=== PATIENT | female | born 1980 | race Caucasian/White ===

== ENCOUNTER → 2017-08-21 10:27 | Outpatient (CLI) | payer MEDICAID, SELFPAY ==
[2017-08-21 10:46] LABS: Basophils % 0.5 % (0.1-2.0); Eosinophils # 0.1 K/mm3 (0.0-0.4); Eosinophils % 2.5 % (0.1-12.0); Hemoglobin 13.8 g/dL (12.2-16.2); Lymphocytes # 2.4 K/mm3 (0.7-4.5); Mean Corpuscular HGB Conc 33.6 g/dL (31.8-35.4); Mean Corpuscular Hemoglobin 32.2 pg (27.0-31.2); Mean Platelet Volume 8.6 fl (7.4-10.4); Monocytes # 0.3 K/mm3 (0.1-1.0); Monocytes % 5.7 % (1.7-9.3); Neutrophils # 2.6 K/mm3 (1.8-7.8); Neutrophils % 48.3 % (37.0-80.0); Platelet Count 176 K/mm3 (142-424); Red Blood Count 4.28 M/mm3 (4.20-5.40); Red Cell Distribution Width 12.7 % (11.5-17.5); White Blood Count 5.5 K/mm3 (4.8-10.8)
[2017-08-21 13:09] LABS: Alanine Aminotransferase 212 U/L (12-78); Albumin Level 3.6 gm/dL (3.4-5.0); Alkaline Phosphatase 70 U/L (46-116); Anion Gap 12.6 mEq/L (5-15); Aspartate Amino Transferase 98 U/L (15-37); Bilirubin,Direct 0.2 mg/dL (0.0-0.2); Bilirubin,Total 0.8 mg/dL (0.2-1.0); Blood Urea Nitrogen 8 mg/dL (7-18); Carbon Dioxide 27 mmol/L (21.0-32.0); Chloride 105 mmol/L (98-107); Creatinine,Serum 0.55 mg/dL (0.55-1.02); Estimated Glomerular Filt Rate 124 ml/min (>60); GFR (African American) 150 ML/MIN (>60); Glucose 79 mg/dL (74-106); Potassium 3.6 mmoL/L (3.5-5.1); Sodium 141 mmol/L (136-145); Total Protein,Serum 8.5 gm/dL (6.4-8.2)
[2017-08-22 08:24] LABS: Hep A Ab, IgM Negative (Negative); Hepatitis B Core Antibody IgM Negative (Negative); Hepatitis B Surface Antigen Negative (Negative)
[2017-08-23 06:28] LABS: HIV Screen 4th Generation wRfx Non Reactive (Non Reactive); Hepatitis C Antibody >11.0 s/co ratio (0.0-0.9)
== END ==
PROVIDERS: PCP Nurse Practitioner Family; Visit Provider Anesthesiology
DX: F11.20 Opioid dependence, uncomplicated (principal)
CPT/HCPCS: 36415; 80048; 80074; 80076; 85025; 86703; G0432

== ENCOUNTER → 2022-10-24 10:11 | Outpatient (CLI) | payer MEDICAID, SELFPAY ==
--- NOTE | 2022-10-24 10:16 | MM_ITS ---
PROCEDURE INFORMATION: Exam: Bilateral Screening 3D Mammography Exam date and time: 10/24/2022 10:24 AM Age: 42 years old Clinical indication: Screening mammogram TECHNIQUE: Imaging protocol: Bilateral Screening tomosynthesis and 2D mammography including computer-aided detection (CAD) when performed. COMPARISON: No relevant prior studies available. FINDINGS: MAMMOGRAPHY: Breast composition: The breast is heterogeneously dense, which may obscure small masses. The breast is heterogeneously dense, which may obscure small masses. Mass: 0.4 cm mass within the inner periareolar right breast, not well-delineated on MLO, should be further assessed with spot views in CC/MLO projection. Ultrasound should also be performed. Architectural distortion: No new or suspicious architectural distortion. Calcifications: No new or suspicious calcifications are present Asymmetric density: No new or suspicious asymmetric density is present Skin thickening: None. Axillary adenopathy: None. IMPRESSION: 0.4 cm mass within the inner periareolar right breast, not well-delineated on MLO, should be further assessed with spot views in CC/MLO projection. Ultrasound should also be performed. ASSESSMENT: BI-RADS category 0: Incomplete-need additional imaging evaluation
--- NOTE | 2022-10-24 10:16 | US_ITS ---
FINAL REPORT CLINICAL HISTORY: ELEVATED LIVER ENZYMES COMPARISON: None FINDINGS: Sonographic images of the right upper quadrant were obtained. The pancreas is partially obscured. There is increased hepatic echogenicity consistent with fatty infiltration. The gallbladder appears normal without evidence of gallstones.There is no evidence of biliary ductal dilatation.The common duct measures 5 mm. Limited images of the right kidney are unremarkable. IMPRESSION: Fatty liver. Reviewed, Interpreted and Dictated by Trey Hill III, MD Transcribed by Fidelina Diaz Authenticated and [facility]
== END ==
PROVIDERS: PCP Nurse Practitioner Family; Referring Provider Nurse Practitioner Obstetrics & Gynecology; Visit Provider Nurse Practitioner Family
DX: Z12.31 Encounter for screening mammogram for malignant neoplasm of breast (principal); R74.01 Elevation of levels of liver transaminase levels
CPT/HCPCS: 76705; 77063; 77067

== ENCOUNTER → 2022-10-25 10:33 | Outpatient (CLI) | payer MEDICAID, SELFPAY | PROVIDERS: Visit Provider Nurse Practitioner Obstetrics & Gynecology | DX: N76.0 Acute vaginitis (principal); B95.7 Other staphylococcus as the cause of diseases classified elsewhere | CPT/HCPCS: 87070; 87077; 87186; 87205 ==

== ENCOUNTER → 2022-11-06 13:52 | Outpatient (CLI) | payer MEDICAID, SELFPAY ==
--- NOTE | 2022-11-06 13:57 | MM_ITS ---
PROCEDURE INFORMATION: Exam: US Right Breast, Complete MG Right Diagnostic Breast Tomosynthesis Exam date and time: 11/06/2022 2:25 PM Age: 42 years old Clinical indication: Patient recalled on the basis of a screening mammogram for further evaluation; Right breast; mass TECHNIQUE: Imaging protocol: Complete ultrasound of all four quadrants of the right breast and the retroareolar regions, including ultrasound of the axilla when performed. Right Diagnostic tomosynthesis and 2D mammography including computer-aided detection (CAD) when performed. Unilateral or bilateral exam. COMPARISON: MG MM DIG MAMM DX UNILAT RT CAD 11/06/2022 1:52 PM FINDINGS: MAMMOGRAPHY: Digital diagnostic spot compression views of the right breast and 90 degree lateral view of the right breast demonstrate normal overlapping fibroglandular structures without persistent mass or asymmetry identified. ULTRASOUND: Sonographic images of the right breast including the retroareolar region, all 4 quadrants and the axilla were obtained. 0.3 cm right 7 o'clock axis cyst 1 cm from the nipple. Questionable hypoechoic solid mass versus prominent fat lobule in the right 11 o'clock axis 2 cm from the nipple measuring 0.6 x 0.5 x 0.3 cm. No architectural distortion or acoustical shadowing. No skin thickening or axillary adenopathy. IMPRESSION: Questionable solid mass versus fat lobule in the right 11 o'clock axis. A six-month follow-up targeted right breast ultrasound is recommended to ensure stability over time. ASSESSMENT: BI-RADS Category 3: Probably benign
== END ==
PROVIDERS: PCP Nurse Practitioner Family; Visit Provider Nurse Practitioner Family
DX: R92.2 Inconclusive mammogram (principal)
CPT/HCPCS: 76641; 77061; 77065; G0279

== ENCOUNTER 2023-01-10 10:49 | Emergency (ER) | payer MEDICAID, SELFPAY ==
[2023-01-10 10:49] VITALS: BP 149/83; PULSE 96; RESP 17; TEMP 37; O2SAT 98; BMI 26.6
--- NOTE | 2023-01-10 11:10 | PC.NURSE ---
Triage completed. Patient stable, NAD, VSS. Updated on wait time and placed back out in lobby
--- NOTE | 2023-01-10 12:54 | CT_ITS ---
FINAL REPORT TECHNIQUE: Postcontrast axial images through the abdomen and pelvis were performed. This study was performed with techniques to keep radiation doses as low as reasonably achievable, (ALARA). Individualized dose reduction techniques using automated exposure control or adjustment of mA and/or kV according to the patient's size were employed. CLINICAL HISTORY: ABD PAIN FINDINGS: Abdomen: The lung bases are clear. The liver is normal in size and attenuation. The gallbladder is moderately distended. The spleen is unremarkable. The adrenals are normal. The pancreas is unremarkable. The kidneys enhance appropriately. The aorta is normal in caliber. No free fluid or adenopathy is identified. No findings for mechanical bowel obstruction are identified. Pelvis: The appendix is enlarged measuring 8 mm in diameter but no adjacent inflammation is identified. There is no convincing evidence of appendicitis. IUD seen in the uterus. There is wall thickening of the ascending and descending colon consistent with diverticulosis. The urinary bladder is unremarkable. There is a small amount of free fluid, may be physiologic or reactive. Note is made of bilateral L5 pars defects. IMPRESSION: The appendix is enlarged without convincing evidence of appendicitis. Diverticulosis without evidence of diverticulitis. Reviewed, Interpreted and Dictated by Trey Hill III, MD Transcribed by Yamel Hatch Authenticated and [facility]
[2023-01-10 13:03] LABS: Microscopic, Urine URINE MICROSCOPIC (MICROSCOPIC)
[2023-01-10 13:07] LABS: Basophils % 0.5 % (0.1-2.0); Eosinophils # 0.1 K/mm3 (0.0-0.4); Eosinophils % 1.7 % (0.1-12.0); Hematocrit 39.7 % (37.0-47.0); Hemoglobin 12.8 g/dL (12.2-16.2); Lymphocytes # 1.5 K/mm3 (0.7-4.5); Lymphocytes % 36.4 % (10-50); Mean Corpuscular HGB Conc 32.3 g/dL (31.8-35.4); Mean Corpuscular Hemoglobin 30.8 pg (27.0-31.2); Mean Corpuscular Volume 95.3 fl (81-99); Mean Platelet Volume 8.2 fl (7.4-10.4); Monocytes # 0.2 K/mm3 (0.1-1.0); Monocytes % 5.9 % (1.7-9.3); Neutrophils # 2.3 K/mm3 (1.8-7.8); Neutrophils % 55.5 % (37.0-80.0); Platelet Count 148 K/mm3 (142-424); Red Blood Count 4.16 M/mm3 (4.20-5.40); Red Cell Distribution Width 12.9 % (11.5-17.5); White Blood Count 4.1 K/mm3 (4.8-10.8)
[2023-01-10 13:08] LABS: Appearance,Urine SL CLOUDY (Clear); Bilirubin,Urine Negative (Negative); Blood, Urine Negative (Negative); Color,Urine DK YELLOW (Yellow); Glucose,Urine (UA) Negative (Negative); Ketones,Urine TRACE (Negative); Leukocyte Esterase,Urine Negative (Negative); Nitrate,Urine Negative (Negative); Protein,Urine Negative (Negative); Specific Gravity, Urine 1.025 (1.005-1.030)
[2023-01-10 13:14] LABS: Urine Pregnancy, HCG Qual. Negative (Negative)
[2023-01-10 13:29] LABS: WBC,Urine Occasional #/hpf (0-3)
[2023-01-10 13:30] VITALS: BP 125/75; PULSE 83; O2SAT 98
[2023-01-10 13:30] LABS: Bacteria,Urine Trace /lpf; Squamous Epithelial Cell,Urine Occasional #/hpf (0-5)
[2023-01-10 13:45] LABS: Alanine Aminotransferase 28 U/L (12-78); Albumin Level 4.2 g/dl (3.5-5.0); Alkaline Phosphatase 60 U/L (38-126); Aspartate Amino Transferase 37 U/L (14-36); Bilirubin,Total 0.7 mg/dl (0.2-1.3); Blood Urea Nitrogen 5 mg/dl (7-17); Calcium 8.9 mg/dl (8.4-10.2); Carbon Dioxide 29 mmol/L (22.0-30.0); Chloride 105 mmol/L (98-107); Creatinine Clearance Estimated 166 mL/min (50-200); Estimated Glomerular Filt Rate 135 ml/min (>60); GFR (African American) 163 ML/MIN (>60); Globulin 4.2 g/dL (1.3-3.2); Glucose 98 mg/dl (74-100); Lipase 28 U/L (23-300); Sodium 140 mmol/L (136-145); Total Protein,Serum 8.4 g/dl (6.3-8.2)
[2023-01-10 14:30] VITALS: BP 122/73; PULSE 80; O2SAT 99
--- NOTE | 2023-01-10 14:51 | HMH.EDGENADL ---
Discharge Plan Disposition Patient Disposition: Home, Self-Care Condition: Good Chief Complaint: Abdominal Pain Prescriptions Prescriptions: No Action Mirena 21 mcg/24 hours (8 yrs) 52 mg intrauterine device 1 device intrauterine ONCE spironolactone 25 mg tablet 25 mg PO DAILY Referrals Follow up/Referrals: Sheila Ashraf [Primary Care Provider] - See instructions Activity Restrictions/Add. Instructions Additional Instructions/Restrictions: Home medication as directed. Stay well-hydrated. Maintain appoint with gastroenterology. Follow-up PCP. Return to ER for fever Clinical Impressions Clinical Impression: Diverticulosis Abdominal pain Qualifiers: Abdominal location: generalized Qualified Code(s): R10.84 - Generalized abdominal pain Instructions Patient Instructions: DI for Acute Abdominal Pain Discharge ED Provider: Chase Trinh General Adult HPI General Chief complaint: Abdominal Pain Stated complaint: Abd pain, Rt back pain Time Seen by Provider: 01/10/23 14:21 Mode of Arrival: Ambulatory Source of Information: Patient Limitations: No Limitations Description of Symptoms (Recalled from ER Triage Doc. by RN): 42 F presents with chronic GI issues. She reports being scheduled for an EGD on Saturday with Dr. Brandon Salgado for evaluation. She was seen with her PCP yesterday who gave her Phenergan PO and Bentyl PO for nausea/pain. Patient has no acute symptoms this visit. History of Present Illness HPI narrative: 42yo F presents to the ER secondary to chronic GI issues. Scheduled for EGD on Saturday. Reports symptoms have not gotten any better so she came to the ER. No fever. Complains of abdominal cramps. Initially had normal bowel movements but now has diarrhea. but no other abdominal surgery. Related Data Home Medications Medication Instructions Recorded Confirmed spironolactone 25 mg tablet 25 mg PO DAILY 10/24/22 12/11/22 levonorgestrel 21 mcg/24 hours (8 1 device intrauterine ONCE 11/13/22 12/11/22 yrs) 52 mg intrauterine device (Mirena) Allergies Allergy/AdvReac Type Severity Reaction Status Date / Time From Penicillin V Potassium Allergy Unknown Uncoded 12/11/22 14:32 SULFA (SULFONAMIDE) Allergy Unknown I-HIVES Uncoded 12/11/22 14:32 [facility] Disclaimer: The information contained in this section may have been updated after the patient was seen, as this information can be updated by other users. Medical History delivery delivered Surgical History [place] teeth removed Family History Other Alcoholism Asthma Cancer Coronary artery disease Diabetes Heart attack Hyperlipidemia Hypertension Kidney disease Substance abuse Thyroid disorder Social History Smoking Status: Current every day smoker tobacco type: cigarettes alcohol intake: never substance use type: former substance user current occupational status: employed Travel in the last 8 weeks: None ROS Obtained: Yes Systems reviewed as appropriate & no additional complaints except as documented Physical Exam General General appearance: alert and in no apparent distress Head Head exam: normocephalic Eye Eye exam: Present PERRL Neck Neck exam: Present trachea midline Chest Chest inspection: Present symmetric chest wall rise Respiratory Respiratory exam: Present normal lung sounds bilaterally; Absent respiratory distress Cardiovascular Cardiovascular exam: Present regular rate, normal rhythm and normal heart sounds Abdominal Exam Abdominal exam: Present soft and normal bowel sounds; Absent distention, tenderness or guarding Extremities Exam Extremities exam: Present normal inspection and full ROM Neurological Exam Neurological exam: Present aler
[2023-01-10 15:00] VITALS: BP 117/70; PULSE 84; O2SAT 100
[2023-01-10 15:30] VITALS: BP 124/74; PULSE 82; O2SAT 99
[2023-01-10 15:55] VITALS: BP 124/74; PULSE 82; RESP 19; TEMP 37; O2SAT 99
== END 2023-01-10 15:57 | disposition home or self-care (01) ==
PROVIDERS: Emergency Provider Family Medicine; PCP Nurse Practitioner Family
DX: K57.30 Diverticulosis of large intestine without perforation or abscess without bleeding (principal); R10.84 Generalized abdominal pain; F17.210 Nicotine dependence, cigarettes, uncomplicated
CPT/HCPCS: 74177; 80053; 81001; 81025; 83690; 85025; 96361; 96374; 96375; 99284; 99285; J2405; Q9967

== ENCOUNTER 2023-12-04 08:19 | Outpatient (CLI) | payer BC, SELFPAY ==
--- NOTE | 2023-12-04 08:25 | MM_ITS ---
PROCEDURE INFORMATION: Exam: MG Bilateral Screening 3D Mammography Exam date and time: 12/04/2023 8:20 AM Age: 43 years old Clinical indication: Screening examination TECHNIQUE: Imaging protocol: Bilateral Screening tomosynthesis and 2D mammography including computer-aided detection (CAD) when performed. COMPARISON: 1. MG MM DIG MAMM DX UNILAT RT CAD 11/06/2022 1:52 PM 2. MG MM DIG SCREENING MAMM BI W/CAD 10/24/2022 10:24 AM FINDINGS: MAMMOGRAPHY: Breast composition: The breasts are heterogeneously dense, which may obscure small masses. Mass: None. Architectural distortion: None. Calcifications: No suspicious calcifications. Asymmetric density: None. Skin thickening: None. Axillary adenopathy: None. IMPRESSION: No mammographic evidence of malignancy. Annual screening is recommended unless otherwise clinically indicated. ASSESSMENT: BI-RADS Category 1: Negative
[2023-12-04 11:32] LABS: Basophils % 0.9 % (0.1-2.0); Hematocrit 39.6 % (37.0-47.0); Hemoglobin 13.4 g/dL (12.2-16.2); Lymphocytes # 1.6 K/mm3 (0.7-4.5); Lymphocytes % 36.1 % (10-50); Mean Corpuscular HGB Conc 33.8 g/dL (31.8-35.4); Mean Corpuscular Hemoglobin 32.3 pg (27.0-31.2); Mean Corpuscular Volume 95.6 fl (81-99); Monocytes # 0.3 K/mm3 (0.1-1.0); Monocytes % 5.6 % (1.7-9.3); Neutrophils # 2.5 K/mm3 (1.8-7.8); Neutrophils % 56.4 % (37.0-80.0); Platelet Count 144 K/mm3 (142-424); Red Blood Count 4.14 M/mm3 (4.20-5.40); Red Cell Distribution Width 13.1 % (11.5-17.5); White Blood Count 4.4 K/mm3 (4.8-10.8)
[2023-12-04 12:16] LABS: Chloride 103 mmol/L (98-107); Sodium 139 mmol/L (136-145)
[2023-12-04 12:17] LABS: Potassium 3.8 mmoL/L (3.5-5.1)
[2023-12-04 12:19] LABS: Alanine Aminotransferase 32 U/L (12-78); Albumin Level 4.4 g/dl (3.5-5.0); Albumin/Globulin Ratio 1.3 (1.1-1.8); Alkaline Phosphatase 73 U/L (38-126); Anion Gap 12.8 mEq/L (5-15); Aspartate Amino Transferase 31 U/L (14-36); Bilirubin,Total 0.6 mg/dl (0.2-1.3); Blood Urea Nitrogen 12 mg/dl (7-17); Carbon Dioxide 27 mmol/L (22.0-30.0); Cholesterol 148 mg/dl (140-200); Estimated Glomerular Filt Rate 109 ml/min (>60); GFR (African American) 131 ML/MIN (>60); Globulin 3.4 g/dL (1.3-3.2); Total Protein,Serum 7.8 g/dl (6.3-8.2); Triglycerides 57 mg/dl (30-150); VLDL Cholesterol 11 mg/dL (0-40)
[2023-12-04 12:20] LABS: Calcium 9.8 mg/dl (8.4-10.2); Chol/HDL Ratio 1.9 (1-3.5); Glucose 96 mg/dl (74-100); HDL Cholesterol 79 mg/dl (40-60)
[2023-12-04 12:32] LABS: Direct LDL Cholesterol 71.14 mg/dL (100-129)
[2023-12-04 12:36] LABS: Triiodothryronine (T3) Uptake 29 % (23.5-40.5)
[2023-12-04 12:38] LABS: Free Thyroxine Index 3.3 ug/dL (5.93-13.13); T4 (Thyroxine) 11.5 ug/dl (5.53-11.0)
[2023-12-04 12:51] LABS: Thyroid Stimulating Hormone 1.24 uIU/mL (0.465-4.68)
[2023-12-05 13:47] LABS: Estradiol 76.9 pg/mL (.); FSH 20.9 mIU/mL (.); LH 10.9 mIU/mL (.)
[2023-12-10 18:58] LABS: Testosterone,Free 1.7 pg/mL (0.0-4.2)
== END 2023-12-04 23:59 | disposition home or self-care (01) ==
LOC: RAD 08:20
PROVIDERS: Nurse Practitioner Obstetrics & Gynecology; PCP Nurse Practitioner Family; Visit Provider Nurse Practitioner Family
DX: Z01.419 Encounter for gynecological examination (general) (routine) without abnormal findings (principal); L65.9 Nonscarring hair loss, unspecified; Z12.31 Encounter for screening mammogram for malignant neoplasm of breast
CPT/HCPCS: 36415; 77063; 77067; 80053; 80061; 82626; 82670; 83001; 83002; 84402; 84436; 84443; 84479; 85025

== ENCOUNTER 2024-12-17 16:00 | Outpatient (RCR) | payer BC, SELFPAY | END 2024-12-17 23:59 | disposition home or self-care (01) | LOC: PT.CARL 16:00 | PROVIDERS: PCP Nurse Practitioner Family; Visit Provider Nurse Practitioner Family | DX: M54.12 Radiculopathy, cervical region (principal) | CPT/HCPCS: 97110; 97140; 97161 ==

== ENCOUNTER 2024-12-28 09:26 | Emergency (ER) | payer BC, SELFPAY ==
--- OUTSIDE RECORDS SUMMARY | 2024-12-21 10:00 | XMS_ITS | Encounter Summary ---
Author Organization [facility] [place] [address] Care Team Providers Care Cilnical Scientist Name Role Phone Unavailable Primary Care Provider Unavailabl e Reason for Referral * Mammography (Routine) - Pending Review Specialty Diagnoses / Procedures Referred By Cachorro machado Referred To Contact Radiology Diagnoses Encounter for screening mammogram for malignant neoplasm of breast Procedures MM MAMMO DIGITAL JULIUS SCREEN Sheila Joe, X[facility] [place] [address] Phone: tel: fax: Referral ID Status Reason Start Date Expiration Date V isits Requested Visits Authorized [id number] Pending Review 11/12/2024 11/12/2026 1 1 Reason for Visit * Mammography (Routine) - Pending Review Specialty Diagnoses / Procedures Referred By Cachorro machado Referred To Contact Radiology Diagnoses Encounter for screening mammogram for malignant neoplasm of breast Procedures MM MAMMO DIGITAL JULIUS SCREEN Sheila Joe, [facility] [place] [address] Phone: tel: fax: Referral ID Status Reason Start Date Expiration Date V isits Requested Visits Authorized [id number] Pending Review 11/12/2024 11/12/2026 1 1 Encounter Details Date Type Department Care Team (Latest Contact Info) Description 12/21/2024 10:00 AM EDT - 12/21/2024 11:59 PM EDT Hospital Encounter Mobile Mammography Other Location View online schedule for mobile van location [phone] Sheila Ashraf APRN [address] [place] [address] Encounter for screening mammogram for malignant neoplasm of breast Discharge Disposition: Home or Self Care Social History Tobacco Use Types Packs/Day Years Used Date Smoking Tobacco: Never Assessed Comments No Sex and Gender Information Value Date Recorded Sex Assigned at Not on file Legal Sex Female 12:07 PM EDT Gender Identity Not on file Sexual Orientation Not on file documented as of this encounter Last Filed Vital Signs Vital Sign Reading Time Taken Comments Blood Pressure - - Pulse - - Temperature - - Respiratory Rate - - Oxygen Saturation - - Inhaled Oxygen Concentration - - Weight 69.4 kg (153 lb) 12/21/2024 10:09 AM EDT Height 167.6 cm (5' 6 ) 12/21/2024 10:09 AM EDT Body Mass Index 24.69 12/21/2024 10:09 AM EDT documented in this encounter Discharge Disposition Disposition Code Departure Means Destination Home or Self Care documented in this encounter Plan of Treatment Not on file documented as of this encounter Procedures Procedure Name Priority Date/Time Associated Diagnosis Comments MM MAMMO DIGITAL JULIUS SCREEN BILAT Routine 12/21/2024 10:09 AM EDT Encounter for screening mammogram for malignant neoplasm of breast documented in this encounter Results * MM MAMMO DIGITAL JULIUS SCREEN BILAT (12/21/2024 10:09 AM EDT) Anatomical Region Laterality Modality Breast Bilateral Mammography 12/21/2024 10:0 9 AM EDT Impressions 12/22/2024 12:24 PM EDT Negative ([id number]) RECOMMENDATION: Routine Screening Mammogram in 1 Year Bilateral . . COMMENTS: DISCLAIMER *The patient was notified by MyChart or mail of the results for this examination. *The patient's information was entered into a reminder system with a target due date for the next breast imaging, in accordance with the [employer] and the Society of Breast Imaging recommendations. *Breast Imaging has a false negative rate of 15%. *Any patient with a palpable abnormality, unexplained by breast imaging, should be managed on a clinical basis by the attending physician. Narrative 12/22/2024 12:24 PM EDT EXAM: MM MAMMO DIGITAL JULIUS SCREEN BILAT EXAM DATE: 12/21/2024 10:09 AM INDICATION: Z12.31-Encounter for screening mammogram for malignant neoplasm of [id number] COMPARISON STUDIES: Compared with prior studies the most recent being 12/04/2023 from [place], [place] TISSUE DENSITY: The breasts are heterogeneously dense, which may obscure small masses. FINDINGS: No mammographic evidence of malignancy. Procedure Note Flavio Figueroa MD - 12/22/2024 EXAM: MM MAMMO DIGITAL JULIUS SCREEN BILAT EXAM DATE: 12/21/2024 10:09 AM INDICATION: Z12.31-Encounter for screening mammogram for malignantneoplasm of [id number]-CM COMPARISON STUDIES: Compared with prior studies the most recent being 12/04/2023 from [place], [place] TISSUE DENSITY: The breasts are heterogeneously dense, which may obscuresmall masses. FINDINGS: No mammographic evidence of malignancy. IMPRESSION: Negative ([id number]-2) RECOMMENDATION: Routine Screening Mammogram in 1 Year Bilateral . . COMMENTS: DISCLAIMER *The patient was notified by MyChart or mail of the results for this examination. *The patient's information was entered into a reminder system with atarget due date for the next breast imaging, in accordance with the [employer] and the Society of Breast Imaging recommendations. *Breast Imaging has a false negative rate of 15%. *Any patient with a palpable abnormality, unexplained by breast imaging,should be managed on a clinical basis by the attending physician. Sheila Ashraf APRN IMG MAMMOGRAPHY ORDERABLES Fin al Result documented in this encounter Visit Diagnoses Diagnosis Encounter for screening mammogram for malignant neoplasm of breast Other screening mammogram documented in this encounter
[2024-12-28 09:38] VITALS: BP 141/87; PULSE 96; RESP 16; TEMP 37.5; O2SAT 100; BMI 25.4
--- OUTSIDE RECORDS SUMMARY | 2024-12-28 09:41 | XMS_ITS | Clinical Summary ---
Author Organization [facility] Address [address] [place] [address] Phone Care Team Providers Care Tile Sprayer Name Role Phone Unavailable Primary Care Provider Unavailabl e Encounters Date Type Department Care Team Description 12/21/2024 10:00 AM EDT - 12/21/2024 11:59 PM EDT Hospital Encounter Mobile Mammography Other Location View online schedule for mobile van location [phone] Sheila Ashraf APRN Encounter for screening mammogram for malignant neoplasm of breast Discharge Disposition: Home or Self Care from Last 3 Months Social History Tobacco Use Types Packs/Day Years Used Date Smoking Tobacco: Never Assessed Comments No Sex and Gender Information Value Date Recorded Sex Assigned at Not on file Legal Sex Female 12:07 PM EDT Gender Identity Not on file Sexual Orientation Not on file Obstetrics History Para Term AB IAB SAB Ectopic Multiple Livin g Live Births 1 Last Filed Vital Signs Vital Sign Reading Time Taken Comments Blood Pressure - - Pulse - - Temperature - - Respiratory Rate - - Oxygen Saturation - - Inhaled Oxygen Concentration - - Weight 69.4 kg (153 lb) 12/21/2024 10:09 AM EDT Height 167.6 cm (5' 6 ) 12/21/2024 10:09 AM EDT Body Mass Index 24.69 12/21/2024 10:09 AM EDT Plan of Treatment Health Maintenance Due Date Last Done Comments Annual Wellness Exam 1982 DTaP/TDaP/Td (1 - Tdap) 1998 Hepatitis B Vaccine (1 of 3 - 19+ 3-dose series) 1998 Cervical Cancer Screening 01/22/2000 Pap Smear 01/22/2000 HPV/Pap Cotest 2009 Cologuard 01/22/2024 Colon Cancer Screening 01/22/2024 Colonoscopy 01/22/2024 FIT 01/22/2024 Sigmoidoscopy 01/22/2024 Virtual Colonography 01/22/2024 COVID-19 Vaccine (2023-2 5 season) 2024 Influenza Vaccine (Season Ended) 2025 Breast Cancer Screening 12/21/2026 12/21/2024 Meningococcal B Vaccine Aged Out No l onger eligible based on patient's age to complete this topic Pneumococcal Vaccine 0-49 Aged Out No longer eligible based on patient's age to complete this topic Procedures Procedure Name Priority Date/Time Associated Diagnosis Comments MM OUTSIDE FILMS FOR COMPARISON Routine 12/22/2024 11:47 AM EDT MM OUTSIDE FILMS FOR COMPARISON Routine 12/22/2024 11:46 AM EDT MM OUTSIDE FILMS FOR COMPARISON Routine 12/22/2024 11:46 AM EDT MM OUTSIDE FILMS FOR COMPARISON Routine 12/22/2024 11:45 AM EDT MM MAMMO DIGITAL JULIUS SCREEN BILAT Routine 12/21/2024 10:09 AM EDT Encounter for screening mammogram for malignant neoplasm of breast from Last 3 Months Results * MM OUTSIDE FILMS FOR COMPARISON (12/22/2024 11:47 AM EDT) Only the most recent of4 resultswithin the time period is included. us Unknown Provider IMG MAMMOGRAPHY ORDERABLES Ashley l Result PACS * MM MAMMO DIGITAL JULIUS SCREEN BILAT (12/21/2024 10:09 AM EDT) Anatomical Region Laterality Modality Breast Bilateral Mammography 12/21/2024 10:0 9 AM EDT Impressions 12/22/2024 12:24 PM EDT Negative ([id number]) RECOMMENDATION: Routine Screening Mammogram in 1 Year Bilateral . . COMMENTS: DISCLAIMER *The patient was notified by MyChart or mail of the results for this examination. *The patient's information was entered into a reminder system with a target due date for the next breast imaging, in accordance with the [employer] and the Society of [...] for screening mammogram for malignant neoplasm of [id number] COMPARISON STUDIES: Compared with prior studies the most recent being 12/04/2023 from [place], [place] TISSUE DENSITY: The breasts are heterogeneously dense, which may obscure small masses. FINDINGS: No mammographic evidence of malignancy. Procedure Note Flavio Figueroa MD - 12/22/2024 EXAM: MM MAMMO DIGITAL JULIUS SCREEN BILAT EXAM DATE: 12/21/2024 10:09 AM INDICATION: Z12.31-Encounter for screening mammogram for malignantneoplasm of [id number] COMPARISON STUDIES: Compared with prior studies the most recent being 12/04/2023 from [place], [place] TISSUE DENSITY: The breasts are heterogeneously dense, which may obscuresmall masses. FINDINGS: No mammographic evidence of malignancy. IMPRESSION: Negative ([id number]) RECOMMENDATION: Routine Screening Mammogram in 1 Year Bilateral . . COMMENTS: DISCLAIMER *The patient was notified by MyChart or mail of the results for this examination. *The patient's information was entered into a reminder system with atarget due date for the next breast imaging, in accordance with the [employer] and the Society of Breast Imaging recommendations. *Breast Imaging has a false negative rate of 15%. *Any patient with a palpable abnormality, unexplained by breast imaging,should be managed on a clinical basis by the attending physician. Sheila Ashraf APRN IMG MAMMOGRAPHY ORDERABLES Fin al Result from Last [address] [place], [place] [id number] PPO
[2024-12-28 10:00] VITALS: BP 147/102; PULSE 101; RESP 16; O2SAT 98
[2024-12-28 10:05] VITALS: BP 131/77; PULSE 100; RESP 15; O2SAT 99
--- NOTE | 2024-12-28 10:05 | CT_ITS ---
FINAL REPORT TECHNIQUE: After the administration of intravenous contrast, axial images were obtained through the abdomen and pelvis by computed tomography. This study was performed with technique to keep radiation doses as low as reasonably achievable, (ALARA). Individualized dose reduction techniques using automated exposure control or adjustment of the MA and/or KV according to the patient's size were employed. CLINICAL HISTORY: no BM 5 days still passing flatus FINDINGS: Abdomen: The lung bases are clear. The liver is mildly fatty infiltrated. Gallbladder is partially contracted. Gallbladder wall is mildly prominent. The spleen is enlarged at 14.6 cm in craniocaudad dimension. The adrenals are normal. The pancreas is unremarkable. There is a patchy area of abnormal diminished enhancement in the right kidney concerning for multifocal pyelonephritis. The aorta is normal in caliber. There is no free fluid or adenopathy. Pelvis: The appendix is mildly enlarged at the tip measuring 7 mm without surrounding inflammatory change. Uterus is anteverted. An IUD is present. The urinary bladder is unremarkable. There is no free fluid or adenopathy. There is grade 1 spondylolisthesis of L5 on S1. There are bilateral L5 pars defects with high-grade bilateral neuroforaminal narrowing. IMPRESSION: Prominence of the tip of the appendix which may be constitutional. If there is symptoms for acute appendicitis, consider follow-up exam in 12-24 hours. Areas of diminished enhancement in the right renal cortex concerning for acute pyelonephritis. Reviewed, Interpreted and Dictated by Moshe Stubbs MD Transcribed by Staci Reed Authenticated and [facility]
--- NOTE | 2024-12-28 10:05 | CT_ITS ---
FINAL REPORT TECHNIQUE: Axial images were obtained from skull base to the thoracic inlet by computed tomography. Coronal and sagittal reconstruction process performed. This study was performed with techniques to keep radiation doses as low as reasonably achievable (ALARA). Individualized dose reduction techniques using automated exposure control or adjustment of mA and/or kV according to the patient''s size were employed. CLINICAL HISTORY: pain winging down BUE FINDINGS: There is no acute fracture or subluxation. The disc spaces are preserved. The facets are normally aligned. The soft tissues are unremarkable. Limited images of the lung apices are unremarkable. Prominent midline and right paracentral osteophytes are seen at C5-6 with moderate right canal stenosis. IMPRESSION: Moderate right canal stenosis at C5-6. Otherwise, unremarkable exam. Reviewed, Interpreted and Dictated by Moshe Stubbs MD Transcribed by Staci Reed Authenticated and [facility]
--- NOTE | 2024-12-28 10:05 | PC.NURSE ---
I gave the pts MRI disc to radiology to upload into her chart.
--- NOTE | 2024-12-28 10:07 | PC.NURSE ---
gave pt ice chips
--- NOTE | 2024-12-28 10:08 | ED_ITS ---
Discharge Plan Disposition Patient Disposition: Xfer Short-Term Hosp Prescriptions Prescriptions: No Action Mirena 21 mcg/24 hours (8 yrs) 52 mg intrauterine device 1 device intrauterine ONCE spironolactone 50 mg tablet 50 mg PO DAILY Patient Comments: TAKE ONE TABLET BY MOUTH DAILY metronidazole 500 mg tablet 500 mg PO BID 7 Days Qty: 14 0RF Referrals Follow up/Referrals: Sheila Ashraf [Primary Care Provider, Medical] - See instructions Clinical Impressions Clinical Impression: Cervical spinal cord compression Print Language Print Language: Croatian Discharge ED Provider: Gus Munoz General Adult HPI General Chief complaint: PAIN Stated complaint: back pain Time Seen by Provider: 12/28/24 09:51 Mode of Arrival: EMS Source of Information: Patient and EMS Description of Symptoms (Recalled from ER Triage Doc. by RN): pt presents to ED with c/o numbness and tingiling in bilateral hands and feet. pt has a known cervical c5-c6 disc herniation confirmed with MRI. [facility] was supposed to call pt today to schedule surgery for pt. symptoms began approx 2 months ago and have been increasing. fever of unknown origin began saturday. History of Present Illness HPI narrative: Patient is a 44-year-old female with past medical history of chronic back pain and worsening symptomatology suspected be related to that over the last few months who presents emergency department for evaluation of back pain and bodyaches. History is obtained by patient at bedside. She has been sleeping at 45 degrees for over a year due to back pain which happens at multiple levels. She has never seen a spinal surgeon for this. MRI was conducted last Saturday where she reportedly has a disc protrusion at C5-C6. She has had some paresthesias over her fingertips that are gotten progressively ascending over the last few months particularly over the last week has spread up her distal forearm. No bowel or bladder incontinence although she has not had a bowel movement in 4 days which is concerning to her because she normally has a bowel movement every day. She has had low-grade fevers at home. Her back pain was significantly worse after laying down for the MRI last week. She has limited ability to turn her head in either direction and is hunched over in bed. No other acute complaints at this time. Please note that above description of symptoms, in this electronic medical record under categorization of recalled from ER triage doctor by RN are reflective of an initial nursing assessment, however, is not reflective of my full history and physical exam that was personally taken and clarified. Consequentially, this preceding description of symptoms, which may include the patient's categorized chief complaint in the EMR, do not reflect my personal clinical impression, and the ultimate description of history of present illness and patient stated complaints should be deferred to this section of the note. Unless stated otherwise or congruent with this section of the note, additional signs, symptoms, or incongruence should be interpreted as inaccurate with my clinical impression. Related Data Home Medications ?Medication ?Instructions ?Recorded ?Confirmed levonorgestrel (Mirena) 1 device intrauterine ONCE 0 11/13/22 03/23/24 spironolactone 50 mg tablet 50 mg PO DAILY 12/04/23 Previous Rx's ?Medication ?Instructions ?Recorded metronidazole 500 mg tablet 500 mg PO BID 7 days #14 t abs 03/27/24 Allergies Allergy/AdvReac Type Severity Reaction Status Date / Time From Penicillin V Potassium Allergy Unknown Uncoded 03/23/24 13:28 SULFA (SULFONAMIDE) Allergy Unknown I-HIVES Uncoded 03/23/24 13:28 [facility] Disclaimer: The information contained in this section may have been updated after the patient was seen, as this information can be updated by other users. Medical History delivery delivered Surgical History Magn[place] teeth removed Family History Other Alcoholism Asthma Cancer Coronary artery disease Diabetes Heart attack Hyperlipidemia Hypertension Kidney disease Substance abuse Thyroid disorder Social History Smoking Status: Current every day smoker tobacco type: cigarettes alcohol intake: never substance use type: former substance user current occupational status: employed Travel in the last 8 weeks?: None Have you lived/traveled outside [place] in past 30 days?: No Contact w/someone who lives/traveled outside US past 30 days?: No Exposure to someone with infectious disease in past 14 days?: No Do you have a fever (greater than 100.4 F or 38 C)?: No Have you tested positive for COVID-19?: No Exposed to someone with COVID-19 in past 14 days?: No Do you have a sore throat?: No Do you have a cough?: No Do you have any weakness?: No Do you have any diarrhea?: No Are you experiencing any unusual bleeding?: No Do you have any muscle aches/pain?: No Do you have any abdominal pain?: No Are you experiencing loss of taste or smell?: No Other Medical History Have you received the Pneumonia Vaccine: No ROS Obtained: Yes Systems reviewed as appropriate & no additional complaints except as documented Physical Exam General General appearance: alert Comment: Appearing uncomfortable in bed Head Head exam: atraumatic and normocephalic Eye Eye exam: Present PERRL and EOMI ENT ENT exam: Present mucous membranes moist Neck Neck exam: Present normal inspection Chest Chest inspection: Present normal inspection and symmetric chest wall rise Respiratory Respiratory exam: Present normal lung sounds bilaterally; Absent respiratory distress Cardiovascular Cardiovascular exam: Present regular rate and normal rhythm Abdominal Exam Abdominal exam: Present soft; Absent tenderness Extremities Exam Extremities exam: Present normal inspection Back Exam Back exam: Present normal inspection and other (Tenderness over the midline cervical spine) Neurological Exam Neurological exam: Present alert, CN II-XII intact and motor sensory deficit (Decreased sensation over the distal forearm down through the hands bilaterally, the back of the calf down into the global foot bilaterally. Palpable symmetric pulses bilaterally) Psychiatric Psychiatric exam: Present normal affect Skin Skin exam: Present warm and dry Medical Decision Making Medical Records Screening: Per USPSTF and CDC recommendations, given the prevalence of disease in our region, it is our hospital?s policy to screen for HIV and viral Hepatitis for all patients aged 18 and over and those with ongoing risk factors. Stefan Inquiry Pt receiving controlled substance: No Vital Signs: 12/28/24 09:38 12/28/24 10:00 12/28/24 10:05 Temperature 99.5 F Temperature Source Oral Pulse Rate 101 H 100 H Pulse Rate [Left Radial] 96 H Respiratory Rate 16 16 15 Blood Pressure 147/102 H 131/77 Blood Pressure [Right Arm] 141/87 H Blood Pressure Mean [Right Arm] 105 02 Sat by Pulse Oximetry 100 98 99 Lab Data Lab Results 12/28/24 09:32: WBC 7.5, RBC 4.11 L, Hgb 12.8, Hct 36.9 L, MCV 89.8, MCH 31.1, MCHC 34.7, RDW 12.0, Plt Count 132 L, MPV 10.6 H, Neut % (Auto) 76.4, Lymph % (Auto) 10.1, [place] % (Auto) 12.6 H, Eos % (Auto) 0.1, Baso % (Auto) 0.3, Neut # (Auto) 5.7, Lymph # (Auto) 0.8, [place] # (Auto) 1.0, Eos # (Auto) 0.0, Baso # (Auto) 0.0, Sodium 136, Potassium 3.4 L, Chloride 97 L, Carbon Dioxide 28, Anion Gap 14.4, BUN 8, Creatinine 0.60, Estimated Creat Clear 130, Estimated GFR 108, Est GFR ( Amer) 131, Glucose 121 H, Calcium 11.0 H, Total Bilirubin 1.3, AST 37 H, ALT 42, Alkaline Phosphatase 70, Total Creatine Kinase 44, Total Protein 8.0, Albumin 4.2, Globulin 3.8 H, Albumin/Globulin Ratio 1.1, Serum HCG, Qual Negative 12/28/24 09:32 12/28/24 09:32 Orders (Tests/Meds): ED MEDICATIONS Discontinued Medications Generic Name Dose Route Start Last Admin Trade Name Freq PRN Reason Stop Dose Admin Acetaminophen 1,000 mg 12/28/24 10:05 12/28/24 10:27 Acetaminophen 1,000mg/100ml Vial IV 12/28/24 10:06 1,000 mg ONCE ONE Administration Lidocaine 1 each 12/28/24 10:05 12/28/24 10:30 Lidocaine 5% Transdermal Patch TD 12/28/24 10:06 1 each ONCE ONE Administration Methocarbamol 1,000 mg 12/28/24 10:07 12/28/24 10:27 Methocarbamol 500mg Tablet PO 12/28/24 10:08 1,000 mg ONCE ONE Administration Methylprednisolone Sodium Succinate 125 mg 12/28/24 10:05 12/28/24 10:30 Methylprednisolone Sod Succ 125mg Vial IV 12/28/24 10:06 125 mg ONCE ONE Administration ORDERS Category Date Time Status CT abdomen pelvis w con Stat Cat Scan 12/28/24 10:[address] cervical spine wo con Stat Cat Scan 12/28/24 10:05 Ordered CBC w/Auto Diff [Complete Blood Count Auto Diff] Stat Lab 06/30/25 09:32 Completed CK [Creatine Kinase] Stat Lab 12/28/24 09:32 Completed CMP [Comprehensive Metabolic Panel] Stat Lab 12/28/24 09:32 Completed HCG Qualitative, Serum Stat Lab 12/28/24 09:32 Completed HIV Combo Stat Lab 12/28/24 09:32 Received Hepatitis C Ab Qual. W/ RFX Stat Lab 12/28/24 09:32 Received Rapid PCR Covid and Flu A/B Stat Lab 12/28/24 10:16 Received UA [Urinalysis and Microscopic] Stat Lab 12/28/24 10:10 Ordered Medical Decision Narrative: In summary patient is a 44-year-old female past medical history described above presents emergency department for acute on chronic back pain. Patient is hemodynamically stable nontoxic-appearing upon arrival, afebrile. Patient appears to be in significant pain and has disc retrusion per MRI report. With respect her back pain CT cervical spine will be obtained. Postvoid residual will be obtained. Initial inventions include multimodal nonnarcotic pain control at patient's request. In terms of her body aches and low-grade fever I suspect she has a nonspecific viral syndrome. Given her chronicity of back pain and acutely worse and positional after her MRI no concern for meningitis at this time. She has not had a bowel movement in 4 days but does not have incontinence and no bladder incontinence and is still able to ambulate and has a nontender abdomen CT of the abdomen pelvis was considered but will be deferred. MRI report will be uploaded and imaging will be uploaded from [facility] to make a more informed decision. MRI was obtained from outside facility she has significant disc bulge C5-C6 with severe spinal canal stenosis with cord flattening and compression suggestive of subtle intrinsic cord signal alteration could be cord edema or myelomalacia. The case was discussed with [facility] neurosurgery spine on-call graciously accepted patient for transfer for continued evaluation at this time from ER to ER. Critical Care Critical Care Time Critical Care Time: Yes Attestation: On 12/28/24, the high probability of a clinically significant, sudden or life threatening deterioration of the following system(s) required my full and direct attention, intervention and personal management. The time I documented below is in addition to time spent performing reported procedures but includes the following listed in this critical care notation. Total Time Total Critical Care Time: 45
--- NOTE | 2024-12-28 10:08 | PC.NURSE ---
I rounded on the pt. She states she is unable to provide a urine sample. no new complaints at this time. no needs voiced. call barr in reach.
[2024-12-28 10:14] LABS: Albumin Level 4.2 g/dl (3.5-5.0); Basophils % 0.3 % (0.1-2.0); Chloride 97 mmol/L (98-107); Eosinophils % 0.1 % (0.1-12.0); Hematocrit 36.9 % (37.0-47.0); Hemoglobin 12.8 g/dL (12.2-16.2); Immature Granulocytes # 0.04 10^3uL; Immature Granulocytes % 0.5 %; Lymphocytes # 0.8 K/mm3 (0.7-4.5); Lymphocytes % 10.1 % (10-50); Mean Corpuscular HGB Conc 34.7 g/dL (31.8-35.4); Mean Corpuscular Hemoglobin 31.1 pg (27.0-31.2); Mean Corpuscular Volume 89.8 fl (81-99); Mean Platelet Volume 10.6 fl (7.4-10.4); Monocytes % 12.6 % (1.7-9.3); Neutrophils # 5.7 K/mm3 (1.8-7.8); Neutrophils % 76.4 % (37.0-80.0); Nucleated Red Blood Cells # 0 10^3/uL; Nucleated Red Blood Cells % 0 %; Platelet Count 132 K/mm3 (142-424); Potassium 3.4 mmoL/L (3.5-5.1); Red Blood Count 4.11 M/mm3 (4.20-5.40); Red Cell Distribution Width-SD 39.6 fL; Sodium 136 mmol/L (136-145); White Blood Count 7.5 K/mm3 (4.8-10.8)
--- NOTE | 2024-12-28 10:14 | PC.NURSE ---
Called [facility] to have the fax over the MRI report on this pt. per Dr Munoz
[2024-12-28 10:16] LABS: Alanine Aminotransferase 42 U/L (12-78); Alkaline Phosphatase 70 U/L (38-126); Anion Gap 14.4 mEq/L (5-15); Aspartate Amino Transferase 37 U/L (14-36); Bilirubin,Total 1.3 mg/dl (0.2-1.3); Blood Urea Nitrogen 8 mg/dl (7-17); Carbon Dioxide 28 mmol/L (22.0-30.0); Creatinine Clearance Estimated 130 mL/min (50-200); Estimated Glomerular Filt Rate 108 ml/min (>60); GFR (African American) 131 ML/MIN (>60); Globulin 3.8 g/dL (1.3-3.2)
[2024-12-28 10:17] LABS: Albumin/Globulin Ratio 1.1 (1.1-1.8); Creatine Kinase 44 U/L (30-135); Glucose 121 mg/dl (74-100)
[2024-12-28 10:21] LABS: Coronavirus 19, PCR Not Detected (NotDetected); Influenza A, PCR Not Detected (NotDetected); Influenza B, PCR Not Detected (NotDetected)
[2024-12-28 10:23] LABS: HCG Qualitative, Serum Negative (Negative)
--- NOTE | 2024-12-28 10:23 | PC.NURSE ---
Called [facility] for possible transfer, will call Dr. Munoz back
--- NOTE | 2024-12-28 10:25 | PC.NURSE ---
Images were power shared to [facility]
[2024-12-28] MEDS: METHOCARBAMOL 500MG TABLET 1000 MG PO (10:27)
[2024-12-28] MEDS: ACETAMINOPHEN 1,000MG/100ML VIAL 1000 MG IV (10:27)
[2024-12-28 10:30] VITALS: BP 143/88; PULSE 94; RESP 20; O2SAT 99
[2024-12-28] MEDS: LIDOCAINE 5% TRANSDERMAL PATCH 1 EACH TD (10:30)
[2024-12-28] MEDS: METHYLPREDNISOLONE SOD SUCC 125MG VIAL 125 MG IV (10:30)
--- NOTE | 2024-12-28 10:40 | PC.NURSE ---
Debra EMT is speaking with [employer] inquiring about transporting the pt to [facility]
[2024-12-28] MEDS: SODIUM CHLORIDE 0.9% 10ML SYR (RAD ONLY) 10 ML IV (10:43)
[2024-12-28] MEDS: 0.9 % SODIUM CHLORIDE 50 ML VIAL IV (10:43)
--- NOTE | 2024-12-28 10:43 | PC.NURSE ---
[place] [facility] accepted flight to for pt, will arrive in about 20 minutes.
[2024-12-28] MEDS: IOPAMIDOL-370 (76%);100ML BOTTLE 75 ML IV (10:44)
[2024-12-28 10:48] LABS: HIV Combo NEGATIVE (Negative)
[2024-12-28 10:55] LABS: Hepatitis C Ab Qual. W/ RFX REACTIVE (Negative)
[2024-12-28 11:01] VITALS: BP 160/95; PULSE 93; RESP 18; O2SAT 99
[2024-12-28 11:12] VITALS: BP 160/95; PULSE 89; RESP 16; TEMP 37.5; O2SAT 99
== END 2024-12-28 11:17 | disposition short-term general hospital (02) ==
PROVIDERS: Emergency Provider Emergency Medicine; PCP Nurse Practitioner Family
DX: M50.222 Other cervical disc displacement at C5-C6 level (principal); M48.02 Spinal stenosis, cervical region; R20.2 Paresthesia of skin; F17.210 Nicotine dependence, cigarettes, uncomplicated
CPT/HCPCS: 72125; 74177; 80053; 82550; 84703; 85025; 86803; 87389; 87522; 87636; 96374; 96375; 99285; J0131; J2919; Q9967

== ENCOUNTER 2025-03-20 21:38 | Emergency (ER) | payer BC, SELFPAY ==
--- OUTSIDE RECORDS SUMMARY | 2025-01-28 14:00 | XMS_ITS | Encounter Summary ---
Author Organization Healthcare Address [address] [place] [address] Care Team Providers Care Development Director Name Role Phone Pascale Sheila Bill CONSTRUCTION SITE MANAGER Primary Care Provider + [phone] Jeremy Ramirez MD Unavailable [phone] Marisol Allen CONSTRUCTION SITE MANAGER Unavailable [phone] Reason for Visit * Reason Comments Pre-op Exam Encounter Details Date Type Department Care Team (Late st Contact Info) Description 01/28/2025 2:00 PM EDT Consult [facility] [address] [place] [address] Marisol Allen, CONSTRUCTION SITE MANAGER [address] [place] [address] Myelopathy (CMS/HCC) (Primary Dx); Pre-op evaluation; Cervical stenosis of spine; Lakhani sign present; Paresthesia of upper extremity Social History Tobacco Use Types Packs/Day Years Used Date Smoking Tobacco: Some Days Cigarettes 0.3 30.7 Started: 07/1994 Smokeless Tobacco: Never Alcohol Use Standard Drinks/Week Comments Not Currently 0 (1 standard drink = 0.6 oz pur e alcohol) rare Comments No Sex and Gender Information Value Date Recorded Sex Assigned at Female 02/17/2025 6:46 AM EDT Legal Sex Female 6:48 PM EDT Gender Identity Female 02/17/2025 6:46 AM EDT Sexual Orientation Straight 02/17/2025 6: 46 AM EDT documented as of this encounter Last Filed Vital Signs Vital Sign Reading Time Taken Comments Blood Pressure 132/82 01/28/2025 2:22 PM EDT Pulse - - Temperature - - Respiratory Rate - - Oxygen Saturation - - Inhaled Oxygen Concentration - - Weight 70.8 kg (156 lb 1.4 oz) 01/28/2025 2:22 P M EDT Height 165.1 cm (5' 5 ) 01/28/2025 2:22 PM EDT Body Mass Index 25.97 01/28/2025 2:22 PM EDT documented in this encounter Miscellaneous Notes * Progress Notes - Marisol Allen, CONSTRUCTION SITE MANAGER - 01/28/2025 2:00 PM EDT We had the pleasure of evaluating your patient today for preoperative neurosurgical evaluation. My full exam follows. Chief Complaint: Preop History of Present Illness: Hyacinth Marin is a pleasant 45 y.o. female who presents to the neurosurgical clinic for preoperative planning and assessment. She is scheduled to undergo a C3-C7 posterior cervical fusion on 02/16/[address] Ramirez. She was last evaluated in the clinic on 01/08/2025. She presented with numbness and progressive weakness of the bilateral upper extremities with balance/gait instability. She was found to have severe stenosis in the cervical spine concerning for cervical myelopathy progression. MJ OA 14/18 at last visit. She had attempted physical therapy and medications without long-lasting benefit in her symptoms. Given the severe and progressive unremitting nature of her symptoms, she was deemed an appropriate candidate for surgical intervention. She was scheduled for a C3-C7 posterior cervical fusion on 02/16/2025. She is here today for preop education and planning. Past Medical History[1] Surgical History[2] Family History[3] Social History[4] Current Scheduled Medications[5] Current Continuous Medications[6] Current PRN Medications[7] 14 point review of systems completed and negative except as indicated in HPI Visit Vitals OB Status Unknown Smoking Status Some Days Admission on 12/28/2024, Discharged on 12/29/2024 Component Date Value Ref Range Status Glucose, Plasma 12/28/2024 115 (H) 74 - 99 mg/dL Final BUN, Plasma 12/28/2024 9 7 - 21 mg/dL Final Creatinine, Plasma 12/28/2024 0.59 (L) 0.60 - 1.10 mg/dL Final BUN/Creatinine Ratio 12/28/2024 15 Final Sodium, Plasma 12/28/2024 135 (L) 136 - 145 mmol/L Final Potassium, Plasma 12/28/2024 3.9 3.6 - 4.9 mmol/L Final Chloride, Plasma 12/28/2024 99 97 - 107 mmol/L Final CO2, Plasma 12/28/2024 25 22 - 29 mmol/L Final Anion Gap 12/28/2024 11 6 - 16 mmol/L Final Total Calcium, Plasma 12/28/2024 11.3 (H) 8.9 - 10.2 mg/dL Final Total Protein 12/28/2024 7.5 6.3 - 7.9 g/dL Final Albumin, Plasma 12/28/2024 3.9 3.5 - 5.2 g/dL Final AST, Plasma 12/28/2024 24 10 - 35 U/L Final ALT, Plasma 12/28/2024 36 (H) 10 - 35 U/L Final Alkaline Phosphatase, Plasma 12/28/2024 69 35 - 104 U/L Final Total Bilirubin, Plasma 12/28/2024 1.2 (H) 0.2 - 1.1 mg/dL Final eGFRcr 12/28/2024 113.4 mL/min/1.73m*2 Final Reported eGFRcr in mL/min/1.73m2 is based the CKD-EPI 2020 equation that does not use a race coefficient. WBC Count 12/28/2024 6.78 3.70 - 10.30 10*3/uL Final RBC Count 12/28/2024 4.29 3.90 - 5.20 10*6/uL Final HGB 12/28/2024 13.5 11.2 - 15.7 g/dL Final HCT 12/28/2024 38.3 34.0 - 45.0 % Final Platelet Count 12/28/2024 128 (L) 155 - 369 10*3/uL Final MCV 12/28/2024 89 79 - 98 fL Final MCH 12/28/2024 31.5 26.0 - 32.0 pg Final MCHC 12/28/2024 35.2 30.7 - 35.5 g/dL Final RDW 12/28/2024 12.0 11.5 - 14.5 % Final MPV 12/28/2024 10.3 8.8 - 12.5 fL Final nRBC 12/28/2024 0.0 <=0.0 per 100 WBCs Final Differential Type 12/28/2024 Automated Final Neutrophils % 12/28/2024 88 % Final Lymphocytes % 12/28/2024 7 % Final Monocytes % 12/28/2024 5 % Final Eosinophils % 12/28/2024 0 % Final Basophils % 12/28/2024 0 % Final Immature Granulocytes % 12/28/2024 0 % Final Neutrophils Absolute 12/28/2024 5.92 1.60 - 6.10 10*3/uL Final Lymphocytes Absolute 12/28/2024 0.50 (L) 1.20 - 3.90 10*3/uL Final Monocytes Absolute 12/28/2024 0.31 0.30 - 0.90 10*3/uL Final Eosinophils Absolute 12/28/2024 0.00 0.00 - 0.50 10*3/uL Final Basophils Absolute 12/28/2024 0.02 0.00 - 0.10 10*3/uL Final Immature Granulocytes Absolute 12/28/2024 0.03 0.00 - 0.06 10*3/uL Final Prothrombin Time 12/28/2024 14.8 (H) 12.0 - 14.3 sec Final INR 12/28/2024 1.1 0.9 - 1.1 Final ABO/Rh 12/28/2024 O Positive Final Antibody Screen 12/28/2024 Negative Final Specimen Expiration 12/28/2024 12/31/2024 23:59 Final Extra 12/28/2024 Hold for add-ons Final Auto resulted. Physical Exam: General: No acute distress. Patient is appropriate historian and cooperative throughout exam. Well nourished, well groomed. Psych: Normal affect Head: Unremarkable Chest: No wheezing, coughing. No increased effort noted. Skin: Intact. Vasc: Warm extremities Musc: Normal gait, no weakness or spasticity. Good spinal alignment without focal tenderness to palpation. Symmetrical extremity tone and bulk, no atrophy noted. mJOA: . NDI: 25/50, 50%. [id number]: na/50. NRS-Neck: na/10. NRS-Arm: na/10. Neurologic exam: GCS (EMV): 465 PERRL, EOMI Strength: Delt Bi Tri Lead Network Architect Intrinsics RUE: 5/5 5/5 5/5 4+/5 4+/5 LUE: 11/02 5/5 5/5 5/5 5/5 HF KE KF DF EHL PF RLE: 11/02 5/5 5/5 5/5 5/5 5/5 LLE: 11/02 5/5 5/5 5/5 5/5 5/5 Sensation was intact to light touch throughout Reflexes: Bi (C5) Br (C6) Tri (C7) Patellar (L4) Achilles (S1) Right: 2+ 2+ 2+ 2+ 2+ Left: 2+ 2+ 2+ 2+ 2+ Positive Lakhani's bilaterally No clonus Imaging Studies: I personally reviewed MRI of cervical spine dated. Severe central canal stenosis with cord compression at C5-6 secondary to disc protrusion as well as ligamentum flavum hypertrophy with canal width of approximately 5-5.5 mm. Cervical spine x-ray January 08, 2025. Grade 1 retrolisthesis C4 on C5 and C5 on C6. Multilevel degenerative changes. Assessment/Plan: Hyacinth Marin is a 45 year old female who returns to the neurosurgical clinic today for preop evaluation and planning. She was last evaluated on 01/08/2025 for concerns of worsening progressive cervical myelopathy. She had several month history of worsening bilateral upper extremity paresthesias as well as weakness. She was also experiencing gait instability. Imaging was reviewed and noted as above and found to have severe canal stenosis with spinal cord compression at C5-C6 concerning for symptomatic cervical stenosis causing cervical myelopathy. Given the severe and progressive nature of her symptoms as well as multiple failed conservative management attempts, she was deemed an appropriate candidate for surgical intervention. She has been scheduled for a C3-C7 posterior cervical fusion on 02/16/[address] Ramirez. After explaining the possible risks and benefits of the proposed procedure, informed consent was obtained, documented, and scanned into the patient's chart. Risks to surgery include but not limited to bleeding, infection, reaction to anesthesia, need for repeat surgery, failure to relieve pain, damage to nerves causing pain and/or paralysis, leakage of spinal fluid, DE, CVA, DVT, and PE or other unforseen complication. Preoperative laboratory studies were obtained prior to departure from clinic, and the patient was given instructions for the day of surgery. The patient will also be screened with preoperative anesthesia following this appointment. The patient was given the opportunity to ask questions all of which were answered to their satisfaction and is agreeable to the plan of care. The patient was instructed to contact us with any issues or concerns. 40 minutes was spent reviewing previous documentation and imaging, completion of today's documentation, [id number] visit, care coordination and planning Marisol Allen APRN [facility] Department of Neurosurgery This note was dictated with voice to text software and may contain minor errors [1] No past medical history on file. [2] No past surgical history on file. [3] No family history on file. [4] Social History Tobacco Use Smoking status: Some Days Current packs/day: 0.25 Average packs/day: 0.3 packs/day for 30.6 years (7.6 ttl pk-yrs) Types: Cigarettes Start date: 07/1994 Smokeless tobacco: Never [5] [6] [7] documented in this encounter Plan of Treatment Upcoming Encounters Date Type Department Care Team (Late st Contact Info) Description 04/02/2025 1:20 PM EDT [facility] Visit [facility] [address], [address] [place] [address] Jeremy Ramirez MD [address] [place] [id number] Scheduled Orders Name Type Priority Associated Diagnoses Orde r Schedule Urinalysis with reflex microscopic Lab Routine Pre-op evaluation Expected: 01/28/2025 (Approximate), Expires: 07/31/2026 documented as of this encounter Results * Protime-INR (01/28/2025 4:02 PM EDT) Prothrombin Time 13.9 12.0 - 14.3 sec LAB COAGULATION METHOD 01/28/2025 5:07 PM EDT [facility] INR 1.1 0.9 - 1.1 LAB COAGULATION METHOD 01/28/2025 5:07 PM EDT [facility] Blood Venous blood specimen / Unknown Venipuncture / Unknown 01/28/2025 4:02 PM EDT 01/28/2025 4:03 PM EDT Narrative [facility] - 01/28/2025 5:07 PM EDT OPTIMAL INR RANGES FOR PATIENT ON ORAL ANTICOAGULANT THERAPY Prevention of venous thromboembolism INR 2.0 to 3.0 In patients with heart disease: Atrial fibrillation INR 2.0 to 3.0 Valvular heart disease INR 2.0 to 3.0 Tissue heart valves INR 2.0 to 3.0 Mechanical prosthetic valves INR 2.5 to 3.5 Prevention of recurrent DE INR 2.5 to 3.5 Marisol Allen CONSTRUCTION SITE MANAGER LAB BLOOD ORDERABLES Final Result Performing Organization Address City/[facility]/ZIP Co de Phone Number [facility] [address] [place] [address] * APTT (01/28/2025 4:02 PM EDT) aPTT 29 25 - 35 sec LAB COAGULATION METHOD 01/28/2025 5:07 PM EDT [facility] Blood Venous blood specimen / Unknown Venipuncture / Unknown 01/28/2025 4:02 PM EDT 01/28/2025 4:03 PM EDT Marisol Allen APRN LAB BLOOD ORDERABLES Final Result Performing Organization Address City/[facility]/ZIP Co de Phone Number [facility] [address] [place] [address] * (ABNORMAL) CBC and differential (01/28/2025 4:02 PM EDT) WBC Count 11.35(H) 3.70 - 10.30 10*3/uL LAB HEMATOLOGY METHOD 01/28/2025 4:56 PM EDT [facility] RBC Count 3.66(L) 3.90 - 5.20 10*6/uL LAB HEMATOLOGY METHOD 01/28/2025 4:56 PM EDT [facility] HGB 10.9(L) 11.2 - 15.7 g/dL LAB HEMATOLOGY METHOD 01/28/2025 4:56 PM EDT [facility] HCT 33.7(L) 34.0 - 45.0 % LAB HEMATOLOGY METHOD 01/28/2025 4:56 PM EDT [facility] Platelet Count 195 155 - 369 10*3/uL LAB HEMATOLOGY METHOD 01/28/2025 4:56 PM EDT [facility] MCV 92 79 - 98 fL LAB HEMATOLOGY METHOD 01/28/2025 4:56 PM EDT [facility] MCH 29.8 26.0 - 32.0 pg LAB HEMATOLOGY METHOD 01/28/2025 4:56 PM EDT [facility] MCHC 32.3 30.7 - 35.5 g/dL LAB HEMATOLOGY METHOD 01/28/2025 4:56 PM EDT [facility] RDW 12.7 11.5 - 14.5 % LAB HEMATOLOGY METHOD 01/28/2025 4:56 PM EDT [facility] MPV 9.2 8.8 - 12.5 fL LAB HEMATOLOGY METHOD 01/28/2025 4:56 PM EDT [facility] nRBC 0.0 <=0.0 per 100 WBCs LAB HEMATOLOGY METHOD 01/28/2025 4:56 PM EDT [facility] Differential Type Automated LAB HEMATOLOGY METHOD 01/28/2025 4:56 PM EDT [facility] Neutrophils % 83 % LAB HEMATOLOGY METHOD 01/28/2025 4:56 PM EDT [facility] Lymphocytes % 10 % LAB HEMATOLOGY METHOD 01/28/2025 4:56 PM EDT [facility] Monocytes % 7 % LAB HEMATOLOGY METHOD 01/28/2025 4:56 PM EDT [facility] Eosinophils % 0 % LAB HEMATOLOGY METHOD 01/28/2025 4:56 PM EDT [facility] Basophils % 0 % LAB HEMATOLOGY METHOD 01/28/2025 4:56 PM EDT [facility] Immature Granulocytes % 0 % LAB HEMATOLOGY METHOD 01/28/2025 4:56 PM EDT [facility] Neutrophils Absolute 9.30(H) 1.60 - 6.10 10*3/uL LAB HEMATOLOGY METHOD 01/28/2025 4:56 PM EDT [facility] Lymphocytes Absolute 1.11(L) 1.20 - 3.90 10*3/uL LAB HEMATOLOGY METHOD 01/28/2025 4:56 PM EDT [facility] Monocytes Absolute 0.84 0.30 - 0.90 10*3/uL LAB HEMATOLOGY METHOD 01/28/2025 4:56 PM EDT [facility] Eosinophils Absolute 0.02 0.00 - 0.50 10*3/uL LAB HEMATOLOGY METHOD 01/28/2025 4:56 PM EDT [facility] Basophils Absolute 0.03 0.00 - 0.10 10*3/uL LAB HEMATOLOGY METHOD 01/28/2025 4:56 PM EDT [facility] Immature Granulocytes Absolute 0.05 0.00 - 0.06 10*3/uL LAB HEMATOLOGY METHOD 01/28/2025 4:56 PM EDT [facility] Blood Venous blood specimen / Unknown Venipuncture / Unknown 01/28/2025 4:02 PM EDT 01/28/2025 4:03 PM EDT Narrative [facility] - 01/28/2025 4:56 PM EDT Therapeutic decision making should be based on absolute values, rather than percentages. us Marisol Allen CONSTRUCTION SITE MANAGER LAB BLOOD ORDERABLES Final Result [facility] [address] [place] [address] * (ABNORMAL) Basic metabolic panel (01/28/2025 4:02 PM EDT) Glucose, Plasma 91 74 - 99 mg/dL 01/28/2025 5:09 PM EDT [facility] BUN, Plasma 8 7 - 21 mg/dL 01/28/2025 5:09 PM EDT [facility] Creatinine, Plasma 0.53(L) 0.60 - 1.10 mg/dL 01/28/2025 5:09 PM EDT [facility] BUN/Creatinine Ratio 15 01/28/2025 5:09 PM EDT [facility] Sodium, Plasma 140 136 - 145 mmol/L 01/28/2025 5:09 PM EDT [facility] Potassium, Plasma 3.6 3.6 - 4.9 mmol/L 01/28/2025 5:09 PM EDT [facility] Chloride, Plasma 100 97 - 107 mmol/L 01/28/2025 5:09 PM EDT [facility] CO2, Plasma 28 22 - 29 mmol/L 01/28/2025 5:09 PM EDT [facility] Anion Gap 12 6 - 16 mmol/L 01/28/2025 5:09 PM EDT [facility] Total Calcium, Plasma 9.1 8.9 - 10.2 mg/dL 01/28/2025 5:09 PM EDT [facility] eGFRcr 115.7 mL/min/1.7 3m*2 01/28/2025 5:09 PM EDT [facility] Comment:Reported eGFRcr in m L/min/1.73m2 is based the CKD-EPI 2020 equation that does not use a race coefficient. Blood Venous blood specimen / Unknown Venipuncture / Unknown 01/28/2025 4:02 PM EDT 01/28/2025 4:03 PM EDT Marisol Allen APRN LAB BLOOD ORDERABLES Final Result [facility] [address] [place] [address] documented in this encounter Visit Diagnoses Diagnosis Myelopathy (CMS/HCC)- Primary Unspecified disease of spinal cord Pre-op evaluation Cervical stenosis of spine Spinal stenosis in cervical region Lakhani sign present Paresthesia of upper extremity documented in this encounter Additional Health Concerns Assessment Noted Time A fall risk assessment has been complete d for the patient 01/28/2025 2:22 PM EDT A Body Mass Index follow-up plan has been documented for the patient 01/28/2025 4:12 PM EDT documented as of this encounter Care Teams Development Director Relationship Specialty Start Date End Date Sheila Ashraf APRN [address] [place] [address] PCP - General 12/28/24 Jeremy Ramirez MD [address] [place] [address] Surgeon Neurosurgery 01/08/25 Marisol Allen, XAVIER [address] [phone] Nurse Practitioner 01/28/25 documented as of this encounter
--- OUTSIDE RECORDS SUMMARY | 2025-01-28 14:45 | XMS_ITS | Encounter Summary ---
Author Organization Healthcare Address [address] [place] [address] Care Team Providers Care Car Sales Representative Name Role Phone Pascale Sheila Khan FORMULATOR Primary Care Provider [phone] Jeremy Ramirez MD Unavailable [phone] Marisol Allen FORMULATOR Unavailable [phone] Encounter Details Date Type Department Care Team (Latest Contact Info) Description 01/28/2025 2:45 PM EDT Pre-Admission Testing [facility] [address], [address] [place] [address] Cervical stenosis of spine [M48.02] (Primary Dx); Preop testing Anesthesia Record Procedure Summary Procedure Name Responsible Anesthesiologist Anesthesia Start Time Anesthesia Stop Time C3-7 PCF, w IONM (Spine Cervical) Franck Omer MD 02/16/25 0727 02/16/25 1216 Events Date Time Event Comment 02/16/2025 0727 An Start The patient was reevaluated immediately before sedation and remains eligible for anesthesia plan. 0730 In Room 0730 An Start Data 0737 An Induction The patient was reevaluated immediately before moderate or deep sedation use and before anesthesia induction. 0739 An Intubation 0751 Anesthesia Ready 0900 Proc Start 1152 Proc Fin 1206 An Extubation 1209 an stop data 1211 Out of Room 1215 Handoff to Receiving I compl eted my handoff to the receiving clinician during which we: 1. Identified the patient 2. Identified the responsible provider 3. Reviewed the pertinent medical history 4. Discussed the surgical course 5. Reviewed intra-op anesthesia management and issues during anesthesia 6. Set expectations for post-procedure period 7. Allowed opportunity for questions and acknowledgement of understanding. 1216 An Stop Meds * Agents No agents on file. * Blood No blood administrations on file. Lines, Drains, and Airways Type Details Placement Removal Wound 02/16/25; 1059; Yes; Surgical; Closed Surgi; Neck; Posterior 02/16/25 1059 by Bertram Carpenter RN Peripheral IV Placement Date: 02/16/25; Catheter Size: 18 G; Orientation: Posterior, Right; Location: Forearm; Removal Date: 02/23/25; Removal Time: 1210 02/16/25 0000 by Krzysztof Velazquez RN 02/23/25 1210 by Marie Chavez RN Peripheral IV Placement Date: 02/16/25; Placement Time: 0630; Catheter Size: 22 G; Orientation: Left, Posterior; Location: Hand; Site Prep: Chlorhexidine ; Local Anesth: None; Technique: Anatomical landmarks; Inserted by: Vicky MARTINEZ RN; Insertion Attempts: 1; Patient Tolerance: Tolerated well; Removal Date: 02/22/25; Removal Time: 0852 02/16/25 0630 by Migdalia Martinez RN 02/22/25 0852 by Tran Packer RN ETT Placement Date: 02/16/25; Placement Time: 0739 (created via procedure documentation); Mask Ventilation: 1; Technique: Video laryngoscopy; Type: ETT - single; Single Lumen Tube Size: 7 mm; Cuffed: Yes; Laryngoscope: Rajesh; Blade Size: 3; Location: Oral; Grade View: Grade I; Insertion Attempts: 1; Placement Verification: Auscultation, Capnometry; Placed by: GLENIS; Removal Date: 02/16/25; Removal Time: 1206 02/16/25 0739 by Chester Nazario CRNA 02/16/25 1206 by Chester Nazario CRNA Arterial Line Placement Date: 02/16/25; Placement Time: 0750 (created via procedure documentation); Size: 20 G; Orientation: Left; Location: Radial; Inserted by: GLENIS; Securement: Taped; Removal Date: 02/16/25; Removal Time: 1345 02/16/25 0750 by Chester Nazario CRNA 02/16/25 1345 by Shea Patricio RN Urethral Catheter Placement Date: 02/16/25; Placement Time: 0800; Inserted by: Pati Carpenter RN; Type: Double-lumen, Non-latex, Temperature probe; Size: 16 Fr.; Balloon Size: 10 mL; Urine Returned: Yes; Removal Date: 02/17/25; Removal Time: 1833; Removal Reason: Per order 02/16/25 0800 by Bertram Carpenter RN 02/17/25 1834 by Carolee Olson RN Closed/Suction Drain 02/16/25; 1059; posterior cervical; 1; Posterior; Neck; Accordion; 15 Fr. 02/16/25 1059 by Bertram Carpenter RN 02/19/25 1800 by Morelia Dukes RN documented in this encounter Social History Tobacco Use Types Packs/Day Years [...] Taken Comments Blood Pressure - - Pulse 114 01/28/2025 3:24 PM EDT Temperature 38.3 C (101 F) 01/28/2025 3:24 PM EDT Respiratory Rate - - Oxygen Saturation 98% 01/28/2025 3:24 PM EDT Inhaled Oxygen Concentration - - Weight - - Height - - Body Mass Index - - documented in this encounter Miscellaneous Notes * PAT Evaluation Note - Mariama Montemayor PA - 01/28/2025 2:45 PM EDT Images from the original note were not included. RADHIKA Marin is a 45 y.o. female who presents with Pre-op Diagnosis * Cervical myelopathy (CMS/HCC) [G95.9] now scheduled for C3-7 PCF, w IONM (N/A). Date scheduled is02/16/2025. Past Medical History[1] Family History[2] Social History[3] SURGICAL HISTORY: Surgical History[4] Allergies[5] MEDICATIONS: Current Medications[6] ROS Anesthesia: Date of last anesthetic: OSH EGD -~ 1 year ago. No GA issues. history of previous anesthesia. Does not have a history of anesthetic complications, obstructive sleep apnea and PONV. Cardiovascular: Does not have angina, CAD, CHF, dyspnea, dysrhythmias, peripheral edema, hyperlipidemia, murmur, orthopnea, peripheral edema, past HI, PVD, syncope or valvular heart disease. no hypertension: Exercise tolerance is 2 flights of stairs. Cardio additional comments: Was walking 20,000 steps a day prior to cervical issues.. Respiratory: Negative respiratory ROS. Patient has no dyspnea.Has not had an upper respiratory infection in last30 days. HEENT: Does not have chipped teeth or loose teeth.Does not have temporomandibular joint syndrome. HEENT additional comments: + dysphagia - esophageal dilation ~ 1 year ago, feels like it's starting to restrict again, not tolerating dry foods without liquids. + missing some molars. Neurological: Does not have headaches. no seizures: Did not have a cerebrovascular accident.Does not have TIA. Musculoskeletal: Musc/Skel/Integ additional comments: + cervical myelopathy - per pt states causes some inflammation, increased temp when very active, etc. States has happened 4-5 times and has discussed with neurosurgeon. Temp today was 101.0, retook oral and 99.9 + cervical spine limited mobility Integumentary: Negative skin ROS. Gastrointestinal: Does not have GI malignancy, hernia, pancreatitis or PUD. Does not have cirrhosis or hepatitis. Does not have weight loss. GI/ additional comments: + GERD - OTC famotidine PRN Genitourinary: Negative ROS. Hematological/Lymphatic: negative hematology/oncology ROS. no history of chemotherapy no history of radiation Does not have MRSA or tuberculosis. Endocrine/Metabolic: Negative endocrine ROS. Lab Results Component Value Date WBC 11.35 (H) 01/28/2025 HGB 10.9 (L) 01/28/2025 HCT 33.7 (L) 01/28/2025 MCV 92 01/28/2025 PLT 195 01/28/2025 Lab Results Component Value Date GLUCOSE 91 01/28/2025 BUN 8 01/28/2025 CREATININE 0.53 (L) 01/28/2025 BCR 15 01/28/2025 NA 140 01/28/2025 K 3.6 01/28/2025 CL 100 01/28/2025 CO2 28 01/28/2025 ALBUMIN 3.9 12/28/2024 ALKPHOS 69 12/28/2024 BILITOT 1.2 (H) 12/28/2024 No results found for: HGBA1C Lab Results Component Value Date INR 1.1 01/28/2025 INR 1.1 12/28/2024 BP #2 was 141/89, HR-107 (in pain 12/08), Temp recheck 99.9 Visit Vitals Pulse (!) 114 Temp (!) 38.3 ??C (101 ??F) (Tympanic) SpO2 98% OB Status IUD Smoking Status Some Days [facility] X-ray C-spine 01/08/25 FINDINGS: Grade 1 retrolisthesis C4 on C5 and C5-C6. Mild disc space narrowing at C4-C5 C5-C6. Moderate multilevel degenerative changes, better seen on recent MRI No dynamic instability. IMPRESSION: No acute osseous findings. Multilevel degenerative changes, better seen on recent MRI. CXR 12/28/24 IMPRESSION: No acute finding CT C-spine 12/28/24 Physical Exam Airway Mallampati: I Mouth opening: normal TM distance: >3 FB Neck ROM: limited Cardiovascular Rhythm: regular Rate: tachycardia (-) peripheral edema Dental Comments: Missing some molars. Pulmonary Breath sounds clear to auscultation Neurological Skin Musculoskeletal Extremities Anesthesia Plan ASA 2 Anesthesia technique(s) discussed with the patient/family: RED Gillespie [1] History reviewed. No pertinent past medical history. [2] Family History Problem Relation Name Age of Onset Anesthesia problems Neg Hx Malig Hyperthermia Neg Hx [3] Social History Tobacco Use Smoking status: Some Days Current packs/day: 0.25 Average packs/day: 0.3 packs/day for 30.6 years (7.6 ttl pk-yrs) Types: Cigarettes Start date: 07/1994 Smokeless tobacco: Never Vaping Use Vaping status: Every Day Substances: Nicotine Devices: Disposable Substance Use Topics Alcohol use: Not Currently Comment: rare Drug use: Not Currently [4] Past Surgical History: Procedure Laterality Date SECTION, CLASSIC ESOPHAGOSCOPY / EGD with dilation WISDOM TOOTH EXTRACTION [5] Allergies Allergen Reactions Penicillins Rash Sulfa Drugs Rash [6] Current Outpatient Medications: BIOTIN PO, Take by mouth daily. celecoxib, Take by mouth daily. Cholecalciferol (VITAMIN D-3 PO), Take by mouth daily. lidocaine, Apply 1 patch topically daily over 12 hours. Remove & discard patch within 12 hours or as directed by MD. loratadine, Take 1 tablet by mouth daily as needed for allergies. methocarbamol, Take 1 tablet by mouth 4 times a day as needed for muscle spasms for up to 10 days. SPIRONOLACTONE PO, Take by mouth daily. albuterol, inhale two puffs by mouth every 4 hours as needed (Patient not taking: Reported on 01/28/2025) citalopram, TAKE ONE TABLET BY MOUTH EVERY MORNING FOR ANXIETY (Patient not taking: Reported on 01/28/2025) * Preprocedure Instructions - Mariama Montemayor PA - 01/28/2025 2:45 PM EDT Home Medication Instructions Current Medications Medication Instructions BIOTIN PO Hold 3-5 days before surgery celecoxib (CeleBREX) 200 MG capsule Hold 7 days before surgery Cholecalciferol (VITAMIN D-3 PO) Take night before surgery lidocaine (Lidoderm) 5 % patch Hold day of surgery loratadine (Claritin) 10 MG tablet Take as needed methocarbamol (Robaxin) 500 MG tablet Take as needed SPIRONOLACTONE PO Take night before surgery General Preoperative Instructions You will be called the business day before surgery with your arrival time No food, no thick or dark liquids after midnight the night before the surgery. Please drink clear liquids meaning; water, Gatorade/pedialyte or apple juice until 2 hours prior toarrival time surgery day. No alcohol or smoking prior to surgery Arrive on time to avoid delays Parking/Registration procedure explained You MUST have a responsible adult available for transport to and from hospital Visitation policy for the day of surgery reviewed Bring insurance card, photo ID, along with power of consumer attorney, guardianship or advanced directives if applicable Do not bring money, jewelry or other valuables Hibiclens bathing instructions reviewed if applicable Notify surgeon of fever, illness, any changes or if you decide not to have surgery documented in this encounter Plan of Treatment Upcoming Encounters Date Type Department Care Team (Late st Contact Info) Description 04/02/2025 1:20 PM EDT Office Visit [facility] [address], [address] [place] [address] Jeremy Ramirez MD [address] [facility] [address] [place] [address] documented as of this encounter Procedures Procedure Name Priority Date/Time Associated Diagnosis Comments ECG ADULT Routine 01/28/2025 3:52 PM EDT Preop testing documented in this encounter Results * ECG Adult (Now - Performed in your clinic) (01/28/2025 3:52 PM EDT) EKG DIAGNOSIS CLASS Borderline Normal MUSE ECG Ventricular Rate 108 BPM MUSE ECG Atrial Rate 108 BPM MUSE ECG VT Interval 116 ms MUSE ECG QRSD Interval 86 ms MUSE ECG QT Interval 320 ms MUSE ECG QTC Interval 428 ms MUSE ECG P [place] 4 degrees MUSE ECG R [place] 23 degrees MUSE ECG T Wave [place] 19 degrees MUSE ECG Diagnosis Sinus tachycardia MUSE ECG Diagnosis Otherwise normal ECG MUSE ECG Diagnosis MUSE ECG Diagnosis Confirmed by Tanner Butler ([id number]) on 01/28/2025 7:36:54 PM MUSE ECG 01/28/2025 3:52 PM EDT 01/28/2025 7:36 PM EDT us Mariama MOON ECG ORDERABLES Final Resu lt MUSE ECG documented in this encounter Visit Diagnoses Diagnosis Cervical stenosis of spine [M48.02]- Primary Spinal stenosis in cervical region Preop testing Unspecified pre-operative examination documented in this encounter Additional Health Concerns Assessment Noted Time A fall risk assessment has been complete d for the patient 01/28/2025 2:22 PM EDT A Body Mass Index follow-up plan has been documented for the patient 01/28/2025 4:12 PM EDT documented as of this encounter Care Teams Car Sales Representative Relationship Specialty Start Date End Date Sheila Ashraf, FORMULATOR [address] [place], [place] [id number] PCP - General 12/28/24 Jeremy Ramirez MD [address] [place] [address] Surgeon Neurosurgery 01/08/25 Marisol Allen APRN [address] [place] [address] Nurse Practitioner 01/28/25 documented as of this encounter
--- OUTSIDE RECORDS SUMMARY | 2025-02-16 05:50 | XMS_ITS | Encounter Summary ---
Author Organization [facility] Address [address] 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 Role Phone Sheila Ashraf AIR HOSE COUPLER Primary Care Provider [phone] Jeremy Ramirez MD Unavailable [phone] Marisol Allen AIR HOSE COUPLER Unavailable [phone] Reason for Visit * Auth/Cert (Routine) Specialty Diagnoses / Procedures Referred By Cachorro machado Referred To Contact Diagnoses Cervical myelopathy (CMS/HCC) Cervical myelopathy ([facility]) [G95.9] Procedures WI ARTHRODESIS POSTERIOR/POSTERIORLATERAL CERVICAL BELOW C2 WI ARTHRODESIS ANT INTERBODY INC DISCECTOMY, CERVICAL BELOW C2 WI ARTHRODESIS ANT INTERBODY INC DISCECTOMY, CERVICAL BELOW C2 EACH ADDL WI ARTHRODESIS ANT INTERBODY INC DISCECTOMY, CERVICAL BELOW C2 EACH ADDL WI ANTERIOR INSTRUMENTATION 4-7 VERTEBRAL SEGMENTS WI INSJ BIOMCHN DEV INTERVERTEBRAL DSC SPC W/ARTHRD WI INSJ BIOMCHN DEV INTERVERTEBRAL DSC SPC W/ARTHRD WI INSJ BIOMCHN DEV INTERVERTEBRAL DSC SPC W/ARTHRD WI INSJ BIOMCHN DEV INTERVERTEBRAL DSC SPC W/ARTHRD WI ARTHRODESIS POSTERIOR/POSTERIORLATERAL CERVICAL BELOW C2 WI ARTHRODESIS POSTERIOR/POSTEROLATERAL EA ADDL WI ARTHRODESIS POSTERIOR/POSTEROLATERAL EA ADDL WI ARTHRODESIS POSTERIOR/POSTEROLATERAL EA ADDL WI LAMINECTOMY,>2 SGMT,CERVICAL WI POSTERIOR SEGMENTAL INSTRUMENTATION 3-6 VRT SEG WI AUTOGRAFT SPINE SURGERY LOCAL FROM SAME INCISION WI ALLOGRAFT FOR SPINE SURGERY ONLY MORSELIZED C3-7 PCF, w IONM Jeremy Ramirez MD [address] [facility] [address] [place] [address] Phone: tel: fax: [facility] [address] [place] [address] Phone: tel: Referral ID Status Reason Start Date Expiration Date Visits Re quested Visits Authorized [id number] 1 9 Encounter Details Date Type Department Care Team (Latest Contact Info) Description 02/16/2025 5:50 AM EDT - 02/23/2025 2:19 PM EDT Hospital Encounter [facility] [address] [place] [address] Jeremy Ramirez MD [address] [place] [address] Cervical stenosis of spine (Primary Dx) Discharge Disposition: Rehab Facility Social History Tobacco Use Types Packs/Day Years Used Date Smoking Tobacco: Some Days Cigarettes 0.3 30.7 Started: 07/1994 Smokeless Tobacco: Never Alcohol Use Standard Drinks/Week Comments Not Currently 0 (1 standard drink = 0.6 oz pur e alcohol) rare Humiliation, Afraid, Rape, and Kick questionnair e Answer Date Recorded Within the last year, have y ou been afraid of your partner or ex-partner? No 02/17/2025 Within the last year, have y ou been humiliated or emotionally abused in other ways by your partner or ex-partner? No Within the last year, have y ou been kicked, hit, slapped, or otherwise physically hurt by your partner or ex-partner? No 02/17/2025 Within the last year, have y ou been raped or forced to have any kind of sexual activity by your partner or ex-partner? No 02/17/2025 Hunger Vital Sign Answer Date Recorded Within the past 12 months, y ou worried that your food would run out before you got the money to buy more. Never true 02/18/20 25 Within the past 12 months, t he food you bought just didn't last and you didn't have money to get more. Never true 02/17/2025 PRAPARE - Transportation Answer Date Re corded In the past 12 months, has l ack of transportation kept you from medical appointments or from getting medications? No 01/30 In the past 12 months, has l ack of transportation kept you from meetings, work, or from getting things needed for daily living? No 02/17/2025 Housing Stability Vital Sign Answer Sameer e Recorded In the last 12 months, was t here a time when you were not able to pay the mortgage or rent on time? No 02/17/2025 Number of Times Moved in the Last Year Not on fi le 02/17/2025 At any time in the [facility], were you homeless or living in a fdc (including now)? No 02/17/2025 CAGE ASSESSMENT Answer Date Recorded Cage unable to access Not on file 02/17/2025 Cage max number of drinks Not on file 2024 Cage Beverages a week Not on file 02/17/2025 Have you ever felt you should CUT down on your d rinking? 0 02/17/2025 Have you been ANNOYED by people criticizing your drinking? 0 02/17/2025 Have you felt GUILTY about your drinking? 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 0 02/17/2025 CAGE Questionnaire Score 0 025 Utilities Answer Date Recorded In the past 12 months has th e electric, gas, oil, or water company threatened to shut off services in your home? No 02/17/2025 Comments No Sex and Gender Information Value Date Recorded Sex Assigned at Female 02/17/2025 6:46 AM EDT Legal Sex Female 6:48 PM EDT Gender Identity Female 02/17/2025 6:46 AM EDT Sexual Orientation Straight 02/17/2025 6: 46 AM EDT documented as of this encounter Last Filed Vital Signs Vital Sign Reading Time Taken Comments Blood Pressure 126/79 02/23/2025 11:10 AM EDT Pulse 95 02/23/2025 11:10 AM EDT Temperature 36.8 C (98.3 F) 02/23/2025 11:10 AM EDT Respiratory Rate 16 02/23/2025 11:10 AM EDT Oxygen Saturation 97% 02/23/2025 11:10 AM EDT Inhaled Oxygen Concentration - - Weight 69.4 kg (153 lb) 02/23/2025 11:50 AM EDT Height 165.1 cm (5' 5 ) 02/22/2025 10:48 AM EDT Body Mass Index 25.46 02/22/2025 10:48 AM EDT documented in this encounter Functional Status * Calculated C-SSRS Risk Score (Lifetime/Recent) Answer Date of Assessment Author No Risk Indicated 02/23/2025 8:13 AM EDT Tran Packer RN * Question Answer Date of Assessment Author 1. Wish to be (Past 1 Month) No 025 8:13 AM EDT Tran Packer RN 2. Non-Specific Active Suici julio Thoughts (Past 1 Month) No 02/23/2025 8:13 AM EDT Rosa Packer RN 6. Suicidal Behavior (Lifetime) No 8:13 AM EDT Tran Packer RN documented as of this encounter Medications at Time of Discharge acetaminophen (Tylenol) 500 MG tablet Take 1 tablet by mouth 3 times a day. acetaminophen (Tylenol) 500 MG tablet Take 2 tablets by mouth every 6 hours as needed for pain, headaches or fever. 5 baclofen (Lioresal) 10 MG tablet Take 1 tablet by mouth 3 times a day. 5 BIOTIN PO Take 1 tablet by mouth daily. bisacodyl (Dulcolax) 10 MG suppository Insert 1 suppository into the rectum daily. 5 celecoxib (CeleBREX) 200 MG capsule Take 1 capsule by mouth daily. 5 Cholecalciferol (VITAMIN D-3 PO) Take 2 tablets by mouth daily. cyclobenzaprine (Flexeril) 5 MG tablet Take 1 tablet by mouth 3 times a day. 5 dexamethasone (Decadron) 2 MG tablet Take 1 tablet by mouth daily for 1 dose. 5 gabapentin (Neurontin) 300 MG capsule Take 1 capsule by mouth 3 times a day. 5 ibuprofen 200 MG tablet Take 4 tablets by mouth 3 times a day. levonorgestrel (Mirena) 20 MCG/DAY IUD 1 each by Intrauterine route 1 time. lidocaine (Lidoderm) 5 % patch Apply 1 patch topically daily over 12 hours. Remove & discard patch within 12 hours or as directed by MD. 14 patch 5 loratadine (Claritin) 10 MG tablet Take 1 tablet by mouth daily as needed for allergies. 5 methocarbamol (Robaxin) 500 MG tablet Take 1 tablet by mouth 4 times a day as needed for muscle spasms for up to 10 days. 40 tablet 5 ondansetron ODT (Zofran-ODT) 4 MG disintegrating tablet Dissolve 1 tablet on the tongue every 6 hours as needed for nausea or vomiting. 5 polyethylene glycol (Miralax) 17 g packet Take 17 g by mouth 2 times a day. 5 senna-docusate (Jeimy-Colace) 8.6-50 MG tablet Take 2 tablets by mouth 2 times a day. 5 spironolactone (Aldactone) 50 MG tablet Take 1 tablet by mouth daily. oxyCODONE (Roxicodone) 10 MG immediate release tablet Take 0.5-1 tablets by mouth every 6 hours as needed for severe pain. 5 03/18/20 25 documented as of this encounter Miscellaneous Notes * Query Clarification Note - Jeremy Ramirez MD - 02/23/2025 2:19 PM EDT Physician Clarification Documentation includes the diagnosis of Incomplete tetraplegia by PM&R but not in subsequent documentation. Please review and clarify the status of the above condition: [] Incomplete tetraplegia remains a known condition for this patient and is further supported by: [] After study, Incomplete tetraplegia has been ruled out [x] Other (please specify): Post-operative sensorimotor dysfunction This documentation will become part of the patient's medical record. * Addendum Note - Theresa Marquez - 02/23/2025 2:19 PM EDTEncounter addended by: Theresa Marquez on: 03/19/2025 3:05 PM Actions taken: Charge Capture section accepted * Marie Fields RN - 02/23/2025 12:14 PM EDT Images from the original note were not included. [id number] Cervical Spinal Stenosis: Care Instructions Overview Spinal stenosis is a narrowing of the canal that surrounds the spinal cord and nerve roots. Sometimes bone and other tissue grow into this canal and press on the nerves that branch out from the spinal cord. This can happen as a part of aging. When the narrowing happens in your neck, it's called cervical spinal stenosis. It often causes stiffness, pain, numbness, and weakness in the neck, shoulders, arms, hands, or legs. It can even cause problems with your balance, coordination, and bowel or bladder control. But some people have no symptoms. You may be able to get relief from the symptoms of spinal stenosis by taking medicine. Your doctor may suggest physical therapy and exercises to keep your spine strong and flexible. Some people try steroid shots to reduce swelling. If pain and numbness in your neck, arms, or legs are still so bad that you cannot do your normal activities, you may need surgery. Follow-up care is a holloway part of your treatment and safety. Be sure to make and go to all appointments, and call your doctor if you are having problems. It's also a good idea to know your test resultsand keep a list of the medicines you take. How can you care for yourself at home? ? Ask your doctor if you can take an [id number] pain medicine, such as acetaminophen (Tylenol), ibuprofen (Advil, Motrin), or naproxen (Aleve). Be safe with medicines. Read and follow all instructions on the label. ? Do not take two or more pain medicines at the same time unless the doctor told you to. Many pain medicines have acetaminophen, which is Tylenol. Too much acetaminophen (Tylenol) can be harmful. ? Change positions often when you are standing or sitting. This may reduce pressure on the spinal cord and its nerves. ? When you rest, use pillows or towel rolls to support your neck and head in a comfortable position. ? Follow your doctor's instructions about activity. The doctor may tell you not to do sports or activities that could injure your neck. ? Stretch your neck and shoulders as your doctor or physical therapist recommends. If your doctor says it is okay to do them, these exercises may help: o Neck stretches to the side. Keep your shoulders relaxed and slowly tilt your head straight over toward one shoulder. Hold for 15 seconds. Let the weight of your head stretch your muscles. Then do the same toward the other shoulder. o Neck rotations. Keep your chin level and slowly turn your head to one side. Hold for 15 seconds. Then do the same to the other side. o Shoulder rolls. Roll your shoulders up, then back, and then down in a smooth, circular motion. Repeat several times. When should you call for help? Call 911 anytime you think you may need emergency care. For example, call if: ? You are unable to move an arm or a leg at all. Call your doctor now or seek immediate medical care if: ? You have new or worse symptoms in your arms, legs, belly, or buttocks. Symptoms may include: o Numbness or tingling. o Weakness. o Pain. ? You lose bladder or bowel control. Watch closely for changes in your health, and be sure to contact your doctor if: ? You do not get better as expected. Current as of: January 14, 2023 Content Version: 14.0 Care instructions adapted under license by your healthcare professional. If you have questions about a medical condition or this instruction, always ask your healthcare professional. [employer] disclaims any warranty or liability for your use of this information. ?? [id number] [employer]. * Progress Notes - Enzo Rome RN - 02/23/2025 12:13 PM EDT Case Management Discharge Note Hyacinth Marin 45 y.o. female CSN: [id number] Admission: 02/16/2025 5:50 AM Primary Problem: Cervical myelopathy (CMS/HCC) Primary Lead Coater: Primary Caregiver: Self Assistance Available at Discharge: Availability of Care Givers (#Hours): No assistance needed Housing Circumstances-Z Codes: Housing Circumstances (select all that apply): None Applicable Patient Referred to Financial or Community Resources: none Discharge Facility/Level of Care Needs: Discharge Facility/Level of Care Needs: rehabilitation facility Patient's Choice of Community Agency(s): Patient/Family Anticipated Services at Transition: Patient/Family Anticipated Services at Transition: rehabilitation services DME/Equipment Needed after Discharge: Equipment Currently Used at Home: none Equipment Needed After Discharge: none Readmission Within the Last 30 Days: Readmission Within the Last 30 Days: no previous admission in last 30 days Follow-up: Primary care provider (PCP) Sheila Ashraf, AIR HOSE COUPLER [address] [address] Department: You will need to follow up with Marisol Allen APRN on 03/03/2025 at 12 pm in the [facility]. Discharge Transportation: Transportation Anticipated: medical transport Transportation Home at Discharge: Medical Transport Has discharge transport been arranged?: Yes What day is the transport expected?: 02/23/25 What time is the transport expected?: 1445 Follow Up Transport: Transportation Needed to Follow up Appoinments: Family/Friend will Provide Additional Comments: POC reviewed with team and pt is medically ready to discharge. Pt has been accepted at [facility] and will transport there via [facility] at 1445. Bedside nurse and pt notified. Report can be called to [phone]. CM will fax dc summary to [phone]. No other CM needs identified. Enzo Rome RN * Discharge Summary - Brad Deshpande APRN - 02/23/2025 10:48 AM EDT Images from the original note were not included. Hospitalization Admit Date/Time: 02/16/2025 5:50 AM Admitting Attending: Jeremy Ramirez Discharge Date: 02/23/2025 Discharge Attending Physician: Jeremy Ramirez MD PCP name and Address: Sheila Ashraf, AIR HOSE COUPLER [address] [facility] [place] [address] Referring provider name and address: No referring provider defined for this encounter. Chief Concern, Brief History of Present Illness, and Hospital Course Hyacinth Marin is a 45 y.o. female who [facility] the [facility] to undergo a scheduled C3-C7 posterior cervical fusion with Dr. Ramirez. Patient has been seen in the neurosurgery clinic for numbness and progressive weakness of the bilateral upper extremities with balance/gait instability. She was found to have severe stenosis in the cervical spine concerning for cervical myelopathy progression. MJ OA 14/ at last visit. She had attempted physical therapy and medications without long-lasting benefit in her symptoms. Given the severe and progressive unremitting nature of her symptoms, she was deemed an appropriate candidate for surgical intervention. Accordingly, the patient was deemed an appropriate candidate for surgical intervention. The risks, benefits, and alternatives were explained and the patient elected to proceed with surgery. Patient proceeded to the operating room on 02/16/2025 and underwent a C3-C7 PCF. The procedure was tolerated well without any intraoperative or postoperative complications. The patient was subsequently transferred to a neurosurgical floor unit for monitoring and continuation of care. The posterior SIMONA drain was removed on 02/19/2025 without complication. PT/OT evaluated patient and recommended acute rehab. However, patient's insurance offered P2P with the intent to deny for acute rehab. MD expressed concerns that patient would not fully participate with rehab. In review of records, it was determined that patient may not have been participating initi ally with PT/OT due to lethargy from pain medications. ENSEMBLE MEMBER discussed that patient's pain seems to bebetter controlled and that she has been participating with the therapist in the hospital. ENSEMBLE MEMBER also explained that patient would benefit from MD overturned the decision. The patient was seen by the neurosurgery team and it was felt the patient had reached maximal benefit from hospitalization and deemed the patient ready for discharge. On the day of discharge, the patient's pain was well controlled with PO pain medicine. She required assistance for transfers to the chair. She was voiding, having bowel movements, and tolerating oral intake. The patient was discharged in stable condition and will follow up with Marisol Allen APRN on 03/03/2025. Past Medical History[1] Surgical History[2] Surgeries and Procedures Procedures performed in this encounter Procedures Critical Care C3-7 PCF, w IONM (N/A) 02/16/2025 OPERATIVE PROCEDURES: Posterior segmental spinal instrumentation, C3, C4, C5, C6, and C7; [employer] Symphony system. Laminectomy for decompression of spinal cord, C3, C4, C5, C6, and C7. Laminotomy for decompression of nerve roots, C3-4, C4-5, C5-6, and C6-7. Posterolateral arthrodesis C3-4, C4-5, C5-6, and C6-7. Use of fluoroscope. Use of autograft. Use of allograft; [employer] Fibergraft Aeridyan and Decorticated bone chips. Use of intra-operative neuromonitoring (MEP, SSEP, EMG). XR Cervical Spine: Monitoring wires overlie the chest limiting evaluation. Imaged chest is otherwise unremarkable. Postoperative changes from interval posterior fusion from C3 through C7. Straightening of cervical lordosis. There is mild C5-6 and C6-7 retrolisthesis. Skin reina are seen posteriorly. Drain is in place posteriorly. Medication List PAUSE taking these medications celecoxib 200 MG capsule Wait to take this until your doctor or other care provider tells you to start again. Commonly known as: CeleBREX Take 1 capsule by mouth daily. ibuprofen 200 MG tablet Wait to take this until your doctor or other care provider tells you to start again. Take 4 tablets by mouth 3 times a day. methocarbamol 500 MG tablet Wait to take this until your doctor or other care provider tells you to start again. Commonly known as: Robaxin Take 1 tablet by mouth 4 times a day as needed for muscle spasms for up to 10 days. .. * acetaminophen 500 MG tablet Commonly known as: Tylenol Take 1 tablet by mouth 3 times a day. * acetaminophen 500 MG tablet Commonly known as: Tylenol Take 2 tablets by mouth every 6 hours as needed for pain, headaches or fever. baclofen 10 MG tablet Commonly known as: Lioresal Take 1 tablet by mouth 3 times a day. BIOTIN PO Take 1 tablet by mouth daily. bisacodyl 10 MG suppository Commonly known as: Dulcolax Insert 1 suppository into the rectum daily. Start taking on: February 24, 2025 cyclobenzaprine 5 MG tablet Commonly known as: Flexeril Take 1 tablet by mouth 3 times a day. dexamethasone 2 MG tablet Commonly known as: Decadron Take 1 tablet by mouth daily for 1 dose. Start taking on: February 24, 2025 gabapentin 300 MG capsule Commonly known as: Neurontin Take 1 capsule by mouth 3 times a day. levonorgestrel 20 MCG/DAY IUD Commonly known as: Mirena 1 each by Intrauterine route 1 time. lidocaine 5 % patch Commonly known as: Lidoderm Apply 1 patch topically daily over 12 hours. Remove & discard patch within 12 hours or as directed by MD. loratadine 10 MG tablet Commonly known as: Claritin Take 1 tablet by mouth daily as needed for allergies. ondansetron ODT 4 MG disintegrating tablet Commonly known as: Zofran-ODT Dissolve 1 tablet on the tongue every 6 hours as needed for nausea or vomiting. oxyCODONE 10 MG immediate release tablet Commonly known as: Roxicodone Take 0.5-1 tablets by mouth every 6 hours as needed for severe pain. polyethylene glycol 17 g packet Commonly known as: Miralax Take 17 g by mouth 2 times a day. senna-docusate 8.6-50 MG tablet Commonly known as: Jeimy-Colace Take 2 tablets by mouth 2 times a day. spironolactone 50 MG tablet Commonly known as: Aldactone Take 1 tablet by mouth daily. VITAMIN D-3 PO Take 2 tablets by mouth daily. * This list has 2 medication(s) that are the same as other medications prescribed for you. Read thedirections carefully, and ask your doctor or other care provider to review them with you. Where to Get Your Medications Information about where to get these medications is not yet available Ask your nurse or doctor about these medications acetaminophen 500 MG tablet baclofen 10 MG tablet bisacodyl 10 MG suppository cyclobenzaprine 5 MG tablet dexamethasone 2 MG tablet gabapentin 300 MG capsule ondansetron ODT 4 MG disintegrating tablet oxyCODONE 10 MG immediate release tablet polyethylene glycol 17 g packet senna-docusate 8.6-50 MG tablet Discharge Diagnosis Medical Problems Active and Resolved Hospital Problems Hospital Cervical stenosis of spine * (Principal) Cervical myelopathy (CMS/HCC) Electrolyte abnormality RESOLVED: Anxiety Muscle spasm of back BMI 25.0-25.9,adult Tobacco use Acute post-operative pain Hypophosphatemia S/P cervical spinal fusion Post Discharge Instructions Diet: Continue on the same type of diet and foods as you were eating before your admission. Drink plenty of water. Lifting: No lifting more than 5 lbs until cleared by neurosurgery Activity: Move around as you are able. No bending or twisting. Walking and climbing stairs is ok and encouraged. You should refrain from any strenuous activity/exercise until your follow up appointment. Do not drive while taking narcotic pain medications and until cleared by neurosurgery. Wound or Incision Care: You should continue to avoid smoking cigarettes and other nicotine-containing products to allow foroptimal healing of your incision/wound. Your dressing will need to be changed every 2 days. The next change is due tomorrow (02/24/25). The incision is to be covered at all times with dressing until Saturday (02/26/25). You may then remove thedressing and keep dressing off on Saturday (02/27/25). Do not take out reina. They will be taken out during your clinic visit. Please do not remove the steri strips. They will fall off on their own. Please do not apply any creams, lotions, gels, ointments or salves on your incision. Reason to call: feels warm or hot to the touch, is red or dark pink, is tight or swollen and looks shiny, becomes more tender or sore to the touch, wound smells bad and wound is draining pus, bleeding or coming open. Bathing: You may shower. The incision can get wet. Do not take a tub bath. Do not soak wound. Do not scrub wound. Allow water to wash over wound. Wash your wound with mild soap and water once a day; pat dry; do not rub. Do not let the shower jet hit the incision directly. Please do not use a hot tub or swimming pool until cleared by neurosurgery. Instructed patient to call if: Temperature is above 101.5. Pain is not relieved by medications. You are throwing up or have diarrhea for more than 24 hours. Medication Instructions: Take Medication exactly as instructed. Do not take any medications that have not been ordered for you. This means do not take other people's medication, illegal drugs or substances, or even more medication than has been ordered. Continue Dex taper; to be completed tomorrow (02/24). Please do not take any NSAIDs for 12 weeks following your surgery or until you have been cleared byneurosurgery. This includes diclofenac, celebrex, meloxicam, ibuprofen, and naproxen. You may take Tylenol (acetaminophen) as needed, but you should not exceed more than 4 gm (or 4,000 mg) a day. Please do not take aspirin for 2 weeks following your surgery or until you have been cleared by neurosurgery. Please do not take any home pain medications while taking the pain medications prescribed to you following your surgery. Please do not take any home muscle relaxers while taking the muscle relaxers prescribed to you following your surgery. You should consider taking some additional bowel regimen (Senokot, Miralax, or Docusate), while taking pain medication, to prevent constipation. Outpatient Follow-Up Future Appointments Date Time Provider Department Center 03/03/2025 12:00 PM Marisol Allen APRN [facility] 04/02/2025 1:20 PM Jeremy Ramirez MD [facility] Test Results Pending At Discharge None Pertinent Physical Exam At Time of Discharge Physical Exam Vitals reviewed. Constitutional: Appearance: Normal appearance. Cardiovascular: Rate and Rhythm: Normal rate and regular rhythm. Pulses: Normal pulses. Heart sounds: Normal heart sounds. Pulmonary: Effort: Pulmonary effort is normal. Breath sounds: Normal breath sounds. Abdominal: General: There is no distension. Skin: General: Skin is warm and dry. Comments: Covaderm dressing c/d/I. Neurological: General: No focal deficit present. Mental Status: She is alert and oriented to person, place, and time. Psychiatric: Mood and Affect: Mood normal. Behavior: Behavior normal. Uploaded on 02/22/2025 during dressing change NEURO: GCS (EMV): 465 Awake, alert, oriented Follows commands appropriately Speech clear, intact Pupils reactive bilaterally, EOMI Sensation intact throughout Strength: Delt Bi Tri Laminating Machine Feeder RUE: 5/5 5/5 4/5 4/5 LUE: 5/5 5/5 5/5 5/5 HF KE DF PF RLE: 5/5 5/5 1/5 2/5 LLE: 5/5 5/5 5/5 5/5 Barely wiggles few toes on the right foot Discharge Disposition/Condition Disposition: [facility] Condition: Stable (s/sx potential problems absent or manageable) I spent >30 minutes of patient care and instruction time in preparation for this discharge. [1] Past Medical History: Diagnosis Date Anxiety Neuromuscular disorder (CMS/HCC) [2] Past Surgical History: Procedure Laterality Date SECTION, CLASSIC ESOPHAGOSCOPY / EGD with dilation WISDOM TOOTH EXTRACTION Cosigned by Jeremy Ramirez MD at 02/28/2025 1:52 PM EDT Associated attestation - Jeremy Ramirez MD - 02/28/2025 1:52 PM EDT I discussed the case with the resident/JENNIE and agree with the findings and plan as documented. * Care Plan - Tran Packer RN - 02/23/2025 9:09 AM EDT Problem: Adult Inpatient Plan of Care Goal: Plan of Care Review Outcome: Ongoing, Progressing Flowsheets (Taken 02/23/2025906) Progress: no change Plan of Care Reviewed With: patient Goal: Patient-Specific Goal (Individualized) Outcome: Ongoing, Progressing Flowsheets (Taken 02/23/2025812 by Marie Chavez, RN) Patient/Family-Specific Goals (Include Timeframe): patients pain will be controlled during shift Individualized Care Needs: pain control Anxieties, Fears or Concerns: pain Goal: Absence of Hospital-Acquired Illness or Injury Outcome: Ongoing, Progressing Intervention: Identify and Manage Fall Risk Flowsheets (Taken 02/23/2025906) Safety Promotion/Fall Prevention: activity supervised assistive device/personal items within reach clutter-free environment maintained fall prevention program maintained lighting adjusted nonskid shoes/slippers when out of bed room organization consistent safety round/check completed Goal: Optimal Comfort and Wellbeing Outcome: Ongoing, Progressing Problem: Surgery Nonspecified Goal: Absence of Bleeding Outcome: Ongoing, Progressing Intervention: Monitor and Manage Bleeding Flowsheets (Taken 02/23/2025906) Bleeding Management: dressing monitored Goal: Fluid and Electrolyte Balance Outcome: Ongoing, Progressing Goal: Blood Glucose Level Within Target Range Outcome: Ongoing, Progressing Goal: Absence of Infection Signs and Symptoms Outcome: Ongoing, Progressing Goal: Optimal Pain Control and Function Outcome: Ongoing, Progressing Goal: Nausea and Vomiting Relief Outcome: Ongoing, Progressing Goal: Effective Urinary Elimination Outcome: Ongoing, Progressing Goal: Effective Oxygenation and Ventilation Outcome: Ongoing, Progressing Problem: Infection Goal: Absence of Infection Signs and Symptoms Outcome: Ongoing, Progressing Intervention: Prevent or Manage Infection Flowsheets (Taken 02/23/2025906) Infection Management: aseptic technique maintained Fever Reduction/Comfort Measures: lightweight bedding lightweight clothing Problem: Fall Injury Risk Goal: Absence of Fall and Fall-Related Injury Outcome: Ongoing, Progressing Intervention: Identify and Manage Contributors Flowsheets (Taken 02/23/2025 09) Medication Review/Management: medications reviewed high-risk medications identified Self-Care Promotion: independence encouraged BADL personal objects within reach BADL personal routines maintained Problem: Skin Injury Risk Increased Goal: Skin Health and Integrity Outcome: Ongoing, Progressing Intervention: Optimize Skin Protection Flowsheets (Taken 02/23/2025906) Activity Management: activity adjusted per tolerance activity encouraged Pressure Reduction Techniques: sit time limited to 2 hours frequent weight shift encouraged Pressure Reduction Devices: positioning supports utilized Head of Bed (HOB) Positioning: HOB at 30-45 degrees * Care Plan - Marie Chavez RN - 02/23/2025 8:18 AM EDT Problem: Adult Inpatient Plan of Care Goal: Plan of Care Review Outcome: Ongoing, Progressing Flowsheets Taken 02/23/2025 08 by Marie Chavez RN Progress: no change Taken 02/22/20252208 by Don Patricio RN Outcome Evaluation: pain Plan of Care Reviewed With: patient Goal: Patient-Specific Goal (Individualized) Outcome: Ongoing, Progressing Flowsheets (Taken 02/23/2025 0813) Patient/Family-Specific Goals (Include Timeframe): patients pain will be controlled during shift Individualized Care Needs: pain control Anxieties, Fears or Concerns: pain Goal: Absence of Hospital-Acquired Illness or Injury Outcome: Ongoing, Progressing Goal: Optimal Comfort and Wellbeing Outcome: Ongoing, Progressing Problem: Surgery Nonspecified Goal: Absence of Bleeding Outcome: Ongoing, Progressing Goal: Fluid and Electrolyte Balance Outcome: Ongoing, Progressing Intervention: Monitor and Manage Fluid and Electrolyte Balance Flowsheets (Taken 02/22/20252208 by Don Patricio RN) Fluid/Electrolyte Management: intravenous fluids adjusted Goal: Blood Glucose Level Within Target Range Outcome: Ongoing, Progressing Goal: Absence of Infection Signs and Symptoms Outcome: Ongoing, Progressing Goal: Optimal Pain Control and Function Outcome: Ongoing, Progressing Intervention: Prevent or Manage Pain Flowsheets Taken 02/23/2025 0458 by Don Patricio intramural director Interventions: emotional support Taken 02/22/20252208 by Don Patricio RN Diversional Activities: television Goal: Nausea and Vomiting Relief Outcome: Ongoing, Progressing Goal: Effective Urinary Elimination Outcome: Ongoing, Progressing Goal: Effective Oxygenation and Ventilation Outcome: Ongoing, Progressing Problem: Infection Goal: Absence of Infection Signs and Symptoms Outcome: Ongoing, Progressing Intervention: Prevent or Manage Infection Flowsheets Taken 02/23/2025 0813 by Marie Chavez RN Isolation Precautions: precautions maintained Taken 02/22/20252208 by Don Patricio RN Infection Management: aseptic technique maintained Fever Reduction/Comfort Measures: lightweight bedding Problem: Fall Injury Risk Goal: Absence of Fall and Fall-Related Injury Outcome: Ongoing, Progressing Intervention: Promote Injury-Free Environment Flowsheets (Taken 02/22/20252208 by Don Patricio, RN) Safety Promotion/Fall Prevention: activity supervised Problem: Skin Injury Risk Increased Goal: Skin Health and Integrity Outcome: Ongoing, Progressing Intervention: Promote and Optimize Oral Intake Flowsheets (Taken 02/22/20252208 by Don Patricio, RN) Oral Nutrition Promotion: adaptive equipment use encouraged * Care Plan - Don Patricio RN - 02/22/2025 10:14 PM EDT Problem: Adult Inpatient Plan of Care Goal: Plan of Care Review Outcome: Ongoing, Progressing Flowsheets (Taken 02/22/20252208) Progress: no change Outcome Evaluation: pain Plan of Care Reviewed With: patient Goal: Patient-Specific Goal (Individualized) Outcome: Ongoing, Progressing Flowsheets (Taken 02/22/20252208) Patient/Family-Specific Goals (Include Timeframe): Patient will be free from falls during shift Individualized Care Needs: safety Anxieties, Fears or Concerns: safety Goal: Absence of Hospital-Acquired Illness or Injury Outcome: Ongoing, Progressing Intervention: Identify and Manage Fall Risk Flowsheets (Taken 02/22/20252208) Safety Promotion/Fall Prevention: activity supervised Intervention: Prevent Skin Injury Flowsheets (Taken 02/22/20252208) Body Position: weight shifting Skin Protection: incontinence pads utilized Intervention: Prevent and Manage VTE (Venous Thromboembolism) Risk Flowsheets (Taken 02/22/20252208) VTE Prevention/Management: SCDs (sequential compression devices) on Intervention: Prevent Infection Flowsheets (Taken 02/22/20252208) Infection Prevention: rest/sleep promoted Goal: Optimal Comfort and Wellbeing Outcome: Ongoing, Progressing Intervention: Monitor Pain and Promote Comfort Flowsheets (Taken 02/22/20252208) Pain Management Interventions: medication (see MAR) Intervention: Provide Person-Centered Care Flowsheets (Taken 02/22/20252208) Trust Relationship/Rapport: care explained Problem: Surgery Nonspecified Goal: Absence of Bleeding Outcome: Ongoing, Progressing Intervention: Monitor and Manage Bleeding Flowsheets (Taken 02/22/20252208) Bleeding Management: dressing monitored Goal: Fluid and Electrolyte Balance Outcome: Ongoing, Progressing Intervention: Monitor and Manage Fluid and Electrolyte Balance Flowsheets (Taken 02/22/20252208) Fluid/Electrolyte Management: intravenous fluids adjusted Goal: Blood Glucose Level Within Target Range Outcome: Ongoing, Progressing Intervention: Optimize Glycemic Control Flowsheets Taken 02/22/20252208 Hyperglycemia Management: blood glucose monitored Taken 02/22/2025200 Hypoglycemia Management: blood glucose monitored Goal: Absence of Infection Signs and Symptoms Outcome: Ongoing, Progressing Intervention: Prevent or Manage Infection Flowsheets (Taken 02/22/20252208) Infection Management: aseptic technique maintained Fever Reduction/Comfort Measures: lightweight bedding Isolation Precautions: protective Goal: Optimal Pain Control and Function Outcome: Ongoing, Progressing Intervention: Prevent or Manage Pain Flowsheets (Taken 02/22/20252208) Pain Management Interventions: medication (see MAR) Diversional Activities: television Goal: Nausea and Vomiting Relief Outcome: Ongoing, Progressing Intervention: Prevent or Manage Nausea and Vomiting Flowsheets (Taken 02/22/20252208) Nausea/Vomiting Interventions: cool cloth applied Goal: Effective Urinary Elimination Outcome: Ongoing, Progressing Intervention: Monitor and Manage Urinary Retention Flowsheets (Taken 02/22/20252208) Urinary Elimination Promotion: toileting offered Goal: Effective Oxygenation and Ventilation Outcome: Ongoing, Progressing Intervention: Optimize Oxygenation and Ventilation Flowsheets (Taken 02/22/20252208) Activity Management: activity adjusted per tolerance Airway/Ventilation Management: calming measures promoted Head of Bed (HOB) Positioning: HOB at 30-45 degrees Cough And Deep Breathing: previous patient education reinforced Problem: Infection Goal: Absence of Infection Signs and Symptoms Outcome: Ongoing, Progressing Intervention: Prevent or Manage Infection Flowsheets (Taken 02/22/20252208) Infection Management: aseptic technique maintained Fever Reduction/Comfort Measures: lightweight bedding Isolation Precautions: protective Problem: Fall Injury Risk Goal: Absence of Fall and Fall-Related Injury Outcome: Ongoing, Progressing Intervention: Identify and Manage Contributors Flowsheets (Taken 02/22/20252208) Medication Review/Management: medications reviewed Self-Care Promotion: independence encouraged Intervention: Promote Injury-Free Environment Flowsheets (Taken 02/22/20252208) Safety Promotion/Fall Prevention: activity supervised Problem: Skin Injury Risk Increased Goal: Skin Health and Integrity Outcome: Ongoing, Progressing Intervention: Optimize Skin Protection Flowsheets (Taken 02/22/20252208) Activity Management: activity adjusted per tolerance Skin Protection: incontinence pads utilized Head of Bed (HOB) Positioning: HOB at 30-45 degrees Intervention: Promote and Optimize Oral Intake Flowsheets (Taken 02/22/20252208) Oral Nutrition Promotion: adaptive equipment use encouraged * Assessment & Plan Note - Brad Deshpande APRN - 02/22/2025 3:28 PM EDT Associated Problem(s): Cervical myelopathy (CMS/[facility]) - 02/16 s/p C3-7 PCF (*lost motors) - 02/18 XR Cervical Spine: See findings above - 02/19 SIMONA removed - Continue IV Dex taper until 02/24. - Continue multimodal PO pain control with scheduled baclofen, flexeril, gabapentin, and PRN tylenol, oxycodone. - Ice as needed. - Dressing will need to be changed every 2 days. The incision is to be covered at all times with dressing until POD #10. - When showering, remove the dressing; incision can get wet. - Last BM 02/21. Continue daily bowel regimen. - Resume home meds as able. - Nursing to assist patient up to the chair at each meal time/evening and with ambulation in room/figueroa. - PT/OT following. Recommend acute rehab. Has been referred to [facility]. * Assessment & Plan Note - Brad Deshpande APRN - 02/22/2025 3:28 PM EDT Associated Problem(s): Cervical stenosis of spine - 02/16 s/p C3-7 PCF (*lost motors) - 02/18 XR Cervical Spine: See findings above - 02/19 SIMONA removed - Continue IV Dex taper until 02/24. - Continue multimodal PO pain control with scheduled baclofen, flexeril, gabapentin, and PRN tylenol, oxycodone. - Ice as needed. - Dressing will need to be changed every 2 days. The incision is to be covered at all times with dressing until POD #10. - When showering, remove the dressing; incision can get wet. - Last BM 02/21. Continue daily bowel regimen. - Resume home meds as able. - Nursing to assist patient up to the chair at each meal time/evening and with ambulation in room/figueroa. - PT/OT following. Recommend acute rehab. Has been referred to [facility]. * Assessment & Plan Note - Brad Deshpande APRN - 02/22/2025 3:28 PM EDT Associated Problem(s): Muscle spasm of back - 02/16 s/p C3-7 PCF (*lost motors) - 02/18 XR Cervical Spine: See findings above - 02/19 SIMONA removed - Continue IV Dex taper until 02/24. - Continue multimodal PO pain control with scheduled baclofen, flexeril, gabapentin, and PRN tylenol, oxycodone. - Ice as needed. - Dressing will need to be changed every 2 days. The incision is to be covered at all times with dressing until POD #10. - When showering, remove the dressing; incision can get wet. - Last BM 02/21. Continue daily bowel regimen. - Resume home meds as able. - Nursing to assist patient up to the chair at each meal time/evening and with ambulation in room/figueroa. - PT/OT following. Recommend acute rehab. Has been referred to [facility]. * Assessment & Plan Note - Brad Deshpande APRN - 02/22/2025 3:28 PM EDT Associated Problem(s): Acute post-operative pain - 02/16 s/p C3-7 PCF (*lost motors) - 02/18 XR Cervical Spine: See findings above - 02/19 SIMONA removed - Continue IV Dex taper until 02/24. - Continue multimodal PO pain control with scheduled baclofen, flexeril, gabapentin, and PRN tylenol, oxycodone. - Ice as needed. - Dressing will need to be changed every 2 days. The incision is to be covered at all times with dressing until POD #10. - When showering, remove the dressing; incision can get wet. - Last BM 02/21. Continue daily bowel regimen. - Resume home meds as able. - Nursing to assist patient up to the chair at each meal time/evening and with ambulation in room/figueroa. - PT/OT following. Recommend acute rehab. Has been referred to [facility]. * Assessment & Plan Note - Brad Deshpande APRN - 02/22/2025 3:28 PM EDT Associated Problem(s): S/P cervical spinal fusion - 02/16 s/p C3-7 PCF (*lost motors) - 02/18 XR Cervical Spine: See findings above - 02/19 SIMONA removed - Continue IV Dex taper until 02/24. - Continue multimodal PO pain control with scheduled baclofen, flexeril, gabapentin, and PRN tylenol, oxycodone. - Ice as needed. - Dressing will need to be changed every 2 days. The incision is to be covered at all times with dressing until POD #10. - When showering, remove the dressing; incision can get wet. - Last BM 02/21. Continue daily bowel regimen. - Resume home meds as able. - Nursing to assist patient up to the chair at each meal time/evening and with ambulation in room/figueroa. - PT/OT following. Recommend acute rehab. Has been referred to [facility]. * Assessment & Plan Note - Brad Deshpande APRN - 02/22/2025 3:28 PM EDT Associated Problem(s): Electrolyte abnormality (Resolved 02/23/2025) - hypophosphatemia, hypokalemia - 02/22 K 3.4. Replacement ordered. Will reassess response in the morning. - Has scheduled Phos tabs ordered. - Will repeat Phos in the morning. * Progress Notes - Fidelina Bowden - 02/22/2025 3:28 PM EDT Occupational Therapy Treatment Patient Name: Hyacinth Marin Today's Date: 02/22/2025 OT Discharge Recommendations: Acute rehab Equipment Recommended: Defer to facility Subjective Pt agreeable to OT session. Participants in Care Family/Caregiver Present: No Assessment Technician: Not Applicable Presentation Oxygen Therapy: None (Room air) Lines and Tubes: Intravenous access, Telemetry (telemetry dscontinued by RN and not re-applied at end of session) Pre-Session: Supine, Head of bed elevated, Lines intact Pre-Session Comments: RN agreeable to therapy session. Post-Session: Supine, Head of bed elevated, RN notified, Call light in reach, Bed alarm (zone 1, 2,3) Post-Session Comments: Positioned for comfort. Needs met. Precautions Medical Precautions: Fall precautions, Post-Surgical precautions Post-Surgical Precautions: cervical spine Medical Precautions: MAP > 85 Objective Pain Pt endorsed cervical/back pain but did not provide numerical rating. Pain increased with movement, specifically sitting unsupported. Pt was purposefully positioned with pillow supports and ice packs at end of session. Pt resting comfortably at time of OT departure and RN aware of session details. Delirium Screening RASS: Alert and calm Confusion Assessment Method-ICU (CAM-ICU/PCAM-ICU) Feature 3: Altered Level of Consciousness: Negative Cognition Cognition Overall Cognitive Status: Within Functional Limits Arousal/Alertness: Appropriate responses to stimuli Mood/Behavior: Alert Orientation Level: Oriented X4 Single Step Commands: Consistently Multi-Step Commands: Consistently Method of Communication: Verbal Safety Judgment: Good awareness of safety precautions Awareness of Errors: Assistance required to identify errors made Deficit Awareness: Fully aware of deficits Attention Span: Appears intact Self-Care Interventions Self Care/Home Management (ADLs) Time Entry: 22 ADL retraining completed through bed mobility, functional transfers and task specific ADLs. OT usedrehabilitative and occupational adaptation FOR to guide intervention strategies based on pt performance. Grooming Grooming Interventions: Pt endorsed she planned to complete grooming tasks with when he arrived later today. OT placed built up handle on toothbrush to support neuro re-education for RUE function. Pt was able to maintain analytics specialist. OT provided proximal support for the [id number] and ptable to bring toothbrush to mouth to simulate oral care. OT anticipates that coordination will still be limited therefore, pt encouraged to use built up handled intermittently for self-feeding and grooming tasks (with assistance). Pt recepive to education provided. Toileting Toileting Level of Assistance: Moderate assistance Where Assessed: Other (Comment) Toileting Interventions: Sit>stand x2 + short distance mobility (8ft) as preparatory for commodetransfer. OT provided PROCESS ARTIST on L side; PT positioned on R. Cues to aid with sequencing and transfer safety (i.e. reaching back for supported surface prior to stand>sit). Pt completed movement transition with MOD A 1+1. Tolerance impacted by cervical pain. Bed Mobility Bed Mobility Interventions: Pt was provided cues for sequencing logroll technique to aid with pain management. Pt followed cues provided. Pt with improved activation of RLE toward EOB although some offloading/tactile cues still required. MOD tactile cue to L shoulder for sup>sit transition. Bed Mobility Exam: Rolling/Turning Level of [place]: Minimum assist (75% patient effort) (rolling right) Physical/Nonphysical Assist: Verbal Cues, Additional assist utilized for safety Assistive Device: Bed rails Bed Mobility Exam: Scooting/Bridging Level of [place]: Minimum assist (75% patient's effort) Physical/Nonphysical Assist: Verbal Cues, Additional assist utilized for safety Assistive Device: Bed rails Bed Mobility Exam: Supine to Sit Level of [place]: Moderate assist (50% patient's effort) Physical/Nonphysical Assist: Verbal Cues, Additional assist utilized for safety Assistive Device: Bed rails Bed Mobility Exam: Sit to Supine Level of [place]: Maximum assist (25% patient's effort) Physical/Nonphysical Assist: Verbal Cues, Additional assist utilized for safety Assistive Device: Bed rails Transfers See Self-Care section for details on OT transfer interventions. Transfer Interventions: Transfer to chair deferred since pt had recently returned to bed. RN endorsed that pt sat up in chair for most of the morning Transfer Exam: Sit to stand Level of [place]: Minimum assist (75% patient's effort) Physical/Nonphysical Assist: Verbal Cues, Nonverbal cues (demo/gestures), Additional assist utilized for safety Assistive Device: Hand held assist Transfer Exam: Stand to Sit Level of [place]: Minimum assist (75% patient's effort) Physical/Nonphysical Assist: Verbal Cues, Nonverbal cues (demo/gestures), Additional assist utilized for safety Assistive Device: Hand held assist Balance Postural Appearance Posture: Stooped posture, Forward head, Rounded shoulders Static Sitting Balance Static Sitting-Balance Support: Right upper extremity support, Left upper extremity support Static Sitting-Level of Assistance: Contact guard Dynamic Sitting Balance Dynamic Sitting-Balance Support: Feet supported, Left upper extremity support Dynamic Sitting-Balance: Lateral weight shifts, Anterior/Posterior weight shifts, Reaching for objects Level of Assistance: (CGA-MIN.A) Static Standing Balance Static Standing-Balance Support: Right upper extremity support, Left upper extremity support (PROCESS ARTIST) Static Standing-Level of Assistance: Minimum assistance Dynamic Standing Balance Dynamic Standing-Balance Support: Right upper extremity support, Left upper extremity support (PROCESS ARTIST) Dynamic Standing-Balance: Lateral weight shifts, Anterior/Posterior weight shifts Dynamic Standing Level of Assistance: Moderate assistance Participation in Functional Tasks: Maximum assistance (pericare) Therapeutic Exercise (10 minutes) Pt was engaged in RUE therapeutic exercise to support sensory and neuromuscular re-education for engagement in ADL tasks. Pt able to complete acitve movement of shoulder, elbow and wrist today. She completed lateral arm raise to 90 degrees x4 (unable to progress with more repetitions due to pain). She completed forearm pronation/supination x10, wrist extension holds x10 and elbow flex/ext x10. Con trol for elbow extension remains ~fair. Pt with active movement in digits however, requires AAROM to achieve full flexion. Splinting Location: Right UE Type: Pre-Fabricated Splinting Education: Fitting, [place], [place], Wear schedule, Precautions Skin Check: Skin intact without erythema Splinting Comments: Resting hand splint provided for RUE nighttime wear. Pt's digits rest in a clawposition therefore, splint to be used to prevent stiffness and capsular changes. OT modeled donning/doffing technique to pt and collaborated with RN about wear schedule. No pain reported from pt. Wear Schedule: Nighttime Splinting Precautions: Pt/RN educated on splint precautions and instructed to remove splint and contact OT if pt experience numbness, stiffness, swelling, or any skin issues. Assessment Pt progressing with current plan of care. Ongoing improvement in RUE/RLE motor movement and coordination. Pt was able to use built up hand to simulate oral hygiene today and OT observed improvement with shoulder, elbow and wrist strength. Digits and analytics specialist strength still fairly limited. Pt was able to progress with short distance mobility in preparation for commode transfer (8ft) with MOD A 1+1. Despite mild improvement, pt's ADL independence and functional mobility continue to be significantly impacted by pain, RUE/RLE weakness/sensation impairments, impaired balance and activity tolerance. She is independent with ADLs and IADLs at baseline. 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 OT recommends acute rehab when pt is medically ready for discharge. Acute rehabilitation will provide pt with the appropriate amount of rehab intensity to maximize her safety and independence. Pt presents that she will tolerate 3- hours of therapy per day as pain improves. Pt would benefit from further OT services while in hospital setting to aid with aforementioned areas of need and discharge transition. OT Recommendations Discharge Destination: Acute rehab Discharge Equipment: Defer to facility Goals OT GOAL DETAILS Goal Established Date Time Frame Goal Status OT Goal 1: Pt will complete LB dressing with setup assist 02/17/25 2 weeks OT Goal 2: Pt will complete toilet transfer using LRAD and SBA 02/17/25 2 weeks OT Goal 3: Pt will complete grooming task(s) while standing sink level with SBA 02/17/25 2 weeks Written by Fidelina Bowden on 02/22/25 at 3:52 PM. * Progress Notes - Enzo Rod S - 02/22/2025 3:27 PM EDT PHYSICAL THERAPY TREATMENT PATIENT DATA Patient Name Hyacinth Marin Session Date 02/22/2025 Total Treatment Time 31 min PT Discharge Recommendations Acute rehab PT Equipment Recommendations Defer to facility PRECAUTIONS Weight Bearing Precautions (if applicable) ROM Restrictions (if applicable) Medical Precautions Yes Medical Precautions: Fall precautions, Post-Surgical precautions Post-Surgical Precautions: cervical spine Medical Precautions: MAP > 85 HOME LIVING/SET-UP Lives With Spouse, Son (17 y/o) Home Type House Home Equipment None Home Layout One level, Stairs to enter with rails 3 Bathroom Layout Tub/Shower combo Standard Additional Comments 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 She admitted having some brain fog and had difficulty answering some of the home setup questions. 17-year old son is home schooled and able to provide assistance at home. Pt also reports spouse works but is going to be available to provide 24-hour assistance when she initially returns home. PRIOR LEVEL OF FUNCTION Receives help from No assist required prior to admission Level of Mobility Ambulatory- community Mobility [place] Independent gait without device History of Falls No ADL Performance ADL Performance: Independent PRESENTATION Oxygen Oxygen Therapy: None (Room air) Lines and Tubes Peripheral IV 02/16/25 Posterior;Right Forearm (Active) Pre-Session Supine, Head of bed elevated, Lines intact RN report pt appropriate for session. Post-Session Supine, Head of bed elevated, Lines intact, RN notified, Call light in reach All needsmet. Bracing (if applicable) SUBJECTIVE PARTICIPANTS IN CARE Visitors Present No, Subjective Report Pt has NOT been: * Ambulating hallway distances * Ambulating in-room distances since last PT treatment. Pt HAS been: * Transferring Bed <> Chair with staff x2 via stand pivot since last PT treatment. Pt remains unaware when pt may be discharged from [facility]. Assessment Technician (if applicable) OBJECTIVE & INTERVENTIONS PAIN Pain Intensity / Location Pre-Mobility: Pt reports neck and back pain prior to initiation of session. Pain Intensity / Location Post-Mobility: Pt with increased neck and back pain during session but does not provide a pain rating. Prior to PT's departure: * rest was provided * pt was positioned for comfort * pillow support was provided DELIRIUM SCREENING RASS: Alert and calm Feature 3: Altered Level of Consciousness: Negative THERAPEUTIC ACTIVITY Treatment Minutes 21 BED MOBILITY Level of [place] Physical/Non- physical Assist Adaptive Equipment Utilized Rolling/ Turning Minimum assist (75% patient effort) Verbal Cues, Additional assist utilized for safety - Cues for sequencing of log rolling Bed rails Scooting/ Bridging Minimum assist (75% patient's effort) Verbal Cues, Additional assist utilized for safety - Cues for lateral trunk positioning to offload right hip and scoot to EOB Bed rails Supine to Sit Moderate assist (50% patient's effort) Verbal Cues, Additional assist utilized for safety - Cues for sequencing: log rolling left, dropping BLE off the side of the bed, and pushing through LUE to sit up Bed rails Sit to Supine Maximum assist (25% patient's effort) Verbal Cues, Nonverbal cues (demo/gestures), Additional assist utilized for safety - Cues for sequencing of transfer back into bed to maintain spinal precautions Bed rails TRANSFERS Level of [place] Physical/Non- physical Assist Adaptive Equipment Utilized Sit to Stand Minimum assist (75% patient's effort) (x2 reps) Verbal Cues, Additional assist utilized for safety, Minimal cues - Verbal and tactile cues at posterior pelvis to facilitate forward weight shift to initiate transfer - Tactile cues at posterolateral pelvis to facilitate hip extension once clear of bed - Cues for hand placement during transitional movements Hand held assist Stand to sit Minimum assist (75% patient's effort) Verbal Cues, Additional assist utilized for safety - Cues for optimal body positioning prior to initiation of transfer - Cues for hand placement during transitional movements Hand held assist Bed to Chair (Deferred as patient just returned from chair to bed) BALANCE Postural Appearance Posture: Forward head, Stooped posture Level of [place] Balance Support Interventions Static Sit Contact guard Left upper extremity support, Feet supported Sitting EOB. Pt denies dizziness following transition from supine to sit. Dynamic Sit Contact guard (Periods of [place]) Feet supported, Left upper extremity support Dynamic Sitting-Balance: Lateral weight shifts, Anterior/Posterior weight shifts Dynamic Sitting - Interventions: Sitting EOB for LUE & LLE movements. Demonstrates periods of posterior lean requiring [place] to maintain upright. With quick movements pt with increased pain requiring steadying assist throughout. Static Stand Minimum assistance Right upper extremity support, Left upper extremity support x2 stands. Pt with narrow AROLDO and forward trunk flexion in standing but is able to correct following verbalcues to stand up tall. Pt with decreased weight bearing through RLE. Dynamic Stand Minimum assistance Right upper extremity support, Left upper extremity support Standing ~ 1 minute for pre-gait activities: lateral weight shifts and heel lifts. Pt requires verbal and tactile cues at lateral pelvis to faciliate movement. AMBULATION Level of [place] Distance Adaptive Equipment Utilized Ambulation Moderate assistance, Maximum tactile cues, Moderate verbal cues, Additional assist utilized for safety 8' Hand held assist Comments Demonstrates narrow AROLDO, right toe drag 2/2 increased tone in gastrocnemius, decreased step length bilaterally with left shorter than right 2/2 decreased time in RLE stance. Provided verbal and tactile cues throughout at posterolateral pelvis to facilaite weight shifting for limb advancement and verbal cues provided to increase RLE knee/hip flexion for toe clearance. PT presence was necessary for: * progressing patient ambulation distances * monitoring patient vital sign stability * decreasing patient's risk of falling while progressing pt's distances THERAPEUTIC EXERCISE Treatment Minutes 10 In Sitting - Unsupported position, pt performed x10 reps of the following exercises on RLE: * Marching * Long Arc Quads With pt supine with HOB elevated PT performed x10 reps PROM into neutral dorsiflexion on RLE to maintain joint integrity and decrease risk of contracture formation. Verbal cuing and assistance was required for proper technique and for maximizing muscle contractibility and strength. Standardized Assessments [facility] 6-Clicks Mobility Assessment Difficulty patient has turning over in bed (including adjusting bedclothes, sheets, and blankets)?:A little Difficulty patient has sitting down on and standing up from a chair with arms (wheelchair, bedside commode, etc.)?: A little Difficulty patient has moving from lying on back to sitting on the side of the bed?: A lot How much help does the patient need moving to and from a bed to a chair (including a wheelchair)?: A lot How much help does the patient need to walk in hospital room?: A lot How much help does the patient need climbing 3-5 steps with a railing?: A lot [facility] 6-Clicks Mobility Assessment Total : 14 ASSESSMENT Pt is improving, as noted by: less assistance was required for pt to complete sit to stand transfers, pt demonstrated improved standing balance, and pt ambulated increased walking distances and with less assistance during this PT treatment compared to last PT treatment. Pt has the following impairments: impaired activity tolerance, gross functional weakness, impaired posture, impaired balance, and pain, which is limiting the pt from performing independent functional mobility. Patient may benefit from Acute Rehab for the following reasons: Pt remains as a high fall risk and is unsafe for discharge to home Pt ambulates at a slow pace and cannot perform ADL and iADLs functionally without prolonged rests Pt has stairs that pt cannot negotiate safely Pt would benefit from further instruction improving functional transfers and ambulation Pt would likely benefit from a short Acute Rehab stay where patient could become more independent performing transfers and ambulating Pt would likely progress independence of functional mobility towards PLOF with 3 hours of therapy daily, which is unable to be provided in the subacute rehab or acute care hospital settings. PT RECOMMENDATIONS Discharge Destination Acute rehab Discharge Equipment Defer to facility PLAN Pt may continue to benefit from skilled PT for addressing patient's impairments and reducing patient's participation restrictions and activity limitations. PT GOALS PT GOAL DETAILS DATE ASSESSED STATUS PROGRESS PT Goal 1: Pt will demonstrate bed mobility with standby assist. PT Goal 1 Established Date: 02/17/25 PT Goal 1 Time Frame: 2 weeks PT Goal 2: Pt will demonstrate [id number] transfers with standby assist PT Goal 2 Established Date: 02/17/25 PT Goal 2 Time Frame: 2 weeks PT Goal 3: Pt will perform [id number] transfers with contact guard assist. PT Goal 3 Established Date: 02/17/25 PT Goal 3 Time Frame: 2 weeks PT Goal 4: Pt will safely ambulate 100 ft or more using rolling walker or least restrictive assistive device with contact guard assist. PT Goal 4 Established Date: 02/17/25 PT Goal 4 Time Frame: 2 weeks PT Goal 5: Pt will ambulate up/down 3 stairs without loss of balance using least restrictive safe assistive device with contact guard assist. PT Goal 5 Established Date: 02/17/25 PT Goal 5 Time Frame: 2 weeks PT Goal 6: Pt/caregiver will verbalize and demonstrate understanding of post-op precautions and a basic HEP. PT Goal 6 Established Date: 02/17/25 PT Goal 6 Time Frame: 2 weeks Written by Enzo Rod on 02/22/25 at 3:51 PM. * Care Plan - Tran Packer RN - 02/22/2025 11:07 AM EDT Problem: Adult Inpatient Plan of Care Goal: Plan of Care Review Outcome: Ongoing, Progressing Flowsheets (Taken 02/22/2025 1103) Progress: no change Plan of Care Reviewed With: patient Goal: Patient-Specific Goal (Individualized) Outcome: Ongoing, Progressing Flowsheets (Taken 02/22/2025 0800) Patient/Family-Specific Goals (Include Timeframe): PT will be free from falls and injuries during 7a to 7p shift Individualized Care Needs: safety Anxieties, Fears or Concerns: safety Goal: Absence of Hospital-Acquired Illness or Injury Outcome: Ongoing, Progressing Intervention: Identify and Manage Fall Risk Flowsheets (Taken 02/22/2025 1103) Safety Promotion/Fall Prevention: activity supervised clutter-free environment maintained assistive device/personal items within reach fall prevention program maintained lighting adjusted mobility aid in reach nonskid shoes/slippers when out of bed room organization consistent Goal: Optimal Comfort and Wellbeing Outcome: Ongoing, Progressing Problem: Surgery Nonspecified Goal: Absence of Bleeding Outcome: Ongoing, Progressing Goal: Fluid and Electrolyte Balance Outcome: Ongoing, Progressing Goal: Blood Glucose Level Within Target Range Outcome: Ongoing, Progressing Goal: Absence of Infection Signs and Symptoms Outcome: Ongoing, Progressing Goal: Optimal Pain Control and Function Outcome: Ongoing, Progressing Intervention: Prevent or Manage Pain Flowsheets (Taken 02/22/2025 1103) Pain Management Interventions: ambulation/increased activity care clustered diversional activity provided heat applied pillow support provided position adjusted quiet environment facilitated relaxation techniques promoted cold applied Diversional Activities: movies Goal: Nausea and Vomiting Relief Outcome: Ongoing, Progressing Goal: Effective Urinary Elimination Outcome: Ongoing, Progressing Goal: Effective Oxygenation and Ventilation Outcome: Ongoing, Progressing Problem: Infection Goal: Absence of Infection Signs and Symptoms Outcome: Ongoing, Progressing Intervention: Prevent or Manage Infection Flowsheets (Taken 02/22/2025 1103) Infection Management: aseptic technique maintained Fever Reduction/Comfort Measures: lightweight bedding lightweight clothing Isolation Precautions: protective Problem: Fall Injury Risk Goal: Absence of Fall and Fall-Related Injury Outcome: Ongoing, Progressing Intervention: Identify and Manage Contributors Flowsheets (Taken 02/22/2025 1103) Medication Review/Management: medications reviewed high-risk medications identified Self-Care Promotion: independence encouraged BADL personal objects within reach BADL personal routines maintained Problem: Skin Injury Risk Increased Goal: Skin Health and Integrity Outcome: Ongoing, Progressing Intervention: Optimize Skin Protection Flowsheets Taken 02/22/2025 1103 by Tran Packer RN Pressure Reduction Techniques: frequent weight shift encouraged heels elevated off bed Pressure Reduction Devices: chair cushion utilized Head of Bed (HOB) Positioning: HOB at 30-45 degrees Taken 02/22/2025 0800 by Tran Packer RN Activity Management: activity adjusted per tolerance Taken 02/22/2025 0201 by Don Patricio RN Skin Protection: incontinence pads utilized * Progress Notes - Enma Pitt - 02/22/2025 10:58 AM EDT Speech Language Pathology TREATMENT NOTE Patient Name: Hyacinth Marin Age: 45 y.o. Today's Date: 02/22/2025 Recommendations: Regular (IDDSI Level 7) diet w/ thin liquids (Level 0). Meds as able. 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 Will sign off at this time. Please re- consult as needed. MANUFACTURING TEAM MEMBER Treatment Area(s): Swallow Treatment Time: 08 minutes Subjective RN ok'd tx. Pt alert and cooperative throughout session. RN and pt report pt w/ no overt s/sx aspiration or difficulty consuming PO. Objective Current diet: Adult diet Diet texture: Regular; Carbohydrate restriction: Consistent Carb 2 (80 gm max/meal) Respiratory status: RA WBC: WNL WBC Count Date Value Ref Range Status 02/22/2025 9.50 3.70 - 10.30 10*3/uL Final Pt seen for dysphagia tx to assess diet tolerance. Assessment Pt presents w/ a seemingly functional oropharyngeal swallow. Oral phase c/b adequate labial seal and oral containment. Pharyngeal phase without any overt s/sx aspiration appreciated across multiple trials of thin liquid via cup/straw, puree, and regular solid at bedside. Pt passed 3 oz water test. Pt reports that swallowing is at baseline and that she has had no difficulty consuming PO. Given bedside presentation, WBC/O2/Temp WNL, GCS 15, pt on RA, and pt tolerating regular diet, recommend regular (IDDSI Level 7) diet w/ thin liquids (Level 0). Meds as able. No further MANUFACTURING TEAM MEMBER services indicated at this time. Will sign off. Please re-consult if needed. Patient Education was provided via verbal instruction to patient re: d/c. Plan / Recommendations Regular (IDDSI Level 7) diet w/ thin liquids (Level 0). Meds as able. 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 Will sign off at this time. Please re-consult if needed. * Progress Notes - Iveth Castellanos MD - 02/22/2025 10:25 AM EDT Physical Medicine & Rehabilitation Inpatient Consult Followup cc: Cervical myelopathy (CMS/HCC) Subjective: Patient seen and examined. Sitting in chair at bedside. States she is doing well. Drainhas been removed. Having regular BM and voiding spontaneously. R hand remains numb but feels like strength is improving. Current Medications: Continuous: Current Continuous Medications[1] Scheduled: Current Scheduled Medications[2] PRN: Current PRN Medications[3] Review of Information: Labs: Lab Results Component Value Date WBC 9.50 02/22/2025 WBC 8.01 02/21/2025 WBC 8.34 02/20/2025 HGB 10.9 (L) 02/22/2025 HGB 11.3 02/21/2025 HGB 11.3 02/20/2025 HCT 33.1 (L) 02/22/2025 MCV 94 02/22/2025 PLT 157 02/22/2025 PLT 174 02/21/2025 PLT 171 02/20/2025 Lab Results Component Value Date NA 139 02/22/2025 NA 141 02/21/2025 NA 139 02/20/2025 K 3.4 (L) 02/22/2025 K 4.1 02/21/2025 K 4.0 02/20/2025 CL 104 02/22/2025 CL 105 02/21/2025 CL 105 02/20/2025 BUN 16 02/22/2025 BUN 14 02/21/2025 BUN 19 02/20/2025 CREATININE 0.46 (L) 02/22/2025 CREATININE 0.45 (L) 02/21/2025 CREATININE 0.49 (L) 02/20/2025 CALCIUM 8.2 (L) 02/22/2025 CALCIUM 8.7 (L) 02/21/2025 CALCIUM 8.7 (L) 02/20/2025 GLUCOSE 101 (H) 02/22/2025 GLUCOSE 134 (H) 02/21/2025 GLUCOSE 100 (H) 02/20/2025 GLUCOSE 129 (H) 02/20/2025 GLUCOSE 131 (H) 02/19/2025 Lab Results Component Value Date ALT 41 (H) 02/20/2025 ALT 32 02/19/2025 ALT 22 02/18/2025 AST 36 (H) 02/20/2025 AST 38 (H) 02/19/2025 AST 37 (H) 02/18/2025 ALKPHOS 80 02/20/2025 ALKPHOS 65 02/19/2025 ALKPHOS 67 02/18/2025 BILITOT 0.3 02/20/2025 BILITOT 0.3 02/19/2025 BILITOT 0.3 02/18/2025 No results found for: HGBA1C Physical Examination: Visit Vitals BP (!) 149/88 Pulse 87 Temp 36.7 ??C (98.1 ??F) Wt 69.4 kg (153 lb) SpO2 96% BMI 25.46 kg/m?? Gen: NAD, reclining in bedside chair Eyes: no scleral icterus, pupils round and symmetric Neck: supple, no tracheostomy ENT: nares patent, mucous membranes moist, posterior neck drain CV: regular rate, no BLE edema Resp: nonlabored breathing, no wheezing GI: abd soft, NTTP : no quick Skin: warm, dry Heme/lymph/immune: no bruising, no lymphadenopathy Psychiatric: good judgement, good insight MSK: - RUE 1/5 finger abd, 2/5 FF, otherwise 5/5 throughout - RLE 2/5 HF/KE/KF, 0/5 ADF, 2/5 APF - LUE/LLE 5/5 throughout Neurological: awake and alert, participating in conversation CN II-XII intact Sensation decreased circumferentially in R hand; otherwise, sensation intact to light touch Follow up appointments: Future Appointments Date Time Provider Department Center 03/03/2025 12:00 PM Marisol Allen APRN [facility] 04/02/2025 1:20 PM Jeremy Ramirez MD [facility] Mobility Orders Mobility Protocol: General - Mobility Guidelines Extremity Precautions: No Extremity Precautions Other mobility precautions: No other precautions required ASSESSMENT/PLAN: Hyacinth Marin is a 45 y.o. female w/PMH of nicotine dependence & cervical myelopathy who presented to on 02/16/2025 (LOS: 6d) for a planned C3-[address] Ramirez. 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 Per Neurosurgery, IV dex can be transitioned to PO taper and will be outlined in DC summary Anticipated final disposition: home with family Social support: son, Anticipated date of medical readiness: 48-72 hrs Rehab ELOS: 2-3 weeks Functional goals at discharge: to work on ADLs, mobility, and cognition Medical prognosis: good Medical need: ntSCI with cervical myelopathy s/p C3-7 PCF, post-operative pain, hypocalcemia, hyperglycemia, mild transminitis, electrolyte abnormalities Rehab prognosis: good Thank you for allowing us to participate in the care of your patient. We will continue to follow. Please page [phone] with any questions, or resident on-call if after hours or on weekends. Iveth Castellanos MD Physical Medicine & Rehabilitation [1] [2] baclofen, 10 mg, Oral, TID bisacodyl, 10 mg, Rectal, Daily cyclobenzaprine, 5 mg, Oral, TID dexamethasone, 2 mg, Intravenous, Daily enoxaparin, 40 mg, Subcutaneous, Daily gabapentin, 300 mg, Oral, TID insulin lispro, 0-5 Units, Subcutaneous, TID with meals insulin lispro, 0-3 Units, Subcutaneous, Twice at night phosphorus, 250 mg, Oral, TID polyethylene glycol, 17 g, Oral, BID senna-docusate, 2 tablet, Oral, BID sodium chloride, 10 mL, Intravenous, q12h [3] acetaminophen, 1,000 mg, Oral, q6h PRN OR acetaminophen, 1,000 mg, Oral, q6h PRN OR acetaminophen, 650 mg, Rectal, q6h PRN ondansetron ODT, 4 mg, Oral, q6h PRN OR ondansetron, 4 mg, Intravenous, q6h PRN oxyCODONE, 5 mg, Oral, q6h PRN OR oxyCODONE, 10 mg, Oral, q6h PRN Insert peripheral IV, , , Once AND Saline lock IV, , , Once AND sodium chloride, 10 mL, Intravenous, q12h AND sodium chloride, 10 mL, Intravenous, PRN Cosigned by Wero Mckeon DO at 02/22/2025 2:41 PM EDT Associated attestation - Wero Mckeon DO - 02/22/2025 2:41 PM EDT I saw and evaluated the patient with the resident/fellow. I discussed the case with the resident/fellow and agree with the findings and plan as documented. * Progress Notes - Nancy Mora, RN - 02/22/2025 10:15 AM EDT POC reviewed with multidisciplinary team, per MD, pt is medically ready to discharge to [facility]. CM asked for updated PT/OT notes and updated [facility]. CM will continue to follow and assist with discharge planning needs. * Progress Notes - Allie Akers RN - 02/22/2025 8:51 AM EDT Spine Nurse Navigator Note Saw patient at bedside, patient is resting in bed. At this time patient does not want to get up to the chair would like to later this am. Patient is aware of getting out of bed three times a day willaid in post op recovery. No questions or concerns. Allie Akers ferryboat helper Nurse Navigator * Assessment & Plan Note - Brad Deshpande APRN - 02/22/2025 6:23 AM EDT Associated Problem(s): Tobacco use - Recommend tobacco cessation prior to discharge. * Progress Notes - Brad Deshpande APRN - 02/22/2025 5:52 AM EDT Images from the original note were not included. Neurosurgery Progress Note Subjective Hyacinth Marin is a 45 y.o. female patient with severe cervical stenosis and myelopathy progression (MJ OA ). Now s/p C3-C7 PCF on 02/16/2025. No acute events overnight. Patient seated in bed. She reports that she is having some back pain. States she had just received pain medication. She reports n/t to right hand and right foot. She says that she has not been able to move her hand and foot much. Patient unable to flex or extend her foot for ENSEMBLE MEMBER and looked as though she had foot drop. However, RN reported that patient was able to wiggle her toes this morning. She has not been up to the chair today. ENSEMBLE MEMBER discussed the importance of getting out of bed multiple times during the day. Current Medications[1] Specimen Collected: 02/22/25 00:58 CBC WBC 9.50 Hgb 10.9 (L) Plt 157 Hct 33.1 (L) BMP Na 139 Cl 104 BUN 16 Glu 101 (H) K 3.4 (L) Co2 25 Cr 0.46 (L) Ca 8.2 (L) Mg 2.0, Phos 3.2 Vitals Temp: [36.7 ??C (98 ??F)-37 ??C (98.6 ??F)] 36.8 ??C (98.3 ??F) Heart Rate: [72-114] 87 Resp: [9-25] 13 BP: (117-176)/(77-106) 134/81 Review of Systems Musculoskeletal: Positive for back pain. Neurological: Positive for numbness. All other systems reviewed and are negative. Objective Physical Exam Vitals reviewed. Constitutional: Appearance: Normal appearance. Cardiovascular: Rate and Rhythm: Normal rate and regular rhythm. Pulses: Normal pulses. Heart sounds: Normal heart sounds. Pulmonary: Effort: Pulmonary effort is normal. Breath sounds: Normal breath sounds. Abdominal: General: There is no distension. Palpations: Abdomen is soft. Tenderness: There is no abdominal tenderness. Skin: General: Skin is warm and dry. Comments: Dressing removed. Incision well approximated with reina and without drainage or redness. Steri strips in place to old drain site. New Covaderm applied over the incision. Neurological: General: No focal deficit present. Mental Status: She is alert and oriented to person, place, and time. Psychiatric: Mood and Affect: Mood normal. Behavior: Behavior normal. NEURO: GCS (EMV): 465 Awake, alert, oriented Follows commands appropriately Speech clear, intact Pupils reactive bilaterally, EOMI Sensation intact throughout Strength: Delt Bi Tri Laminating Machine Feeder RUE: 5/5 4/5 4/5 3/5 LUE: 5/5 5/5 5/5 5/5 HF KE DF PF RLE: 5/5 5/5 1/5 1/5 LLE: 5/5 5/5 5/5 5/5 Imaging XR Cervical Spine: Monitoring wires overlie the chest limiting evaluation. Imaged chest is otherwise unremarkable. Postoperative changes from interval posterior fusion from C3 through C7. Straightening of cervical lordosis. There is mild C5-6 and C6-7 retrolisthesis. Skin reina are seen posteriorly. Drain is in place posteriorly. Hyacinth Marin is a 45 y.o. female patient with severe cervical stenosis and myelopathy progression (MJ OA ). Now s/p C3-C7 PCF on 02/16/2025. Assessment & Plan Cervical myelopathy (CMS/HCC) Cervical stenosis of spine Muscle spasm of back Acute post-operative pain S/P cervical spinal fusion - 02/16 s/p C3-7 PCF (*lost motors) - 02/18 XR Cervical Spine: See findings above - 02/19 ISMONA removed - Continue IV Dex taper until 02/24. - Continue multimodal PO pain control with scheduled baclofen, flexeril, gabapentin, and PRN tylenol, oxycodone. - Ice as needed. - Dressing will need to be changed every 2 days. The incision is to be covered at all times with dressing until POD #10. - When showering, remove the dressing; incision can get wet. - Last BM 02/21. Continue daily bowel regimen. - Resume home meds as able. - Nursing to assist patient up to the chair at each meal time/evening and with ambulation in room/figueroa. - PT/OT following. Recommend acute rehab. Has been referred to [facility]. Electrolyte abnormality - hypophosphatemia, hypokalemia - 02/22 K 3.4. Replacement ordered. Will reassess response in the morning. - Has scheduled Phos tabs ordered. - Will repeat Phos in the morning. Tobacco use - Recommend tobacco cessation prior to discharge. F: HLIV, PO intake E: Monitor and replace prn N: Regular, CHO 2 diet PPX: SCDs, pLOV Code: FULL Thank you for allowing us to participate in the care of this patient. Please call with any questions or concerns. Brad Deshpande, DNP, AIR [employer]PLER Advanced Practice Provider Department of Neurosurgery [facility] Medically Ready for Discharge:Ready Now [1] Current Facility-Administered Medications Medication Dose Route Frequency Provider Last Rate Last Admin acetaminophen (Tylenol) tablet 1,000 mg 1,000 mg Oral q6h PRN Ashvin Magana MD 1,000 mg at 02/21/25 08 Or acetaminophen (Tylenol) 160 MG/5ML solution 1,000 mg 1,000 mg Oral q6h PRN Ashvin Magana MD Or acetaminophen (Tylenol) suppository 650 mg 650 mg Rectal q6h PRN Ashvin Magana MD baclofen (Lioresal) tablet 10 mg 10 mg Oral TID Ashvin Magana MD 10 mg at 02/21/252003 bisacodyl (Dulcolax) suppository 10 mg 10 mg Rectal Daily Theresa Nelson, XAVIER cyclobenzaprine (Flexeril) tablet 5 mg 5 mg Oral TID Chace Jin MD 5 mg at 02/21/252003 dexamethasone (Decadron) injection 2 mg 2 mg Intravenous Daily Jeremy Ramirez MD 2 mg at enoxaparin (Lovenox) syringe 40 mg 40 mg Subcutaneous Daily Stevan Mccarthy 40 mg at 02/21/25825 gabapentin (Neurontin) capsule 300 mg 300 mg Oral TID Ashvin Magana MD 300 mg at 02/21/252003 insulin lispro (Admelog) 100 units/mL injection - Correction - Standard Dose 0-5 Units SubcutaneousTID with meals Julio Beasley III, MD 2 Units at 02/21/25 165 insulin lispro (Admelog) injection - Correction - Nighttime Dose 0-3 Units Subcutaneous Twice at night Julio Beasley III, MD ondansetron ODT (Zofran-ODT) disintegrating tablet 4 mg 4 mg Oral q6h PRN Ashvin Magana MD Or ondansetron (Zofran) injection 4 mg 4 mg Intravenous q6h PRN Ashvin Magana MD oxyCODONE (Roxicodone) immediate release tablet 5 mg 5 mg Oral q6h PRN Aubrey Mccarthyus A Or oxyCODONE (Roxicodone) immediate release tablet 10 mg 10 mg Oral q6h PRN Aubrey Mccarthyus A 10 mg at 02/22/25 0118 phosphorus (K Phos Neutral) tablet 1 tablet 250 mg Oral TID Leida Marcano APRN, DORA 1 tablet at 02/21/252003 polyethylene glycol (Miralax) packet 17 g 17 g Oral BID Julio Beasley III, MD 17 g at 02/20/25 0833 senna-docusate (Jeimy-Colace) 8.6-50 MG per tablet 2 tablet 2 tablet Oral BID Theresa Nelson APRN 2 tablet at 02/21/252003 sodium chloride 0.9 % flush 10 mL 10 mL Intravenous q12h Ashvin Magana MD 10 mL at And sodium chloride 0.9 % flush 10 mL 10 mL Intravenous PRN Ashvin Magana MD * Care Plan - Don Patricio RN - 02/22/2025 2:05 AM EDT Problem: Adult Inpatient Plan of Care Goal: Plan of Care Review Outcome: Ongoing, Progressing Flowsheets (Taken 02/22/2025200) Progress: improving Outcome Evaluation: pain Plan of Care Reviewed With: patient Goal: Patient-Specific Goal (Individualized) Outcome: Ongoing, Progressing Flowsheets (Taken 02/22/2025200) Patient/Family-Specific Goals (Include Timeframe): Patinet will have Bowel movement during shift Individualized Care Needs: safety Anxieties, Fears or Concerns: pain Goal: Absence of Hospital-Acquired Illness or Injury Outcome: Ongoing, Progressing Intervention: Identify and Manage Fall Risk Flowsheets (Taken 02/22/2025200) Safety Promotion/Fall Prevention: activity supervised Intervention: Prevent Skin Injury Flowsheets (Taken 02/22/2025200) Body Position: weight shifting Skin Protection: incontinence pads utilized Intervention: Prevent and Manage VTE (Venous Thromboembolism) Risk Flowsheets (Taken 02/22/2025200) VTE Prevention/Management: bilateral SCDs (sequential compression devices) on Intervention: Prevent Infection Flowsheets (Taken 02/22/2025200) Infection Prevention: rest/sleep promoted Goal: Optimal Comfort and Wellbeing Outcome: Ongoing, Progressing Intervention: Monitor Pain and Promote Comfort Flowsheets (Taken 02/22/2025200) Pain Management Interventions: medication (see MAR) Intervention: Provide Person-Centered Care Flowsheets (Taken 02/22/2025200) Trust Relationship/Rapport: care explained Problem: Surgery Nonspecified Goal: Absence of Bleeding Outcome: Ongoing, Progressing Intervention: Monitor and Manage Bleeding Flowsheets (Taken 02/22/2025200) Bleeding Management: dressing monitored Goal: Fluid and Electrolyte Balance Outcome: Ongoing, Progressing Intervention: Monitor and Manage Fluid and Electrolyte Balance Flowsheets (Taken 02/22/2025200) Fluid/Electrolyte Management: intravenous fluids adjusted Goal: Blood Glucose Level Within Target Range Outcome: Ongoing, Progressing Intervention: Optimize Glycemic Control Flowsheets (Taken 02/22/2025200) Hyperglycemia Management: blood glucose monitored Hypoglycemia Management: blood glucose monitored Goal: Absence of Infection Signs and Symptoms Outcome: Ongoing, Progressing Intervention: Prevent or Manage Infection Flowsheets (Taken 02/22/2025200) Infection Management: aseptic technique maintained Fever Reduction/Comfort Measures: lightweight clothing Isolation Precautions: protective Goal: Optimal Pain Control and Function Outcome: Ongoing, Progressing Intervention: Prevent or Manage Pain Flowsheets (Taken 02/22/2025200) Pain Management Interventions: medication (see MAR) Diversional Activities: music smartphone television Goal: Nausea and Vomiting Relief Outcome: Ongoing, Progressing Intervention: Prevent or Manage Nausea and Vomiting Flowsheets (Taken 02/22/2025200) Nausea/Vomiting Interventions: cool cloth applied Goal: Effective Urinary Elimination Outcome: Ongoing, Progressing Intervention: Monitor and Manage Urinary Retention Flowsheets (Taken 02/22/2025200) Urinary Elimination Promotion: toileting scheduled Goal: Effective Oxygenation and Ventilation Outcome: Ongoing, Progressing Intervention: Optimize Oxygenation and Ventilation Flowsheets (Taken 02/22/2025200) Activity Management: activity adjusted per tolerance Airway/Ventilation Management: calming measures promoted Head of Bed (HOB) Positioning: HOB at 30-45 degrees Cough And Deep Breathing: done independently per patient Problem: Infection Goal: Absence of Infection Signs and Symptoms Outcome: Ongoing, Progressing Intervention: Prevent or Manage Infection Flowsheets (Taken 02/22/2025200) Infection Management: aseptic technique maintained Fever Reduction/Comfort Measures: lightweight clothing Isolation Precautions: protective Problem: Fall Injury Risk Goal: Absence of Fall and Fall-Related Injury Outcome: Ongoing, Progressing Intervention: Identify and Manage Contributors Flowsheets (Taken 02/22/2025200) Medication Review/Management: medications reviewed Self-Care Promotion: independence encouraged Intervention: Promote Injury-Free Environment Flowsheets (Taken 02/22/2025200) Safety Promotion/Fall Prevention: activity supervised Problem: Skin Injury Risk Increased Goal: Skin Health and Integrity Outcome: Ongoing, Progressing Intervention: Optimize Skin Protection Flowsheets (Taken 02/22/2025200) Activity Management: activity adjusted per tolerance Skin Protection: incontinence pads utilized Head of Bed (HOB) Positioning: HOB at 30-45 degrees Intervention: Promote and Optimize Oral Intake Flowsheets (Taken 02/22/2025200) Oral Nutrition Promotion: adaptive equipment use encouraged * Progress Notes - Chace Jin MD - 02/21/2025 1:53 PM EDT Neurosurgery ICU Progress Note Subjective Hyacinth Marin is a 45 y.o. female patient with severe cervical stenosis and myelopathy progression (MJ OA ). Now s/p C3-C7 PCF on 02/16/25 Interval: NAEON. Off MAPs since yesterday, strength stable. Medications Current Medications[1] Last Recorded Vitals Visit Vitals BP 127/82 Pulse 88 Temp 36.9 ??C (98.4 ??F) (Oral) Resp 15 Wt 70.8 kg (156 lb 1.4 oz) SpO2 96% BMI 25.97 kg/m?? OB Status IUD Smoking Status Some Days BSA 1.8 m?? Labs Labs in last 18 hours CBC WBC 8.01 Hb 11.3 Plt 174 Hct 33.9 (L) INR ??, PTT ??, Anti-Xa ?? BMP Na 141 Cl 105 BUN 14 Glu 134 (H) K 4.1 Co2 25 Cr 0.45 (L) Ca 8.7 (L) iCa ?? Mg 2.0, Phos 3.2 Lactate ?? LFT AST ?? AlkPhos ?? T Prot ?? ALK ?? Bili ?? Alb ?? Outputs Intake/Output Summary (Last 24 hours) at 02/21/2025 1353 Last data filed at 02/21/2025 0800 Gross per 24 hour Intake 1680 ml Output 400 ml Net 1280 ml Output by Drain (mL) 02/19/25 0700 - 02/19/25 1859 02/19/25 1900 - 02/20/25 0659 02/20/25 0700 - 02/20/25 1859 02/20/25 1900 - 02/21/25 0659 02/21/25 0700 - 02/21/25 1353 Patient has no LDAs of requested type attached. Physical Exam GCS (EMV): 465 Awake, alert, oriented x3 Follows commands appropriately Speech clear Strength RUE 5554 LUE 5555 RLE 2524 LLE 5555 Assessment and Plan Hyacinth Marin is a 45 y.o. female patient with severe cervical stenosis and myelopathy progression ( OA ). Now s/p C3-C7 PCF on 02/16/25 ICU Length of Stay: 4d 17h Assessment/Plan Principal Problem: Cervical myelopathy (CMS/HCC) Active Problems: Cervical stenosis of spine Electrolyte abnormality Muscle spasm of back BMI 25.0-25.9,adult Tobacco use Acute post-operative pain Hypophosphatemia - Advance activities as tolerated - Advance diet as tolerated - DVT prophylaxis since POD 1 - PO pain medication - PM&R: (02/18) Recommend MANUFACTURING TE[employer] MEMBER evaluation and treatment for impaired cognition, word processing, and swallowing Dispo: Acute - MANUFACTURING TEAM MEMBER (02/19): OK to continue Regular (IDDSI Level 7) diet w/ thin liquids (Level 0). Meds as able. MANUFACTURING TEAM MEMBER to f/u for diet tolerance x1. No acute speech/language/cognitive services indicated. - Baclofen 10mg TID - Discontinue Quick catheter - Pain management - PT/OT - IV Dex 4 q8 48 hours total (ordered) - MAPs completed Chace Crain MD Resident Physician, PGY-2 Department of [facility] [1] Current Facility-Administered Medications Medication Dose Route Frequency Provider Last Rate Last Admin acetaminophen (Tylenol) tablet 1,000 mg 1,000 mg Oral q6h PRN Ashvin Magana MD 1,000 mg at 02/21/25 0826 Or acetaminophen (Tylenol) 160 MG/5ML solution 1,000 mg 1,000 mg Oral q6h PRN Ashvin Magana MD Or acetaminophen (Tylenol) suppository 650 mg 650 mg Rectal q6h PRN Ashvin Magana MD baclofen (Lioresal) tablet 10 mg 10 mg Oral TID Ashvin Magana MD 10 mg at 02/21/25825 bisacodyl (Dulcolax) suppository 10 mg 10 mg Rectal Daily Theresa Nelson APRN cyclobenzaprine (Flexeril) tablet 5 mg 5 mg Oral TID Chace Jin MD 5 mg at 02/21/25826 dexamethasone (Decadron) injection 2 mg 2 mg Intravenous Daily Jeremy Ramirez MD 2 mg at enoxaparin (Lovenox) syringe 40 mg 40 mg Subcutaneous Daily JaymelStevan saini A 40 mg at 02/21/25 08 gabapentin (Neurontin) capsule 300 mg 300 mg Oral TID Ashvin Magana MD 300 mg at 02/21/25826 insulin lispro (Admelog) 100 units/mL injection - Correction - Standard Dose 0-5 Units SubcutaneousTID with meals Julio Beasley III, MD 1 Units at 02/21/25 0832 insulin lispro (Admelog) injection - Correction - Nighttime Dose 0-3 Units Subcutaneous Twice at night Julio Beasley III, MD ondansetron ODT (Zofran-ODT) disintegrating tablet 4 mg 4 mg Oral q6h PRN Ashvin Magana MD Or ondansetron (Zofran) injection 4 mg 4 mg Intravenous q6h PRN Ashvin Magana MD oxyCODONE (Roxicodone) immediate release tablet 5 mg 5 mg Oral q6h PRN Rommelparveen, Stevan A Or oxyCODONE (Roxicodone) immediate release tablet 10 mg 10 mg Oral q6h PRN Shari Stevan A 10 mg at 02/21/25 0826 phosphorus (K Phos Neutral) tablet 1 tablet 250 mg Oral TID Leida Marcano APRN, DNP 1 tablet at 02/21/25 0827 polyethylene glycol (Miralax) packet 17 g 17 g Oral BID Julio Beasley III, MD 17 g at 02/20/25 0833 senna-docusate (Jeimy-Colace) 8.6-50 MG per tablet 2 tablet 2 tablet Oral BID Theresa Nelson [employer]SE [employer]PLER 2 tablet at 02/21/25 0826 sodium chloride 0.9 % flush 10 mL 10 mL Intravenous q12h Ashvin Magana MD 10 mL at And sodium chloride 0.9 % flush 10 mL 10 mL Intravenous PRN Ashvin Magana MD Cosigned by Denny Lovell MD at 02/21/2025 11:43 PM EDT * Care Plan - Morelia Dukes RN - 02/21/2025 9:28 AM EDT Problem: Adult Inpatient Plan of Care Goal: Plan of Care Review Outcome: Ongoing, Progressing Flowsheets Taken 02/21/2025 0925 by Morelia Dukes RN Progress: improving Taken 02/20/20252013 by Carie Miles Plan of Care Reviewed With: patient Goal: Patient-Specific Goal (Individualized) Outcome: Ongoing, Progressing Flowsheets (Taken 02/21/2025 0800) Patient/Family-Specific Goals (Include Timeframe): During shift patient will remain free from fallsand injury. Individualized Care Needs: encourage activity and bowel movement Anxieties, Fears or Concerns: pain control Goal: Optimal Comfort and Wellbeing Outcome: Ongoing, Progressing Intervention: Monitor Pain and Promote Comfort Flowsheets (Taken 02/21/2025 0826) Pain Management Interventions: medication (see MAR) Intervention: Provide Person-Centered Care Flowsheets (Taken 02/20/20252013 by Carie Miles) Trust Relationship/Rapport: care explained choices provided emotional support provided empathic listening provided questions answered questions encouraged reassurance provided thoughts/feelings acknowledged Problem: Surgery Nonspecified Goal: Absence of Bleeding Outcome: Ongoing, Progressing Intervention: Monitor and Manage Bleeding Flowsheets (Taken 02/17/2025 0810 by Carolee Olson RN) Bleeding Management: dressing monitored Goal: Fluid and Electrolyte Balance Outcome: Ongoing, Progressing Intervention: Monitor and Manage Fluid and Electrolyte Balance Flowsheets (Taken 02/17/2025 0810 by Carolee Olson RN) Fluid/Electrolyte Management: intravenous fluids adjusted Goal: Absence of Infection Signs and Symptoms Outcome: Ongoing, Progressing Intervention: Prevent or Manage Infection Flowsheets Taken 02/21/2025 0800 by Morelia Dukes RN Isolation Precautions: precautions maintained Taken 02/17/2025 0810 by Carolee Olson RN Infection Management: aseptic technique maintained Taken 02/17/2025 0146 by Micha Abreu RN Fever Reduction/Comfort Measures: lightweight clothing Problem: Infection Goal: Absence of Infection Signs and Symptoms Outcome: Ongoing, Progressing Intervention: Prevent or Manage Infection Flowsheets Taken 02/21/2025 0800 by Morelia Dukes RN Isolation Precautions: precautions maintained Taken 02/17/2025 0810 by Carolee Olson RN Infection Management: aseptic technique maintained Taken 02/17/2025 0146 by Micha Abreu RN Fever Reduction/Comfort Measures: lightweight clothing * Care Plan - Carie Miles - 02/20/2025 8:00 PM EDT Problem: Adult Inpatient Plan of Care Goal: Plan of Care Review Flowsheets Taken 02/20/20252013 by Carie Miles Outcome Evaluation: pain Plan of Care Reviewed With: patient Taken 02/20/2025 1834 by Morelia Dukes RN Progress: improving Goal: Patient-Specific Goal (Individualized) Flowsheets (Taken 02/20/20252013) Patient/Family-Specific Goals (Include Timeframe): during this shift pt will remain free from fallsand injury Individualized Care Needs: MAP >85 Anxieties, Fears or Concerns: pain control Goal: Optimal Comfort and Wellbeing Intervention: Provide Person-Centered Care Flowsheets (Taken 02/20/20252013) Trust Relationship/Rapport: care explained choices provided emotional support provided empathic listening provided questions answered questions encouraged reassurance provided thoughts/feelings acknowledged Problem: Surgery Nonspecified Goal: Optimal Pain Control and Function Intervention: Prevent or Manage Pain Flowsheets (Taken 02/20/20251999) Pain Management Interventions: position adjusted relaxation techniques promoted rest quiet environment facilitated diversional activity provided emotional support Diversional Activities: music movies television smartphone * Care Plan - Morelia Dukes RN - 02/20/2025 6:35 PM EDT Problem: Adult Inpatient Plan of Care Goal: Plan of Care Review Outcome: Ongoing, Progressing Flowsheets Taken 02/20/2025 1834 by Morelia Dukes RN Progress: improving Taken 02/19/20258 by Carie Miles Plan of Care Reviewed With: patient Goal: Patient-Specific Goal (Individualized) Outcome: Ongoing, Progressing Flowsheets (Taken 02/20/2025 0800) Patient/Family-Specific Goals (Include Timeframe): During shift patient will remain free from fallsand injury. Individualized Care Needs: encourage activity and needs bowel movement Anxieties, Fears or Concerns: pain control Goal: Absence of Hospital-Acquired Illness or Injury Outcome: Ongoing, Progressing Intervention: Identify and Manage Fall Risk Flowsheets (Taken 02/20/2025 0800) Safety Promotion/Fall Prevention: activity supervised Intervention: Prevent Skin Injury Flowsheets (Taken 02/20/2025 1800) Body Position: weight shifting Intervention: Prevent and Manage VTE (Venous Thromboembolism) Risk Flowsheets (Taken 02/20/2025 1600) VTE Prevention/Management: bilateral SCDs (sequential compression devices) on Intervention: Prevent Infection Flowsheets (Taken 02/17/2025 0146 by Micha Abreu RN) Infection Prevention: environmental surveillance performed hand hygiene promoted rest/sleep promoted personal protective equipment utilized Problem: Surgery Nonspecified Goal: Absence of Bleeding Outcome: Ongoing, Progressing Intervention: Monitor and Manage Bleeding Flowsheets (Taken 02/17/2025 0810 by Carolee Olson RN) Bleeding Management: dressing monitored Goal: Fluid and Electrolyte Balance Outcome: Ongoing, Progressing Intervention: Monitor and Manage Fluid and Electrolyte Balance Flowsheets (Taken 02/17/2025 0810 by Carolee Olson RN) Fluid/Electrolyte Management: intravenous fluids adjusted Goal: Blood Glucose Level Within Target Range Outcome: Ongoing, Progressing Goal: Absence of Infection Signs and Symptoms Outcome: Ongoing, Progressing Intervention: Prevent or Manage Infection Flowsheets Taken 02/20/2025 0800 by Morelia Dukes RN Isolation Precautions: precautions maintained Taken 02/17/2025 0810 by Carolee Olson RN Infection Management: aseptic technique maintained Taken 02/17/2025 0146 by Micha Abreu RN Fever Reduction/Comfort Measures: lightweight clothing Problem: Infection Goal: Absence of Infection Signs and Symptoms Outcome: Ongoing, Progressing Intervention: Prevent or Manage Infection Flowsheets Taken 02/20/2025 0800 by Morelia Dukes RN Isolation Precautions: precautions maintained Taken 02/17/2025 0810 by Carolee Olson RN Infection Management: aseptic technique maintained Taken 02/17/2025 0146 by Micha Abreu RN Fever Reduction/Comfort Measures: lightweight clothing * Progress Notes - Chace Jin MD - 02/20/2025 7:24 AM EDT Neurosurgery ICU Progress Note Subjective Hyacinth Marin is a 45 y.o. female patient with severe cervical stenosis and myelopathy progression (MJ OA ). Now s/p C3-C7 PCF on 02/16/25 Interval: NAEON. Last day of MAPs today. Plan for PCU Medications Current Medications[1] Last Recorded Vitals Visit Vitals BP (!) 143/84 Pulse 75 Temp 36.4 ??C (97.5 ??F) (Axillary) Resp 14 Wt 70.8 kg (156 lb 1.4 oz) SpO2 94% BMI 25.97 kg/m?? OB Status IUD Smoking Status Some Days BSA 1.8 m?? Labs Labs in last 18 hours CBC WBC 8.34 Hb 11.3 Plt 171 Hct 34.7 INR 1.0, PTT ??, Anti-Xa ?? BMP Na 140 Cl 107 BUN 17 Glu 129 (H) K 4.0 Co2 25 Cr 0.46 (L) Ca 9.0 iCa 4.6 Mg 1.9, Phos 3.4 Lactate ?? LFT AST 36 (H) AlkPhos 80 T Prot 7.1 ALK 41 (H) Bili 0.3 Alb ?? Outputs Intake/Output Summary (Last 24 hours) at 02/20/2025 07 Last data filed at 02/19/2025 1600 Gross per 24 hour Intake 1440 ml Output 40 ml Net 1400 ml Output by Drain (mL) 02/18/25 0700 - 02/18/25 1859 02/18/25 1900 - 02/19/25 0659 02/19/25 0700 - 02/19/25 1859 02/19/25 1900 - 02/20/25 0659 02/20/25 0700 - 02/20/25 0724 Patient has no LDAs of requested type attached. Physical Exam GCS (EMV): 465 Awake, alert, oriented x3 Follows commands appropriately Speech clear Strength RUE 5552 LUE 5555 RLE 2524 LLE 5555 Assessment and Plan Hyacinth Marin is a 45 y.o. female patient with severe cervical stenosis and myelopathy progression (MJ OA ). Now s/p C3-C7 PCF on 02/16/25 ICU Length of Stay: 3d 11h Assessment/Plan Principal Problem: Cervical myelopathy (CMS/HCC) Active Problems: Cervical stenosis of spine Electrolyte abnormality Muscle spasm of back BMI 25.0-25.9,adult Tobacco use Acute post-operative pain Hypophosphatemia - Advance activities as tolerated - Advance diet as tolerated - DVT prophylaxis since POD 1 - PO pain medication - PM&R: (02/18) Recommend MANUFACTURING TEAM MEMBER evaluation and treatment for impaired cognition, word processing, and swallowing Dispo: Acute - MANUFACTURING TEAM MEMBER (02/19): OK to continue Regular (IDDSI Level 7) diet w/ thin liquids (Level 0). Meds as able. MANUFACTURING TEAM MEMBER to f/u for diet tolerance x1. No acute speech/language/cognitive services indicated. - Baclofen 10mg TID - Discontinue Quick catheter - Pain management - PT/OT - IV Dex 4 q8 48 hours total (ordered) - MAPs completed Chace Crain MD Resident Physician, PGY-2 Department of [facility] [1] Current Facility-Administered Medications Medication Dose Route Frequency Provider Last Rate Last Admin acetaminophen (Tylenol) tablet 1,000 mg 1,000 mg Oral q6h PRN Ashvin Magana MD 1,000 mg at 02/18/25 0940 Or acetaminophen (Tylenol) 160 MG/5ML solution 1,000 mg 1,000 mg Oral q6h PRN Ashvin Magana MD Or acetaminophen (Tylenol) suppository 650 mg 650 mg Rectal q6h PRN Ashvin Magana MD baclofen (Lioresal) tablet 10 mg 10 mg Oral TID Ashvin Magana MD 10 mg at 02/19/252047 bisacodyl (Dulcolax) suppository 10 mg 10 mg Rectal Daily Theresa Nelson APRN cyclobenzaprine (Flexeril) tablet 5 mg 5 mg Oral TID Ashvin Magana MD 5 mg at 02/19/252047 dexamethasone (Decadron) injection 2 mg 2 mg Intravenous BID Jeremy Ramirez MD 2 mg at 02/19/252046 Followed by [START ON 02/21/2025] dexamethasone (Decadron) injection 2 mg 2 mg Intravenous Daily Jeremy Ramirez MD enoxaparin (Lovenox) syringe 40 mg 40 mg Subcutaneous Daily RommelStevan saini A 40 mg at 02/19/25824 gabapentin (Neurontin) capsule 300 mg 300 mg Oral TID Ashvin Magana MD 300 mg at 02/19/252047 insulin lispro (Admelog) 100 units/mL injection - Correction - Standard Dose 0-5 Units SubcutaneousTID with meals Julio Beasley III, MD 1 Units at 02/19/251828 insulin lispro (Admelog) injection - Correction - Nighttime Dose 0-3 Units Subcutaneous Twice at night Julio Beasley III, MD magnesium hydroxide (Milk of Magnesia) 400 MG/5ML suspension 30 mL 30 mL Oral Once Theresa Nelson APRN ondansetron ODT (Zofran-ODT) disintegrating tablet 4 mg 4 mg Oral q6h PRN Ashvin Magana MD Or ondansetron (Zofran) injection 4 mg 4 mg Intravenous q6h PRN Ashvin Magana MD oxyCODONE (Roxicodone) immediate release tablet 5 mg 5 mg Oral q6h PRN Stevan Mccarthy A Or oxyCODONE (Roxicodone) immediate release tablet 10 mg 10 mg Oral q6h PRN Stevan Mccarthy A 10 mg at 02/20/25 0309 phosphorus (K Phos Neutral) tablet 1 tablet 250 mg Oral TID Leida Marcano APRN, DNP 1 tablet at 02/19/252047 polyethylene glycol (Miralax) packet 17 g 17 g Oral BID Julio Beasley III, MD 17 g at 02/19/25 0825 senna-docusate (Jeimy-Colace) 8.6-50 MG per tablet 2 tablet 2 tablet Oral BID Theresa Nelson APRN sodium chloride 0.9 % flush 10 mL 10 mL Intravenous q12h Ashvin Magana MD 10 mL at 02/20/250008 And sodium chloride 0.9 % flush 10 mL 10 mL Intravenous PRN Ashvin Magana MD Cosigned by Denny Lovell MD at 02/21/2025 11:43 PM EDT * Significant Event - Theresa Nelson APRN - 02/20/2025 7:24 AM EDT Pt had no acute events overnight, receiving PCU orders. No further ICU needs at this time, CCM willsign off. Thank you for allowing us to participate in the care of this patient. Please feel free toconsult us for any further needs. Theresa Nelson APRN [phone] * Care Plan - Carie Miles - 02/19/2025 11:29 PM EDT Problem: Adult Inpatient Plan of Care Goal: Plan of Care Review Flowsheets (Taken 02/19/20252327) Progress: improving Outcome Evaluation: pain Plan of Care Reviewed With: patient Goal: Patient-Specific Goal (Individualized) Flowsheets (Taken 02/19/20252327) Patient/Family-Specific Goals (Include Timeframe): during shift pt will remain free from falls and injury Individualized Care Needs: MAP >85 Anxieties, Fears or Concerns: pain control Goal: Optimal Comfort and Wellbeing Intervention: Provide Person-Centered Care Flowsheets (Taken 02/19/20252327) Trust Relationship/Rapport: care explained choices provided emotional support provided empathic listening provided questions answered thoughts/feelings acknowledged reassurance provided questions encouraged Problem: Surgery Nonspecified Goal: Optimal Pain Control and Function Intervention: Prevent or Manage Pain Flowsheets (Taken 02/19/2025 2300) Diversional Activities: movies music television smartphone reading puzzles * Care Plan - Morelia Dukes RN - 02/19/2025 12:12 PM EDT Problem: Adult Inpatient Plan of Care Goal: Plan of Care Review Outcome: Ongoing, Progressing Flowsheets Taken 02/18/2025 1016 by Morelia Dukes RN Progress: improving Taken 02/17/2025 0146 by Micha Abreu RN Plan of Care Reviewed With: patient Goal: Patient-Specific Goal (Individualized) Outcome: Ongoing, Progressing Flowsheets (Taken 02/19/2025 0800) Patient/Family-Specific Goals (Include Timeframe): During shift patient will remain free from fallsand injury. Individualized Care Needs: MAP >85 Anxieties, Fears or Concerns: pain control Goal: Optimal Comfort and Wellbeing Outcome: Ongoing, Progressing Intervention: Monitor Pain and Promote Comfort Flowsheets (Taken 02/19/2025 1200) Pain Management Interventions: position adjusted Intervention: Provide Person-Centered Care Flowsheets (Taken 02/17/2025 0146 by Micha Abreu RN) Trust Relationship/Rapport: care explained choices provided emotional support provided empathic listening provided questions encouraged reassurance provided thoughts/feelings acknowledged Problem: Surgery Nonspecified Goal: Absence of Bleeding Outcome: Ongoing, Progressing Intervention: Monitor and Manage Bleeding Flowsheets (Taken 02/17/2025 0810 by Carolee Olson RN) Bleeding Management: dressing monitored Goal: Fluid and Electrolyte Balance Outcome: Ongoing, Progressing Intervention: Monitor and Manage Fluid and Electrolyte Balance Flowsheets (Taken 02/17/2025 0810 by Carolee Olson RN) Fluid/Electrolyte Management: intravenous fluids adjusted Goal: Blood Glucose Level Within Target Range Outcome: Ongoing, Progressing Goal: Absence of Infection Signs and Symptoms Intervention: Prevent or Manage Infection Flowsheets Taken 02/19/2025 0400 by Rob San Isolation Precautions: precautions maintained protective Taken 02/17/2025 0810 by Carolee Olson RN Infection Management: aseptic technique maintained Taken 02/17/2025 0146 by Micha Abreu RN Fever Reduction/Comfort Measures: lightweight clothing * Progress Notes - Blayne De La Torre MD - 02/19/2025 12:08 PM EDT Neurosurgery ICU Progress Note Subjective Hyacinth Marin is a 45 y.o. female patient with severe cervical stenosis and myelopathy progression (MJ OA ). Now s/p C3-C7 PCF on 02/16/25 Interval: NAEON. Will continue to push MAPs today for day # 3/3 Medications Current Medications[1] Last Recorded Vitals Visit Vitals BP (!) 158/99 Pulse 72 Temp 37.1 ??C (98.8 ??F) (Oral) Resp 13 Wt 70.8 kg (156 lb 1.4 oz) SpO2 95% BMI 25.97 kg/m?? OB Status IUD Smoking Status Some Days BSA 1.8 m?? Labs Labs in last 18 hours CBC WBC 7.38 Hb 10.8 (L) Plt 171 Hct 33.7 (L) INR 1.0, PTT ??, Anti-Xa ?? BMP Na 140 Cl 107 BUN 8 Glu 131 (H) K 4.2 Co2 24 Cr 0.38 (L) Ca 8.8 (L) iCa 4.6 Mg 2.2, Phos 2.7 Lactate ?? LFT AST 38 (H) AlkPhos 65 T Prot 7.1 ALK 32 Bili 0.3 Alb ?? Outputs Intake/Output Summary (Last 24 hours) at 02/19/2025 1208 Last data filed at 02/19/2025 0800 Gross per 24 hour Intake 960 ml Output 100 ml Net 860 ml Output by Drain (mL) 02/17/25 0700 - 02/17/25 1859 02/17/25 1900 - 02/18/25 0659 02/18/25 0700 - 02/18/25 1859 02/18/25 1900 - 02/19/25 0659 02/19/25 0700 - 02/19/25 1208 Closed/Suction Drain 1 Posterior Neck Accordion 15 Fr. 60 70 120 30 Physical Exam GCS (EMV): 465 Awake, alert, oriented x3 Follows commands appropriately Speech clear Strength RUE 5552 LUE 5555 RLE 2514 LLE 5522 Assessment and Plan Hyacinth Marin is a 45 y.o. female patient with severe cervical stenosis and myelopathy progression (MJ OA ). Now s/p C3-C7 PCF on 02/16/25 ICU Length of Stay: 2d 16h Assessment/Plan Principal Problem: Cervical myelopathy (CMS/HCC) Active Problems: Cervical stenosis of spine Electrolyte abnormality Muscle spasm of back BMI 25.0-25.9,adult Tobacco use Acute post-operative pain Hypophosphatemia - Advance activities as tolerated - Advance diet as tolerated - DVT prophylaxis since POD 1 - SIMONA to be removed today - PO pain medication - PM&R: (02/18) Recommend MANUFACTURING TEAM MEMBER evaluation and treatment for impaired cognition, word processing, and swallowing Dispo: Acute - MANUFACTURING TEAM MEMBER (02/19): OK to continue Regular (IDDSI Level 7) diet w/ thin liquids (Level 0). Meds as able. MANUFACTURING TEAM MEMBER to f/u for diet tolerance x1. No acute speech/language/cognitive services indicated. - Baclofen 10mg TID - Discontinue Quick catheter - Pain management - PT/OT - MAPs > 85 (#3/3) - IV Dex 4 q8 48 hours total (ordered) Blayne De La Torre MD Resident Physician PGY-1 Department of [facility] [1] Current Facility-Administered Medications Medication Dose Route Frequency Provider Last Rate Last Admin acetaminophen (Tylenol) tablet 1,000 mg 1,000 mg Oral q6h PRN Ashvin Magana MD 1,000 mg at 02/18/25 0940 Or acetaminophen (Tylenol) 160 MG/5ML solution 1,000 mg 1,000 mg Oral q6h PRN Ashvin Magana MD Or acetaminophen (Tylenol) suppository 650 mg 650 mg Rectal q6h PRN Ashvin Magana MD baclofen (Lioresal) tablet 10 mg 10 mg Oral TID Ashvin Magana MD 10 mg at 02/19/25 0825 cyclobenzaprine (Flexeril) tablet 5 mg 5 mg Oral TID Ashvin Magana MD 5 mg at 02/19/25 0825 dexamethasone (Decadron) injection 2 mg 2 mg Intravenous BID Jeremy Ramirez MD Followed by [START ON 02/21/2025] dexamethasone (Decadron) injection 2 mg 2 mg Intravenous Daily Jeremy Ramirez MD enoxaparin (Lovenox) syringe 40 mg 40 mg Subcutaneous Daily Rommelparveen Stevan A 40 mg at 02/19/25 0825 gabapentin (Neurontin) capsule 300 mg 300 mg Oral TID Ashvin Magana MD 300 mg at 02/19/25 0825 insulin lispro (Admelog) 100 units/mL injection - Correction - Standard Dose 0-5 Units SubcutaneousTID with meals Julio Beasley III, MD 1 Units at 02/18/25 1754 insulin lispro (Admelog) injection - Correction - Nighttime Dose 0-3 Units Subcutaneous Twice at night Julio Beasley III, MD ondansetron ODT (Zofran-ODT) disintegrating tablet 4 mg 4 mg Oral q6h PRN Ashvin Magana MD Or ondansetron (Zofran) injection 4 mg 4 mg Intravenous q6h PRN Ashvin Magana MD oxyCODONE (Roxicodone) immediate release tablet 5 mg 5 mg Oral q6h PRN Aubrey Mccarthyus A Or oxyCODONE (Roxicodone) immediate release tablet 10 mg 10 mg Oral q6h PRN Stevan Mccarthy A 10 mg at 02/19/25 0825 phosphorus (K Phos Neutral) tablet 1 tablet 250 mg Oral TID Leiad Marcano, AIR HOSE COUPLER, DNP 1 tablet at 02/19/25 0902 polyethylene glycol (Miralax) packet 17 g 17 g Oral BID Julio Beasley III, MD 17 g at 02/19/25 0825 senna-docusate (Jeimy-Colace) 8.6-50 MG per tablet 1 tablet 1 tablet Oral BID Ashvin Magana MD 1 tablet at 02/19/25 0825 sodium chloride 0.9 % flush 10 mL 10 mL Intravenous q12h Ashvin Magana MD 10 mL at And sodium chloride 0.9 % flush 10 mL 10 mL Intravenous PRN Ashvin Magana MD Cosigned by Denny Lovell MD at 02/21/2025 11:42 PM EDT * Progress Notes - Amy Luong - 02/19/2025 12:03 PM EDT PHYSICAL THERAPY TREATMENT PATIENT DATA Patient Name Hyacinth Marin Session Date 02/19/2025 Total Treatment Time 43 min PT Discharge Recommendations Acute rehab PT Equipment Recommendations Defer to facility PRECAUTIONS Medical Precautions Yes Medical Precautions: Fall precautions, Post-Surgical precautions Post-Surgical Precautions: cervical spine Medical Precautions: MAP > 85 HOME LIVING/SET-UP Lives With Spouse, Son (17 y/o) Home Type House Home Equipment None Home Layout One level, Stairs to enter with rails 3 Bathroom Layout Tub/Shower combo Standard Additional Comments 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 She admitted having some brain fog and had difficulty answering some of the home setup questions. 17-year old son is home schooled and able to provide assistance at home. Pt also reports spouse works but is going to be available to provide 24-hour assistance when she initially returns home. PRIOR LEVEL OF FUNCTION Receives help from No assist required prior to admission Level of Mobility Ambulatory- community Mobility [place] Independent gait without device History of Falls No ADL Performance ADL Performance: Independent PRESENTATION Oxygen Oxygen Therapy: None (Room air) Lines and Tubes telemetry Closed/Suction Drain 1 Posterior Neck Accordion 15 Fr. (Active) Peripheral IV 02/16/25 Left;Posterior Hand (Active) Peripheral IV 02/16/25 Posterior;Right Forearm (Active) Pre-Session Supine, Head of bed elevated, Lines intact RN agreeable to therapy session timing. Post-Session Sitting in chair, Chair alarm, Lines intact, RN notified (pt able to void on BSC but urine is cloudy and has an odor), Call light in reach Needs met. SUBJECTIVE PARTICIPANTS IN CARE Visitors Present No, Subjective Report Pt has NOT been: * Ambulating in-room distances since being admitted to the hospital. Pt HAS been: * Transferring Bed <> Chair since being admitted to the hospital. Pt remains unaware when pt may be discharged from [facility]. Assessment Technician (if applicable) Not Applicable OBJECTIVE & INTERVENTIONS PAIN Pain Intensity / Location Pre-Mobility: 3/10 neck/shoulder pain Pain Intensity / Location Post-Mobility: 4/10 neck/shoulder pain Prior to PT's departure: * rest was provided * pt was positioned for comfort * pillow support was provided * RN was informed of pt's pain DELIRIUM SCREENING RASS: Alert and calm Feature 3: Altered Level of Consciousness: Negative THERAPEUTIC ACTIVITY Treatment Minutes 28 PT assisted and instructed pt in functional mobility activities to improve their ability to move around safely and reduce the effects of post illness/surgery related sedentary status. Pt participatedin bed mobility, supine-sit and uje-rswsx-gno transfers. They were able to progress to standing pivot transfers twice toward R side. PT provided education to patient regarding frequent movement of R arm using L arm to assist. Verbal and tactile cues given to pt by PT for: postural alignment, weightshifting, improved biomechanics, safety, movement sequence, hand/foot placement, assistive device management, and appropriate activity pacing. BED MOBILITY Level of [place] Physical/Non- physical Assist Adaptive Equipment Utilized Rolling/ Turning Minimum assist (75% patient effort) (rolling right) Verbal Cues, Additional assist utilizedfor safety Bed rail Scooting/ Bridging Moderate assist (50% patient's effort) Verbal Cues, Additional assist utilized for safety Draw sheet Supine to Sit Moderate assist (50% patient's effort) Verbal Cues, Additional assist utilized for safety Bed rail TRANSFERS Level of [place] Physical/Non- physical Assist Adaptive Equipment Utilized Sit to Stand Moderate assist (50% patient's effort) Verbal Cues, Additional assist utilized for safety Hand held assist Stand to sit Moderate assist (50% patient's effort) Verbal Cues, Additional assist utilized for safety Hand held assist Bed to Chair Moderate assist (50% patient's effort) Stand-pivot Verbal Cues, Additional assist utilized for safety Hand held assist BALANCE Postural Appearance Posture: Forward head, Stooped posture Level of [place] Balance Support Activities Static Sit Contact guard Left upper extremity support, Feet supported Dynamic Sit Contact guard Feet supported, Left upper extremity support Dynamic Sitting-Balance: Lateral weight shifts, Anterior/Posterior weight shifts Static Stand Minimum assistance Right upper extremity support, Left upper extremity support Dynamic Stand Moderate assistance Right upper extremity support, Left upper extremity support Dynamic Sitting-Balance: Lateral weight shifts, Anterior/Posterior weight shifts NEUROMUSCULAR RE-EDUCATION Treatment Minutes 15 Interventions PT assisted and facilitated pt in motor control of R LE. Manual dorsiflexion to neutral achieved with max overpressure. Gastroc remains hypertonic and pt has no volitional great toe extension or dorsiflexion in R LE. Manually assisted knee flexion stretch, hip IR and flexion stretch x5 reps each. Standardized Assessments [facility] 6-Clicks Mobility Assessment Difficulty patient has turning over in bed (including adjusting bedclothes, sheets, and blankets)?:A little Difficulty patient has sitting down on and standing up from a chair with arms (wheelchair, bedside commode, etc.)?: A little Difficulty patient has moving from lying on back to sitting on the side of the bed?: A lot How much help does the patient need moving to and from a bed to a chair (including a wheelchair)?: A lot How much help does the patient need to walk in hospital room?: A lot How much help does the patient need climbing 3-5 steps with a railing?: Unable [facility] 6-Clicks Mobility Assessment Total : 13 ASSESSMENT Ms. Hyacinth Marin is recovering from severe Cervical Stenosis with Myelopathy S/P C3-C7 PosteriorCervical Fusion (02/16/25) and associated debility. She was able to mobilize with PT assistance on POD #3 and demonstrated focused effort during therapy session today. Her pain is under much better control. Right arm weakness and Right leg hypertonicity (gastroc>quad) are limiting factors. Pt was able to demonstrate partial ROM for R wrist ext and R SLR. She is not able to ambulate functionally or independently. Pt is improving, as noted by: less assistance was required for pt to complete some or all transfers and pt demonstrated improved sitting and/or standing balance during this PT treatment compared to last PT treatment. Pt has the following impairments: impaired activity tolerance, gross functional weakness, impaired posture, impaired balance, pain, and poor transfer sequencing, which is limiting the pt from performing independent functional mobility. Pt's current level of function is lower than the reported prior level of function and for this reason further PT treatment is indicated. Inpatient PT will continue to follow. Patient will benefit from Acute Rehab for the following reasons: Pt remains as a high fall risk and is unsafe for discharge to home Pt remains unable to ambulate. Pt is currently not able to exit home safely and timely in the event of an emergency evacuation. Pt would benefit from further instruction improving functional transfers and ambulation Pt would benefit from a short Acute Rehab stay where patient could become more independent performing transfers and ambulating Pt would benefit more from Acute Rehab than other rehab services due to pt's medical acuity, level of immobility, and need for improved safety prior to returning home. Pt requires multiple therapy disciplines including PT/OT and frequent adjustments in medications and treatment from MD/RN disciplines which cannot be easily accessed at a lower level of care. Pt would likely tolerate 3 hours of therapy daily, which is unable to be provided in the subacute rehab or acute care hospital settings PT RECOMMENDATIONS Discharge Destination Acute rehab Discharge Equipment Defer to facility PLAN PT to continue skilled therapy interventions to facilitate pt in reaching their functional goals. . PT GOALS PT GOAL DETAILS DATE ASSESSED STATUS PROGRESS PT Goal 1: Pt will demonstrate bed mobility with standby assist. PT Goal 1 Established Date: 02/17/25 PT Goal 1 Time Frame: 2 weeks PT Goal 2: Pt will demonstrate [id number]-[id number] transfers with standby assist PT Goal 2 Established Date: 02/17/25 PT Goal 2 Time Frame: 2 weeks PT Goal 3: Pt will perform mmz-mcysd-[id number] transfers with contact guard assist. PT Goal 3 Established Date: 02/17/25 PT Goal 3 Time Frame: 2 weeks PT Goal 4: Pt will safely ambulate 100 ft or more using rolling walker or least restrictive assistive device with contact guard assist. PT Goal 4 Established Date: 02/17/25 PT Goal 4 Time Frame: 2 weeks PT Goal 5: Pt will ambulate up/down 3 stairs without loss of balance using least restrictive safe assistive device with contact guard assist. PT Goal 5 Established Date: 02/17/25 PT Goal 5 Time Frame: 2 weeks PT Goal 6: Pt/caregiver will verbalize and demonstrate understanding of post-op precautions and a basic HEP. PT Goal 6 Established Date: 02/17/25 PT Goal 6 Time Frame: 2 weeks Written by Amy Luong on 02/19/25 at 4:17 PM. * Progress Notes - Fidelina Bowden - 02/19/2025 12:02 PM EDT Occupational Therapy Treatment Patient Name: Hyacinth Marin Today's Date: 02/19/2025 OT Discharge Recommendations: Acute rehab Equipment Recommended: Defer to facility Subjective I'm ready to get better Participants in Care Family/Caregiver Present: No Assessment Technician: Not Applicable Presentation Oxygen Therapy: None (Room air) Lines and Tubes: Intravenous access, Telemetry, Surgical drains Pre-Session: Supine, Head of bed elevated, Lines intact Pre-Session Comments: RN agreeable to therapy session. Post-Session: Sitting in chair, Chair alarm, Lines intact, RN notified, Call light in reach Post-Session Comments: Needs met. Precautions Medical Precautions: Fall precautions, Post-Surgical precautions Post-Surgical Precautions: cervical spine Medical Precautions: MAP > 85 Objective Pain Pt endorsed cervical pain, rated 3/10. RN made aware. She was purposefully positioned with pillow supports and resting comfortably at time of OT departure. Delirium Screening RASS: Alert and calm Confusion Assessment Method-ICU (CAM-ICU/PCAM-ICU) Feature 3: Altered Level of Consciousness: Negative Cognition Cognition Cognitive Skill Development Intervention: Pt still mildly drowsy but able to alert with minimal cues. She attributes drowsiness to medication. My body just isn't used to it . Overall Cognitive Status: Within Functional Limits Arousal/Alertness: Appropriate responses to stimuli Mood/Behavior: Alert Orientation Level: Oriented X4 Single Step Commands: Consistently Multi-Step Commands: Consistently, With increased time (2/2 pain) Method of Communication: Verbal Safety Judgment: Good awareness of safety precautions Awareness of Errors: Assistance required to identify errors made Deficit Awareness: Fully aware of deficits Attention Span: Attends with cues to redirect Self-Care Interventions Self Care/Home Management (ADLs) Time Entry: 30 ADL retraining completed through bed mobility, functional transfers and task specific ADLs. OT usedrehabilitative and occupational adaptation FOR to guide intervention strategies based on pt performance. OT provided environmental structure, tactile and verbal cues to optimize pt performance. Feeding Feeding Level of Assistance: Minimum assistance Feeding Where Assessed: Chair Level Feeding Interventions: Pt requested assistance opening bag of tamela's. OT educated pt on neuromuscular feedback specifically visual attention on affected limb and attempting active movement. Pt receptive to education provided and was able to notably activate arm/hand for trying to use bilateral hands for opening package. OT provided gentle tcyp-yxbc-pcad assist to support analytics specialist and pull. Once opened, pt able to self-feed using non-dominate LUE. WIth ongoing improvement, pt will be appropriate for use of built up hands on R. Grooming Grooming Level of Assistance: Setup, Minimum assistance Grooming Where Assessed: Chair level Grooming Interventions: To brush hair and wash face. Pt completed face washing with setup assist (LUE). She initiated using RUE for brushing hair and OT provided gentle tactile cues with myvv-ufcw-hayu assist to support AAROM. Pt fatigued and endorsed shoulder pain after several minutes and left arm was used for full task completion. Lower Extremity Dressing Sock Level of Assistance: Dependent LE Dressing Interventions: Ot graded task and cued pt to complete leg lift for sock placement. Activation noted in RLE today. AAROM for full follow through. Toileting Toileting Level of Assistance: Moderate assistance Where Assessed: Bedside commode Toileting Interventions: OT provided tactile cue on left side and verbal cues to optimize transfer safety. PT positioned on R side. Pt completed sit>stand with side steps, MOD A 1+1. Standing tolerance/balance was the focus of intervention during jeimy-hygiene for safety, MAX A for task completion. Bed Mobility Bed Mobility Interventions: Pt was provided cues for sequencing logroll technique. OT also providedcues for pacing/coordinated breathing to optimize pain management. Pt followed cues provided. Pt able to activate RLE toward EOB, although intermittent offloading for full transiton. MOD tactile cue to R shoulder for sup>sit transition. Bed Mobility Exam: Rolling/Turning Level of [place]: Minimum assist (75% patient effort) (rolling right) Physical/Nonphysical Assist: Verbal Cues, Additional assist utilized for safety Assistive Device: Bed rails Bed Mobility Exam: Scooting/Bridging Level of [place]: Moderate assist (50% patient's effort) Physical/Nonphysical Assist: Verbal Cues, Additional assist utilized for safety Assistive Device: Other (drawsheet) Bed Mobility Exam: Supine to Sit Level of [place]: Moderate assist (50% patient's effort) Physical/Nonphysical Assist: Verbal Cues, Additional assist utilized for safety Assistive Device: Bed rails Transfers See Self-Care section for details on OT transfer interventions. Transfer Exam: Sit to stand Level of [place]: Moderate assist (50% patient's effort) Physical/Nonphysical Assist: Verbal Cues, Additional assist utilized for safety Assistive Device: Hand held assist Transfer Exam: Stand to Sit Level of [place]: Moderate assist (50% patient's effort) Physical/Nonphysical Assist: Verbal Cues, Additional assist utilized for safety Assistive Device: Hand held assist Transfer Exam: Bed to Chair/Chair to Bed Level of [place]: Moderate assist (50% patient's effort) Physical/Nonphysical Assist: Verbal Cues, Additional assist utilized for safety Type of Transfer: Stand-pivot Assistive Device: Hand held assist Balance Postural Appearance Posture: Forward head, Stooped posture Static Sitting Balance Static Sitting-Balance Support: Left upper extremity support, Feet supported Static Sitting-Level of Assistance: Contact guard Dynamic Sitting Balance Dynamic Sitting-Balance Support: Feet supported, Left upper extremity support Dynamic Sitting-Balance: Lateral weight shifts, Anterior/Posterior weight shifts Level of Assistance: Contact guard Static Standing Balance Static Standing-Balance Support: Right upper extremity support, Left upper extremity support Static Standing-Level of Assistance: Minimum assistance Dynamic Standing Balance Dynamic Standing-Balance Support: Right upper extremity support, Left upper extremity support Dynamic Standing-Balance: Lateral weight shifts Dynamic Standing Level of Assistance: Moderate assistance Participation in Functional Tasks: Maximum assistance (pericare) Therapeutic Exercise (13 minutes) Pt was engaged in RUE therapeutic exercise to support sensory and neuromuscular re-education for engagement in ADL tasks. OT assisted pt with completing finger flexion/extension x5, wrist flexion/extension x5 and elbow flexion/extension x5. Pt able to activate all muscles however, AAROM for full digit extension/flexion. OT modeled self-assisted AROM and pt was able to teachback appropriately. All exercises added to pt HEP. Assessment Pt progressing with current plan of care. Mild improvement in RUE/RLE active motor movement, improving pt's ability to engage in self-feeding and grooming tasks. She completed transfer to bedside commode with MOD A 1+1. Despite mild improvement, pt's ADL independence and functional mobility continue to be significantly impacted by pain, RUE/RLE weakness/sensation impairments, impaired balance andactivity tolerance. She is independent with ADLs and IADLs at baseline. 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 OT recommends acute rehab when pt is medically ready for discharge. Acute rehabilitation will provide pt with the appropriate amount of rehab intensity to maximize her safety and independence. Pt presents that she will tolerate 3-hours of therapy per day as pain improves. Pt would benefit from further OT services while in hospital setting to aid with aforementioned areas of need and discharge transition. OT Recommendations Discharge Destination: Acute rehab Discharge Equipment: Defer to facility Goals OT GOAL DETAILS Goal Established Date Time Frame Goal Status OT Goal 1: Pt will complete LB dressing with setup assist 02/17/25 2 weeks OT Goal 2: Pt will complete toilet transfer using LRAD and SBA 02/17/25 2 weeks OT Goal 3: Pt will complete grooming task(s) while standing sink level with SBA 02/17/25 2 weeks Written by Fidelina Bowden on 02/19/25 at 2:48 PM. * Assessment & Plan Note - Julio Beasley III, MD - 02/19/2025 10:17 AM EDT Associated Problem(s): Hypophosphatemia (Resolved 02/23/2025) -Monitor per protocol -Shanice repletion * Assessment & Plan Note - Julio Beasley III, MD - 02/19/2025 10:17 AM EDT Associated Problem(s): Electrolyte abnormality (Resolved 02/23/2025) Replace per ICU sliding scale protocol. * Assessment & Plan Note - Julio Beasley III, MD - 02/19/2025 10:17 AM EDT Associated Problem(s): Cervical stenosis of spine C3-C7 posterior cervical fusion Admitted to PCU post-op but then upgraded to ICU for MAP goals and post-op weakness MAP >85 No arterial line, on no vasopressor support * Assessment & Plan Note - Julio Beasley III, MD - 02/19/2025 10:17 AM EDT Associated Problem(s): Muscle spasm of back Resume home medications as appropriate * Assessment & Plan Note - Julio Beasley III, MD - 02/19/2025 10:17 AM EDT Associated Problem(s): BMI 25.0-25.9,adult Complicates all aspects of care. * Assessment & Plan Note - Julio Beasley III, MD - 02/19/2025 10:17 AM EDT Associated Problem(s): Tobacco use Smoking cessation as appropriate Complicates all aspects of care * Assessment & Plan Note - Julio Beasley III, MD - 02/19/2025 10:17 AM EDT Associated Problem(s): Acute post-operative pain -Off IVPCA, acute pain signed off -[facility] * Assessment & Plan Note - Julio Beasley III, MD - 02/19/2025 10:17 AM EDT Associated Problem(s): Cervical myelopathy (CMS/HCC) See cervical stenosis of spine * Progress Notes - Julio Beasley III, MD - 02/19/2025 10:16 AM EDT Procedures 02/19/25 Hyacinth Marin is a 45 y.o. female who presents with Cervical myelopathy (CMS/HCC). If applicable, patient is s/p Procedure(s) and Anesthesia Type: * C3-7 PCF, w IONM - General. Patient is 3 Days Post-Op with Neurosurgery. Past 24 hours: PM: NAEON AM: GCS 15 has RLE/RUE weakness. Continue MAP goal >85. On no hemodynamic drips. Added milk of mag + biscodyl. MANUFACTURING TEAM MEMBER consulted per PM&R recs. Edited by: Julio Beasley III, MD at 02/19/2025 1016 Lines/Drains/Tubes: Patient Lines/Drains/Airways Status Active Active LDAs Name Placement date Placement time Site Days Peripheral IV 02/16/25 Left;Posterior Hand 02/16/25 0630 Hand 3 Peripheral IV 02/16/25 Posterior;Right Forearm 02/16/25 -- Forearm 3 Closed/Suction Drain 1 Posterior Neck Accordion 15 Fr. 02/16/25 1059 Neck 2 GCS: Jennifer Coma Scale Score: 15 Review of Systems All other systems reviewed and are negative. 14 point ROS reviewed and otherwise negative or unobtainable except as noted above or in HPI. Vital signs: Vitals: 02/19/25 0900 BP: (!) 175/100 Pulse: 67 Resp: 13 Temp: SpO2: 97% Intake/Output Summary (Last 24 hours) at 02/19/2025 1016 Last data filed at 02/19/2025 0600 Gross per 24 hour Intake 720 ml Output 150 ml Net 570 ml Physical Exam: Sedation was held for the purposes of examination. Physical Exam Constitutional: General: She is not in acute distress. Appearance: Normal appearance. HENT: Head: Normocephalic and atraumatic. Mouth/Throat: Mouth: Mucous membranes are moist. Eyes: General: No scleral icterus. Conjunctiva/sclera: Conjunctivae normal. Cardiovascular: Rate and Rhythm: Normal rate and regular rhythm. Heart sounds: Normal heart sounds. No murmur heard. Pulmonary: Effort: Pulmonary effort is normal. No respiratory distress. Breath sounds: Normal breath sounds. No wheezing. Abdominal: General: Abdomen is flat. Bowel sounds are normal. Palpations: Abdomen is soft. Tenderness: There is no abdominal tenderness. Musculoskeletal: Right lower leg: No edema. Left lower leg: No edema. Neurological: Mental Status: She is alert and oriented to person, place, and time. Comments: RLE/RUE weakness Results Review I have reviewed the latest lab and imaging results. Assessment and Plan: This patient is critically ill. Assessment & Plan Cervical myelopathy (CMS/HCC) Present on Admission: Unknown See cervical stenosis of spine Cervical stenosis of spine Present on Admission: Yes C3-C7 posterior cervical fusion Admitted to PCU post-op but then upgraded to ICU for MAP goals and post-op weakness MAP >85 No arterial line, on no vasopressor support Electrolyte abnormality Present on Admission: Yes Replace per ICU sliding scale protocol. Muscle spasm of back Present on Admission: Yes Resume home medications as appropriate BMI 25.0-25.9,adult Present on Admission: Not Applicable Complicates all aspects of care. Tobacco use Present on Admission: Yes Smoking cessation as appropriate Complicates all aspects of care Acute post-operative pain Present on Admission: Unknown -Off IVPCA, acute pain signed off -[facility] Hypophosphatemia Present on Admission: Yes -Monitor per protocol -Shanice repletion Julio Beasley III, MD Cosigned by Brian Aguiar MD at 02/21/2025 4:10 PM EDT Associated attestation - Brian Aguiar MD - 02/21/2025 4:10 PM EDT I saw and evaluated the patient with the resident/fellow. I discussed the case with the resident/fellow and agree with the findings and plan as documented. * Progress Notes - Enma Pitt - 02/19/2025 8:19 AM EDT Speech Language Pathology Clinical Swallow Initial Evaluation Speech/Language/Cognition Initial Evaluation or Discharge Evaluation Patient Name: Hyacinth Marin Age: 45 y.o. Today's Date: 02/19/2025 Recommendations: OK to continue Regular (IDDSI Level 7) diet w/ thin liquids (Level 0). Meds as able. MANUFACTURING TEAM MEMBER to f/u for diet tolerance x1. No acute speech/language/cognitive services indicated. History/Background Information Hyacinth Marin is a 45 y.o. female patient with severe cervical stenosis and myelopathy progression (MJ OA ). Now s/p C3-C7 PCF on 02/16/25. Problem List[1] Past Medical History[2] Surgical History[3] Subjective Hyacinth Marin was alert and cooperative. Identified by name and . RN provided verbal consent for evaluation. Objective DYSPHAGIA Current diet: Adult diet Diet texture: Regular; Carbohydrate restriction: Consistent Carb 2 (80 gm max/meal) Respiratory Status: room air WBC: 7.38, WNL Relevant Imaging: XR Cervical Spine 02/18 IMPRESSION: Expected recent post surgical changes from posterior fusion from C3 through C7. Mild C5-6 and C6-7 retrolisthesis. Scales GCS: 15 Direction Following: Follows multi-step and complex directions and Independently Oral Mechanism Report: Dentition: intact, some missing Oral hygiene: WFL Focused Cranial Nerve Exam: Trigeminal Nerve (V): facial sensation intact, mandible strength/ROM intact, and hyolaryngeal elevation seemingly intact Facial Nerve (VII): WFL Vagus Nerve (X): intact palate elevation and volitional cough intact Spinal Accessory (XI): Not assessed Hypoglossal Nerve (XII): WFL Function Exam: Secretion Management: adequate Vocal Quality: adequate Cough: - Volitional adequate - Reflexive unable to elicit Oral Feeding Trials: Positionin-90 degrees Feeding assistance: independent, self-fed Consistencies Administered: thin liquid via cup, thin liquid via straw, puree via teaspoon, mechanical soft consistency, and dry solid consistency Risk Factors: C3-C7 PCF [place] Swallow Protocol (Luisito and Monserrat, 2014) - 3 Oz water challenge: pass SPEECH/LANGUAGE/COGNITION Informal assessment revealed the following: Receptive Language Not Impaired Impaired Not Assessed Comments Functional Object Use [x] [] [] Simple yes/no [x] [] [] Complex yes/no [x] [] [] Object Identification [x] [] [] 1-2 Step Command Following [x] [] [] Complex Command Following [x] [] [] Understands Simple Conversation [x] [] [] Understands Complex Conversation [x] [] [] Expressive Language Not Impaired Impaired Not Assessed Comments Nonverbal (gesture / facial expression) [x] [] [] Automatic speech [x] [] [] Repetition [x] [] [] Open ended phrases [x] [] [] Responsive naming [x] [] [] Confrontation naming [x] [] [] Sentence formulation [x] [] [] Conversational speech [x] [] [] . Reading/Writing Not Impaired Impaired Not Assessed Comments Reading: [] numbers/letters [] word [] sentences [] paragraphs [] [] [x] Pt reports no concerns or changes in reading/writing. Writing: [] number/letters [] word [] sentences [] paragraphs [] [] [x] Pt reports no concerns or changes in reading/writing. Motor Speech Not impaired Impaired Not Assessed Comments Articulation [x] [] [] Phonation [x] [] [] Respiration [x] [] [] Resonance [x] [] [] Prosody [x] [] [] Intelligibility in Conversation [x] [] [] 100% Cognition Not Impaired Impaired Not Assessed Comments Orientation Person [x] [] [] Place [x] [] [] Time [x] [] [] Situation [x] [] [] [x] [] [] Attention Sustained [x] [] [] Divided [] [] [x] Alternating [] [] [x] Selective [x] [] [] Executive [] [] [x] Memory Immediate [x] [] [] Short term [x] [] [] group home [x] [] [] Problem Solving Simple [x] [] [] Multifactorial [x] [] [] Temporal [x] [] [] Self-corrected x1 w/o cues Thought Organization Divergent [x] [] [] Convergent [x] [] [] Sequencing [x] [] [] Reasoning [x] [] [] Analogies [x] [] [] Absurdities [] [] [x] Math [] [] [x] Assessment of Food Picture Menu: Pt does not need food picture menu at this time. Comments: WFL Assessment Dysphagia Pt presents w/ a seemingly functional oropharyngeal swallow. Oral phase c/b adequate labial seal and oral containment. Pharyngeal phase without any overt s/sx aspiration appreciated w/ trials at bedside. Pt passed 3 oz water test. Pt reports that swallowing is at baseline and that she has had no difficulty, discomfort, or overt signs of aspiration w/ PO intake. Given bedside presentation, WBC/O2/Temp WNL, GCS 15, pt on RA, and pt tolerating regular diet, ok to continue regular (IDDSI Level 7) diet w/ thin liquids (Level 0). Meds as able. MANUFACTURING TEAM MEMBER to f/u for diet tolerance x1 given increased risk of dysphagia 2/2 recent PCF. Speech/Language/Cognition Pt presents w/ functional speech, language, and cognitive skills at this time. Pt reports that her skills are currently at baseline; therefore, no acute No acute speech/language/cognitive services indicated at this time. Prognosis: Good for improved function with skilled speech pathology services focusing on stated goals. Patient Education was provided via verbal instruction to patient regarding risk factors for dysphagia, clinical indicators of dysphagia following evaluation, and plan of care. Will continue to provide education in subsequent sessions as warranted. Results and recommendations of this evaluation were communicated to: RN/Team Plan OK to continue Regular (IDDSI Level 7) diet w/ thin liquids (Level 0). Meds as able. MANUFACTURING TEAM MEMBER to f/u fordiet tolerance x1. No acute speech/language/cognitive services indicated. Goals Dysphagia: Pt will tolerate recommended diet w/o overt s/sx aspiration or aspiration- related pulmonary complications. [1] Patient Active Problem List Diagnosis ??? Cervical stenosis of spine ??? Cervical myelopathy (CMS/HCC) ??? Electrolyte abnormality ??? Muscle spasm of back ??? BMI 25.0-25.9,adult ??? Tobacco use ??? Acute post-operative pain [2] Past Medical History: Diagnosis Date ??? Anxiety ??? Neuromuscular disorder (CMS/HCC) [3] Past Surgical History: Procedure Laterality Date ??? SECTION, CLASSIC ??? ESOPHAGOSCOPY / EGD with dilation ??? WISDOM TOOTH EXTRACTION * Care Plan - Rob San - 02/18/2025 7:54 PM EDT Problem: Adult Inpatient Plan of Care Goal: Plan of Care Review Outcome: Ongoing, Progressing Goal: Patient-Specific Goal (Individualized) Outcome: Ongoing, Progressing Goal: Absence of Hospital-Acquired Illness or Injury Outcome: Ongoing, Progressing Intervention: Identify and Manage Fall Risk Flowsheets (Taken 02/18/2025 1016 by Morelia Dukes, FLORENCIA) Safety Promotion/Fall Prevention: activity supervised Intervention: Prevent Skin Injury Flowsheets Taken 02/18/2025 1800 by Morelia Dukes, RN Body Position: weight shifting Taken 02/17/2025 0146 by Micha Abreu RN Skin Protection: hydrocolloids used incontinence pads utilized drying agents applied Intervention: Prevent and Manage VTE (Venous Thromboembolism) Risk Flowsheets (Taken 02/18/2025 1600 by Morelia Dukes RN) VTE Prevention/Management: bilateral SCDs (sequential compression devices) on Intervention: Prevent Infection Flowsheets (Taken 02/17/2025 0146 by Micha Abreu RN) Infection Prevention: environmental surveillance performed hand hygiene promoted rest/sleep promoted personal protective equipment utilized Goal: Optimal Comfort and Wellbeing Outcome: Ongoing, Progressing Problem: Infection Goal: Absence of Infection Signs and Symptoms Outcome: Ongoing, Progressing Intervention: Prevent or Manage Infection Flowsheets Taken 02/18/2025 1016 by Morelia Dukes RN Isolation Precautions: precautions maintained contact Taken 02/17/2025 0810 by Carolee Olson RN Infection Management: aseptic technique maintained Taken 02/17/2025 0146 by Micha Abreu RN Fever Reduction/Comfort Measures: lightweight clothing Problem: Fall Injury Risk Goal: Absence of Fall and Fall-Related Injury Outcome: Ongoing, Progressing Intervention: Identify and Manage Contributors Flowsheets (Taken 02/17/2025 0810 by Carolee Olson RN) Medication Review/Management: medications reviewed Self-Care Promotion: independence encouraged meal set-up provided Intervention: Promote Injury-Free Environment Flowsheets (Taken 02/18/2025 1016 by Morelia Dukes RN) Safety Promotion/Fall Prevention: activity supervised * Progress Notes - Allie Akers RN - 02/18/2025 5:22 PM EDT Saw patient at bedside, resting in bed. Discussed with patient the importance of getting out of thebed to the chair, several times a day to assist with pain control, and postop recovery. Patient is aware of restrictions (no bending, lifting, twisting). Patient is utilizing heat and ice packs. No questions or concerns at this time. Allie Akers RN Spine Nurse Navigator * Progress Notes - Nancy Mora RN - 02/18/2025 12:55 PM EDT POC reviewed with multidisciplinary team, per MD, pt is not medically ready to discharge d/t pt is POD #2 C3-7 PCF. CM spoke to pt at bedside about IRF. CM sent referral to [facility] per pts request. CM will continue to follow and assist with discharge planning needs. * Progress Notes - Arvind Oliva - 02/18/2025 12:05 PM EDT OCCUPATIONAL THERAPY TREATMENT PATIENT DATA Patient Name Hyacinth Marin Session Date 02/18/2025 OT Discharge Recommendations Acute rehab Equipment Recommendations Defer to facility MOBILITY GUIDELINES Mobility Protocol: General - Mobility Guidelines Extremity Precautions: No Extremity Precautions Other mobility precautions: No other precautions required PRECAUTIONS Medical Precautions Medical Precautions: Fall precautions, Post-Surgical precautions Post-Surgical Precautions: cervical spine Medical Precautions: MAP > 85 PRESENTATION Oxygen None (Room air) Telemetry Yes Lines and Tubes Closed/Suction Drain 1 Posterior Neck Accordion 15 Fr. (Active) Peripheral IV 02/16/25 Left;Posterior Hand (Active) Peripheral IV 02/16/25 Posterior;Right Forearm (Active) Pre-Session Supine, Head of bed elevated, Lines intact, Bed alarm RN approving of therapy visit timing Post-Session Sitting in chair, Chair alarm, Lines intact, RN notified, Call light in reach All needs met Patient positioned for comfort and pressure relief. SUBJECTIVE PARTICIPANTS IN CARE Patient/Caregiver Comments 'My neck is killing me' 'Will I ever get the use of my hand back?' Visitors Present No OBJECTIVE PAIN Pain Score (0-10): 7 Location: neck/incision Intervention: ambulation/increased activity, position adjusted, pillow support provided, diversional activity provided, and heat applied Response: comfortable at end of session and RN aware DELIRIUM SCREENING RASS: Alert and calm Confusion Assessment Method-ICU (CAM-ICU/PCAM-ICU) Feature 3: Altered Level of Consciousness: Negative COGNITION SCREENING Orientation Oriented X4 OT INTERVENTIONS SELF-CARE Treatment Minutes (if applicable) 29 Level of [place] Adaptive Equipment Utilized Interventions Feeding Setup Chair Level Set-up required, Verbal Cues, Additional assist utilized for safety OT providing assistance for container management/work station set up secondary to Pt pain and persistent nonfunctional R hand Lower Body Dressing Sock Level of Assistance: Dependent OT educating/grading activity to raise HOB and provide demonstration for Pt to assume figure four positioning at bed level to thread BLE tread sock, Pt able to assume position for LLE however continues to present with debilitating function in R hand impacting carry through, OT providing assistance,Pt unable to assume positioning for RLE due to decreased strength/coordination/muscle activation for task Toileting Minimum assistance Bedside commode Pt demonstrating improved function to transfer with bilateral hand held assist toward L to BSC with OT providing verbal cues for safety, Pt completing hygiene in dynamic stand with increased mod-maxA for balance due to decreased RUE/RLE function, decreased safety awaress, increased pain with task Toilet Transfer Minimum assist (75% patient's effort) (toward L) Sidesteps, To bedside commode Handheld assist Health Management Pt attempting to ambulate to bathroom with maxA to facilitate weight shift for advancing RLE, ultimately unable to complete requiring use of BSC BED MOBILITY Level of [place] Physical/Non- physical Assist Scooting/ Bridging Minimum assist (75% patient's effort) Verbal Cues, Nonverbal cues (demo/gestures), Additional assist utilized for safety, Set-up required Supine to Sit Moderate assist (50% patient's effort) Verbal Cues, Nonverbal cues (demo/gestures), Additional assist utilized for safety TRANSFERS Level of [place] Physical/Non- physical Assist Adaptive Equipment Utilized Sit to Stand Minimum assist (75% patient's effort) Set-up required, Verbal Cues, Additional assist utilized for safety Hand held assist Stand to sit Moderate assist (50% patient's effort) Set-up required, Verbal Cues, Additional assistutilized for safety Hand held assist Toilet Transfer Minimum assist (75% patient's effort) (toward L) Sidesteps, To bedside commode Set-up required, Verbal Cues, Additional assist utilized for safety Hand held assist BALANCE Postural Appearance Posture: Forward head, Increased thoracic kyphosis, Rounded shoulders Level of [place] Balance Support Interventions Static Sit Contact guard Right upper extremity support, Left upper extremity support, Feet supported Dynamic Sit Contact guard Right upper extremity support, Left upper extremity support, Feet supported Dynamic Sitting-Balance: Lateral weight shifts, Anterior/Posterior weight shifts, Reaching for objects Static Stand Moderate assistance Right upper extremity support, Left upper extremity support Dynamic Stand Maximum assistance Right upper extremity support, Left upper extremity support Lateral weight shifts, Anterior/Posterior weight shifts, Reaching for objects ASSESSMENT Overall, Pt demonstrates moderate occupational/functional improvement this session with fair activity tolerance, reporting and/or demonstrating increased pain throughout intervention. Pt requires increased verbal cues, tactile cues, time, and physical assistance to complete simple self care tasks, functional transfers, and ADLs. Pt would benefit from skilled OT intervention to address progress towards improved activity tolerance and safety for increased safety and independence across occupational performance. Pt would be appropriate for dc to acute inpatient rehab. OT RECOMMENDATIONS Discharge Destination Acute rehab Discharge Equipment Defer to facility PLAN Please see current POC goals outlined below. OT GOALS OT GOAL DETAILS Goal Established Date Time Frame Goal Status OT Goal 1: Pt will complete LB dressing with setup assist 02/17/25 2 weeks OT Goal 2: Pt will complete toilet transfer using LRAD and SBA 02/17/25 2 weeks OT Goal 3: Pt will complete grooming task(s) while standing sink level with SBA 02/17/25 2 weeks Written by Arvind Oliva on 02/18/25 at 1:58 PM. * Progress Notes - Amy Luong - 02/18/2025 12:04 PM EDT PHYSICAL THERAPY TREATMENT PATIENT DATA Patient Name Hyacinth Marin Session Date 02/18/2025 Total Treatment Time 29 min PT Discharge Recommendations Acute rehab PT Equipment Recommendations Defer to facility PRECAUTIONS Medical Precautions Yes Medical Precautions: Fall precautions, Post-Surgical precautions Post-Surgical Precautions: cervical spine Medical Precautions: MAP > 85 HOME LIVING/SET-UP Lives With Spouse, Son (17 y/o) Home Type House Home Equipment None Home Layout One level, Stairs to enter with rails 3 Bathroom Layout Tub/Shower combo Standard PRIOR LEVEL OF FUNCTION Receives help from No assist required prior to admission Level of Mobility Ambulatory- community Mobility [place] Independent gait without device History of Falls No ADL Performance ADL Performance: Independent PRESENTATION Oxygen Oxygen Therapy: None (Room air) Lines and Tubes telemetry Closed/Suction Drain 1 Posterior Neck Accordion 15 Fr. (Active) Peripheral IV 02/16/25 Left;Posterior Hand (Active) Peripheral IV 02/16/25 Posterior;Right Forearm (Active) Pre-Session Supine, Head of bed elevated, Lines intact, Bed alarm RN approving of therapy visit timing Post-Session Sitting in chair, Chair alarm, Lines intact, RN notified, Call light in reach Pt's needs met SUBJECTIVE PARTICIPANTS IN CARE Visitors Present No, Subjective Report Why aren't my right arm and leg working Pt has NOT been: * Ambulating in-room distances * Transferring Bed <> Chair since being admitted to the hospital. Pt remains unaware when pt may be discharged from [facility]. Assessment Technician (if applicable) Not Applicable OBJECTIVE & INTERVENTIONS PAIN Pain Intensity / Location Pre-Mobility: 02/07 Neck pain Pain Intensity / Location Post-Mobility: 02/07 neck pain Prior to PT's departure: * rest was provided * pt was positioned for comfort * pillow support was provided * RN was informed of pt's pain DELIRIUM SCREENING RASS: Alert and calm Feature 3: Altered Level of Consciousness: Negative THERAPEUTIC ACTIVITY Treatment Minutes 15 PT assisted and instructed pt in functional mobility activities to improve their ability to move around safely and reduce the effects of post illness/surgery related sedentary status. Pt participatedin bed mobility, supine-sit, ane-[id number]-pxj, bed to BSC and BSC to recliner chair transfers. They were able to progress to remaining sitting in chair with multiple pillow support. PT provided education to patient regarding transfer techniques. Verbal and tactile cues given to pt by PT for: postural alignment, weight shifting, improved biomechanics, safety, movement sequence, hand/foot placement, assistive device management, and appropriate activity pacing. BED MOBILITY Level of [place] Physical/Non- physical Assist Adaptive Equipment Utilized Scooting/ Bridging Minimum assist (75% patient's effort) Verbal Cues, Nonverbal cues (demo/gestures), Additional assist utilized for safety, Set-up required Bed rails, draw sheet Supine to Sit Moderate assist (50% patient's effort) Verbal Cues, Nonverbal cues (demo/gestures), Additional assist utilized for safety Bed rails TRANSFERS Level of [place] Physical/Non- physical Assist Adaptive Equipment Utilized Sit to Stand Minimum assist (75% patient's effort) Set-up required, Verbal Cues, Additional assist utilized for safety Hand held assist Stand to sit Moderate assist (50% patient's effort) Set-up required, Verbal Cues, Additional assistutilized for safety Hand held assist Toilet Transfer Sidesteps, To bedside commode Hand held assist of 2 BALANCE Postural Appearance Posture: Forward head, Increased thoracic kyphosis, Rounded shoulders Level of [place] Balance Support Activities Static Sit Contact guard Right upper extremity support, Left upper extremity support, Feet supported Dynamic Sit Contact guard Right upper extremity support, Left upper extremity support, Feet supported Dynamic Sitting-Balance: Lateral weight shifts, Anterior/Posterior weight shifts, Reaching for objects Static Stand Moderate assistance Right upper extremity support, Left upper extremity support Dynamic Stand Maximum assistance Right upper extremity support, Left upper extremity support Dynamic Sitting-Balance: Lateral weight shifts, Anterior/Posterior weight shifts, Reaching for object AMBULATION Level of [place] Distance Adaptive Equipment Utilized Ambulation Maximum assistance, Maximum tactile cues, Additional assist utilized for safety 2 feet Rolling walker, Hand held assist Comments Very limited distance secondary to: pt unable to maintain analytics specialist on R side of walker, unableto advance R leg due to hypertonic gastroc and quad muscle contractions. 1st call provider notifiedof these problems via [employer] chat NEUROMUSCULAR RE-EDUCATION Treatment Minutes 14 Interventions PT facilitated pt in R UE positioning and weight bearing with support during transfers and walking attempts. PT facilitating pt in advancing her R leg during ambulation attempts. Pt is grossly unsteady and unable to progress ambulation distance after 2 intervals. Standardized Assessments [facility] 6-Clicks Mobility Assessment Difficulty patient has turning over in bed (including adjusting bedclothes, sheets, and blankets)?:A little Difficulty patient has sitting down on and standing up from a chair with arms (wheelchair, bedside commode, etc.)?: A little Difficulty patient has moving from lying on back to sitting on the side of the bed?: A lot How much help does the patient need moving to and from a bed to a chair (including a wheelchair)?: A lot How much help does the patient need to walk in hospital room?: A lot How much help does the patient need climbing 3-5 steps with a railing?: Unable [facility] 6-Clicks Mobility Assessment Total : 13 ASSESSMENT Ms. Hyacinth Marin is recovering from severe Cervical Stenosis with Myelopathy S/P C3-C7 PosteriorCervical Fusion (02/16/25) and associated debility. She was able to mobilize with PT assistance on POD #2, but was limited by pain Right arm weakness and Right leg hypertonicity. However, she is not able to ambulate functionally or independently. Pt is improving, as noted by: less assistance was required for pt to complete some or all transfers and pt demonstrated improved sitting and/or standingbalance during this PT treatment compared to last PT treatment. Pt has the following impairments: impaired activity tolerance, gross functional weakness, impaired posture, impaired balance, pain, andpoor transfer sequencing, which is limiting the pt from performing independent functional mobility. Pt's current level of function is lower than the reported prior level of function and for this reason further PT treatment is indicated. Inpatient PT will continue to follow. Patient will benefit from Acute Rehab for the following reasons: Pt remains as a high fall risk and is unsafe for discharge to home Pt remains unable to ambulate. Pt is currently not able to exit home safely and timely in the event of an emergency evacuation. Pt would benefit from further instruction improving functional transfers and ambulation Pt would benefit from a short Acute Rehab stay where patient could become more independent performing transfers and ambulating Pt would benefit more from Acute Rehab than other rehab services due to pt's medical acuity, level of immobility, and need for improved safety prior to returning home. Pt requires multiple therapy disciplines including PT/OT and frequent adjustments in medications and treatment from MD/RN disciplines which cannot be easily accessed at a lower level of care. Pt would likely tolerate 3 hours of therapy daily, which is unable to be provided in the subacute rehab or acute care hospital settings. PT RECOMMENDATIONS Discharge Destination Acute rehab Discharge Equipment Defer to facility PLAN PT to continue skilled therapy interventions to facilitate pt in reaching their functional goals. PT GOALS PT GOAL DETAILS DATE ASSESSED STATUS PROGRESS PT Goal 1: Pt will demonstrate bed mobility with standby assist. PT Goal 1 Established Date: 02/17/25 PT Goal 1 Time Frame: 2 weeks PT Goal 2: Pt will demonstrate muowbu-skd-rjzgax transfers with standby assist PT Goal 2 Established Date: 02/17/25 PT Goal 2 Time Frame: 2 weeks PT Goal 3: Pt will perform oue-ldqav-pfj transfers with contact guard assist. PT Goal 3 Established Date: 02/17/25 PT Goal 3 Time Frame: 2 weeks PT Goal 4: Pt will safely ambulate 100 ft or more using rolling walker or least restrictive assistive device with contact guard assist. PT Goal 4 Established Date: 02/17/25 PT Goal 4 Time Frame: 2 weeks PT Goal 5: Pt will ambulate up/down 3 stairs without loss of balance using least restrictive safe assistive device with contact guard assist. PT Goal 5 Established Date: 02/17/25 PT Goal 5 Time Frame: 2 weeks PT Goal 6: Pt/caregiver will verbalize and demonstrate understanding of post-op precautions and a basic HEP. PT Goal 6 Established Date: 02/17/25 PT Goal 6 Time Frame: 2 weeks Written by Amy Luong on 02/18/25 at 3:48 PM. * Consults - Wero Mckeon DO - 02/18/2025 10:27 AM EDTAssociated Order(s): IP CONSULT TO PHYSICAL MEDICINE REHAB PHYSICAL MEDICINE & REHABILITATION INPATIENT CONSULT NOTE Patient: Hyacinth Marin : 1980 PCP: Sheila Ashraf APRN at [address] [place] [address] / [place] [id number] Payor: ISAK / Plan: ISAK KUMAR/[place]/F[place] BCBS / Product Type: *No Product type* / Date of Service: 02/18/25 cc: Cervical myelopathy ([facility]) Reason for Consultation: functional evaluation History of Present Illness: Hyacinth Marin is a 45 y.o. female w/PMH of nicotine dependence, hidradenitis, and cervical myelopathy who presented to on 02/16/2025 (LOS: 2d) for a planned C3-[address] Ramirez. Post-operatively, patient had new onset weakness and was upgraded to ICU for A-line placement and MAP goals. Patient initially had IV CATHETERIZATION LABORATORY TECHNICIAN, which has been discontinued. Upon evaluation, patient states she is doing okay. States she is nervous because she can't feel herright arm and that her RUE/RLE are weak. Does feel as though she is thinking more clearly now that she is further away from her operation date. Having regular BM and voiding spontaneously. PMH: Past Medical History[1] Hidradenitis, nicotine dependence, muscle spasms PSH: Surgical History[2] Allergies: Allergies[3] Home Medications: Current Outpatient Medications Medication Instructions acetaminophen (TYLENOL) 500 mg, 3 times daily BIOTIN PO 1 tablet, Daily celecoxib (CeleBREX) 200 MG capsule Take 1 capsule by mouth daily. Cholecalciferol (VITAMIN D-3 PO) 2 tablets, Daily ibuprofen 800 mg, 3 times daily levonorgestrel (Mirena) 20 MCG/DAY IUD 1 each, Once lidocaine (Lidoderm) 5 % patch 1 patch, Apply externally, Daily, Remove & discard patch within 12 hours or as directed by . loratadine (CLARITIN) 10 mg, Daily PRN methocarbamol (ROBAXIN) 500 mg, Oral, 4 times daily PRN spironolactone (ALDACTONE) 50 mg, Daily Active Medications: Continuous: Current Continuous Medications[4]Scheduled: Current Scheduled Medications[5]PRN: Current PRN Medications[6] Family history: reviewed and noncontributory to presenting illness Family History[7] Social history: Marital Status: yes Children: 1 son, 17 yrs old Previous Residence: lives with and son in [place], [place] in a 1 story house with 3 steps to enter with railing Anticipated Residence: return home Support: son, Tobacco: vapes Alcohol: twice per year Drugs: denies Travel: denies international travel in the last 6 months Occupational History: currently working for [employer] (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, 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, 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 Consults: PM&R Precautions: fall Procedures: C3-7 PCF ([facility]ley [facility]) 02/16 OBJECTIVE: Labs: Lab Results Component Value Date WBC 8.68 02/18/2025 WBC 8.56 02/17/2025 WBC 11.35 (H) 01/28/2025 HGB 10.3 (L) 02/18/2025 HGB 11.3 02/17/2025 HGB 10.9 (L) 01/28/2025 HCT 32.1 (L) 02/18/2025 MCV 96 02/18/2025 PLT 202 02/18/2025 PLT 235 02/17/2025 PLT 195 01/28/2025 Lab Results Component Value Date NA 140 02/18/2025 NA 139 02/17/2025 NA 140 01/28/2025 K 4.1 02/18/2025 K 4.2 02/17/2025 K 3.6 01/28/2025 CL 106 02/18/2025 CL 109 (H) 02/17/2025 CL 100 01/28/2025 BUN 10 02/18/2025 BUN 10 02/17/2025 BUN 8 01/28/2025 CREATININE 0.54 (L) 02/18/2025 CREATININE 0.52 (L) 02/17/2025 CREATININE 0.53 (L) 01/28/2025 CALCIUM 8.4 (L) 02/18/2025 CALCIUM 8.5 (L) 02/17/2025 CALCIUM 9.1 01/28/2025 GLUCOSE 206 (H) 02/18/2025 GLUCOSE 117 (H) 02/17/2025 GLUCOSE 91 01/28/2025 GLUCOSE 115 (H) 12/28/2024 Lab Results Component Value Date ALT 22 02/18/2025 ALT 19 02/17/2025 ALT 36 (H) 12/28/2024 AST 37 (H) 02/18/2025 AST 37 (H) 02/17/2025 AST 24 12/28/2024 ALKPHOS 67 02/18/2025 ALKPHOS 47 02/17/2025 ALKPHOS 69 12/28/2024 BILITOT 0.3 02/18/2025 BILITOT 0.5 02/17/2025 BILITOT 1.2 (H) 12/28/2024 No results found for: HGBA1C Cultures: Results Procedure Component Value Units Date/Time Multi Drug Resistance Test [[id number]] Collected: 02/17/25 0325 Order Status: Completed Specimen: Swab from Nares and Jeimy Rectal Updated: 02/18/25 0606 Culture No growth at day 1 Narrative: This test was developed and its performance characteristics determined by the [facility]. Although the media is FDA-approved, it is not FDA-approved for all specimen types submitted. The FDA has determined that such clearance or approval is not necessary. This test is used for surveillance purposes. It should not be regarded as investigational or for research. The [facility] is certified under the ClinicalLaboratory Improvement Amendments of 1988 (CLIA-88) as qualified to perform high complexity clinical laboratory testing. Buddy auris Surveillance by PCR [[id number]] (Normal) Collected: 02/17/25 0325 Order Status: Completed Specimen: Swab from Axilla and Groin Updated: 02/17/25 0933 Buddy auris PCR Result Not Detected Narrative: This PCR assay was developed and its performance characteristics determined by [facility] as appropriate for clinical purposes. This assay has not been cleared or approved bythe FDA, but is performed in a CLIA regulated laboratory that is qualified to perform high-complexity testing. Imaging reports reviewed: No MRI head results found for the past [address] head results found for the past 14 days Encounter Date: 01/28/25 ECG Adult (Now - Performed in your clinic) Result Value EKG DIAGNOSIS CLASS Borderline Normal Ventricular Rate 108 Atrial Rate 108 WI Interval 116 QRSD Interval 86 QT Interval 320 QTC Interval 428 P [place] 4 R [place] 23 T Wave [place] 19 Diagnosis Sinus tachycardia Diagnosis Otherwise normal ECG Diagnosis Diagnosis Confirmed by Tanner Butler ([id number]) on 01/28/2025 7:36:54 PM *Note: Due to a large number of results and/or encounters for the requested time period, some results have not been displayed. A complete set of results can be found in Results Review. Current diet (full): Dietary Orders (From admission, onward) Start Ordered 02/16/25 1204 Adult diet Diet texture: Regular; Carbohydrate restriction: Consistent Carb 2 (80 gm max/meal) Diet effective now References: IDDSI Diet Texture Guide Question Answer Comment Diet texture Regular Carbohydrate restriction: Consistent Carb 2 (80 gm max/meal) 02/16/25 1205 PHYSICAL EXAM Visit Vitals BP (!) 164/88 Pulse 99 Temp 37.1 ??C (98.8 ??F) (Oral) Wt 70.8 kg (156 lb 1.4 oz) SpO2 96% BMI 25.97 kg/m?? Gen: NAD, reclining in bed Eyes: no scleral icterus, pupils round and symmetric Neck: supple, no tracheostomy ENT: nares patent, mucous membranes moist, posterior neck drain CV: regular rate, no BLE edema Resp: nonlabored breathing, no wheezing GI: abd soft, NTTP : no quick Skin: warm, dry Heme/lymph/immune: no bruising, no lymphadenopathy Psychiatric: good judgement, good insight MSK: - RUE 0/5 finger abd, 1/5 FF, otherwise 4/5 throughout - LUE 4/5 throughout - LLE 4/5 throughout - RLE 2/5 HF/KE/KF, 0/5 ADF, 1/5 APF - ROM/MAS 0 Neurological: awake and alert, participating in conversation, slowed word processing CN II-XII intact Sensation decreased circumferentially in R hand; otherwise, sensation intact to light touch Lakhani's + on R No clonus bilat Reflexes 3+ patellar on R, 2+ on L; MARIUSZ BUE at this time Future Appointments Date Time Provider Department Center 03/03/2025 12:00 PM Marisol Allen APRN [facility] 04/02/2025 1:20 PM Jeremy Ramirez MD [facility] Mobility Orders Mobility Protocol: General - Mobility Guidelines Extremity Precautions: No Extremity Precautions Other mobility precautions: No other precautions required ASSESSMENT/PLAN: Hyacinth Marin is a 45 y.o. female w/PMH of nicotine dependence & cervical myelopathy who presented to on 02/16/2025 (LOS: 2d) for a planned C3-[address] Ramirez. -ntSCI in setting of cervical myelopathy, now s/p C3-7 PCF ([facility], 02/16) - Incomplete tetraplegia - Post-operative pain - initially required CATHETERIZATION LABORATORY TECHNICIAN; has since been transitioned to PO - ABLA - Hypocalcemia - Hyperglycemia - started SSI - Mild transaminitis - Electrolyte abnormalities - Functional decline - Impaired gait - Impaired ADLs - Impaired cognition - Nicotine dependence Recommendations: - Recommend MANUFACTURING TEAM MEMBER evaluation and treatment for impaired cognition, word processing, and swallowing Dispo: Acute Current barriers to discharge: - ideally transition to oral dexamethasone; can do IV taper at rehab if absolutely necessary - Plan for posterior neck accordion drain Anticipated final disposition: home with family Social support: son, Anticipated date of medical readiness: 48-72 hrs Rehab ELOS: 2-3 weeks Functional goals at discharge: to work on ADLs, mobility, and cognition Medical prognosis: good Medical need: ntSCI with cervical myelopathy s/p C3-7 PCF, post-operative pain, hypocalcemia, hyperglycemia, mild transminitis, electrolyte abnormalities Rehab prognosis: good Thank you for allowing us to participate in the care of your patient. We will continue to follow. Please page [phone] with any questions, or resident on-call if after hours or on weekends. Iveth Castellanos MD Physical Medicine & Rehabilitation I reviewed the above tests: CBC with resolved leukocytosis, CMP with hypocalcemia, EKG, imaging I discussed the management of this case with the patient's nurse about her mobility. Decision regarding rehab hospitalization. Decision regarding rehab hospitalization. Wero Mckeon, Physical Medicine & Rehabilitation [1] Past Medical History: Diagnosis Date Anxiety Neuromuscular disorder (CMS/HCC) [2] Past Surgical History: Procedure Laterality Date SECTION, CLASSIC ESOPHAGOSCOPY / EGD with dilation WISDOM TOOTH EXTRACTION [3] Allergies Allergen Reactions Penicillins Rash Sulfa Drugs Rash [4] [5] baclofen, 10 mg, Oral, TID cyclobenzaprine, 5 mg, Oral, TID dexamethasone, 4 mg, Intravenous, q8h SHANICE Followed by [START ON 02/19/2025] dexamethasone, 2 mg, Intravenous, BID Followed by [START ON 02/21/2025] dexamethasone, 2 mg, Intravenous, Daily enoxaparin, 40 mg, Subcutaneous, Daily gabapentin, 300 mg, Oral, TID insulin lispro, 0-5 Units, Subcutaneous, TID with meals insulin lispro, 0-3 Units, Subcutaneous, Twice at night polyethylene glycol, 17 g, Oral, BID senna-docusate, 1 tablet, Oral, BID sodium chloride, 10 mL, Intravenous, q12h [6] acetaminophen, 1,000 mg, Oral, q6h PRN OR acetaminophen, 1,000 mg, Oral, q6h PRN OR acetaminophen, 650 mg, Rectal, q6h PRN ondansetron ODT, 4 mg, Oral, q6h PRN OR ondansetron, 4 mg, Intravenous, q6h PRN oxyCODONE, 5 mg, Oral, q6h PRN OR oxyCODONE, 10 mg, Oral, q6h PRN Insert peripheral IV, , , Once AND Saline lock IV, , , Once AND sodium chloride, 10 mL, Intravenous, q12h AND sodium chloride, 10 mL, Intravenous, PRN [7] Family History Problem Relation Name Age of Onset Anesthesia problems Neg Hx Malig Hyperthermia Neg Hx * Care Plan - Morelia Dukes RN - 02/18/2025 10:18 AM EDT Problem: Adult Inpatient Plan of Care Goal: Plan of Care Review Outcome: Ongoing, Progressing Flowsheets Taken 02/18/2025 1016 by Morelia Dukes RN Progress: improving Taken 02/17/2025 0146 by Micha Abreu RN Plan of Care Reviewed With: patient Goal: Patient-Specific Goal (Individualized) Outcome: Ongoing, Progressing Flowsheets (Taken 02/18/2025 0800) Patient/Family-Specific Goals (Include Timeframe): During shift patient will remain free from fallsand injury. Individualized Care Needs: MAP>85 Anxieties, Fears or Concerns: frustrating not being able to move like usual Goal: Absence of Hospital-Acquired Illness or Injury Outcome: Ongoing, Progressing Intervention: Identify and Manage Fall Risk Flowsheets (Taken 02/18/2025 1016) Safety Promotion/Fall Prevention: activity supervised Intervention: Prevent Skin Injury Flowsheets Taken 02/18/2025 1000 by Morelia Dukes RN Body Position: turned right Taken 02/17/2025 0146 by Micha Abreu RN Skin Protection: hydrocolloids used incontinence pads utilized drying agents applied Intervention: Prevent and Manage VTE (Venous Thromboembolism) Risk Flowsheets (Taken 02/18/2025 0800) VTE Prevention/Management: bilateral SCDs (sequential compression devices) on Goal: Optimal Comfort and Wellbeing Outcome: Ongoing, Progressing Intervention: Monitor Pain and Promote Comfort Flowsheets (Taken 02/18/2025 1000) Pain Management Interventions: care clustered cold applied Intervention: Provide Person-Centered Care Flowsheets (Taken 02/17/2025 0146 by Micha Abreu RN) Trust Relationship/Rapport: care explained choices provided emotional support provided empathic listening provided questions encouraged reassurance provided thoughts/feelings acknowledged Problem: Surgery Nonspecified Goal: Absence of Bleeding Outcome: Ongoing, Progressing Intervention: Monitor and Manage Bleeding Flowsheets (Taken 02/17/2025 0810 by Carolee Olson RN) Bleeding Management: dressing monitored Goal: Fluid and Electrolyte Balance Outcome: Ongoing, Progressing Intervention: Monitor and Manage Fluid and Electrolyte Balance Flowsheets (Taken 02/17/2025 0810 by Carolee Olson RN) Fluid/Electrolyte Management: intravenous fluids adjusted Goal: Absence of Infection Signs and Symptoms Outcome: Ongoing, Progressing Intervention: Prevent or Manage Infection Flowsheets Taken 02/18/2025 1016 by Morelia Dukes RN Isolation Precautions: precautions maintained contact Taken 02/17/2025 0810 by Carolee Olson RN Infection Management: aseptic technique maintained Taken 02/17/2025 0146 by Micha Abreu RN Fever Reduction/Comfort Measures: lightweight clothing Goal: Effective Urinary Elimination Outcome: Ongoing, Progressing Intervention: Monitor and Manage Urinary Retention Flowsheets (Taken 02/18/2025 1016) Urinary Elimination Promotion: toileting offered voiding relaxation promoted Problem: Infection Goal: Absence of Infection Signs and Symptoms Outcome: Ongoing, Progressing Intervention: Prevent or Manage Infection Flowsheets Taken 02/18/2025 1016 by Morelia Dukes RN Isolation Precautions: precautions maintained contact Taken 02/17/2025 0810 by Carolee Olson RN Infection Management: aseptic technique maintained Taken 02/17/2025 0146 by Micha Abreu RN Fever Reduction/Comfort Measures: lightweight clothing * Assessment & Plan Note - Julio Beasley III, MD - 02/18/2025 10:02 AM EDT Associated Problem(s): Acute post-operative pain -Off IVPCA, acute pain signed off -MMPC * Assessment & Plan Note - Julio Beasley III, MD - 02/18/2025 10:02 AM EDT Associated Problem(s): Cervical myelopathy (CMS/HCC) See cervical stenosis of spine * Assessment & Plan Note - Julio Beasley III, MD - 02/18/2025 10:02 AM EDT Associated Problem(s): Cervical stenosis of spine C3-C7 posterior cervical fusion Admitted to PCU post-op but then upgraded to ICU for MAP goals and post-op weakness MAP >85 Vasopressors as needed to meet MAP goals Continuous BP monitoring with A-line * Assessment & Plan Note - Julio Beasley III, MD - 02/18/2025 10:02 AM EDT Associated Problem(s): Electrolyte abnormality (Resolved 02/23/2025) Replace per ICU sliding scale protocol. Recheck PM phos * Assessment & Plan Note - Julio Beasley III, MD - 02/18/2025 10:02 AM EDT Associated Problem(s): Muscle spasm of back Resume home medications as appropriate * Assessment & Plan Note - Julio Beasley III, MD - 02/18/2025 10:02 AM EDT Associated Problem(s): BMI 25.0-25.9,adult Complicates all aspects of care. * Assessment & Plan Note - Julio Beasley III, MD - 02/18/2025 10:02 AM EDT Associated Problem(s): Tobacco use Smoking cessation as appropriate Complicates all aspects of care * Progress Notes - Julio Beasley III, MD - 02/18/2025 10:00 AM EDT Procedures 02/18/25 Hyacinth Marin is a 45 y.o. female who presents with Cervical myelopathy (CMS/[facility]). If applicable, patient is s/p Procedure(s) and Anesthesia Type: * C3-7 PCF, w IONM - General. Patient is 2 Days Post-Op with Neurosurgery. Past 24 hours: PM: Phos 0.8 (rechecked & confirmed), 45mmol IV replacement AM: No acute distress, GCS 15 has RLE/RUE weakness. Continue ICU, continue MAP goal >85. On no hemodynamic drips. Stopped CATHETERIZATION LABORATORY TECHNICIAN. PM&R consult. Added SSI, recheck phos. Edited by: Julio Beasley III, MD at 02/18/2025 1000 Lines/Drains/Tubes: Patient Lines/Drains/Airways Status Active Active LDAs Name Placement date Placement time Site Days Peripheral IV 02/16/25 Left;Posterior Hand 02/16/25 0630 Hand 2 Peripheral IV 02/16/25 Posterior;Right Forearm 02/16/25 -- Forearm 2 Closed/Suction Drain 1 Posterior Neck Accordion 15 Fr. 02/16/25 1059 Neck 1 GCS: [place] Coma Scale Score: 15 Review of Systems All other systems reviewed and are negative. 14 point ROS reviewed and otherwise negative or unobtainable except as noted above or in HPI. Vital signs: Vitals: 02/18/25 0800 BP: (!) 159/86 Pulse: 98 Resp: 18 Temp: 37.1 ??C (98.8 ??F) SpO2: 95% Intake/Output Summary (Last 24 hours) at 02/18/2025 1002 Last data filed at 02/18/2025 0800 Gross per 24 hour Intake 1686 ml Output 655 ml Net 1031 ml Physical Exam: Sedation was held for the purposes of examination. Physical Exam Constitutional: General: She is not in acute distress. Appearance: Normal appearance. HENT: Head: Normocephalic and atraumatic. Mouth/Throat: Mouth: Mucous membranes are moist. Eyes: General: No scleral icterus. Conjunctiva/sclera: Conjunctivae normal. Cardiovascular: Rate and Rhythm: Normal rate and regular rhythm. Heart sounds: Normal heart sounds. No murmur heard. Pulmonary: Effort: Pulmonary effort is normal. No respiratory distress. Breath sounds: Normal breath sounds. No wheezing. Abdominal: General: Abdomen is flat. Bowel sounds are normal. Palpations: Abdomen is soft. Tenderness: There is no abdominal tenderness. Musculoskeletal: Right lower leg: No edema. Left lower leg: No edema. Neurological: Mental Status: She is alert and oriented to person, place, and time. Comments: RLE/RUE weakness Results Review I have reviewed the latest lab and imaging results. Assessment and Plan: This patient is critically ill. Assessment & Plan Cervical myelopathy (CMS/HCC) Present on Admission: Unknown See cervical stenosis of spine Cervical stenosis of spine Present on Admission: Yes C3-C7 posterior cervical fusion Admitted to PCU post-op but then upgraded to ICU for MAP goals and post-op weakness MAP >85 Vasopressors as needed to meet MAP goals Continuous BP monitoring with A-line Electrolyte abnormality Present on Admission: Yes Replace per ICU sliding scale protocol. Recheck PM phos Muscle spasm of back Present on Admission: Yes Resume home medications as appropriate BMI 25.0-25.9,adult Present on Admission: Not Applicable Complicates all aspects of care. Tobacco use Present on Admission: Yes Smoking cessation as appropriate Complicates all aspects of care Acute post-operative pain Present on Admission: Unknown -Off IVPCA, acute pain signed off -[facility] Julio Beasley III, MD Cosigned by Brian Aguiar MD at 02/21/2025 4:09 PM EDT Associated attestation - Brian Aguiar MD - 02/21/2025 4:09 PM EDT I saw and evaluated the patient with the resident/fellow. I discussed the case with the resident/fellow and agree with the findings and plan as documented. * Consults - Hayden Munoz RN - 02/18/2025 9:29 AM EDT DC CATHETERIZATION LABORATORY TECHNICIAN orders placed by primary svc, PO medications ordered. RN Updated. Acute Pain SVC will sign off. * Consults - Hayden Munoz RN - 02/18/2025 9:10 AM EDT Acute Pain Service Follow-Up Evaluation Hyacinth Marin is a 45 y.o. female Follow-Up: Follow-up reason: APS rounds Location: Neck shoulders Pain Rating (0-10): 5 Comfort/ Acceptable Pain Level: 4-5 Acute Pain Service Comments: Patient is currently receiving the following: Patient resting in bed, states pain curently controlled with IVPCA IV CATHETERIZATION LABORATORY TECHNICIAN Medication: received 39 doses of Hydromorphone totaling 7.8 mg in 24 hours Will continue Patient Controlled Analgesia infusion until primary service decides it is appropriateto discontinue. Follow-Up: Follow-Up: Acute Pain Service will continue to follow and adjust as needed. Visit Type: Routine Current Analgesic Treatments: Inpatient Analgesics Active Medications Medication Name Dose Route Frequency acetaminophen (Tylenol) tablet 1,000 mg 1,000 mg Oral q6h PRN for mild pain acetaminophen (Tylenol) 160 MG/5ML solution 1,000 mg 1,000 mg Oral q6h PRN for mild pain acetaminophen (Tylenol) suppository 650 mg 650 mg Rectal q6h PRN for mild pain baclofen (Lioresal) tablet 10 mg 10 mg Oral TID cyclobenzaprine (Flexeril) tablet 5 mg 5 mg Oral TID dexamethasone (Decadron) injection 4 mg 4 mg Intravenous q8h SHANICE gabapentin (Neurontin) capsule 300 mg 300 mg Oral TID naloxone (Narcan) 2 mg in sodium chloride 0.9 % 100 mL (0.02 mg/mL) infusion (Urinary Retention or Pruritus) 0.25-1 mcg/kg/hr Intravenous Titrated PRN for urinary retention, itching Rate: 0.89-3.54 mL/hr naloxone (Narcan) injection 0.08 mg 0.08 mg Intravenous q1 min PRN for respiratory depression, for respiratory rate < 10 oxyCODONE (Roxicodone) immediate release tablet 5 mg 5 mg Oral q6h PRN for moderate pain oxyCODONE (Roxicodone) immediate release tablet 10 mg 10 mg Oral q6h PRN for severe pain Future Medications Medication Name Dose Route Frequency dexamethasone (Decadron) injection 2 mg 2 mg Intravenous BID dexamethasone (Decadron) injection 2 mg 2 mg Intravenous Daily IV CATHETERIZATION LABORATORY TECHNICIAN Hydromorphone (1mg/ml) 0.2mg/q6mins. C3-7 PCF 02/16/25 Blood pressure (!) 159/86, pulse 98, temperature 37.1 ??C (98.8 ??F), temperature source Oral, resp. rate 18, weight 70.8 kg (156 lb 1.4 oz), SpO2 95%. Please Contact Acute Pain Service with any additional questions or concerns via [facility] [employer] [facility]page [phone]. * Progress Notes - Chace Jin MD - 02/18/2025 8:11 AM EDT Neurosurgery ICU Progress Note Subjective Hyacinth Marin is a 45 y.o. female patient with severe cervical stenosis and myelopathy progression (MJ OA ). Now s/p C3-C7 PCF on 02/16/25 Interval: NAEON Medications Current Medications[1] Last Recorded Vitals Visit Vitals BP (!) 164/95 Pulse 105 Temp 37.1 ??C (98.8 ??F) (Oral) Resp 23 Wt 70.8 kg (156 lb 1.4 oz) SpO2 96% BMI 25.97 kg/m?? OB Status IUD Smoking Status Some Days BSA 1.8 m?? Labs Labs in last 18 hours CBC WBC 8.68 Hb 10.3 (L) Plt 202 Hct 32.1 (L) INR 1.0, PTT ??, Anti-Xa ?? BMP Na 140 Cl 106 BUN 10 Glu 206 (H) K 4.1 Co2 22 Cr 0.54 (L) Ca 8.4 (L) iCa 4.5 (L) Mg 1.7 (L), Phos 0.8 (LL) Lactate ?? LFT AST 37 (H) AlkPhos 67 T Prot 6.9 ALK 22 Bili 0.3 Alb ?? Outputs Intake/Output Summary (Last 24 hours) at 02/18/2025 0811 Last data filed at 02/18/2025 0600 Gross per 24 hour Intake 1446 ml Output 655 ml Net 791 ml Output by Drain (mL) 02/16/25 07 - 02/16/25 1859 02/16/25 190 - 02/17/25 0659 02/17/25 07 - 02/17/25 1859 02/17/25 190 - 02/18/25 0659 02/18/25 0700 - 02/18/25 0811 Closed/Suction Drain 1 Posterior Neck Accordion 15 Fr. 185 60 70 Physical Exam GCS (EMV): 465 Awake, alert, oriented x3 Follows commands appropriately Speech clear Strength RUE 54+4-2 LUE 5555 RLE 2514 LLE 5560 Assessment and Plan Hyacinth Marin is a 45 y.o. female patient with severe cervical stenosis and myelopathy progression ( OA ). Now s/p C3-C7 PCF on 02/16/25 ICU Length of Stay: 1d 12h Assessment/Plan Principal Problem: Cervical myelopathy (CMS/HCC) Active Problems: Cervical stenosis of spine Electrolyte abnormality Muscle spasm of back BMI 25.0-25.9,adult Tobacco use Acute post-operative pain - Advance activities as tolerated - Advance diet as tolerated - DVT prophylaxis since POD 1 - Follow up drain output, will evaluate if - ivPCA to PO - PM&R evaluation - Baclofen - Discontinue Quick catheter - Postoperative X-rays (order placed) - Pain management - PT/OT - MAPs > 85 (#2/3) - IV Dex 4 q8 48 hours total (ordered) Chace Crain MD Resident Physician, PGY-2 Department of [facility]surgery [facility] [1] Current Facility-Administered Medications Medication Dose Route Frequency Provider Last Rate Last Admin acetaminophen (Tylenol) tablet 1,000 mg 1,000 mg Oral q6h PRN Ashvin Magana MD 1,000 mg at 02/17/25 1012 Or acetaminophen (Tylenol) 160 MG/5ML solution 1,000 mg 1,000 mg Oral q6h PRN Ashvin Magana MD Or acetaminophen (Tylenol) suppository 650 mg 650 mg Rectal q6h PRN Ashvin Magana MD baclofen (Lioresal) tablet 10 mg 10 mg Oral TID Ashvin Magana MD 10 mg at 02/18/25 0807 cyclobenzaprine (Flexeril) tablet 5 mg 5 mg Oral TID Ashvin Magana MD 5 mg at 02/18/25 0807 dexamethasone (Decadron) injection 4 mg 4 mg Intravenous q8h SHANICE Jeremy Ramirez MD 4 mg at 02/18/25 0505 Followed by [START ON 02/19/2025] dexamethasone (Decadron) injection 2 mg 2 mg Intravenous BID Jeremy Ramirez MD Followed by [START ON 02/21/2025] dexamethasone (Decadron) injection 2 mg 2 mg Intravenous Daily Jeremy Ramirez MD enoxaparin (Lovenox) syringe 40 mg 40 mg Subcutaneous Daily Stevan Mccarthy 40 mg at 02/18/25 08 gabapentin (Neurontin) capsule 300 mg 300 mg Oral TID Ashvin Magana MD 300 mg at 02/18/25 0807 HYDROmorphone 1 mg/mL CATHETERIZATION LABORATORY TECHNICIAN (naive protocol) Intravenous Continuous Javier Perez DO Rate Verify at 02/17/25 1800 And HYDROmorphone 1 mg/mL clinician bolus dose 0.2-0.8 mg 0.2-0.8 mg Intravenous q15 min PRN Javier Perez, DO 0.8 mg at 02/16/25 1344 naloxone (Narcan) 2 mg in sodium chloride 0.9 % 100 mL (0.02 mg/mL) infusion (Urinary Retention or Pruritus) 0.25-1 mcg/kg/hr Intravenous Titrated PRN Javier Perez DO naloxone (Narcan) injection 0.08 mg 0.08 mg Intravenous q1 min PRN Javier Perez DO ondansetron ODT (Zofran-ODT) disintegrating tablet 4 mg 4 mg Oral q6h PRN Ashvin Magana MD Or ondansetron (Zofran) injection 4 mg 4 mg Intravenous q6h PRN Ashvin Magana MD polyethylene glycol (Miralax) packet 17 g 17 g Oral BID Julio Beasley III, MD 17 g at 02/18/25 0807 senna-docusate (Jeimy-Colace) 8.6-50 MG per tablet 1 tablet 1 tablet Oral BID Ashvin Magana MD 1 tablet at 02/18/25 0807 sodium chloride 0.9 % flush 10 mL 10 mL Intravenous q12h Ashvin Magana MD 10 mL at 02/18/250028 And sodium chloride 0.9 % flush 10 mL 10 mL Intravenous PRN Ashvin Magana MD sodium chloride 0.9 % infusion 5 mL/hr Intravenous Continuous Javier Perez DO 5 mL/hr at 02/17/25 1600 5 mL/hr at 02/17/25 1600 sodium chloride 0.9 % with KCl 20 mEq/L infusion 75 mL/hr Intravenous Continuous Truong Magana MD 75 mL/hr at 02/17/25 1600 75 mL/hr at 02/17/25 1600 sodium phosphates 45 mmol in sodium chloride 0.9 % 500 mL IVPB 45 mmol Intravenous Once Joce Covarrubias, [employer]SE COUPLER 93.3 mL/hr at 02/18/25 0334 45 mmol at 02/18/25 0334 Cosigned by Jeremy Ramirez MD at 02/19/2025 9:53 AM EDT Associated attestation - Jeremy Ramirez MD - 02/19/2025 9:53 AM EDT I saw and evaluated the patient. I discussed the case with the resident/fellow and agree with the findings and plan as documented. Neurosurgery attending note: A attended Mrs. Marin at bedside at approximately 6:00 p.m. Saturday, February 17. Her right-sided weakness postoperative persists, but has improved somewhat. She states that she feels that she has improved, in his much for close to baseline cognition, with some small effects still of somnolence likely due to pain medication. She has had stable hemodynamics, no drops in blood pressure, no other significant events of note. She remains to have low magnesium, low calcium, other electrolyte disturbances. She is able to tolerate by mouth, is eating and drinking. Examination: Alert and oriented x3, somewhat slow responses and somnolence (opioid). There was mild weakness throughout the right upper extremity and left upper and lower extremity due to this, 4+/5 being considered to her baseline. She states that she is able to feel light touch right upper extremity, right lower extremity, relatively normal to baseline. Left side arm and leg to baseline, sensation, power is full. RUE: D/BB/TR/WE 4+/5 baseline, FDP 2/5, Int 1/5. When time taken, she does have meaningful resistance in FDP. RLE: HE 4-/5, HF 1/5, KE 4+/5, KF 1/5, DF 1/5, EHL 1/5, PF 4+/5. Reflexes 2+ in 1+ in the right lower extremity Of muscle rigidity noted in the gastrocnemius, foot. Sensation reported as intact to the right side, she appears uncertain, but reports this is normal. Assessment: Mrs. Marin appears to be improving somewhat in her power of the right side, of the hand she is able to squeeze when given significant time, right lower extremity continues to have abnormal distribution of weakness, high muscle rigidity antagonist this to the weakness, relatively normal sensation, reduced reflexes. I discussed in with Mrs. Marin and her partner that this postoperative weakness has concerning, that I am not able to state she will improve back to baseline, and I will do every measure possible to have her power and function return. I apologized for this operative complication. I told him again that it was not expected as there were no changes to the intraoperative neuro monitoring throughout the case, before or after any possible spinal cord contact, and right to the remainder at the final motor testing at time of closure. I told him again of the plan including steroids, blood pressure goals, Physical Medicine and rehab, inpatient rehabilitation. I gave him time to ask questions, and answered all the questions to their satisfaction. I told him that I would be asking Dr. Lovell to come and see them, to follow her case, as he is the head of the spine program for Neurosurgery at .They seemed to be happy with this plan, and what had been done since identifying this complication and how we have managed it. Plan: Continue Decadron, taper. Continue MAP goals >85 until greater than 72 hours. Add baclofen 10 TID Physical Medicine rehab to see Inpatient rehabilitation Please call Neurosurgery should there be any further change to muscle power, sensation, any hypotension event, hyperreflexia or pain. * Consults - Malinda Mccormack RN - 02/17/2025 10:50 PM EDT Acute Pain Service Follow-Up Evaluation Hyacinth Marin is a 45 y.o. female Follow-Up: Follow-up reason: APS rounds Pain Rating (0-10): asleep Acute Pain Service Comments: Patient is currently receiving the following: IV CATHETERIZATION LABORATORY TECHNICIAN Medication: received 33 doses of Hydromorphone totaling 6.6 mg in 24 hours Will continue Patient Controlled Analgesia infusion until primary service decides it is appropriateto discontinue. Follow-Up: Follow-Up: Acute Pain Service will continue to follow and adjust as needed. Visit Type: Routine Current Analgesic Treatments: Inpatient Analgesics Active Medications Medication Name Dose Route Frequency acetaminophen (Tylenol) tablet 1,000 mg 1,000 mg Oral q6h PRN for mild pain acetaminophen (Tylenol) 160 MG/5ML solution 1,000 mg 1,000 mg Oral q6h PRN for mild pain acetaminophen (Tylenol) suppository 650 mg 650 mg Rectal q6h PRN for mild pain cyclobenzaprine (Flexeril) tablet 5 mg 5 mg Oral TID dexamethasone (Decadron) injection 4 mg 4 mg Intravenous q8h SHANICE gabapentin (Neurontin) capsule 300 mg 300 mg Oral TID HYDROmorphone 1 mg/mL CATHETERIZATION LABORATORY TECHNICIAN (naive protocol) no dose Intravenous Continuous HYDROmorphone 1 mg/mL clinician bolus dose 0.2-0.8 mg 0.2-0.8 mg Intravenous q15 min PRN for severepain naloxone (Narcan) 2 mg in sodium chloride 0.9 % 100 mL (0.02 mg/mL) infusion (Urinary Retention or Pruritus) 0.25-1 mcg/kg/hr Intravenous Titrated PRN for urinary retention, itching Rate: 0.89-3.54 mL/hr naloxone (Narcan) injection 0.08 mg 0.08 mg Intravenous q1 min PRN for respiratory depression, for respiratory rate < 10 Future Medications Medication Name Dose Route Frequency dexamethasone (Decadron) injection 2 mg 2 mg Intravenous BID dexamethasone (Decadron) injection 2 mg 2 mg Intravenous Daily IV CATHETERIZATION LABORATORY TECHNICIAN Hydromorphone (1mg/ml) 0.2mg/q6mins. C3-7 F 02/16/25 Blood pressure (!) 161/92, pulse 100, temperature 37.1 ??C (98.8 ??F), temperature source Oral, resp. rate 18, weight 70.8 kg (156 lb 1.4 oz), SpO2 95%. Please Contact Acute Pain Service with any additional questions or concerns via [employer] orpage [phone]. * Care Plan - Rob San - 02/17/2025 7:41 PM EDT Problem: Adult Inpatient Plan of Care Goal: Plan of Care Review Outcome: Ongoing, Progressing Goal: Patient-Specific Goal (Individualized) Outcome: Ongoing, Progressing Goal: Absence of Hospital-Acquired Illness or Injury Outcome: Ongoing, Progressing Intervention: Identify and Manage Fall Risk Flowsheets (Taken 02/17/2025 014 by Micha Abreu RN) Safety Promotion/Fall Prevention: activity supervised fall prevention program maintained clutter-free environment maintained safety round/check completed Intervention: Prevent Skin Injury Flowsheets Taken 02/17/2025 1800 by Carolee Olson RN Body Position: heels elevated Taken 02/17/2025145 by Micha Abreu RN Skin Protection: hydrocolloids used incontinence pads utilized drying agents applied Intervention: Prevent and Manage VTE (Venous Thromboembolism) Risk Flowsheets (Taken 02/17/2025 1800 by Carolee Olson RN) VTE Prevention/Management: bilateral SCDs (sequential compression devices) on Intervention: Prevent Infection Flowsheets (Taken 02/17/2025 014 by Micha Abreu, FLORENCIA) Infection Prevention: environmental surveillance performed hand hygiene promoted rest/sleep promoted personal protective equipment utilized Goal: Optimal Comfort and Wellbeing Outcome: Ongoing, Progressing Intervention: Monitor Pain and Promote Comfort Flowsheets (Taken 02/17/2025 0810 by Carolee Olson RN) Pain Management Interventions: pillow support provided pain pump in use Intervention: Provide Person-Centered Care Flowsheets (Taken 02/17/2025145 by Micha Abreu RN) Trust Relationship/Rapport: care explained choices provided emotional support provided empathic listening provided questions encouraged reassurance provided thoughts/feelings acknowledged Problem: Infection Goal: Absence of Infection Signs and Symptoms Outcome: Ongoing, Progressing Intervention: Prevent or Manage Infection Flowsheets Taken 02/17/2025 08 by Carolee Olson RN Infection Management: aseptic technique maintained Taken 02/17/2025145 by Micha Abreu RN Fever Reduction/Comfort Measures: lightweight clothing Isolation Precautions: precautions maintained protective Problem: Fall Injury Risk Goal: Absence of Fall and Fall-Related Injury Outcome: Ongoing, Progressing Intervention: Identify and Manage Contributors Flowsheets (Taken 02/17/2025809 by Carolee Olson RN) Medication Review/Management: medications reviewed Self-Care Promotion: independence encouraged meal set-up provided Intervention: Promote Injury-Free Environment Flowsheets (Taken 02/17/2025145 by Micha Abreu RN) Safety Promotion/Fall Prevention: activity supervised fall prevention program maintained clutter-free environment maintained safety round/check completed * Progress Notes - Enzo Rome RN - 02/17/2025 1:58 PM EDT Case Management Adult Initial Progress Note Hyacinth Marin 45 y.o. female CSN: [id number] Admission: 02/16/2025 5:50 AM Primary Problem: Cervical myelopathy (CMS/HCC) Commercial Roofer reviewed chart and spoke with patient to complete this Initial Case Management Assessment. PCP: Sheila Ashraf, XAVIER Emergency Contact: Extended Emergency Contact Information Primary Emergency Contact: Tee Marin [address]: [address] [place] [id number] [facility] Mobile Relation: Spouse Preferred language: Somali Assessment Technician needed? No Secondary Emergency Contact: Malissa Schmidt Mobile Relation: Relative Preferred language: Somali Assessment Technician needed? No Insurance: Primary Visit Coverage Payer Plan Sponsor Code Group Number Group Name ISAK [place] [facility] [id number] Primary Visit Coverage Subscriber Subscriber ID Subscriber Name Subscriber SSN Subscriber Address [id number] Hyacinth Marin [id number] [place] [address] Patient information: Primary Caregiver: Self Support System: Immediate family Daily Living Activities: Functional Status: Independent Living Arrangements: Family Type of Residence: Private residence [address] [place] [id number] Current DME: Equipment Currently Used at Home: none Income Information: Income Source: Employed Income/Expense Information: Income meets expenses Current Resources Utilized: None Housing Circumstances-Z Codes: Housing Circumstances (select all that apply): None Applicable Patient Referred to: none Anticipated Discharge Date: TBD Patient's Discharge Goal: ARU Assistance Available at Discharge: Spouse Discharge Transport: spouse vs medical Follow Up Transport: spouse Home Health / Home Infusion / Outpatient Dialysis Services: Living Will/Advance Directive/Power of Packing Room Inspector /Guardian: Advance Directive: Not applicable Information Provided on Healthcare Directives: No Pre-existing DNR/DNI Order: No Patient Requests Assistance: No Additional Comments: CM met with pt at bedside to complete AI. Pt confirmed address and phone number in chart. Pt lives with spouse and children in private residence and is independent in ADLs. Pt has no DME or HH. CM advised pt of PT/OT recs for ARU and educated on options for discharge planning. Pt stated she would like to speak with her prior to making a decision. CM will continue to follow. Enzo Rome RN * Progress Notes - Fidelina Bowden - 02/17/2025 11:14 AM EDT Occupational Therapy Evaluation Patient Name: Hyacinth Marin Today's Date: 02/17/2025 OT Discharge Recommendations: Acute rehab Equipment Recommended: Defer to facility History Hyacinth Marin is 45 y.o. female admitted 02/16/2025 for work-up of Cervical myelopathy (CMS/[facility]). Problem List Active Hospital Problems Diagnosis Date Noted Acute post-operative pain 02/17/2025 Electrolyte abnormality 02/16/2025 Muscle spasm of back 02/16/2025 BMI 25.0-25.9,adult 02/16/2025 Tobacco use 02/16/2025 Cervical stenosis of spine 12/29/2024 Cervical myelopathy ([facility]/HCC) 01/18/2025 Procedures 02/16/2025 Procedure(s): C3-7 PCF, w IONM Past Medical History Patient has a past medical history of Anxiety and Neuromuscular disorder (CMS/[facility]). Past Surgical History Patient has a past surgical history that includes section, classic; Ellery tooth extraction; and Esophagoscopy / EGD. Precautions Medical Precautions: Fall precautions, Post-Surgical precautions Post-Surgical Precautions: cervical spine Medical Precautions: MAP > 85 Subjective It hurts so bad. I wish it would just stop . Participants in Care Family/Caregiver Present: No Assessment Technician: Not Applicable Presentation Oxygen Therapy: None (Room air) Lines and Tubes: Intravenous access, Telemetry, Urinary catheter, Surgical drains (hemovac drain x1) Pre-Session: Supine, Head of bed elevated, Lines intact, Bed alarm Pre-Session Comments: RN approving of therapy visit timing Post-Session: Supine, Head of bed elevated, RN notified, Lines intact, Bed alarm (zone 1, 2, 3), Call light in reach Post-Session Comments: Pt's needs met. Cold packs to upper traps for pain reduction Home Living/Set-up Lives With: Spouse, Son (17 y/o) Home Type: House Home Adaptive Equipment: None Home Layout: One level, Stairs to enter with rails Number of Stairs: 3 Bathroom: Tub/Shower: Tub/Shower combo Bathroom: Toilet: Standard Home Living Comments: 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 She admitted having some brain fog and had difficulty answering some of the home setup questions. 17-year old son is home schooled and able to provide assistance at home. Pt also reports spouse works but is going to be available to provide 24-hour assistance when she initially returns home. Prior Level of Function Receives Help From: No assist required prior to admission Level of Mobility: Ambulatory- community Mobility [place]: Independent gait without device History of Falls: No ADL Performance: Independent Patient/Family Goals Statement To improve pain Objective Pain Pt endorsed 10/10 cervical pain. RN aware and endorsed she provided pt with tylenol prior to this evaluation. CATHETERIZATION LABORATORY TECHNICIAN also available to pt throughout and she used with cues 2/2 drowsiness. Pt purposefully positioned with pillow supports and resting comfortably at time of OT departure. Delirium Screening RASS: Alert and calm Confusion Assessment Method-ICU (CAM-ICU/PCAM-ICU) Feature 3: Altered Level of Consciousness: Negative Cognition Overall Cognitive Status: Within Functional Limits Arousal/Alertness: Appropriate responses to stimuli Mood/Behavior: Lethargic, Alert Orientation Level: Oriented X4 Single Step Commands: With increased time, Consistently, With repetition Multi-Step Commands: Consistently, With increased time, With repetition Method of Communication: Verbal Safety Judgment: Decreased awareness of need for assistance Awareness of Errors: Assistance required to identify errors made Deficit Awareness: Fully aware of deficits Attention Span: Attends with cues to redirect (impacted by drowsiness) Problem Solving: Assistance required to identify errors made Perseveration: Not present Vision - Complex Assessment Baseline Vision: Glasses distance Patient Visual Report: No acute visual changes Right Upper Extremity Examination RUE Assessment: Within Functional Limits (AAROM) Manual Muscle Testing - RUE: Within functional limits except Shoulder Abduction: 2+ Shoulder Flexion: 2+ Elbow Flexion: 3 Wrist Flexion: 3 Wrist Extension: 3 Gross Grasp - Finger: 3 Light Touch: Right Upper Extremity: Moderate impairment (n/t distal to elbow; pt reports numbness is worse post operatively) Left Upper Extremity Examination LUE Assessment: Within Functional Limits (AAROM; pain limited) Manual Muscle Testing - LUE: (grossly 3/5 today) Light Touch: Left Upper Extremity: Mild impairment (hand n/t) Right Lower Extremity Examination RLE Assessment: Exceptions to WFL (dorsiflexion to neutral) Manual Muscle Testing - RLE: Within functional limits except Hip flexion: 3- Hip Extension: 3- Knee Flexion: 2+ Ankle Plantarflexion: 2+ Ankle Dorsiflexion: 1 Light Touch: Right Lower Extremity: Moderate impairment Left Lower Extremity Examination LLE Assessment: Within Functional Limits Manual Muscle Testing: Within functional limits Light Touch: Left Lower Extremity: Mild impairment Perception/Coordination Perception Inattention/Neglect: Appears intact Initiation: Appears intact Motor Planning: Appears intact Coordination Left Hand, Finger to Nose: Mild impairment Right Hand, Finger to Nose: Moderate impairment Fine Motor Coordination Examination Left Hand, Finger to Nose: Mild impairment Right Hand, Finger to Nose: Moderate impairment Left Hand Thumb/Finger Opposition Skills: Mild impairment Right Hand Thumb/Finger Opposition Skills: Mild impairment Self-Care Interventions Self Care/Home Management (ADLs) Time Entry: 25 Pt was educated on the scope of OT services and the purpose of initial evaluation for rehabilitation and discharge planning. OT used rehabilitative and occupational adaptation FOR to guide intervention strategies based on pt performance. ADL assessment and intervention completed through bed mobility, functional transfers and task specific ADLs. Anticipated levels of assist provided for ADLs not observed this date. Feeding Feeding Level of Assistance: Setup Feeding Interventions: Pt with RUE (dominate arm) weakness and impaired sensation however, per assessment, OT anticipates pt will be able to self-feed with proximal support. She would also be able tocompensate with LUE. Grooming Grooming Level of Assistance: Dependent Grooming Interventions: To wash face. Pt able to grasp washcloth with R hand but impacted with further engagement due to 10/10 pain while sitting EOB. OT provided DEP A for task completion. Bathing UE Bathing Level of Assistance: Maximum assistance LE Bathing Level of Assistance: Maximum assistance Bathing Interventions: Anticipated 2/2 pain, impaired sensation and weakness on RUE/RLE and mild balance impairments. UE Dressing UE Dressing Interventions: To reposition gown. Pt able to complete arm raise bilaterally (to ~90 degrees on R side) during gown repositioning. OT observed improved functional movement on R side during functional tasks vs formal MMT. Lower Extremity Dressing Sock Level of Assistance: Dependent LE Dressing Interventions: OT graded task and cued pt to complete leg raise for sock placement. Pt performed movement on LLE but unable to perform on RLE and endorsed I can't . OT provided PROM to provide proprioceptive input and support routine movement pattern. Pt observed with RLE movement whenasked to complete leg kick at EOB however, hip still appeared weak. Toileting Toileting Level of Assistance: Dependent Toileting Interventions: Pt unable to progress with sit>stand as preparatory for commode transfer due to 10/[address] Bed Mobility Bed Mobility Interventions: OT provided cues for sequencing logroll technique to support pain management during bed mobility. Pt drowsy and pain limited but put in good effort. She was able to bend Lknee to support rolling. MAX tactile cue to L shoulder to support sup>sit transition. Pt with poor sitting tolerance due to pain and initiated returning to supine. MAX A for all movement transitions. Bed Mobility Exam: Rolling/Turning Level of [place]: Maximum assist (25% patient effort) Physical/Nonphysical Assist: Verbal Cues, Nonverbal cues (demo/gestures), Additional assist utilized for safety Assistive Device: Bed rails Bed Mobility Exam: Scooting/Bridging Level of [place]: Maximum assist (25% patient's effort) Physical/Nonphysical Assist: Verbal Cues, Nonverbal cues (demo/gestures), Additional assist utilized for safety Assistive Device: Bed rails Bed Mobility Exam: Supine to Sit Physical/Nonphysical Assist: Verbal Cues, Nonverbal cues (demo/gestures), Additional assist utilized for safety Assistive Device: Bed rails Bed Mobility Exam: Sit to Supine Level of [place]: Maximum assist (25% patient's effort) Physical/Nonphysical Assist: Verbal Cues, Nonverbal cues (demo/gestures), Additional assist utilized for safety Assistive Device: Bed rails Transfers Transfer Interventions: Did not progress this date. Pt requested to stop at sitting on edge of bed due to 10/10 pain Balance Postural Appearance Posture: Forward head, Increased thoracic kyphosis, Rounded shoulders Static Sitting Balance Static Sitting-Balance Support: Right upper extremity support, Left upper extremity support, Feet supported Static Sitting-Level of Assistance: Minimum assistance Dynamic Sitting Balance Dynamic Sitting-Balance Support: Right upper extremity support, Left upper extremity support, Feet supported Dynamic Sitting-Balance: Lateral weight shifts, Anterior/Posterior weight shifts Level of Assistance: Moderate assistance Standardized Assessments [facility] 6-Click Daily Activities Help from Other: Don/Doff Regular Lower Body Clothings: A lot Help From Other: Bathing: A lot Help From Other: Toileting: A lot Help From Other: Don/Doff Upper Body Clothings: A lot Help From Other: Grooming: Little Help From Other: Eating Meals: Little [facility] 6 Click - Daily Activities Score: 14 Assessment Pt participated in occupational therapy assessment and intervention s/p C3-C7 posterior cervical fusion on 02/16/25. Pt in the ICU with MAP goals. Vitals remained stable throughout. 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 Pt presenting with RUE/RLE weakness and sensation impairments. She completed sup>sit transition with MAX A and required DEP A for grooming task at EOBdue to pain. Unable to progress with sit>business partner preparation for stimulated commode transfer due to 10/10 pain. Per occupational profile, pt is independent with ADL tasks and community ambulation at baseline. OTrecommends acute rehab when pt is medically ready for discharge. Acute rehabilitation will provide pt with the appropriate amount of rehab intensity to maximize her safety and independence. Pt presents that she will tolerate 3-hours of therapy per day as pain improves. Pt would benefit from furtherOT services while in hospital setting to aid with aforementioned areas of need and discharge transition. OT Findings: Impaired ADL performance, Impaired IADL performance, Decreased upper extremity strength, Decreased upper extremity range of motion, Decreased endurance/ventilation/gas exchange, Impairedfine motor control/coordination, Impaired functional mobility, Decreased gross motor control/coordination, Impaired balance Evaluation/Treatment Tolerance: Patient limited by pain Rehab Potential: Good, to achieve stated therapy goals Barriers to Discharge: Comorbidities Eval Complexity Occupational Profile: Expanded review of medical/therapy records and additional review of physical,cognitive, or psychosocial history Performance Deficits: Activities of daily living (ADLs), Instrumental activities of daily living (IADLs), Rest and sleep, Work, Leisure, Body functions, Motor skills, Body structures, Process skills,Habits, Routines, Roles Clinical Decision Making: Moderate Overall Eval complexity: Moderate OT Recommendations Discharge Destination: Acute rehab Discharge Equipment: Defer to facility Planned OT Interventions ADL retraining, IADL retraining, Balance training, Bed mobility Training, Fine motor coordination training, Motor coordination training, Neuromuscular re- education, ROM, Strengthening, Stretching, Transfer training, Functional mobility, Caregiver education OT Frequency 2 - 5 times per week OT Duration 2 weeks Goals OT GOAL DETAILS Time Frame OT Goal 1: Pt will complete LB dressing with setup assist 2 weeks OT Goal 2: Pt will complete toilet transfer using LRAD and SBA 2 weeks OT Goal 3: Pt will complete grooming task(s) while standing sink level with SBA 2 weeks Written by Fidelina Bowden on 02/17/25 at 1:22 PM. * Progress Notes - Amy Luong - 02/17/2025 11:10 AM EDT PHYSICAL THERAPY EVALUATION Patient Name Hyacinth Marin Session Date 02/17/2025 Total Treatment Time 38 min PT Discharge Recommendations Acute rehab Equipment Recommendations Defer to facility HISTORY Hyacinth Marin is 45 y.o. female admitted 02/16/2025 for work-up of Cervical myelopathy ([facility]). Hospital Course 1. Cervical stenosis of spine Procedures (if applicable) 02/16/2025 Procedure(s): C3-7 PCF, w IONM Past Medical History Patient has a past medical history of Anxiety and Neuromuscular disorder (CMS/[facility]). Past Surgical History Patient has a past surgical history that includes section, classic; Ellery tooth extraction; and Esophagoscopy / EGD. PRECAUTIONS Medical Precautions Yes Medical Precautions: Fall precautions, Post-Surgical precautions Post-Surgical Precautions: cervical spine Medical Precautions: MAP > 85 SUBJECTIVE PARTICIPANTS IN CARE Visitors Present No Subjective Report Pt has NOT been: * Ambulating in-room distances * Transferring Bed <> Chair since being admitted to the hospital. Pt remains unaware when pt may be discharged from [facility]. 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 She admitted having some brain fog and had difficulty answering some of the home setup questions. 17-year old son is home schooled and able to provide assistance at home. Pt also reports spouse works but is going to be available to provide 24-hour assistance when she initially returns home. PRIOR LEVEL OF FUNCTION Assist at Home No assist required prior to admission Level of Mobility Ambulatory- community Mobility [place] Independent gait without device History of Falls No Overall ADL Performance Independent PATIENT/FAMILY GOALS Patient/Family Goals Statement: get better and go home OBJECTIVE / INTERVENTIONS PRESENTATION Oxygen Oxygen Therapy: None (Room air) Lines and Tubes telemetry Closed/Suction Drain 1 Posterior Neck Accordion 15 Fr. (Active) Urethral Catheter Double-lumen;Non-latex;Temperature probe 16 Fr. (Active) Peripheral IV 02/16/25 Left;Posterior Hand (Active) Peripheral IV 02/16/25 Posterior;Right Forearm (Active) Pre-Session Supine, Head of bed elevated, Lines intact, Bed alarm RN approving of therapy visit timing Post-Session Supine, Head of bed elevated, RN notified, Lines intact, Bed alarm (zone 1, 2, 3), Call light in reach Pt's needs met. Cold packs to upper traps for pain reduction PAIN Pain Intensity / Location Pre-Mobility: 5/10 neck pain Pain Intensity / Location Post-Mobility: 04/09 neck pain Prior to PT's departure: * rest was provided * pt was positioned for comfort * pillow support was provided * RN was informed of pt's pain DELIRIUM SCREENING RASS: Alert and calm Confusion Assessment Method-ICU (CAM-ICU/PCAM-ICU) Feature 3: Altered Level of Consciousness: Negative COGNITION Overall Cognitive Status Within Functional Limits Arousal/Alertness Appropriate responses to stimuli Mood/Behavior Lethargic, Alert Orientation A&O x 4 Command Following Single Step Commands: With increased time, Consistently, With repetition Multi-Step Commands: Consistently, With increased time, With repetition Method of Communication Verbal Additional Observations Safety Judgment: Decreased awareness of need for assistance Awareness of Errors: Assistance required to identify errors made Deficit Awareness: Fully aware of deficits Attention Span: Attends with cues to redirect (impacted by drowsiness) Problem Solving: Assistance required to identify errors made Perseveration: Not present MOTOR EXAMINATION RANGE OF MOTION Right Upper Within Functional Limits (AAROM) Left Upper Within Functional Limits (AAROM; pain limited) Right Lower Exceptions to WFL (dorsiflexion to neutral) Left Lower Within Functional Limits MANUAL MUSCLE TESTING Right Upper Within functional limits except Shoulder Flexion: 2+ Elbow Flexion: 3 Gross Grasp - Finger: 3 Left Upper (grossly 3/5 today) Right Lower Within functional limits except Hip flexion: 3- Hip Extension: 3- Knee Flexion: 2+ Ankle Plantarflexion: 2+ Ankle Dorsiflexion: 1 Left Lower Within functional limits MUSCLE TONE Right Upper WFL Left Upper WFL Right Lower WFL Left Lower WFL SENSORY EXAMINATION Light Touch Sensation Right Upper Moderate impairment (n/t distal to elbow; pt reports numbness is worse post operatively) Left Upper Mild impairment (hand numbness only) Right Lower Moderate impairment Left Lower Mild impairment THERAPEUTIC ACTIVITY Treatment Minutes 23 PT assisted and instructed pt in functional mobility activities to improve their ability to move around safely and reduce the effects of post illness/surgery related sedentary status. Pt participatedin bed mobility and [id number]-nca-[id number] transfers. They were unable to progress to standing secondaryto severe pain. PT provided education to patient regarding neutral sitting posture with reduced FWD head position. Verbal and tactile cues given to pt by PT for: weight shifting, improved biomechanics, safety, movement sequence, hand/foot placement, and appropriate activity pacing. BED MOBILITY Level of [place] Physical/Non- physical Assist Adaptive Equipment Utilized Rolling/ Turning Maximum assist (25% patient effort) Set-up required, Verbal Cues, Moderate cues, Additionalassist utilized for safety Bed rails Scooting/ Bridging Maximum assist (25% patient's effort) Set-up required, Moderate cues, Additional assist utilized for safety Bed rails Supine to Sit Maximum assist (25% patient's effort) Set-up required, Verbal Cues, Moderate cues, Additional assist utilized for safety, HOB elevated Bed rails and Draw sheet Sit to Supine Maximum assist (25% patient's effort) Set-up required, Verbal Cues, Moderate cues, Additional assist utilized for safety, [facility] elevated Bed rails and Draw sheet Interventions TRANSFERS Level of [place] Sit to Stand Unable to perform (Pt requested to stop at sitting on edge of bed due to 10/10 pain) BALANCE Postural Appearance Posture: Forward head, Increased thoracic kyphosis, Rounded shoulders Level of [place] Balance Support Interventions Static Sit Minimum assistance Right upper extremity support, Left upper extremity support, Feet supported Dynamic Sit Moderate assistance Right upper extremity support, Left upper extremity support, Feet supported Dynamic Sitting-Balance: Lateral weight shifts, Anterior/Posterior weight shifts AMBULATION Comments Unable to stand or walk due to severe pain STANDARDIZED ASSESSMENTS [facility] 6-Clicks Mobility Assessment Difficulty patient has turning over in bed (including adjusting bedclothes, sheets, and blankets)?:A lot Difficulty patient has sitting down on and standing up from a chair with arms (wheelchair, bedside commode, etc.)?: Unable Difficulty patient has moving from lying on back to sitting on the side of the bed?: A lot How much help does the patient need moving to and from a bed to a chair (including a wheelchair)?: Unable How much help does the patient need to walk in hospital room?: Unable How much help does the patient need climbing 3-5 steps with a railing?: Unable [facility] 6-Clicks Mobility Assessment Total : 8 ASSESSMENT PT FINDINGS Impairments (if identified) Impaired functional mobility/transfers, Impaired motor cordination/control, Decreased strength, Impaired balance, Impaired gait dynamics/performance, Impaired postural/trunk control, Impaired sensation/sensory processing, Pain Activity Limitations (if identified) Inability to ambulate community distances, Inability to complete ADLs independently, Inability to sit independently, Inability to ambulate household distances, Inability to ambulate independently, Inability to transfer independently Participation Restrictions (if identified) Self-care, Community leisure Barriers to Discharge (if identified) Comorbidities PT Diagnosis Aftercare for Severe Cervical Stenosis with Myelopathy S/P C3-C7 Posterior Cervical Fusion (02/16/25) and associated debility Additional Observations Activity Tolerance: Tolerates 10 - 20 min activity with multiple rests, Sitting Evaluation/Treatment Tolerance: Patient limited by fatigue, Patient limited by pain, Treatment limited secondary to medical complications (Comment) Rehab Potential: Good, to achieve stated therapy goals EVAL COMPLEXITY History Profile 1 - 2 personal factors and/or comorbidities Clinical Presentation Evolving clinical presentation with changing characteristics Clinical Decision Making Moderate complexity PT RECOMMENDATIONS Discharge Destination Acute rehab Discharge Equipment Defer to facility Ms. Hyacinth Marin is recovering from severe Cervical Stenosis with Myelopathy S/P C3-C7 PosteriorCervical Fusion (02/16/25) and associated debility. She was able to mobilize with PT assistance, but was limited by pain and muscle spasms despite use of her CATHETERIZATION LABORATORY TECHNICIAN. Pt's current level of function is lower than the reported prior level of function and for this reason further PT treatment is indicated.Inpatient PT will continue to follow. Patient will benefit from Acute Rehab for the following reasons: Pt remains as a high fall risk and is unsafe for discharge to home Pt remains unable to ambulate. Pt is currently not able to exit home safely and timely in the event of an emergency evacuation. Pt would benefit from further instruction improving functional transfers and ambulation Pt would benefit from a short Acute Rehab stay where patient could become more independent performing transfers and ambulating Pt would benefit more from Acute Rehab than other rehab services due to pt's medical acuity, level of immobility, and need for improved safety prior to returning home. Pt requires multiple therapy disciplines including PT/OT and frequent adjustments in medications and treatment from MD/RN disciplines which cannot be easily accessed at a lower level of care. Pt would likely tolerate 3 hours of therapy daily, which is unable to be provided in the subacute rehab or acute care hospital settings. PLAN Planned PT Interventions Balance training, Bed mobility training, Gait training, Motor coordination training, Transfer training, Manual therapy techniques, Postural re-education, Neuromuscular re-education, Strengthening, Functional Mobility, Caregiver training PT Frequency 4 - 6 times per week PT Duration 2 weeks PT GOAL DETAILS Time Frame PT Goal 1: Pt will demonstrate bed mobility with standby assist. 2 weeks PT Goal 2: Pt will demonstrate irxuus-ptb-cbyhpi transfers with standby assist 2 weeks PT Goal 3: Pt will perform yor-yhvau-dwb transfers with contact guard assist. 2 weeks PT Goal 4: Pt will safely ambulate 100 ft or more using rolling walker or least restrictive assistive device with contact guard assist. 2 weeks PT Goal 5: Pt will ambulate up/down 3 stairs without loss of balance using least restrictive safe assistive device with contact guard assist. 2 weeks PT Goal 6: Pt/caregiver will verbalize and demonstrate understanding of post-op precautions and a basic HEP. 2 weeks Written by Amy Luong on 02/17/25 at 11:28 AM. * Assessment & Plan Note - Julio Beasley III, MD - 02/17/2025 11:09 AM EDT Associated Problem(s): Acute post-operative pain -IV CATHETERIZATION LABORATORY TECHNICIAN per spine protocol -Acute pain following -[facility] * Assessment & Plan Note - Julio Beasley III, MD - 02/17/2025 11:09 AM EDT Associated Problem(s): Cervical myelopathy (CMS/HCC) See cervical stenosis of spine * Assessment & Plan Note - Julio Beasley III, MD - 02/17/2025 11:09 AM EDT Associated Problem(s): Cervical stenosis of spine C3-C7 posterior cervical fusion Admitted to PCU post-op but then upgraded to ICU for MAP goals and post-op weakness MAP >85 Vasopressors as needed to meet MAP goals Continuous BP monitoring with A-line * Assessment & Plan Note - Julio Beasley III, MD - 02/17/2025 11:09 AM EDT Associated Problem(s): Electrolyte abnormality (Resolved 02/23/2025) Replace per ICU sliding scale protocol. * Assessment & Plan Note - Julio Beasley III, MD - 02/17/2025 11:09 AM EDT Associated Problem(s): Muscle spasm of back Resume home medications as appropriate * Assessment & Plan Note - Julio Beasley III, MD - 02/17/2025 11:09 AM EDT Associated Problem(s): BMI 25.0-25.9,adult Complicates all aspects of care. * Assessment & Plan Note - Julio Beasley III, MD - 02/17/2025 11:09 AM EDT Associated Problem(s): Tobacco use Smoking cessation as appropriate Complicates all aspects of care * Progress Notes - Julio Beasley III, MD - 02/17/2025 11:04 AM EDT Procedures 02/17/25 Hyacinth Marin is a 45 y.o. female who presents with Cervical myelopathy ([facility]). If applicable, patient is s/p Procedure(s) and Anesthesia Type: * C3-7 PCF, w IONM - General. Patient is 1 Day Post-Op with Neurosurgery. Past 24 hours: PM: Patient initially admitted to PCU post-op but then upgraded overnight by NSGY for post-op weakness and MAP goals. Patient auto-mapping and not currently requiring an A-line. AM: No acute distress, GCS 15 has RLE weakness. Continue ICU, continue MAP goal >85. On no hemodynamic drips. Ok for DVT prophy. Edited by: Julio Beasley III, MD at 02/17/2025 1106 Lines/Drains/Tubes: Patient Lines/Drains/Airways Status Active Active LDAs Name Placement date Placement time Site Days Peripheral IV 02/16/25 Left;Posterior Hand 02/16/25 0630 Hand 1 Peripheral IV 02/16/25 Posterior;Right Forearm 02/16/25 -- Forearm 1 Closed/Suction Drain 1 Posterior Neck Accordion 15 Fr. 02/16/25 1059 Neck 1 Urethral Catheter Double-lumen;Non-latex;Temperature probe 16 Fr. 02/16/25 0800 -- 1 GCS: [place] Coma Scale Score: 14 Review of Systems 14 point ROS reviewed and otherwise negative or unobtainable except as noted above or in HPI. Vital signs: Vitals: 02/17/25 1000 BP: (!) 146/82 Pulse: 88 Resp: 18 Temp: SpO2: 95% Intake/Output Summary (Last 24 hours) at 02/17/2025 1107 Last data filed at 02/17/2025 0800 Gross per 24 hour Intake 2129 ml Output 1405 ml Net 724 ml Physical Exam: Sedation was held for the purposes of examination. Physical Exam Constitutional: General: She is not in acute distress. Appearance: Normal appearance. HENT: Head: Normocephalic and atraumatic. Mouth/Throat: Mouth: Mucous membranes are moist. Eyes: General: No scleral icterus. Conjunctiva/sclera: Conjunctivae normal. Cardiovascular: Rate and Rhythm: Normal rate and regular rhythm. Heart sounds: Normal heart sounds. No murmur heard. Pulmonary: Effort: Pulmonary effort is normal. No respiratory distress. Breath sounds: Normal breath sounds. No wheezing. Abdominal: General: Abdomen is flat. Bowel sounds are normal. Palpations: Abdomen is soft. Tenderness: There is no abdominal tenderness. Musculoskeletal: Right lower leg: No edema. Left lower leg: No edema. Neurological: Mental Status: She is alert and oriented to person, place, and time. Comments: RLE weakness Results Review I have reviewed the latest lab and imaging results. Assessment and Plan: This patient is critically ill. Assessment & Plan Cervical myelopathy (CMS/HCC) Present on Admission: Unknown See cervical stenosis of spine Cervical stenosis of spine Present on Admission: Yes C3-C7 posterior cervical fusion Admitted to PCU post-op but then upgraded to ICU for MAP goals and post-op weakness MAP >85 Vasopressors as needed to meet MAP goals Continuous BP monitoring with A-line Electrolyte abnormality Present on Admission: Yes Replace per ICU sliding scale protocol. Muscle spasm of back Present on Admission: Yes Resume home medications as appropriate BMI 25.0-25.9,adult Present on Admission: Not Applicable Complicates all aspects of care. Tobacco use Present on Admission: Yes Smoking cessation as appropriate Complicates all aspects of care Acute post-operative pain Present on Admission: Unknown -IV CATHETERIZATION LABORATORY TECHNICIAN per spine protocol -Acute pain following -[facility] Julio eBasley III, MD Cosigned by Brian Aguiar MD at 02/17/2025 1:38 PM EDT Associated attestation - Brian Aguiar MD - 02/17/2025 1:38 PM EDT I saw and evaluated the patient with the resident/fellow. I discussed the case with the resident/fellow and agree with the findings and plan as documented. * Consults - Remberto Wall RN - 02/17/2025 9:19 AM EDT Acute Pain Service Follow-Up Evaluation Hyacinth Marin is a 45 y.o. female Follow-Up: Follow-up reason: APS rounds Pain Rating (0-10): sleeping Acute Pain Service Comments: Patient is currently receiving the following: IV CATHETERIZATION LABORATORY TECHNICIAN Medication: received 23 doses of Hydromorphone totaling 5.4 mg in 20 hours Will continue Patient Controlled Analgesia infusion until primary service decides it is appropriateto discontinue. Follow-Up: Follow-Up: Acute Pain Service will continue to follow and adjust as needed. Visit Type: Routine Current Analgesic Treatments: Inpatient Analgesics Active Medications Medication Name Dose Route Frequency acetaminophen (Tylenol) tablet 1,000 mg 1,000 mg Oral q6h PRN for mild pain acetaminophen (Tylenol) 160 MG/5ML solution 1,000 mg 1,000 mg Oral q6h PRN for mild pain acetaminophen (Tylenol) suppository 650 mg 650 mg Rectal q6h PRN for mild pain cyclobenzaprine (Flexeril) tablet 5 mg 5 mg Oral TID gabapentin (Neurontin) capsule 300 mg 300 mg Oral TID HYDROmorphone 1 mg/mL CATHETERIZATION LABORATORY TECHNICIAN (naive protocol) no dose Intravenous Continuous HYDROmorphone 1 mg/mL clinician bolus dose 0.2-0.8 mg 0.2-0.8 mg Intravenous q15 min PRN for severepain naloxone (Narcan) 2 mg in sodium chloride 0.9 % 100 mL (0.02 mg/mL) infusion (Urinary Retention or Pruritus) 0.25-1 mcg/kg/hr Intravenous Titrated PRN for urinary retention, itching Rate: 0.89-3.54 mL/hr naloxone (Narcan) injection 0.08 mg 0.08 mg Intravenous q1 min PRN for respiratory depression, for respiratory rate < 10 Future Medications Medication Name Dose Route Frequency dexamethasone (Decadron) injection 4 mg 4 mg Intravenous q8h [facility] dexamethasone (Decadron) injection 2 mg 2 mg Intravenous BID dexamethasone (Decadron) injection 2 mg 2 mg Intravenous Daily IV CATHETERIZATION LABORATORY TECHNICIAN Hydromorphone (1mg/ml) 0.2mg/q6mins. C3-7 PCF 02/16/25 Blood pressure (!) 160/74, pulse 104, temperature 37 ??C (98.6 ??F), temperature source Oral, resp.rate 19, weight 70.8 kg (156 lb 1.4 oz), SpO2 96%. Please Contact Acute Pain Service with any additional questions or concerns via [employer] Chat orpage [phone]. * Care Plan - Carolee Olson RN - 02/17/2025 8:13 AM EDT Problem: Adult Inpatient Plan of Care Goal: Plan of Care Review Outcome: Ongoing, Progressing Flowsheets Taken 02/17/2025 08 by Carolee Olson RN Progress: improving Plan of Care Reviewed With: patient Goal: Patient-Specific Goal (Individualized) Outcome: Ongoing, Progressing Flowsheets (Taken 02/17/2025 0758) Patient/Family-Specific Goals (Include Timeframe): Patient will verbalize pain score of 3 or less Individualized Care Needs: Patient will have pain at a tolerable level while using CATHETERIZATION LABORATORY TECHNICIAN pump Anxieties, Fears or Concerns: Denies Goal: Absence of Hospital-Acquired Illness or Injury Outcome: Ongoing, Progressing Intervention: Identify and Manage Fall Risk Safety Promotion/Fall Prevention: activity supervised fall prevention program maintained clutter-free environment maintained safety round/check completed Intervention: Prevent Skin Injury Flowsheets Taken 02/17/2025 08 by Carolee Olson RN Body Position: turned heels elevated legs elevated Skin Protection: hydrocolloids used incontinence pads utilized drying agents applied Intervention: Prevent and Manage VTE (Venous Thromboembolism) Risk Flowsheets (Taken 02/17/2025 0810) VTE Prevention/Management: bilateral SCDs (sequential compression devices) on Intervention: Prevent Infection Infection Prevention: environmental surveillance performed hand hygiene promoted rest/sleep promoted personal protective equipment utilized Goal: Optimal Comfort and Wellbeing Outcome: Ongoing, Progressing Intervention: Monitor Pain and Promote Comfort Flowsheets (Taken 02/17/2025 0810) Pain Management Interventions: pillow support provided pain pump in use Intervention: Provide Person-Centered Care Trust Relationship/Rapport: care explained choices provided emotional support provided empathic listening provided questions encouraged reassurance provided thoughts/feelings acknowledged Problem: Surgery Nonspecified Goal: Absence of Bleeding Outcome: Ongoing, Progressing Intervention: Monitor and Manage Bleeding Flowsheets (Taken 02/17/2025809) Bleeding Management: dressing monitored Goal: Fluid and Electrolyte Balance Outcome: Ongoing, Progressing Intervention: Monitor and Manage Fluid and Electrolyte Balance Flowsheets (Taken 02/17/2025809) Fluid/Electrolyte Management: intravenous fluids adjusted Goal: Blood Glucose Level Within Target Range Outcome: Ongoing, Progressing Intervention: Optimize Glycemic Control Hyperglycemia Management: blood glucose monitored Hypoglycemia Management: blood glucose monitored Goal: Absence of Infection Signs and Symptoms Outcome: Ongoing, Progressing Intervention: Prevent or Manage Infection Flowsheets Taken 02/17/2025809 by Carolee Olson RN Infection Management: aseptic technique maintained Isolation Precautions: precautions maintained protective Goal: Optimal Pain Control and Function Outcome: Ongoing, Progressing Intervention: Prevent or Manage Pain Flowsheets (Taken 02/17/2025809) Pain Management Interventions: pillow support provided pain pump in use Diversional Activities: smartphone television Goal: Nausea and Vomiting Relief Outcome: Ongoing, Progressing Intervention: Prevent or Manage Nausea and Vomiting Flowsheets (Taken 02/17/2025809) Nausea/Vomiting Interventions: cool cloth applied slow deep breathing encouraged sips of clear liquids given Goal: Effective Urinary Elimination Outcome: Ongoing, Progressing Intervention: Monitor and Manage Urinary Retention Urinary Elimination Promotion: catheter patency maintained Goal: Effective Oxygenation and Ventilation Outcome: Ongoing, Progressing Intervention: Optimize Oxygenation and Ventilation Flowsheets Taken 02/17/2025809 by Carolee Olson RN Cough And Deep Breathing: done with encouragement Head of Bed (HOB) Positioning: HOB at 30-45 degrees Airway/Ventilation Management: airway patency maintained calming measures promoted Activity Management: activity adjusted per tolerance activity encouraged Problem: Infection Goal: Absence of Infection Signs and Symptoms Outcome: Ongoing, Progressing Intervention: Prevent or Manage Infection Flowsheets (Taken 02/17/2025809) Infection Management: aseptic technique maintained Problem: Fall Injury Risk Goal: Absence of Fall and Fall-Related Injury Outcome: Ongoing, Progressing Intervention: Identify and Manage Contributors Flowsheets (Taken 02/17/2025809) Medication Review/Management: medications reviewed Self-Care Promotion: independence encouraged meal set-up provided Intervention: Promote Injury-Free Environment Safety Promotion/Fall Prevention: activity supervised fall prevention program maintained clutter-free environment maintained safety round/check completed * Progress Notes - Chace Jin MD - 02/17/2025 7:36 AM EDT Neurosurgery ICU Progress Note Subjective Hyacinth Marin is a 45 y.o. female patient with severe cervical stenosis and myelopathy progression (MJ OA ). Now s/p C3-C7 PCF on 02/16/25 Medications Current Medications[1] Last Recorded Vitals Visit Vitals BP (!) 150/77 Pulse 86 Temp 36.9 ??C (98.4 ??F) Resp 18 Wt 70.8 kg (156 lb 1.4 oz) SpO2 95% BMI 25.97 kg/m?? OB Status IUD Smoking Status Some Days BSA 1.8 m?? Labs Labs in last 18 hours CBC WBC 8.56 Hb 11.3 Plt 235 Hct 35.3 INR 1.1, PTT ??, Anti-Xa ?? BMP Na 139 Cl 109 (H) BUN 10 Glu 117 (H) K 4.2 Co2 20 (L) Cr 0.52 (L) Ca 8.5 (L) iCa 4.5 (L) Mg 1.8 (L), Phos 2.2 (L) Lactate ?? LFT AST 37 (H) AlkPhos 47 T Prot 7.2 ALK 19 Bili 0.5 Alb ?? Outputs Intake/Output Summary (Last 24 hours) at 02/17/2025 0736 Last data filed at 02/17/2025 0400 Gross per 24 hour Intake 1860 ml Output 1335 ml Net 525 ml Output by Drain (mL) 02/15/25 0700 - 02/15/25 1859 02/15/25 1900 - 02/16/25 0659 02/16/25 0700 - 02/16/25 1859 02/16/25 1900 - 02/17/25 0659 02/17/25 0700 - 02/17/25 0736 Closed/Suction Drain 1 Posterior Neck Accordion 15 Fr. 185 Physical Exam GCS (EMV): 465 Awake, alert, oriented x3 Follows commands appropriately Speech clear Strength RUE 554+3 LUE 5555 RLE 2524+ LLE 5522 Assessment and Plan Hyacinth Marin is a 45 y.o. female patient with severe cervical stenosis and myelopathy progression (MJ OA ). Now s/p C3-C7 PCF on 02/16/25 ICU Length of Stay: 11h Assessment/Plan Principal Problem: Cervical myelopathy (CMS/HCC) Active Problems: Cervical stenosis of spine Electrolyte abnormality Muscle spasm of back BMI 25.0-25.9,adult Tobacco use - Advance activities as tolerated - Advance diet as tolerated - DVT prophylaxis since POD 1 - Follow up drain output - ivPCA to PO - Discontinue Quick catheter - Postoperative X-rays (order placed) - Pain management - PT/OT - MAPs > 85 (#1/3) - IV Dex 4 q8 48 hours total (ordered) Chace Crain MD Resident Physician, PGY-2 Department of Neurosurgery [facility] [1] Current Facility-Administered Medications Medication Dose Route Frequency Provider Last Rate Last Admin acetaminophen (Tylenol) tablet 1,000 mg 1,000 mg Oral q6h PRN Ashvin Magana MD Or acetaminophen (Tylenol) 160 MG/5ML solution 1,000 mg 1,000 mg Oral q6h PRN Ashvin Magana MD Or acetaminophen (Tylenol) suppository 650 mg 650 mg Rectal q6h PRN Ashvin Magana MD cyclobenzaprine (Flexeril) tablet 5 mg 5 mg Oral TID Ashvin Magana MD 5 mg at 02/16/25 2200 dexamethasone (Decadron) injection 4 mg 4 mg Intravenous TID Misha Purdy MD 4 mg at 02/16/25 2200 gabapentin (Neurontin) capsule 300 mg 300 mg Oral TID Ashvin Magnaa MD 300 mg at 02/16/25 2200 HYDROmorphone 1 mg/mL CATHETERIZATION LABORATORY TECHNICIAN (naive protocol) Intravenous Continuous Javier Perez DO New Syringe/Cartridge at 02/16/25 1341 And HYDROmorphone 1 mg/mL clinician bolus dose 0.2-0.8 mg 0.2-0.8 mg Intravenous q15 min PRN Javier Perez DO 0.8 mg at 02/16/25 1344 naloxone (Narcan) 2 mg in sodium chloride 0.9 % 100 mL (0.02 mg/mL) infusion (Urinary Retention or Pruritus) 0.25-1 mcg/kg/hr Intravenous Titrated PRN Javier Perez DO naloxone (Narcan) injection 0.08 mg 0.08 mg Intravenous q1 min PRN Javier Perez DO ondansetron ODT (Zofran-ODT) disintegrating tablet 4 mg 4 mg Oral q6h PRN Ashvin Magana MD Or ondansetron (Zofran) injection 4 mg 4 mg Intravenous q6h PRN Ashvin Magana MD polyethylene glycol (Miralax) packet 17 g 17 g Oral BID Julio Beasley III, MD senna-docusate (Jeimy-Colace) 8.6-50 MG per tablet 1 tablet 1 tablet Oral BID Ashvni Magana MD 1 tablet at 02/16/25 2200 sodium chloride 0.9 % flush 10 mL 10 mL Intravenous q12h Ashvin Magana MD And sodium chloride 0.9 % flush 10 mL 10 mL Intravenous PRN Ashvin Magana MD sodium chloride 0.9 % infusion 5 mL/hr Intravenous Continuous Javier Perez DO 5 mL/hr at 02/16/25 1359 5 mL/hr at 02/16/25 1359 sodium chloride 0.9 % with KCl 20 mEq/L infusion 75 mL/hr Intravenous Continuous Truong Magana MD 75 mL/hr at 02/17/25 0239 75 mL/hr at 02/17/25 0239 Cosigned by Jeremy Ramirez MD at 02/19/2025 9:39 AM EDT Associated attestation - Jeremy Ramirez MD - 02/19/2025 9:39 AM EDT I saw and evaluated the patient. I discussed the case with the resident/fellow and agree with the findings and plan as documented. Neurosurgery attending note: I was alerted to postoperative weakness of the right side quickly after Mrs. Marin woke up. Then immediately went to see you at bedside. I performed a full assessment. She was still very somnolent and drowsy, under significant post anesthesia change, but able to perform all tasks as asked, and was oriented. Her left upper and lower extremity appeared to be at baseline. Right side was at baseline to the wrist extension, with altered power distally in various myotomes. RUE: Hand intrinsics and finger flexion were 1/5. Sensation was intact she reported. Hand was swollen. RLE: HF 1/5, KE 4-/5, KF 1/5, DF 0/5, EHL 0/5, PF 3/5. Sensation was intact she reported. Leg with swollen. I discussed with Mrs. Sigala and her significant other that she was still under the effects of anesthesia, however this was very concerning. I told them that I would see her again soon, to repeat and exam, and that out enact what measures could be done to prevent any further damage. I disclosed to them that this could have been due to contacting of the spinal cord during surgery, as her C5-6 level was very narrow and had signal cord change before surgery. Discussed that this could be due to blood increase after injury, reperfusion injury, or ischemia. Assessment: Postoperative weakness of the right side, at finger flexion and distally, irregular pattern with preservation to certain myotomes (knee extension, plantar flexion). Sensation intact as reported, withimproved prognostication due to these 2 elements. Plan: I have asked the ICU to admit her for a map goal of 85 and greater for at least 72 hours. Decadron high-dose with taper, starting 4 mg three times a day. We will reassess frequently, to assess function. Physical medicine rehab consultation to be entered. We will recommend inpatient rehabilitation. * Care Plan - Micha Abreu RN - 02/17/2025 1:50 AM EDT Problem: Adult Inpatient Plan of Care Goal: Plan of Care Review Outcome: Ongoing, Progressing Flowsheets (Taken 02/17/2025145) Progress: improving Plan of Care Reviewed With: patient Goal: Patient-Specific Goal (Individualized) Outcome: Ongoing, Progressing Flowsheets (Taken 02/16/2025 2100) Patient/Family-Specific Goals (Include Timeframe): Patient will have pain score at or below a 3, which is an acceptable pain level for her Individualized Care Needs: Patient will have pain at a tolerable level while on CATHETERIZATION LABORATORY TECHNICIAN pump Anxieties, Fears or Concerns: Denies Goal: Absence of Hospital-Acquired Illness or Injury Outcome: Ongoing, Progressing Intervention: Identify and Manage Fall Risk Flowsheets (Taken 02/17/2025 014) Safety Promotion/Fall Prevention: activity supervised fall prevention program maintained clutter-free environment maintained safety round/check completed Intervention: Prevent Skin Injury Flowsheets Taken 02/17/2025145 by Micha Abreu, RN Skin Protection: hydrocolloids used incontinence pads utilized drying agents applied Taken 02/16/20252199 by Shea Vasquez Body Position: turned left heels elevated Intervention: Prevent and Manage VTE (Venous Thromboembolism) Risk Flowsheets (Taken 02/16/20251999 by Shea Vasquez) VTE Prevention/Management: bilateral lower extremity SCDs (sequential compression devices) on Intervention: Prevent Infection Flowsheets (Taken 02/17/2025 014) Infection Prevention: environmental surveillance performed hand hygiene promoted rest/sleep promoted personal protective equipment utilized Goal: Optimal Comfort and Wellbeing Outcome: Ongoing, Progressing Intervention: Monitor Pain and Promote Comfort Flowsheets (Taken 02/16/2025 1505 by Laura Ayala, RN) Pain Management Interventions: pain pump in use Intervention: Provide Person-Centered Care Flowsheets (Taken 02/17/2025145) Trust Relationship/Rapport: care explained choices provided emotional support provided empathic listening provided questions encouraged reassurance provided thoughts/feelings acknowledged Problem: Surgery Nonspecified Goal: Absence of Bleeding Outcome: Ongoing, Progressing Intervention: Monitor and Manage Bleeding Flowsheets (Taken 02/17/2025 014) Bleeding Management: dressing monitored Goal: Fluid and Electrolyte Balance Outcome: Ongoing, Progressing Intervention: Monitor and Manage Fluid and Electrolyte Balance Flowsheets (Taken 02/17/2025145) Fluid/Electrolyte Management: intravenous fluids adjusted Goal: Blood Glucose Level Within Target Range Outcome: Ongoing, Progressing Intervention: Optimize Glycemic Control Flowsheets (Taken 02/17/2025145) Hyperglycemia Management: blood glucose monitored Hypoglycemia Management: blood glucose monitored Goal: Absence of Infection Signs and Symptoms Outcome: Ongoing, Progressing Intervention: Prevent or Manage Infection Flowsheets (Taken 02/17/2025 014) Fever Reduction/Comfort Measures: lightweight clothing Isolation Precautions: precautions maintained protective Goal: Anesthesia/Sedation Recovery Outcome: Ongoing, Progressing Intervention: Optimize Anesthesia Recovery Flowsheets (Taken 02/17/2025 014) Stabilization Measures: airway opened Safety Promotion/Fall Prevention: activity supervised fall prevention program maintained clutter-free environment maintained safety round/check completed Goal: Optimal Pain Control and Function Outcome: Ongoing, Progressing Intervention: Prevent or Manage Pain Flowsheets Taken 02/16/2025 2100 by Micha Abreu RN Diversional Activities: television Taken 02/16/2025 1505 by Laura Ayala RNintramural director Interventions: pain pump in use Goal: Nausea and Vomiting Relief Outcome: Ongoing, Progressing Intervention: Prevent or Manage Nausea and Vomiting Flowsheets (Taken 02/17/2025 014) Nausea/Vomiting Interventions: slow deep breathing encouraged nausea triggers minimized Goal: Effective Urinary Elimination Outcome: Ongoing, Progressing Intervention: Monitor and Manage Urinary Retention Flowsheets (Taken 02/17/2025 014) Urinary Elimination Promotion: catheter patency maintained Goal: Effective Oxygenation and Ventilation Outcome: Ongoing, Progressing Intervention: Optimize Oxygenation and Ventilation Flowsheets Taken 02/17/2025145 by Micha Abreu RN Airway/Ventilation Management: airway patency maintained calming measures promoted Taken 02/16/20252199 by Shea Vasquez Head of Bed (HOB) Positioning: HOB at 30-45 degrees Taken 02/16/20251999 by Shea Vasquez Activity Management: activity adjusted per tolerance activity encouraged Problem: Infection Goal: Absence of Infection Signs and Symptoms Outcome: Ongoing, Progressing Intervention: Prevent or Manage Infection Flowsheets (Taken 02/17/2025 014) Fever Reduction/Comfort Measures: lightweight clothing Isolation Precautions: precautions maintained protective * Consults - Malinda Mccormack RN - 02/16/2025 11:18 PM EDT Acute Pain Service Follow-Up Evaluation Hyacinth Marin is a 45 y.o. female Follow-Up: Follow-up reason: APS rounds Pain Rating (0-10): asleep Acute Pain Service Comments: Patient is currently receiving the following: IV CATHETERIZATION LABORATORY TECHNICIAN Medication: received 8 doses of Hydromorphone totaling 1.6 mg in 8 hours Will continue Patient Controlled Analgesia infusion until primary service decides it is appropriateto discontinue. Follow-Up: Follow-Up: Acute Pain Service will continue to follow and adjust as needed. Visit Type: Routine Current Analgesic Treatments: Inpatient Analgesics Active Medications Medication Name Dose Route Frequency acetaminophen (Tylenol) tablet 1,000 mg 1,000 mg Oral q6h PRN for mild pain acetaminophen (Tylenol) 160 MG/5ML solution 1,000 mg 1,000 mg Oral q6h PRN for mild pain acetaminophen (Tylenol) suppository 650 mg 650 mg Rectal q6h PRN for mild pain cyclobenzaprine (Flexeril) tablet 5 mg 5 mg Oral TID dexamethasone (Decadron) injection 4 mg 4 mg Intravenous TID gabapentin (Neurontin) capsule 300 mg 300 mg Oral TID HYDROmorphone 1 mg/mL CATHETERIZATION LABORATORY TECHNICIAN (naive protocol) no dose Intravenous Continuous HYDROmorphone 1 mg/mL clinician bolus dose 0.2-0.8 mg 0.2-0.8 mg Intravenous q15 min PRN for severepain naloxone (Narcan) 2 mg in sodium chloride 0.9 % 100 mL (0.02 mg/mL) infusion (Urinary Retention or Pruritus) 0.25-1 mcg/kg/hr Intravenous Titrated PRN for urinary retention, itching Rate: 0.89-3.54 mL/hr naloxone (Narcan) injection 0.08 mg 0.08 mg Intravenous q1 min PRN for respiratory depression, for respiratory rate < 10 IV CATHETERIZATION LABORATORY TECHNICIAN Hydromorphone (1mg/ml) 0.2mg/q6mins. C3-7 PCF 02/16/25 Blood pressure (!) 153/85, pulse 83, temperature 36.8 ??C (98.2 ??F), temperature source Oral, resp. rate 16, weight 70.8 kg (156 lb 1.4 oz), SpO2 93%. Please Contact Acute Pain Service with any additional questions or concerns via [employer] or[employer] Channel [phone]. * Assessment & Plan Note - Joce Covarrubias APRN - 02/16/2025 6:35 PM EDT Associated Problem(s): Cervical myelopathy ([facility]) See cervical stenosis of spine * Assessment & Plan Note - Joce Covarrubias APRN - 02/16/2025 6:35 PM EDT Associated Problem(s): Cervical stenosis of spine C3-C7 posterior cervical fusion Admitted to PCU post-op but then upgraded to ICU for MAP goals and post-op weakness MAP >85 Vasopressors as needed to meet MAP goals Continuous BP monitoring with A-line * Assessment & Plan Note - Joce Covarrubias APRN - 02/16/2025 6:35 PM EDT Associated Problem(s): Electrolyte abnormality (Resolved 02/23/2025) Replace per ICU sliding scale protocol. * Assessment & Plan Note - Joce Covarrubias APRN - 02/16/2025 6:35 PM EDT Associated Problem(s): Anxiety (Resolved 02/16/2025) Resume home meds as appropriate * Assessment & Plan Note - Joce Covarrubias APRN - 02/16/2025 6:35 PM EDT Associated Problem(s): Muscle spasm of back Resume home medications as appropriate * Assessment & Plan Note - Joce Covarrubias APRN - 02/16/2025 6:35 PM EDT Associated Problem(s): BMI 25.0-25.9,adult Complicates all aspects of care. * Assessment & Plan Note - Joce Covarrubias APRN - 02/16/2025 6:35 PM EDT Associated Problem(s): Tobacco use Smoking cessation as appropriate Complicates all aspects of care * H&P - Joce Covarrubias APRN - 02/16/2025 6:33 PM EDTAssociated Order(s): Critical Care Post-Procedure Diagnose(s): Cervical stenosis of spine 02/16/25 Hyacinth Marin Consulted for critical care management by Neurosurgery / Jeremy Ramirez MD. HPI Hyacinth Marin is a 45 y.o. female who presents with Cervical myelopathy ([facility]). Ms. Marin had C3-C7 posterior cervical spine fusion on 02/16/25. Post-operatively had new onset weakness and upgraded to ICU for arterial line placement and MAP goals. Past medical history significant for spinal stenosis, muscle spasms, tobacco use. On exam patient is somnolent but able to answer all GCS questions, move all extremities and per at bedside is much improved. GCS 15. Airway view (if available) was: grade I - full view of glottis Lines/Drains/Tubes: . Active . Name Placement date Placement time Site Days Peripheral IV 02/16/25 Left;Posterior Hand 02/16/25 0630 Hand less than 1 Peripheral IV 02/16/25 Posterior;Right Forearm 02/16/25 -- Forearm less than 1 Closed/Suction Drain 1 Posterior Neck Accordion 15 Fr. 02/16/25 1059 Neck less than 1 Urethral Catheter Double-lumen;Non-latex;Temperature probe 16 Fr. 02/16/25 0800 -- less than 1 Last antibiotic: Patient recently received an antibiotic (last 12 hours) Showing orders from other encounters Date/Time Action Medication Dose Rate 02/16/25 1130 Given vancomycin (Vancocin) vial for injection 1 g 02/16/25 0815 Given ceFAZolin (Ancef) IV syringe 2 g 02/16/25 0659 Given Vancomycin HCl in NaCl (Vancocin) IVPB 1,000 mg 1,000 mg 250 mL/hr Per the patient questionnaire: Patient answers are not available for this visit. Past Medical History: Active Ambulatory Problems Diagnosis Date Noted Cervical stenosis of spine 12/29/2024 Cervical myelopathy ([facility]) 01/18/2025 Resolved Ambulatory Problems Diagnosis Date Noted No Resolved Ambulatory Problems Past Medical History: Diagnosis Date Anxiety Neuromuscular disorder ([facility]) Past Surgical History: Surgical History[1] Home Medications: Prior to Admission medications Medication Sig Start Date End Date Taking? Authorizing Provider albuterol 108 (90 Base) MCG/ACT inhaler inhale two puffs by mouth every 4 hours as needed Patient not taking: Reported on 01/28/2025 07/15/24 Provider, Historical BIOTIN PO Take by mouth daily. Provider, Historical celecoxib (CeleBREX) 200 MG capsule Take by mouth daily. 01/05/25 Provider, Historical Cholecalciferol (VITAMIN D-3 PO) Take by mouth daily. Provider, Historical citalopram (CeleXA) 20 MG tablet TAKE ONE TABLET BY MOUTH EVERY MORNING FOR ANXIETY Patient not taking: Reported on 01/28/2025 02/21/24 Provider, Historical lidocaine (Lidoderm) 5 % patch Apply 1 patch topically daily over 12 hours. Remove & discard patch within 12 hours or as directed by MD. 12/29/24 Marian Mendoza MD loratadine (Claritin) 10 MG tablet Take 1 tablet by mouth daily as needed for allergies. 12/01/24 Provider, Historical methocarbamol (Robaxin) 500 MG tablet Take 1 tablet by mouth 4 times a day as needed for muscle spasms for up to 10 days. 12/29/24 01/28/25 Marian Mendoza MD SPIRONOLACTONE PO Take by mouth daily. Provider, Historical Social History: Pt has reports that she has been smoking cigarettes. She started smoking about 30 years ago. She has a 7.7 pack-year smoking history. She has never used smokeless tobacco. She reports that she does not currently use alcohol. She reports that she does not currently use drugs. (details as available below) Social History Substance and Sexual Activity Alcohol Use Not Currently Comment: rare Social History Substance and Sexual Activity Drug Use Not Currently Tobacco Use History[2] Reviewed and otherwise non-contributory. Family History: Family History[3] Reviewed and otherwise non-contributory. Allergies: Allergies[4] ROS: GCS: Jennifer Coma Scale Score: 12 Review of Systems All other systems reviewed and are negative. 14 point ROS reviewed and otherwise negative or unobtainable except as noted above or in HPI. Vital signs: Vitals: 02/16/25 1533 BP: (!) 148/83 Pulse: 106 Resp: Temp: SpO2: 95% Intake/Output Summary (Last 24 hours) at 02/16/2025 1833 Last data filed at 02/16/2025 1505 Gross per 24 hour Intake 1860 ml Output 550 ml Net 1310 ml Physical Exam: Physical Exam Constitutional: Appearance: Normal appearance. She is well-developed and normal weight. HENT: Head: Normocephalic and atraumatic. Right Ear: External ear normal. Left Ear: External ear normal. Nose: Nose normal. Mouth/Throat: Lips: [place]. Mouth: Mucous membranes are moist. Pharynx: Oropharynx is clear. Eyes: Conjunctiva/sclera: Conjunctivae normal. Pupils: Pupils are equal, round, and reactive to light. Neck: Vascular: No JVD. Cardiovascular: Rate and Rhythm: Normal rate and regular rhythm. Pulmonary: Effort: Pulmonary effort is normal. Breath sounds: Normal breath sounds. Abdominal: General: Bowel sounds are decreased. There is no distension. Palpations: Abdomen is soft. Tenderness: There is no abdominal tenderness. There is no guarding. Genitourinary: Comments: FC in place draining CYU Musculoskeletal: General: Normal range of motion. Cervical back: Neck supple. Right lower leg: No edema. Left lower leg: No edema. Skin: General: Skin is warm and dry. Coloration: Skin is not pale. Neurological: General: No focal deficit present. Mental Status: She is oriented to person, place, and time. She is lethargic. GCS: GCS eye subscore is 3. GCS verbal subscore is 5. GCS motor subscore is 6. Comments: IV CATHETERIZATION LABORATORY TECHNICIAN 0.2mg, lockout 6 min Very lethargic but able to answer all GCS questions Labs in last 18 hours: CBC WBC ?? Hb ?? Plt ?? Hct ?? ANC ?? INR ??, PTT ??, Anti-Xa ?? BMP Na ?? Cl ?? BUN ?? Glu ?? K ?? Co2 ?? Cr ?? Ca ?? iCa ?? Mg ??, Phos ?? Lactate ?? LFT AST ?? AlkPhos ?? T Prot ?? ALK ?? Bili ?? Alb ?? D.Bili ?? Imaging as available: === 12/23/24 === MR OUTSIDE IMAGES === 12/28/24 === CT NEURO OUTSIDE IMAGES === 01/08/25 === XR CERVICAL SPINE COMPLETE 4 TO 5 VIEWS - Narrative - CLINICAL INDICATION: neck pain TECHNIQUE: XR CERVICAL SPINE COMPLETE 4 TO 5 VIEWS COMPARISON: December 28, 2024, December 23, 2024. FINDINGS: Grade 1 retrolisthesis C4 on C5 and C5-C6. Mild disc space narrowing at C4-C5 C5-C6. Moderate multilevel degenerative changes, better seen on recent MRI No dynamic instability. - Impression - No acute osseous findings. Multilevel degenerative changes, better seen on recent MRI. CRITICAL RESULT: No. COMMUNICATION: Per this written report. Drafted by Nikhil Lima MD on 01/08/2025 2:08 PM Final report signed by Nikhil Lima MD on 01/08/2025 2:11 PM Reviewed and agree with above. Assessment and Plan: This patient is critically ill. Assessment & Plan Cervical myelopathy (CMS/HCC) Present on Admission: Unknown See cervical stenosis of spine Cervical stenosis of spine Present on Admission: Yes C3-C7 posterior cervical fusion Admitted to PCU post-op but then upgraded to ICU for MAP goals and post-op weakness MAP >85 Vasopressors as needed to meet MAP goals Continuous BP monitoring with A-line Electrolyte abnormality Present on Admission: Yes Replace per ICU sliding scale protocol. Muscle spasm of back Present on Admission: Yes Resume home medications as appropriate BMI 25.0-25.9,adult Present on Admission: Not Applicable Complicates all aspects of care. Tobacco use Present on Admission: Yes Smoking cessation as appropriate Complicates all aspects of care Anxiety (Resolved: 02/16/2025) Present on Admission: Yes Resume home meds as appropriate Feeding: Adult diet Diet texture: Regular; Carbohydrate restriction: Consistent Carb 2 (80 gm max/meal) P.O. (mL): 10 mL Analgesia: Pain Score: 8 Pain Medications celecoxib (CeleBREX) 200 MG capsule Take by mouth daily. citalopram (CeleXA) 20 MG tablet TAKE ONE TABLET BY MOUTH EVERY MORNING FOR ANXIETY methocarbamol (Robaxin) 500 MG tablet Take 1 tablet by mouth 4 times a day as needed for muscle spasms for up to 10 days. Sedation: RASS RASS: Drowsy Level of Consciousness: Sedated Thromboembolic prophylaxis: Last Anticoag Admin No anticoagulants administered. No unadministered anticoagulant orders found. Head of bed: >30 Ulcer prophylaxis: N/A Glucose control: Spontaneous breathing trials: O2 Delivery Method: Face tent WI SUP: 10 cm H20 Insp Time (sec): 1.7 sec S RR: 12 WI SUP: 10 cm H20 Bowel regimen: Quick Care [place] Wipes Used: Yes, perineum cleansed with soap/water prior Invasive lines: Patient Lines/Drains/Airways Status Active Active LDAs Name Placement date Placement time Site Days Peripheral IV 02/16/25 Left;Posterior Hand 02/16/25 0630 Hand less than 1 Peripheral IV 02/16/25 Posterior;Right Forearm 02/16/25 -- Forearm less than 1 Closed/Suction Drain 1 Posterior Neck Accordion 15 Fr. 02/16/25 1059 Neck less than 1 Urethral Catheter Double-lumen;Non-latex;Temperature probe 16 Fr. 02/16/25 0800 -- less than 1 De-escalation: Continue routine ICU care Critical Care Performed by: Joce Covarrubias APRN Authorized by: Joce Covarrubias APRN Critical care provider statement: Critical care time (minutes): 60 Critical care time was exclusive of: Separately billable procedures and treating other patients Critical care was time spent personally by me on the following activities: Ordering and performing treatments and interventions, ordering and review of laboratory studies, ordering and review of radiographic studies, review of old charts, examination of patient, evaluation of patient's response to treatment, development of treatment plan with patient or surrogate and discussions with primary provider I assumed subsequent critical care for this patient from a provider in my division, on the same day: yes Joce Covarrubias APRN [1] Past Surgical History: Procedure Laterality Date SECTION, CLASSIC ESOPHAGOSCOPY / EGD with dilation WISDOM TOOTH EXTRACTION [2] Social History Tobacco Use Smoking Status Some Days Current packs/day: 0.25 Average packs/day: 0.3 packs/day for 30.6 years (7.7 ttl pk-yrs) Types: Cigarettes Start date: 07/1994 Smokeless Tobacco Never [3] Family History Problem Relation Name Age of Onset Anesthesia problems Neg Hx Malig Hyperthermia Neg Hx [4] Allergies Allergen Reactions Penicillins Rash Sulfa Drugs Rash * Anesthesia PACU Signout - Jimmie Garcia DO - 02/16/2025 2:17 PM EDT Patient: Hyacinth Marin Anesthesia Type: general Vitals Value Taken Time BP 145/88 02/16/25 14:15 Temp 36.6 ??C (97.9 ??F) 02/16/25 12:13 Pulse 100 02/16/25 14:16 Resp 16 02/16/25 14:16 SpO2 95 % 02/16/25 14:16 Vitals shown include unfiled device data. Anesthesia PACU Signout Patient location during evaluation: PACU Patient participation: complete - patient participated Level of consciousness: baseline and awake Pain management: adequate (pain score 0-3) Airway patency: natural airway Hydration status: acceptable PONV: none Cardiovascular status: acceptable and hemodynamically stable Respiratory status: acceptable, spontaneous ventilation, unassisted and nonlabored ventilation Discharge Disposition: admit to inpatient unit Comments: Patient is s/p Procedure(s) and Anesthesia Type: * C3-7 PCF, w IONM - General. Patient remains HDS on room air, neurologically appropriate, pain is controlled, and tolerating PO w/o N/V. Patient is appropriate for discharge from PACU to inpatient unit for continued postop care. Cosigned by Moshe Lyle MD at 02/17/2025 6:18 PM EDT Associated attestation - Moshe Lyle MD - 02/17/2025 6:18 PM EDT I agree with the resident's PACU evaluation and sign-out as documented. -Moshe Lyle MD * Consults - Claritza Sanders RN - 02/16/2025 2:00 PM EDT Acute Pain Service Follow-Up Evaluation Hyacinth Marin is a 45 y.o. female Follow-Up: Follow-up reason: APS rounds Patient sleeping Acute Pain Service Comments: Patient is currently receiving the following: IV CATHETERIZATION LABORATORY TECHNICIAN Medication: received 2 doses of Hydromorphone totaling 1.2 mg in 20 minutes. Will continue Patient Controlled Analgesia infusion until primary service decides it is appropriateto discontinue. Follow-Up: Follow-Up: Acute Pain Service will continue to follow and adjust as needed. Visit Type: Routine Current Analgesic Treatments: Inpatient Analgesics Active Medications Medication Name Dose Route Frequency acetaminophen (Tylenol) tablet 1,000 mg 1,000 mg Oral q6h PRN for mild pain acetaminophen (Tylenol) 160 MG/5ML solution 1,000 mg 1,000 mg Oral q6h PRN for mild pain acetaminophen (Tylenol) suppository 650 mg 650 mg Rectal q6h PRN for mild pain cyclobenzaprine (Flexeril) tablet 5 mg 5 mg Oral TID gabapentin (Neurontin) capsule 300 mg 300 mg Oral TID HYDROmorphone 1 mg/mL CATHETERIZATION LABORATORY TECHNICIAN (naive protocol) no dose Intravenous Continuous HYDROmorphone 1 mg/mL clinician bolus dose 0.2-0.8 mg 0.2-0.8 mg Intravenous q15 min PRN for severepain naloxone (Narcan) 2 mg in sodium chloride 0.9 % 100 mL (0.02 mg/mL) infusion (Urinary Retention or Pruritus) 0.25-1 mcg/kg/hr Intravenous Titrated PRN for urinary retention, itching Rate: 0.89-3.54 mL/hr naloxone (Narcan) injection 0.08 mg 0.08 mg Intravenous q1 min PRN for respiratory depression, for respiratory rate < 10 naloxone (Narcan) injection 0.4 mg 0.4 mg Intravenous PRN for respiratory depression IV CATHETERIZATION LABORATORY TECHNICIAN Hydromorphone (1mg/ml) 0.2mg/q6mins. C3-7 PCF 02/16/25 Blood pressure (!) 144/87, pulse 98, temperature 36.6 ??C (97.9 ??F), temperature source Axillary, resp. rate 10, weight 70.8 kg (156 lb 1.4 oz), SpO2 96%. Please Contact Acute Pain Service with any additional questions or concerns via [employer] Secure Chat orpage [phone]. * Consults - Claritza Sanders RN - 02/16/2025 1:22 PM EDT RN Pain Assessment Hyacinth Marin is a 45 y.o. female General Information: Referring Physician/ Service: Jeremy Ramirez MD Patient History Reviewed: Yes Medical History: Principal Problem: Cervical myelopathy (CMS/HCC) Pertinent Home Medications: Prior to Admission medications Medication Sig Start Date End Date Taking? Authorizing Provider albuterol 108 (90 Base) MCG/ACT inhaler inhale two puffs by mouth every 4 hours as needed Patient not taking: Reported on 01/28/2025 07/15/24 ProviderSav MD BIOTIN PO Take by mouth daily. Sav Malave MD celecoxib (CeleBREX) 200 MG capsule Take by mouth daily. 01/05/25 Sav Malave MD Cholecalciferol (VITAMIN D-3 PO) Take by mouth daily. Sav Malave MD citalopram (CeleXA) 20 MG tablet TAKE ONE TABLET BY MOUTH EVERY MORNING FOR ANXIETY Patient not taking: Reported on 01/28/2025 02/21/24 Sav Malave MD lidocaine (Lidoderm) 5 % patch Apply 1 patch topically daily over 12 hours. Remove & discard patch within 12 hours or as directed by MD. 12/29/24 Marian Mendoza MD loratadine (Claritin) 10 MG tablet Take 1 tablet by mouth daily as needed for allergies. 12/01/24 Sav Malave MD methocarbamol (Robaxin) 500 MG tablet Take 1 tablet by mouth 4 times a day as needed for muscle spasms for up to 10 days. 12/29/24 01/28/25 Marian Mendoza MD SPIRONOLACTONE PO Take by mouth daily. ProviderSav MD Current Inpatient Pain medications: Inpatient Analgesics Active Medications Medication Name Dose Route Frequency acetaminophen (Tylenol) tablet 1,000 mg 1,000 mg Oral q6h PRN for mild pain acetaminophen (Tylenol) 160 MG/5ML solution 1,000 mg 1,000 mg Oral q6h PRN for mild pain acetaminophen (Tylenol) suppository 650 mg 650 mg Rectal q6h PRN for mild pain cyclobenzaprine (Flexeril) tablet 5 mg 5 mg Oral TID gabapentin (Neurontin) capsule 300 mg 300 mg Oral TID HYDROmorphone 1 mg/mL CATHETERIZATION LABORATORY TECHNICIAN (naive protocol) no dose Intravenous Continuous HYDROmorphone 1 mg/mL clinician bolus dose 0.2-0.8 mg 0.2-0.8 mg Intravenous q15 min PRN for severepain naloxone (Narcan) 2 mg in sodium chloride 0.9 % 100 mL (0.02 mg/mL) infusion (Urinary Retention or Pruritus) 0.25-1 mcg/kg/hr Intravenous Titrated PRN for urinary retention, itching Rate: 0.89-3.54 mL/hr naloxone (Narcan) injection 0.08 mg 0.08 mg Intravenous q1 min PRN for respiratory depression, for respiratory rate < 10 naloxone (Narcan) injection 0.4 mg 0.4 mg Intravenous PRN for respiratory depression Vitals: Blood pressure (!) 144/87, pulse 98, temperature 36.6 ??C (97.9 ??F), temperature source Axillary, resp. rate 10, weight 70.8 kg (156 lb 1.4 oz), SpO2 96%. Allergies: Allergies[1] Substance Use: Tobacco Use History[2] reports that she has been smoking cigarettes. She started smoking about 30 years ago. She has a 7.7pack-year smoking history. She has never used smokeless tobacco. Social History Substance and Sexual Activity Alcohol Use Not Currently Comment: rare reports that she does not currently use alcohol. Social History Substance and Sexual Activity Drug Use Not Currently reports that she does not currently use drugs. Pain Assessment: Pain Rating (0-10): 8 Comfort/ acceptable pain level (0-10): not reported Location: back, cervical and back, thoracic Frequency/ quality: constant Onset of pain: post op Pain related to: surgery Factors that aggravate pain: activity and ineffective pain medication (dosage/ frequency) Factors that relieve pain: medications Pain Service Plan: Plan: Place on IV CATHETERIZATION LABORATORY TECHNICIAN IV CATHETERIZATION LABORATORY TECHNICIAN Hydromorphone (1mg/ml) 0.2mg/q6mins. C3-7 PCF 02/16/25 dilaudid 1 mg/ml CATHETERIZATION LABORATORY TECHNICIAN settin.2 mg q 6 minutes Basal rate: none Various methods of pain control discussed with patient and/ or family: Yes Discussed with doctor: Yes Please Contact Inpatient Pain Service with any additional questions or concerns via [employer] Secure Chat or page [phone]. [1] Allergies Allergen Reactions Penicillins Rash Sulfa Drugs Rash [2] Social History Tobacco Use Smoking Status Some Days Current packs/day: 0.25 Average packs/day: 0.3 packs/day for 30.6 years (7.7 ttl pk-yrs) Types: Cigarettes Start date: 07/1994 Smokeless Tobacco Never * Consults - Caro Hobbs APRN - 02/16/2025 12:29 PM EDT Pain Consult Note Reason for Consult: CATHETERIZATION LABORATORY TECHNICIAN request, Chronic pain condition, Acute pain condition, and Multimodal pain management Ordering Provider: Jeremy Ramirez MD History of Present Illness Hyacinth Marin is a 45 y.o. female admitted on 02/16/2025 with PMH numbness and concern for progressive cervical myelopathy/cervical stenosis who presented to [facility] for planned C3-C7 posterior cervical fusion. Post op Inpatient Pain Service was consulted to provide safe and effective analgesic regimen. On initial assessment Ms. Marin is seen resting on PACU stretcher. She is crying in pain but able to tell me it is in her neck and rates it an 8/10. At baseline she has chronic neck pain. History Medical/Surgical/Social/Family History Past Medical History[1] Surgical History[2] Social History[3] Family History[4] Medications and Allergies Allergies Penicillins and Sulfa drugs Inpatient Analgesics Active Medications Medication Name Dose Route Frequency acetaminophen (Tylenol) tablet 1,000 mg 1,000 mg Oral q6h PRN for mild pain acetaminophen (Tylenol) 160 MG/5ML solution 1,000 mg 1,000 mg Oral q6h PRN for mild pain acetaminophen (Tylenol) suppository 650 mg 650 mg Rectal q6h PRN for mild pain acetaminophen (Tylenol) tablet 1,000 mg 1,000 mg Oral Once PRN for pain score of >1 out of 10 fentaNYL (Sublimaze) injection 25 mcg 25 mcg Intravenous q5 min PRN for pain score of 3-4 out of 10 fentaNYL (Sublimaze) injection 50 mcg 50 mcg Intravenous q5 min PRN for pain score of 5-8 out of 10 HYDROmorphone (Dilaudid) injection 0.5 mg 0.5 mg Intravenous q10 min PRN for pain score of 9-10 outof 10 naloxone (Narcan) injection 0.4 mg 0.4 mg Intravenous PRN for respiratory depression oxyCODONE (Roxicodone) immediate release tablet 5 mg 5 mg Oral Once PRN for pain score of 3-5 out of 10 oxyCODONE (Roxicodone) immediate release tablet 10 mg 10 mg Oral Once PRN for pain score of 6-8 outof 10 Future Medications Medication Name Dose Route Frequency cyclobenzaprine (Flexeril) tablet 5 mg 5 mg Oral TID gabapentin (Neurontin) capsule 300 mg 300 mg Oral TID Review of Systems Review of Systems Musculoskeletal: Positive for neck pain. Physical Exam Physical Exam Constitutional: General: She is in acute distress. Appearance: She is normal weight. Musculoskeletal: Comments: Limited ROM of neck due to pain Neurological: Mental Status: She is alert. She is disoriented. Psychiatric: Mood and Affect: Affect is tearful. Visit Vitals BP (!) 140/89 Pulse 88 Temp 36.6 ??C (97.9 ??F) (Axillary) SpO2 99% Results Review I have reviewed the latest lab and imaging results. Assessment and Plan/Recommendations Assessment & Plan Cervical myelopathy (CMS/HCC) Multimodal pain management: non opioids, Non-pharmacologic therapies, Opioids Initiated, Pain Treatment Preferences Discussed, and CATHETERIZATION LABORATORY TECHNICIAN- Started Assessment: Ms. Marin has acute on chronic, opioid naive, uncontrolled somatic pain s/p Laminectomy, laminotomy and arthrodesis of C3-C7. In the acute postoperative phase opioids via IV CATHETERIZATION LABORATORY TECHNICIAN are a reasonable part of a multimodal pain regimen. Once pain is well controlled and tolerating PO pain medications, would consider transitioning to PO/IV opioids and weaning thereafter. Recommendations: - Start Dilaudid IV CATHETERIZATION LABORATORY TECHNICIAN @ 0.2 mg Q6M lockout - Start Dilaudid IV boluses @ 0.2 - 0.8 mg Q15M per acute pain nurses - Consider switching Flexeril ordered to home Robaxin 500 mg PO QID - Start home Lidocaine patch - Continue MMPC with Gabapentin - Continue Senna to prevent OIC Report Sent To: Jeremy Ramirez MD Medical Decision Making Amount and/or Complexity of Data Reviewed External Data Reviewed: notes. Details: Reviewed Notes From: 02/16 H&P and OP Note by Dr. Magana Discussion of management or test interpretation with external provider(s): IPS JENNIE discussed current pain and recommendations with primary provider for the day Dr. De La Torre via this note. Risk OTC drugs. Prescription drug management. Parenteral controlled substances. Drug therapy requiring intensive monitoring for toxicity. Risk Details: High risk due to initiation of Dilaudid IV CATHETERIZATION LABORATORY TECHNICIAN with potential for life threatening complications including overdose, respiratory compromise and/or . Caro Hobbs, MSN, AGACNP- Department of Anesthesiology, Perioperative, Critical Care and Pain Medicine Inpatient Pain Service [1] Past Medical History: Diagnosis Date Anxiety Neuromuscular disorder (CMS/HCC) [2] Past Surgical History: Procedure Laterality Date SECTION, CLASSIC ESOPHAGOSCOPY / EGD with dilation WISDOM TOOTH EXTRACTION [3] Social History Tobacco Use Smoking status: Some Days Current packs/day: 0.25 Average packs/day: 0.3 packs/day for 30.6 years (7.7 ttl pk-yrs) Types: Cigarettes Start date: 07/1994 Smokeless tobacco: Never Vaping Use Vaping status: Every Day Substances: Nicotine Devices: Disposable Substance Use Topics Alcohol use: Not Currently Comment: rare Drug use: Not Currently [4] Family History Problem Relation Name Age of Onset Anesthesia problems Neg Hx Malig Hyperthermia Neg Hx Cosigned by Reddy Elias MD at 02/26/2025 7:56 AM EDT Associated attestation - Reddy Elias MD - 02/26/2025 7:56 AM EDT Signature only. * Care Plan - Shea Patricio RN - 02/16/2025 12:12 PM EDT Problem: Adult Inpatient Plan of Care Goal: Plan of Care Review Outcome: Ongoing, Progressing Goal: Patient-Specific Goal (Individualized) Outcome: Ongoing, Progressing Goal: Absence of Hospital-Acquired Illness or Injury Outcome: Ongoing, Progressing Goal: Optimal Comfort and Wellbeing Outcome: Ongoing, Progressing Problem: Surgery Nonspecified Goal: Absence of Bleeding Outcome: Ongoing, Progressing Goal: Fluid and Electrolyte Balance Outcome: Ongoing, Progressing Goal: Blood Glucose Level Within Target Range Outcome: Ongoing, Progressing Goal: Absence of Infection Signs and Symptoms Outcome: Ongoing, Progressing Goal: Anesthesia/Sedation Recovery Outcome: Ongoing, Progressing Goal: Optimal Pain Control and Function Outcome: Ongoing, Progressing Goal: Nausea and Vomiting Relief Outcome: Ongoing, Progressing Goal: Effective Urinary Elimination Outcome: Ongoing, Progressing Goal: Effective Oxygenation and Ventilation Outcome: Ongoing, Progressing * Op Note - Ashvin Magana MD - 02/16/2025 9:00 AM EDT Operative Note Date: 02/16/25 Location: [facility] Name: Hyacinth Marin, : 1980, Diagnoses: PREOPERATIVE DIAGNOSES: Degenerative cervical myelopathy, C3-4, C4-5, C5-6, and C6-7 Extremity weakness, bilateral (right) Paresthesias, bilateral Gait disturbance Incoordination Severe spinal stenosis and cord compression, C3-4, C4-5, C5-6, and C6-7. Spinal cord signal change and atrophy, C5-6 POSTOPERATIVE DIAGNOSES: Degenerative cervical myelopathy, C3-4, C4-5, C5-6, and C6-7 Extremity weakness, bilateral (right) Paresthesias, bilateral Gait disturbance Incoordination Severe spinal stenosis and cord compression, C3-4, C4-5, C5-6, and C6-7. Spinal cord signal change and atrophy, C5-6 OPERATIVE PROCEDURES: Posterior segmental spinal instrumentation, C3, C4, C5, C6, and C7; DePuy Synthes Symphony system. Laminectomy for decompression of spinal cord, C3, C4, C5, C6, and C7. Laminotomy for decompression of nerve roots, C3-4, C4-5, C5-6, and C6-7. Posterolateral arthrodesis C3-4, C4-5, C5-6, and C6-7. Use of fluoroscope. Use of autograft. Use of allograft; [employer] Fibergraft Aeridyan and Decorticated bone chips. Use of intra-operative neuromonitoring (MEP, SSEP, EMG). Attending Surgeon(s): * Jeremy Ramirez - Primary Mold Breaker(s): * Ashvin Magana MD - Resident - Assisting Anesthesia: General ASA: ASA status not filed in the log. Blood Administration: Blood Product Administration History None Estimated Blood Loss: 300 Drains: Closed/Suction Drain 1 Posterior Neck Accordion 15 Fr. (Active) Site Description Unable to view 02/16/251212 Dressing Status Clean;Dry;Intact 02/16/251212 Drainage Appearance Bloody 02/16/251212 Status To bulb suction 02/16/251212 Urethral Catheter Double-lumen;Non-latex;Temperature probe 16 Fr. (Active) Site Assessment Clean;Skin intact 02/16/251212 CAUTI: Collection Container Standard drainage bag;Collection container below bladder and tubing free of kinks 02/16/251212 CAUTI: Securement Method Securing device (Describe) 02/16/251212 CAUTI: Specimen Collection Port Covered with Alcohol Cap Yes 02/16/251212 Implants Type Name Action Serial No. CHIP BONE 10CC - [id number] Implanted [id number] MATRIX FIBERGRAFT BG MEDIUM 6.25CC - [id number] Implanted Screw SCREW 4.0 PLY 3.5X14 - SNA - [id number] Implanted NA Screw SCREW 4.0 PLY 3.5X16 - SNA - [id number] Implanted NA Screw SET SCREW - SNA - [id number] Implanted NA Bailey BAILEY TI 4.0X065 KALI - S. - [id number] Implanted . Specimen: None Findings: Severe cervical spinal stenosis. For further details, please see below. Indications: Hyacinth Marin is an 45 y.o. female who is having surgery for Cervical myelopathy ([facility]). She was seen in clinic with severe neck pain, bilateral paresthesias (Right worse than Left), incoordination, and gait imbalance. MRI showed severe cervical stenosis from C3-7 with a negative K-line. CT showed a disc osteophyte complex at C5-6. The patient failed multiple modalities of conservative treatment and the decision was made to proceed with a C3-6 posterior cervical decompression and fusion. Narrative: The patient was taken to the operating room where all lines were established and general endotracheal anesthesia administered. A dose of prophylactic antibiotic was also given. Baseline pre-positioning monitoring was performed and revealed good and stable responses. The Miranda headrest was applied and the patient was thereafter positioned prone over the Yan table with all pressure points car efully padded and the patient appropriately secured. The Miranda was attached to the OR table withthe neck in neutral position and the head elevated. Neuro monitoring was repeated and showed stablewaveforms to all myotomes. The posterior occipital area was thereafter shaved and the entire posterior occipital and posterior cervical areas prepped and then draped in the usual sterile fashion. Post-positioning monitoring was repeated and revealed stable responses. Fluoroscopy was performed preoperatively to identify the correct levels, and an incision marked from C3 to T1 over the posterior cervical midline. The skin was cut with 15 blade, and dissection was carried down through the subcutaneous tissues and fascia in the avascular plane with the assistance of monopolar cautery. The paraspinal muscles were reflected off in a subperiosteal fashion bilaterally down to the laminae. Fluoroscopy was once again performed at this juncture to confirm the correct levels. The lateral masses were then revealed to the lateral margin, without reflection beyond the vascular supply. Meticulous hemostasis was maintained throughout this process with the assistance of cautery and Floseal. Instrumentation was placed prior to exposure of the spinal cord to ensure highest safety. Using fluoroscopy for assistance when required, starting points for screw placement were marked with high-speed drill using the magerl technique. The lateral masses were defined using high-speed drill to identify the internal joint lines, sparing the adjacent joints cranial and caudal to the construct. Pilotholes were drilled at C3, C4, C5, C6, and C7 slightly medial and inferior to the center of lateral mass. Using a drill-guide set initially to a depth of 12 mm, a hand-held power drill was used to fashion trajectories in the usual rostral-lateral orientation parallel to the joint planes. These were d rilled to 12 mm with 'tap on the door' method to ensure no breach was caused. The holes were felt with ball-tip probe to ensure hard bottom could be palpated. Then, the trajectories were extended with drill-guide set to 16 mm. Wherever there was a distal soft bottom, a depth gauge was used to measure the exact safe depth. An appropriately-sized 3.5-mm self-tapping screws (Depuy Synthes Symphony) were positioned at each level of appropriate length, either 16 mm if hard bottom or shorter measuredto the exact depth. Excellent bony purchase was achieved throughout and the correct positioning of the screws confirmed with the assistance of AP and lateral fluoroscopy. The wound was thereafter thoroughly irrigated. Intra-operative neuromonitoring was repeated and revealed stable responses. The screws placed were: C3: Right = 3.5 x 16 mm; Left = 3.5 x 16 mm. C4: Right = 3.5 x 16 mm; Left = 3.5 x 14 mm. C5: Right = 3.5 x 14 mm; Left = 3.5 x 14 mm. C6: Right = 3.5 x 14 mm; Left = 3.5 x 16 mm. C7: Right = 3.5 x 16 mm; Left = 3.5 x 14 mm. Decompression of the spinal cord and nerve roots was undertaken. Using the high- speed drill, we made troughs at the C4, C5, and C6 levels. These were created just medial to the lamina-lateral mass junction with medialized angle to ensure we did not enter and violate the lateral masses, and caudal to cranial to ensure proper and safe depth. We then placed eileen instruments on the spinous processes of the cranial and caudal most levels to apply gentle superficial upwards traction to ensure the laminae remained away from the dural and spinal cord. Kerrison rongeurs were thereafter used to initiate the laminectomies over the lateral side of the spinal cord. The laminectomies were thereafter extended both caudally and rostrally on both sides in piecemeal fashion, again using variously-sized Kerrison rongeurs and, on completion, complete central and lateral decompression of the spinal cord was completed by performing complete laminectomies at the C4, C5, and C6 levels. As expected from thepreoperative imaging, the most severe stenosis and spinal cord compression was evident at the C5-6 junction as well as the C4-5 junction and thus great care in particular was taken over these areas to minimize any further undue pressure over the already compressed spinal cord. Once the laminectomies were completed, I set out to perform foraminotomies over the exiting nerve roots at each level using a combination of both the Kerrison rongeurs as well as the high speed drillconnected to an AM-8 bit. Each of the exiting nerve roots at the C4-5, C5-6, and C6-7 levels inclusively on both sides was carefully decompressed in this fashion by removing the foraminal aspects of the articulating processes from the adjacent levels in the interspace as listed above. These exitingnerve roots were directly visualized to ensure no further pressure over these exiting nerve roots, and to decrease post-op nerve palsies. During this step there was contact to the dura, and potentialcontact of the spinal cord, therefore neuromonitoring was repeated again, and stable waveforms werereported for all myotomes. Meticulous hemostasis was thereafter secured with the assistance of surgiflo, and cottonoids. At this juncture, all the exposed cortical bony surfaces were carefully decorticated using the Midas drill. Two rods of appropriate length were thereafter appropriately bent for lordosis and placed over the screw heads from the C3, C4, C5, C6, and C7 levels on both sides. Gentle persuasion was required to place the caps throughout and all caps were ultimately final tightened. Thus, on completion,an excellent solid construct was achieved. The wound was copiously irrigated with 3 L of saline with vancomycin supplementation. This irrigant ran clean without bleeding or debris on completion of radiation. The instrumented posterior cervical arthrodesis/fusion from C3, C4, C5, C6, and C7 was thereafter further supplemented with placement of milled local autograft bone posterolaterally. I ensured that no significant autograft material was placed over the exposed neural elements on completion. A 15-Mosotho drain was thereafter placed in the wound, tunneled out through a separate stab incision, sutured to the skin, and connected to a medium Hemovac. Wound closure was thereafter undertaken inthe usual layered fashion starting with a number of interrupted 0 Vicryl sutures for the fascia followed by separate running 0 Vicryl fascial closure. Vancomycin powder was then applied on top of thefascia. The subcutaneous tissues were reapproximated thereafter using interrupted inverted 2-0 Vicryl along the intermediate layer then dermal layer separately. The skin was thereafter closed using reina above the patient's tattoo at the upper 1/3rd, and reina for the bottom 2/3rds. The incision was thereafter cleaned and a dry sterile occlusive dressing applied. The patient appeared to tolerate the entire procedure well and there were no intraoperative complications. Estimated blood loss was 300 cc and no transfusion was required. Sponge and instrument counts were correct. Neurophysiological monitoring was carried out throughout and no significant or sustained changes in the potentials were noted. On completion, the patient was repositioned supine and the Miranda headrest removed. The patient was thereafter monitored in the OR and ultimately extubatedwith no complications. A brief neurological examination revealed antigravity power throughout. As such, the patient was transferred in hemodynamically stable condition to the PACU for continued monito ring. Hyacinth Marin will be admitted to hospital for routine monitoring and pain management. She will be mobilized in short course with the assistance of the physical therapy service. Her progress will be followed up in clinic at 2 and 6 weeks postoperatively. The attending, Dr. Ramirez, was scrubbed and present for the entire procedure. There were NO signs of surgical site infection (SSI) present at the time of surgery (PATOS). Complications: None; patient tolerated the procedure well. Submitted by: Ashvin Magana MD - 02/16/2025 Cosigned by Jeremy Ramirez MD at 02/19/2025 9:59 AM EDT Associated attestation - Jereym Ramirez MD - 02/19/2025 9:59 AM EDT I saw and evaluated the patient, and provided surgical intervention as above with the resident(s). I discussed the case with the resident prior, and agree with the findings and events as documented. I was present and scrubbed for the entirety of the case. * H&P - Ashvin Magana MD - 02/16/2025 5:20 AM EDT Below is the H&P from the patient's preoperative visit. Reviewed, no changes to the plan including to the physical exam which was repeated today. The patient would like to have her locket with her on the way back to surgery. To OR today. Ashvin Magana MD Chief Complaint: Preop History of Present Illness: [...] concerning for cervical myelopathy progression. MJ OA 14/ at last visit. She had attempted physical therapy and medications without long-lasting benefit in her symptoms. Given the severe and progressive unremitting nature of her symptoms, she was deemed an appropriate candidate for surgical intervention. She was scheduled for a C3-C7 posterior cervical fusion on 02/16/2025. She is here today for preop education and planning. [Past Medical History] [Past Medical History] No past medical history on file. [Surgical History] [Surgical History] Past Surgical History No past surgical history on file. [Family History] [Family History] No family history on file. [Social History] [Social History] Tobacco Use Smoking status: Some Days Current packs/day: 0.25 Average packs/day: 0.3 packs/day for 30.6 years (7.6 ttl pk-yrs) Types: Cigarettes Start date: 07/1994 Smokeless tobacco: Never [Current Scheduled Medications] [Current Scheduled Medications] [Current Continuous Medications] [Current Continuous Medications] [Current PRN Medications] [Current PRN Medications] 14 point review of systems completed and [...] tone and bulk, no atrophy noted. mJOA: 14/18. NDI: 25/50, 50%. [id number]: na/50. NRS-Neck: na/10. NRS-Arm: na/10. Neurologic exam: GCS (EMV): 465 PERRL, EOMI Strength: Delt Bi Tri Laminating Machine Feeder Intrinsics RUE: 5/5 5/5 5/5 4+/5 4+/5 LUE: 5/5 5/5 5/5 5/5 5/5 HF KE KF DF EHL PF RLE: /5 5/5 5/5 5/5 5/5 5/5 LLE: / 5/5 5/5 5/5 5/5 5/5 Sensation was [...] instability. Imaging was reviewed and noted as ab ove and found to have severe canal stenosis with spinal cord compression at C5- C6 concerning for symptomatic cervical stenosis causing cervical [...] pain and/or paralysis, leakage of spinal fluid, MS, CVA, DVT, and PE or other unforseen complication. Preoperative laboratory studies were obtained prior to departure from clinic, and the patient was given instructions for the day of surgery. Thepatient will also be screened with preoperative anesthesia following this appointment. The patient was given the opportunity to ask questions all of which were answered to their satisfaction and is agreeable to the plan of care. The patient was instructed to contact us with any issues or concerns. 40 minutes was spent reviewing previous documentation and imaging, completion of today's documentation, [id number] visit, care coordination and planning Marisol Allen APRN [facility] Department of Neurosurgery Cosigned by Jeremy Ramirez MD at 02/19/2025 9:29 AM EDT Associated attestation - Jeremy Ramirez MD - 02/19/2025 9:29 AM EDT I discussed the case with the resident/fellow and agree with the findings and plan as documented. documented in this encounter Plan of Treatment Upcoming Encounters Date Type Department Care Team (Late st Contact Info) Description 04/02/2025 1:20 PM EDT Office Visit [place] [facility] [address] [place] [address] Jeremy Ramirez MD [address] [place] [address] documented as of this encounter Procedures Procedure Name Priority Date/Time Associated Diagnosis Comments POCT GLUCOSE METER UNSOLICITED RESULTS Routine 02/23/2025 11:12 AM EDT POCT GLUCOSE METER UNSOLICITED RESULTS Routine 02/23/2025 7:39 AM EDT CBC W/O DIFFERENTIAL Routine 02/23/2025 4:25 AM EDT POTASSIUM, PLASMA Add-On 02/23/2025 4:2 5 AM EDT PHOSPHORUS, PLASMA Routine 02/23/2025 4: 25 AM EDT MAGNESIUM, PLASMA Routine 02/23/2025 4:2 5 AM EDT POCT GLUCOSE METER UNSOLICITED RESULTS Routine 02/22/2025 7:21 PM EDT POCT GLUCOSE METER UNSOLICITED RESULTS Routine 02/22/2025 5:25 PM EDT POCT GLUCOSE METER UNSOLICITED RESULTS Routine 02/22/2025 4:23 PM EDT POCT GLUCOSE METER UNSOLICITED RESULTS Routine 02/22/2025 11:45 AM EDT POCT GLUCOSE METER UNSOLICITED RESULTS Routine 02/22/2025 7:49 AM EDT CBC W/O DIFFERENTIAL Routine 02/22/2025 12:58 AM EDT MAGNESIUM, PLASMA Routine 02/22/2025 12: 58 AM EDT RENAL FUNCTION PANEL, PLASMA Routine 02/22/2025 12:58 AM EDT POCT GLUCOSE METER UNSOLICITED RESULTS Routine 02/21/2025 8:46 PM EDT POCT GLUCOSE METER UNSOLICITED RESULTS Routine 02/21/2025 4:43 PM EDT POCT GLUCOSE METER UNSOLICITED RESULTS Routine 02/21/2025 11:51 AM EDT POCT GLUCOSE METER UNSOLICITED RESULTS Routine 02/21/2025 8:32 AM EDT CBC W/O DIFFERENTIAL Routine 02/21/2025 2:45 AM EDT MAGNESIUM, PLASMA Routine 02/21/2025 2:4 5 AM EDT RENAL FUNCTION PANEL, PLASMA Routine 02/21/2025 2:45 AM EDT POCT GLUCOSE METER UNSOLICITED RESULTS Routine 02/20/2025 9:24 PM EDT POCT GLUCOSE METER UNSOLICITED RESULTS Routine 02/20/2025 6:19 PM EDT POCT GLUCOSE METER UNSOLICITED RESULTS Routine 02/20/2025 12:30 PM EDT RENAL FUNCTION PANEL, PLASMA Routine 02/20/2025 12:30 PM EDT POCT GLUCOSE METER UNSOLICITED RESULTS Routine 02/20/2025 8:31 AM EDT IONIZED CALCIUM, WHOLE BLOOD Routine 02/20/2025 3:20 AM EDT PROTHROMBIN TIME(PT) / INR Routine 02/20/2025 3:20 AM EDT CBC W/O DIFFERENTIAL Routine 02/20/2025 3:20 AM EDT PHOSPHORUS, PLASMA Routine 02/20/2025 3: 20 AM EDT MAGNESIUM, PLASMA Routine 02/20/2025 3:2 0 AM EDT COMPREHENSIVE METABOLIC PANEL, PLASMA Routine 02/20/2025 3:20 AM EDT URINALYSIS MICROSCOPIC FOR UA REFLEX Routine 02/20/2025 3:04 AM EDT URINALYSIS WITH REFLEX MICROSCOPIC Routine 02/20/2025 3:04 AM EDT POCT GLUCOSE METER UNSOLICITED RESULTS Routine 02/19/2025 8:39 PM EDT POCT GLUCOSE METER UNSOLICITED RESULTS Routine 02/19/2025 5:34 PM EDT POCT GLUCOSE METER UNSOLICITED RESULTS Routine 02/19/2025 12:05 PM EDT POCT GLUCOSE METER UNSOLICITED RESULTS Routine 02/19/2025 8:41 AM EDT PHOSPHORUS, PLASMA Timed 02/19/2025 8: 41 AM EDT POCT GLUCOSE METER UNSOLICITED RESULTS Routine 02/19/2025 4:30 AM EDT IONIZED CALCIUM, WHOLE BLOOD Routine 02/19/2025 12:40 AM EDT PROTHROMBIN TIME(PT) / INR Routine 02/19/2025 12:40 AM EDT CBC W/O DIFFERENTIAL Routine 02/19/2025 12:40 AM EDT PHOSPHORUS, PLASMA Timed 02/19/2025 12 :40 AM EDT MAGNESIUM, PLASMA Routine 02/19/2025 12: 40 AM EDT COMPREHENSIVE METABOLIC PANEL, PLASMA Routine 02/19/2025 12:40 AM EDT POCT GLUCOSE METER UNSOLICITED RESULTS Routine 02/18/2025 10:19 PM EDT POCT GLUCOSE METER UNSOLICITED RESULTS Routine 02/18/2025 6:21 PM EDT XR CERVICAL SPINE 2 OR 3 VIEWS Routine 02/18/2025 6:00 PM EDT PHOSPHORUS, PLASMA STAT 02/18/2025 2: 33 PM EDT POCT GLUCOSE METER UNSOLICITED RESULTS Routine 02/18/2025 12:14 PM EDT PHOSPHORUS, PLASMA STAT 02/18/2025 1: 38 AM EDT IONIZED CALCIUM, WHOLE BLOOD Routine 02/18/2025 12:35 AM EDT PROTHROMBIN TIME(PT) / INR Routine 02/18/2025 12:35 AM EDT CBC W/O DIFFERENTIAL Routine 02/18/2025 12:35 AM EDT PHOSPHORUS, PLASMA Routine 02/18/2025 12 :35 AM EDT MAGNESIUM, PLASMA Routine 02/18/2025 12: 35 AM EDT COMPREHENSIVE METABOLIC PANEL, PLASMA Routine 02/18/2025 12:35 AM EDT BUDDY AURIS SURVEILLANCE BY PCR Routine 02/17/2025 3:25 AM EDT IONIZED CALCIUM, WHOLE BLOOD Routine 02/17/2025 3:25 AM EDT MULTI DRUG RESISTANCE TEST Routine 02/17/2025 3:25 AM EDT PROTHROMBIN TIME(PT) / INR Routine 02/17/2025 3:25 AM EDT CBC W/O DIFFERENTIAL Routine 02/17/2025 3:25 AM EDT PHOSPHORUS, PLASMA Routine 02/17/2025 3: 25 AM EDT MAGNESIUM, PLASMA Routine 02/17/2025 3:2 5 AM EDT COMPREHENSIVE METABOLIC PANEL, PLASMA Routine 02/17/2025 3:25 AM EDT WI CRITICAL CARE, ADDL 30 MIN Routine 02/16/2025 6:33 PM EDT Cervical stenosis of spine WI CRITICAL CARE, ADDL 30 MIN Routine 02/16/2025 6:33 PM EDT Cervical stenosis of spine FL LESS THAN 1 HOUR (NON-REPORTABLE) Routine 02/16/2025 11:21 AM EDT POCT , URINE Routine 02/16/2025 7:19 AM EDT WI ARTHRODESIS POSTERIOR/POSTERIORLAT ERAL CERVICAL BELOW C2 02/16/2025 7:15 AM EDT Cervical myelopathy (CMS/HCC) TYPE AND SCREEN Routine 02/16/2025 6:56 AM EDT documented in this encounter Results * (ABNORMAL) POCT glucose meter (02/23/2025 11:12 AM EDT) POCT Glucose 177(H) 74 - 99 mg/dL 02/23/2025 11:14 AM EDT [facility] Comment:Accuracy of a glucos e result obtained from a capillary whole blood specimen relies upon adequate, non-compromised capillary blood flow. If the capillary glucose result is not consistent with the patient's clinical signs and symptoms, glucose testing should be repeated with either an arterial or venous sample on the glucometer or sent to the main labortory for testing. Comment 02/23/2025 11:14 AM EDT [facility] Blower And Compressor Assembler ID Rima Rock 025 11:14 AM EDT [facility] Device ID [id number] 02/23/2025 11:14 AM EDT [facility] Specimen Type POC Capillary 02/23/2025 11:14 AM EDT [facility] Blood Capillary blood specimen / Unknown 02/23/2025 11:12 AM EDT 02/23/2025 11:14 AM EDT us Jeremy Ramirez MD LAB POINT OF CARE TE ST DOCKED DEVICE UNSOLICITED RESULTS Final Result Performing Organization Address City/[facility]/ZIP Co de Phone Number [facility]ALTHCARE [facility] [address] [place] [address] * (ABNORMAL) POCT glucose meter (02/23/2025 7:39 AM EDT) POCT Glucose 174(H) 74 - 99 mg/dL 02/23/2025 8:02 AM EDT [facility] Comment:Accuracy of a glucos e result obtained from a capillary whole blood specimen relies upon adequate, non-compromised capillary blood flow. If the capillary glucose result is not consistent with the patient's clinical signs and symptoms, glucose testing should be repeated with either an arterial or venous sample on the glucometer or sent to the main labortory for testing. Comment 02/23/2025 8:02 AM EDT [facility] Blower And Compressor Assembler ID Luda Hobbs 02/23/2025 8:02 AM EDT HEALTHCARE LAB Device ID [id number] 02/23/2025 8:02 AM EDT [facility] Specimen Type POC Capillary 02/23/2025 8:02 AM EDT [facility] Blood Capillary blood specimen / Unknown 02/23/2025 7:39 AM EDT 02/23/2025 8:02 AM EDT us Jeremy Ramirez MD LAB POINT OF CARE TE ST DOCKED DEVICE UNSOLICITED RESULTS Final Result Performing Organization Address [facility] Co de Phone Number [facility]ALTHCARE [facility] [address] [place] [address] * Potassium (02/23/2025 4:25 AM EDT) [facility] Potassium, Plasma 3.7 3.6 - 4.9 mmol/L 02/23/2025 7:15 AM EDT [facility] Blood Venous blood specimen / Unknown Venipuncture / Unknown 02/23/2025 4:25 AM EDT 02/23/2025 4:40 AM EDT us Brad Deshpande APRN LAB BLOOD ORDERABLES F inal Result [facility] [address] [place] [address] * Magnesium, Plasma (02/23/2025 4:25 AM EDT) Magnesium, Plasma 2.0 1.9 - 2.4 mg/dL 02/23/2025 5:07 AM EDT [facility] Blood Venous blood specimen / Unknown Venipuncture / Unknown 02/23/2025 4:25 AM EDT 02/23/2025 4:40 AM EDT Theresa Nelson APRN LAB BLOOD ORDERABLES Final Result [facility] [address] [place] [address] * (ABNORMAL) CBC W/O Differential (02/23/2025 4:25 AM EDT) Pathologist [facility] WBC Count 7.76 3.70 - 10.30 10*3/uL LAB HEMATOLOGY METHOD 02/23/2025 4:53 AM EDT [facility] RBC Count 3.76(L) 3.90 - 5.20 10*6/uL LAB HEMATOLOGY METHOD 02/23/2025 4:53 AM EDT [facility] HGB 11.9 11.2 - 15.7 g/dL LAB HEMATOLOGY METHOD 02/23/2025 4:53 AM EDT [facility] HCT 35.5 34.0 - 45.0 % LAB HEMATOLOGY METHOD 02/23/2025 4:53 AM EDT [facility] Platelet Count 146(L) 155 - 369 10*3/uL LAB HEMATOLOGY METHOD 02/23/2025 4:53 AM EDT [facility] MCV 94 79 - 98 fL LAB HEMATOLOGY METHOD 02/23/2025 4:53 AM EDT [facility] MCH 31.6 26.0 - 32.0 pg LAB HEMATOLOGY METHOD 02/23/2025 4:53 AM EDT [facility] MCHC 33.5 30.7 - 35.5 g/dL LAB HEMATOLOGY METHOD 02/23/2025 4:53 AM EDT [facility] RDW 16.2(H) 11.5 - 14.5 % LAB HEMATOLOGY METHOD 02/23/2025 4:53 AM EDT [facility] MPV 9.5 8.8 - 12.5 fL LAB HEMATOLOGY METHOD 02/23/2025 4:53 AM EDT [facility] nRBC 0.0 <=0.0 per 100 WBCs LAB HEMATOLOGY METHOD 02/23/2025 4:53 AM EDT [facility] Blood Venous blood specimen / Unknown Venipuncture / Unknown 02/23/2025 4:25 AM EDT 02/23/2025 4:43 AM EDT Theresa Nelson [employer]PLER LAB BLOOD ORDERABLES Final Result Performing Organization Address City/[facility]/ZIP Co de Phone Number [facility] [address] [place] [address] * Phosphorus (02/23/2025 4:25 AM EDT) Pathologist [facility] Phosphorus, Plasma 3.8 2.5 - 4.5 mg/dL 02/23/2025 5:07 AM EDT [facility] Blood Venous blood specimen / Unknown Venipuncture / Unknown 02/23/2025 4:25 AM EDT 02/23/2025 4:40 AM EDT Brad Deshpande [employer]PL[employer] LAB BLOOD ORDERABLES F inal Result Performing Organization Address [facility]/ZIP Co de Phone Number [facility] [address] [place] [address] * (ABNORMAL) POCT glucose meter (02/22/2025 7:21 PM EDT) POCT Glucose 213(H) 74 - 99 mg/dL 02/22/2025 7:24 PM EDT [facility] Comment:Accuracy of a glucos e result obtained from a capillary whole blood specimen relies upon adequate, non-compromised capillary blood flow. If the capillary glucose result is not consistent with the patient's clinical signs and symptoms, glucose testing should be repeated with either an arterial or venous sample on the glucometer or sent to the main labortory for testing. Comment 02/22/2025 7:24 PM EDT [facility] [employer] Assembler ID Melania Rubio 02/23/20 7:24 PM EDT [facility] Device ID [id number] 02/22/2025 7:24 PM EDT [facility] Specimen Type POC Capillary 02/22/2025 7:24 PM EDT [facility] Blood Capillary blood specimen / Unknown 02/22/2025 7:21 PM EDT 02/22/2025 7:24 PM EDT us Jeremy Ramirez MD LAB POINT OF CARE TE ST DOCKED DEVICE UNSOLICITED RESULTS Final Result Performing Organization Address City/[facility] Co de Phone Number [facility] [address] [place] [address] * (ABNORMAL) POCT glucose meter (02/22/2025 5:25 PM EDT) [facility] POCT Glucose 192(H) 74 - 99 mg/dL 02/22/2025 5:27 PM EDT [facility] Comment:Accuracy of a glucos e result obtained from a capillary whole blood specimen relies upon adequate, non-compromised capillary blood flow. If the capillary glucose result is not consistent with the patient's clinical signs and symptoms, glucose testing should be repeated with either an arterial or venous sample on the glucometer or sent to the main labortory for testing. Comment 02/22/2025 5:27 PM EDT [facility] B[employer] And Compressor Assembler ID Cherrie Wiggins 02/22/2025 5:27 PM EDT [facility] Device ID [id number] 02/22/2025 5:27 PM EDT [facility] Specimen Type POC Capillary 02/22/2025 5:27 PM EDT [facility] Blood Capillary blood specimen / Unknown 02/22/2025 5:25 PM EDT 02/22/2025 5:27 PM EDT us Jeremy Ramirez MD LAB POINT OF CARE TE ST DOCKED DEVICE UNSOLICITED RESULTS Final Result Performing Organization Address City/[facility]/ZIP Co de Phone Number [facility] [address] [place] [address] * POCT glucose meter (02/22/2025 4:23 PM EDT) [facility] POCT Glucose 84 74 - 99 mg/dL 02/22/2025 4:25 PM EDT [facility] Comment:Accuracy of a glucos e result obtained from a capillary whole blood specimen relies upon adequate, non-compromised capillary blood flow. If the capillary glucose result is not consistent with the patient's clinical signs and symptoms, glucose testing should be repeated with either an arterial or venous sample on the glucometer or sent to the main labortory for testing. Comment 02/22/2025 4:25 PM EDT [facility] B[employer] Assembler ID Cherrie Wiggins 02/22/2025 4:25 PM EDT [facility] Device ID [id number] 02/22/2025 4:25 PM EDT [facility] Specimen Type POC Capillary 02/22/2025 4:25 PM EDT [facility] Blood Capillary blood specimen / Unknown 02/22/2025 4:23 PM EDT 02/22/2025 4:25 PM EDT us Jeremy Ramirez MD LAB POINT OF CARE TE ST DOCKED DEVICE UNSOLICITED RESULTS Final Result [facility] [address] [place] [address] * (ABNORMAL) POCT glucose meter (02/22/2025 11:45 AM EDT) [facility] POCT Glucose 134(H) 74 - 99 mg/dL 02/22/2025 11:47 AM EDT [facility] Comment:Accuracy of a glucos e result obtained from a capillary whole blood specimen relies upon adequate, non-compromised capillary blood flow. If the capillary glucose result is not consistent with the patient's clinical signs and symptoms, glucose testing should be repeated with either an arterial or venous sample on the glucometer or sent to the main labortory for testing. Comment 02/22/2025 11:47 AM EDT [facility] B[employer] And [employer] Assembler ID Cherrie Wiggins 02/22/2025 11:47 AM EDT [facility] Device ID [id number] 02/22/2025 11:47 AM EDT [facility] Specimen Type POC Capillary 02/22/2025 11:47 AM EDT [facility] Blood Capillary blood specimen / Unknown 02/22/2025 11:45 AM EDT 02/22/2025 11:47 AM EDT Jeremy Ramirez MD LAB POINT OF CARE TE ST DOCKED DEVICE UNSOLICITED RESULTS Final Result Performing Organization Address City/[facility] Co de Phone Number [facility] [address] [place] [address] * (ABNORMAL) POCT glucose meter (02/22/2025 7:49 AM EDT) [facility] POCT Glucose 130(H) 74 - 99 mg/dL 02/22/2025 7:52 AM EDT [facility] Comment:Accuracy of a glucos e result obtained from a capillary whole blood specimen relies upon adequate, non-compromised capillary blood flow. If the capillary glucose result is not consistent with the patient's clinical signs and symptoms, glucose testing should be repeated with either an arterial or venous sample on the glucometer or sent to the main labortory for testing. Comment 02/22/2025 7:52 AM EDT [facility] B[employer] And Comp[employer] Assembler ID Cherrie Wiggins 02/22/2025 7:52 AM EDT [facility] Device ID [id number] 02/22/2025 7:52 AM EDT [facility] Specimen Type POC Capillary 02/22/2025 7:52 AM EDT [facility] Blood Capillary blood specimen / Unknown 02/22/2025 7:49 AM EDT 02/22/2025 7:52 AM EDT us Jeremy Ramirez MD LAB POINT OF CARE TE ST DOCKED DEVICE UNSOLICITED RESULTS Final Result Performing Organization Address City/[facility]/ZIP Co de Phone Number [facility] [address] [place] [address] * Magnesium, Plasma (02/22/2025 12:58 AM EDT) [facility] Magnesium, Plasma 2.0 1.9 - 2.4 mg/dL 02/22/2025 1:28 AM EDT [facility] Blood Venous blood specimen / Unknown Venipuncture / Unknown 02/22/2025 12:58 AM EDT 02/22/2025 1:02 AM EDT us Theresa G Nelson [employer]PLER LAB BLOOD ORDERABLES Final Result [facility] [address] [place] [address] * (ABNORMAL) CBC W/O Differential (02/22/2025 12:58 AM EDT) WBC Count 9.50 3.70 - 10.30 10*3/uL LAB HEMATOLOGY METHOD 02/22/2025 1:09 AM EDT [facility] RBC Count 3.52(L) 3.90 - 5.20 10*6/uL LAB HEMATOLOGY METHOD 02/22/2025 1:09 AM EDT [facility] HGB 10.9(L) 11.2 - 15.7 g/dL LAB HEMATOLOGY METHOD 02/22/2025 1:09 AM EDT [facility] HCT 33.1(L) 34.0 - 45.0 % LAB HEMATOLOGY METHOD 02/22/2025 1:09 AM EDT [facility] Platelet Count 157 155 - 369 10*3/uL LAB HEMATOLOGY METHOD 02/22/2025 1:09 AM EDT [facility] MCV 94 79 - 98 fL LAB HEMATOLOGY METHOD 02/22/2025 1:09 AM EDT [facility] MCH 31.0 26.0 - 32.0 pg LAB HEMATOLOGY METHOD 02/22/2025 1:09 AM EDT [facility] MCHC 32.9 30.7 - 35.5 g/dL LAB HEMATOLOGY METHOD 02/22/2025 1:09 AM EDT [facility] RDW 15.8(H) 11.5 - 14.5 % LAB HEMATOLOGY METHOD 02/22/2025 1:09 AM EDT [facility] MPV 9.6 8.8 - 12.5 fL LAB HEMATOLOGY METHOD 02/22/2025 1:09 AM EDT [facility] nRBC 0.0 <=0.0 per 100 WBCs LAB HEMATOLOGY METHOD 02/22/2025 1:09 AM EDT [facility] Blood Venous blood specimen / Unknown Venipuncture / Unknown 02/22/2025 12:58 AM EDT 02/22/2025 1:02 AM EDT us Theresa Nelson AIR [employer]PLER LAB BLOOD ORDERABLES Final Result [facility] [address] [place] [address] * (ABNORMAL) Renal Function Panel, Plasma (02/22/2025 12:58 AM EDT) Glucose, Plasma 101(H) 74 - 99 mg/dL 02/22/2025 1:28 AM EDT [facility] BUN, Plasma 16 7 - 21 mg/dL 02/22/2025 1:28 AM EDT [facility] Creatinine, Plasma 0.46(L) 0.60 - 1.10 mg/dL 02/22/2025 1:28 AM EDT [facility] BUN/Creatinine Ratio 35 02/22/2025 1:28 AM EDT [facility] Sodium, Plasma 139 136 - 145 mmol/L 02/22/2025 1:28 AM EDT [facility] Potassium, Plasma 3.4(L) 3.6 - 4.9 mmol/L 02/22/2025 1:28 AM EDT [facility] Chloride, Plasma 104 97 - 107 mmol/L 02/22/2025 1:28 AM EDT [facility] CO2, Plasma 25 22 - 29 mmol/L 02/22/2025 1:28 AM EDT [facility] Anion Gap 10 6 - 16 mmol/L 02/22/2025 1:28 AM EDT [facility] Total Calcium, Plasma 8.2(L) 8.9 - 10.2 mg/dL 02/22/2025 1:28 AM EDT [facility] Phosphorus, Plasma 3.2 2.5 - 4.5 mg/dL 02/22/2025 1:28 AM EDT [facility] Albumin, Plasma 3.3(L) 3.5 - 5.2 g/dL 02/22/2025 1:28 AM EDT [facility] eGFRcr 119.7 mL/min/1.7 3m*2 02/22/2025 1:28 AM EDT [facility] Comment:Reported eGFRcr in m L/min/1.73m2 is based the CKD-EPI 2020 equation that does not use a race coefficient. Blood Venous blood specimen / Unknown Venipuncture / Unknown 02/22/2025 12:58 AM EDT 02/22/2025 1:02 AM EDT us Theresa Nelson APRN LAB BLOOD ORDERABLES Final Result [facility] [address] [place] [address] * (ABNORMAL) POCT glucose meter (02/21/2025 8:46 PM EDT) POCT Glucose 164(H) 74 - 99 mg/dL 02/21/2025 8:47 PM EDT [facility] Comment:Accuracy of a glucos e result obtained from a capillary whole blood specimen relies upon adequate, non-compromised capillary blood flow. If the capillary glucose result is not consistent with the patient's clinical signs and symptoms, glucose testing should be repeated with either an arterial or venous sample on the glucometer or sent to the main labortory for testing. Comment 02/21/2025 8:47 PM EDT [facility] B[employer] And Comp[employer] Assembler ID Noe Avina 8:47 PM EDT [facility] Device ID [id number] 02/21/2025 8:47 PM EDT [facility] Specimen Type POC Capillary 02/21/2025 8:47 PM EDT [facility] Blood Capillary blood specimen / Unknown 02/21/2025 8:46 PM EDT 02/21/2025 8:47 PM EDT us Jeremy Ramirez MD LAB POINT OF CARE TE ST DOCKED DEVICE UNSOLICITED RESULTS Final Result Performing Organization Address City/[facility]/ZIP Co de Phone Number [facility] [address] [place] [address] * (ABNORMAL) POCT glucose meter (02/21/2025 4:43 PM EDT) POCT Glucose 232(H) 74 - 99 mg/dL 02/21/2025 4:45 PM EDT [facility] Comment:Accuracy of a glucos e result obtained from a capillary whole blood specimen relies upon adequate, non-compromised capillary blood flow. If the capillary glucose result is not consistent with the patient's clinical signs and symptoms, glucose testing should be repeated with either an arterial or venous sample on the glucometer or sent to the main labortory for testing. Comment 02/21/2025 4:45 PM EDT [facility] B[employer] And Compressor Assembler ID Audrey Pearson [id number] 4:45 PM EDT [facility] Device ID [id number] 02/21/2025 4:45 PM EDT [facility] Specimen Type POC Capillary 02/21/2025 4:45 PM EDT [facility] Blood Capillary blood specimen / Unknown 02/21/2025 4:43 PM EDT 02/21/2025 4:45 PM EDT us Jeremy Ramirez MD LAB POINT OF CARE TE ST DOCKED DEVICE UNSOLICITED RESULTS Final Result Performing Organization Address City/State/[facility] Co de Phone Number [facility] [address] [place] [address] * (ABNORMAL) POCT glucose meter (02/21/2025 11:51 AM EDT) [facility] POCT Glucose 146(H) 74 - 99 mg/dL 02/21/2025 11:53 AM EDT [facility] Comment:Accuracy of a glucos e result obtained from a capillary whole blood specimen relies upon adequate, non-compromised capillary blood flow. If the capillary glucose result is not consistent with the patient's clinical signs and symptoms, glucose testing should be repeated with either an arterial or venous sample on the glucometer or sent to the main labortory for testing. Comment 02/21/2025 11:53 AM EDT [facility] B[employer] And Compressor Assembler ID Tatianna Chavez 02/21/2025 11:53 AM EDT [facility] Device ID [id number] 02/21/2025 11:53 AM EDT [facility] Specimen Type POC Capillary 02/21/2025 11:53 AM EDT [facility] Blood Capillary blood specimen / Unknown 02/21/2025 11:51 AM EDT 02/21/2025 11:53 AM EDT us Jeremy Ramirez MD LAB POINT OF CARE TE ST DOCKED DEVICE UNSOLICITED RESULTS Final Result [facility] [address] [place] [address] * (ABNORMAL) POCT glucose meter (02/21/2025 8:32 AM EDT) POCT Glucose 167(H) 74 - 99 mg/dL 02/21/2025 8:33 AM EDT [facility] Comment:Accuracy of a glucos e result obtained from a capillary whole blood specimen relies upon adequate, non-compromised capillary blood flow. If the capillary glucose result is not consistent with the patient's clinical signs and symptoms, glucose testing should be repeated with either an arterial or venous sample on the glucometer or sent to the main labortory for testing. Comment 02/21/2025 8:33 AM EDT [facility] B[employer] And Compressor Assembler ID Rima Dukes 02/22/20 8:33 AM EDT [facility] Device ID [id number] 02/21/2025 8:33 AM EDT [facility] Specimen Type POC Capillary 02/21/2025 8:33 AM EDT [facility] Blood Capillary blood specimen / Unknown 02/21/2025 8:32 AM EDT 02/21/2025 8:33 AM EDT us Jeremy Ramirez MD LAB POINT OF CARE TE ST DOCKED DEVICE UNSOLICITED RESULTS Final Result [facility] [address] [place] [address] * Magnesium, Plasma (02/21/2025 2:45 AM EDT) Pathologist [facility] Magnesium, Plasma 2.0 1.9 - 2.4 mg/dL 02/21/2025 3:20 AM EDT [facility] Blood Venous blood specimen / Unknown Venipuncture / Unknown 02/21/2025 2:45 AM EDT 02/21/2025 2:50 AM EDT us Theresa Nelson AIR [employer]SE COUPLER LAB BLOOD ORDERABLES Final Result [facility] [address] [place] [address] * (ABNORMAL) CBC W/O Differential (02/21/2025 2:45 AM EDT) WBC Count 8.01 3.70 - 10.30 10*3/uL LAB HEMATOLOGY METHOD 02/21/2025 2:59 AM EDT [facility] RBC Count 3.60(L) 3.90 - 5.20 10*6/uL LAB HEMATOLOGY METHOD 02/21/2025 2:59 AM EDT [facility] HGB 11.3 11.2 - 15.7 g/dL LAB HEMATOLOGY METHOD 02/21/2025 2:59 AM EDT [facility] HCT 33.9(L) 34.0 - 45.0 % LAB HEMATOLOGY METHOD 02/21/2025 2:59 AM EDT [facility] Platelet Count 174 155 - 369 10*3/uL LAB HEMATOLOGY METHOD 02/21/2025 2:59 AM EDT [facility] MCV 94 79 - 98 fL LAB HEMATOLOGY METHOD 02/21/2025 2:59 AM EDT [facility] MCH 31.4 26.0 - 32.0 pg LAB HEMATOLOGY METHOD 02/21/2025 2:59 AM EDT [facility] MCHC 33.3 30.7 - 35.5 g/dL LAB HEMATOLOGY METHOD 02/21/2025 2:59 AM EDT [facility] RDW 16.0(H) 11.5 - 14.5 % LAB HEMATOLOGY METHOD 02/21/2025 2:59 AM EDT [facility] MPV 9.7 8.8 - 12.5 fL LAB HEMATOLOGY METHOD 02/21/2025 2:59 AM EDT [facility] nRBC 0.4(H) <=0.0 per 100 WBCs LAB HEMATOLOGY METHOD 02/21/2025 2:59 AM EDT [facility] Blood Venous blood specimen / Unknown Venipuncture / Unknown 02/21/2025 2:45 AM EDT 02/21/2025 2:50 AM EDT us Theresa Nelson AIR [employer] COUPLER LAB BLOOD ORDERABLES Final Result [facility] [address] [place] [address] * (ABNORMAL) Renal Function Panel, Plasma (02/21/2025 2:45 AM EDT) Glucose, Plasma 134(H) 74 - 99 mg/dL 02/21/2025 3:20 AM EDT [facility] BUN, Plasma 14 7 - 21 mg/dL 02/21/2025 3:20 AM EDT [facility] Creatinine, Plasma 0.45(L) 0.60 - 1.10 mg/dL 02/21/2025 3:20 AM EDT [facility] BUN/Creatinine Ratio 31 02/21/2025 3:20 AM EDT [facility] Sodium, Plasma 141 136 - 145 mmol/L 02/21/2025 3:20 AM EDT [facility] Potassium, Plasma 4.1 3.6 - 4.9 mmol/L 02/21/2025 3:20 AM EDT [facility] Chloride, Plasma 105 97 - 107 mmol/L 02/21/2025 3:20 AM EDT [facility] CO2, Plasma 25 22 - 29 mmol/L 02/21/2025 3:20 AM EDT [facility] Anion Gap 11 6 - 16 mmol/L 02/21/2025 3:20 AM EDT [facility] Total Calcium, Plasma 8.7(L) 8.9 - 10.2 mg/dL 02/21/2025 3:20 AM EDT [facility] Phosphorus, Plasma 3.2 2.5 - 4.5 mg/dL 02/21/2025 3:20 AM EDT [facility] Albumin, Plasma 3.5 3.5 - 5.2 g/dL 02/21/2025 3:20 AM EDT [facility] eGFRcr 120.3 mL/min/1.7 3m*2 02/21/2025 3:20 AM EDT [facility] Comment:Reported eGFRcr in m L/min/1.73m2 is based the CKD-EPI 2020 equation that does not use a race coefficient. Blood Venous blood specimen / Unknown Venipuncture / Unknown 02/21/2025 2:45 AM EDT 02/21/2025 2:50 AM EDT Theresa Nelson APRN LAB BLOOD ORDERABLES Final Result Performing Organization Address City/[facility]/ZIP Co de Phone Number [facility] [address] [place] [address] * (ABNORMAL) POCT glucose meter (02/20/2025 9:24 PM EDT) POCT Glucose 169(H) 74 - 99 mg/dL 02/20/2025 9:26 PM EDT [facility] Comment:Accuracy of a glucos e result obtained from a capillary whole blood specimen relies upon adequate, non-compromised capillary blood flow. If the capillary glucose result is not consistent with the patient's clinical signs and symptoms, glucose testing should be repeated with either an arterial or venous sample on the glucometer or sent to the main labortory for testing. Comment 02/20/2025 9:26 PM EDT [facility] B[employer] And Compressor Assembler ID Carie Miles 9:26 PM EDT [facility] Device ID [id number] 02/20/2025 9:26 PM EDT [facility] Specimen Type POC Capillary 02/20/2025 9:26 PM EDT [facility] Blood Capillary blood specimen / Unknown 02/20/2025 9:24 PM EDT 02/20/2025 9:26 PM EDT us Jeremy Ramirez MD LAB POINT OF CARE TE ST DOCKED DEVICE UNSOLICITED RESULTS Final Result Performing Organization Address City/[facility]/ZIP Co de Phone Number [facility] [address] [place] [address] * (ABNORMAL) POCT glucose meter (02/20/2025 6:19 PM EDT) POCT Glucose 301(H) 74 - 99 mg/dL 02/20/2025 6:20 PM EDT [facility] Comment:Accuracy of a glucos e result obtained from a capillary whole blood specimen relies upon adequate, non-compromised capillary blood flow. If the capillary glucose result is not consistent with the patient's clinical signs and symptoms, glucose testing should be repeated with either an arterial or venous sample on the glucometer or sent to the main labortory for testing. Comment 02/20/2025 6:20 PM EDT [facility] B[employer] And Compressor Assembler ID Rima Dukes 02/21/20 6:20 PM EDT [facility] Device ID [id number] 02/20/2025 6:20 PM EDT [facility] Specimen Type POC Capillary 02/20/2025 6:20 PM EDT [facility] Blood Capillary blood specimen / Unknown 02/20/2025 6:19 PM EDT 02/20/2025 6:20 PM EDT us Jeremy Ramirez MD LAB POINT OF CARE TE ST DOCKED DEVICE UNSOLICITED RESULTS Final Result Performing Organization Address City/State/[facility] Co de Phone Number [facility] [address] [place] [address] * (ABNORMAL) POCT glucose meter (02/20/2025 12:30 PM EDT) [facility] POCT Glucose 107(H) 74 - 99 mg/dL 02/20/2025 12:32 PM EDT [facility] Comment:Accuracy of a glucos e result obtained from a capillary whole blood specimen relies upon adequate, non-compromised capillary blood flow. If the capillary glucose result is not consistent with the patient's clinical signs and symptoms, glucose testing should be repeated with either an arterial or venous sample on the glucometer or sent to the main labortory for testing. Comment 02/20/2025 12:32 PM EDT [facility] B[employer] And Compressor Assembler ID Rima Dkues 02/21/20 12:32 PM EDT [facility] Device ID [id number] 02/20/2025 12:32 PM EDT [facility] Specimen Type POC Venous 02/20/2025 12:32 PM EDT [facility] Blood Venous blood specimen / Unknown 02/20/2025 12:30 PM EDT 02/20/2025 12:32 PM EDT us Jeremy Ramirez MD LAB POINT OF CARE TE ST DOCKED DEVICE UNSOLICITED RESULTS Final Result [facility] [address] [place] [address] * (ABNORMAL) Renal Function Panel, Plasma (02/20/2025 12:30 PM EDT) Glucose, Plasma 100(H) 74 - 99 mg/dL 02/20/2025 1:36 PM EDT [facility] BUN, Plasma 19 7 - 21 mg/dL 02/20/2025 1:36 PM EDT [facility] Creatinine, Plasma 0.49(L) 0.60 - 1.10 mg/dL 02/20/2025 1:36 PM EDT [facility] BUN/Creatinine Ratio 39 02/20/2025 1:36 PM EDT [facility] Sodium, Plasma 139 136 - 145 mmol/L 02/20/2025 1:36 PM EDT [facility] Potassium, Plasma 4.0 3.6 - 4.9 mmol/L 02/20/2025 1:36 PM EDT [facility] Chloride, Plasma 105 97 - 107 mmol/L 02/20/2025 1:36 PM EDT [facility] CO2, Plasma 26 22 - 29 mmol/L 02/20/2025 1:36 PM EDT [facility] Anion Gap 8 6 - 16 mmol/L 02/20/2025 1:36 PM EDT [facility] Total Calcium, Plasma 8.7(L) 8.9 - 10.2 mg/dL 02/20/2025 1:36 PM EDT [facility] Phosphorus, Plasma 3.1 2.5 - 4.5 mg/dL 02/20/2025 1:36 PM EDT [facility] Albumin, Plasma 3.5 3.5 - 5.2 g/dL 02/20/2025 1:36 PM EDT [facility] eGFRcr 117.9 mL/min/1.7 3m*2 02/20/2025 1:36 PM EDT [facility] Comment:Reported eGFRcr in m L/min/1.73m2 is based the CKD-EPI 2020 equation that does not use a race coefficient. Blood Venous blood specimen / Unknown Venipuncture / Unknown 02/20/2025 12:30 PM EDT 02/20/2025 12:38 PM EDT us Theresa Nelson APRN LAB BLOOD ORDERABLES Final Result [facility] [address] [place] [address] * POCT glucose meter (02/20/2025 8:31 AM EDT) [facility] POCT Glucose 99 74 - 99 mg/dL 02/20/2025 8:33 AM EDT [facility] Comment:Accuracy of a glucos e result obtained from a capillary whole blood specimen relies upon adequate, non-compromised capillary blood flow. If the capillary glucose result is not consistent with the patient's clinical signs and symptoms, glucose testing should be repeated with either an arterial or venous sample on the glucometer or sent to the main labortory for testing. Comment 02/20/2025 8:33 AM EDT [facility] Blower And Compressor Assembler ID Rima Dukes 02/21/20 8:33 AM EDT [facility] Device ID [id number] 02/20/2025 8:33 AM EDT [facility] Specimen Type POC Capillary 02/20/2025 8:33 AM EDT [facility] Blood Capillary blood specimen / Unknown 02/20/2025 8:31 AM EDT 02/20/2025 8:33 AM EDT us Jeremy Ramirez MD LAB POINT OF CARE TE ST DOCKED DEVICE UNSOLICITED RESULTS Final Result [facility] [address] [place] [address] * Phosphorus (02/20/2025 3:20 AM EDT) [facility] Phosphorus, Plasma 3.4 2.5 - 4.5 mg/dL 02/20/2025 4:17 AM EDT [facility] Blood Venous blood specimen / Unknown Venipuncture / Unknown 02/20/2025 3:20 AM EDT 02/20/2025 3:25 AM EDT us Jeremy Ramirez MD LAB BLOOD ORDERABLES Final Res ult Performing Organization Address [facility]/ZIP Co de Phone Number [facility] [address] [place] [address] * Prothrombin Time/INR (02/20/2025 3:20 AM EDT) Prothrombin Time 13.4 12.0 - 14.3 sec LAB COAGULATION METHOD 02/20/2025 3:41 AM EDT [facility] INR 1.0 0.9 - 1.1 LAB COAGULATION METHOD 02/20/2025 3:41 AM EDT [facility] Blood Venous blood specimen / Unknown Venipuncture / Unknown 02/20/2025 3:20 AM EDT 02/20/2025 3:25 AM EDT Narrative [facility] - 02/20/2025 3:41 AM EDT OPTIMAL INR RANGES FOR PATIENT ON ORAL ANTICOAGULANT THERAPY Prevention of venous thromboembolism INR 2.0 to 3.0 In patients with heart disease: Atrial fibrillation INR 2.0 to 3.0 Valvular heart disease INR 2.0 to 3.0 Tissue heart valves INR 2.0 to 3.0 Mechanical prosthetic valves INR 2.5 to 3.5 Prevention of recurrent MS INR 2.5 to 3.5 us Leida Marcano APRN, DNP LAB BLOOD ORDERABLES Final Result Performing Organization Address [facility]/ZIP Co de Phone Number [facility] [address] [place] [address] * (ABNORMAL) Comprehensive Metabolic Panel, Plasma (02/20/2025 3:20 AM EDT) Glucose, Plasma 129(H) 74 - 99 mg/dL 02/20/2025 4:17 AM EDT [facility] BUN, Plasma 17 7 - 21 mg/dL 02/20/2025 4:17 AM EDT [facility] Creatinine, Plasma 0.46(L) 0.60 - 1.10 mg/dL 02/20/2025 4:17 AM EDT [facility] BUN/Creatinine Ratio 37 02/20/2025 4:17 AM EDT [facility] Sodium, Plasma 140 136 - 145 mmol/L 02/20/2025 4:17 AM EDT [facility] Potassium, Plasma 4.0 3.6 - 4.9 mmol/L 02/20/2025 4:17 AM EDT [facility] Chloride, Plasma 107 97 - 107 mmol/L 02/20/2025 4:17 AM EDT [facility] CO2, Plasma 25 22 - 29 mmol/L 02/20/2025 4:17 AM EDT [facility] Anion Gap 8 6 - 16 mmol/L 02/20/2025 4:17 AM EDT [facility] Total Calcium, Plasma 9.0 8.9 - 10.2 mg/dL 02/20/2025 4:17 AM EDT [facility] Total Protein 7.1 6.3 - 7.9 g/dL 02/20/2025 4:17 AM EDT [facility] Albumin, Plasma 3.5 3.5 - 5.2 g/dL 02/20/2025 4:17 AM EDT [facility] AST, Plasma 36(H) 10 - 35 U/L 02/20/2025 4:17 AM EDT [facility] Comment:Hemolyzed, result ma y be falsely increased. ALT, Plasma 41(H) 10 - 35 U/L 02/20/2025 4:17 AM EDT [facility] Alkaline Phosphatase, Plasma 80 35 - 104 U/L 02/20/2025 4:17 AM EDT [facility] Total Bilirubin, Plasma 0.3 0.2 - 1.1 mg/dL 02/20/2025 4:17 AM EDT [facility] eGFRcr 119.7 mL/min/1.7 3m*2 02/20/2025 4:17 AM EDT [facility] Comment:Reported eGFRcr in m L/min/1.73m2 is based the CKD-EPI 2020 equation that does not use a race coefficient. Blood Venous blood specimen / Unknown Venipuncture / Unknown 02/20/2025 3:20 AM EDT 02/20/2025 3:25 AM EDT us Fischeric Nitin Covarrubias AIR HOSE COUPLER LAB BLOOD ORDERABLES Final Re sult Performing Organization Address [facility] Co de Phone Number [facility] [address] [place] [address] * Ionized calcium, whole blood (02/20/2025 3:20 AM EDT) Ionized Calcium, Whole Blood 4.6 4.6 - 5.1 mg/dL LAB HEMATOLOGY METHOD 02/20/2025 3:25 AM EDT [facility] Blood Venous blood specimen / Unknown Venipuncture / Unknown 02/20/2025 3:20 AM EDT 02/20/2025 3:24 AM EDT us Fischeric Nitin Covarrubias APRN LAB BLOOD ORDERABLES Final Re sult Performing Organization Address [facility] de Phone Number [facility] [address] [place] [address] * Magnesium, Plasma (02/20/2025 3:20 AM EDT) Magnesium, Plasma 1.9 1.9 - 2.4 mg/dL 02/20/2025 4:17 AM EDT [facility] Blood Venous blood specimen / Unknown Venipuncture / Unknown 02/20/2025 3:20 AM EDT 02/20/2025 3:25 AM EDT us Fischeric Nitin Covarrubias AIR HOSE COUPLER LAB BLOOD ORDERABLES Final Re sult Performing Organization Address [facility] Co de Phone Number [facility] [address] [place] [address] * (ABNORMAL) CBC W/O Differential (02/20/2025 3:20 AM EDT) WBC Count 8.34 3.70 - 10.30 10*3/uL LAB HEMATOLOGY METHOD 02/20/2025 3:34 AM EDT [facility] RBC Count 3.64(L) 3.90 - 5.20 10*6/uL LAB HEMATOLOGY METHOD 02/20/2025 3:34 AM EDT [facility] HGB 11.3 11.2 - 15.7 g/dL LAB HEMATOLOGY METHOD 02/20/2025 3:34 AM EDT [facility] HCT 34.7 34.0 - 45.0 % LAB HEMATOLOGY METHOD 02/20/2025 3:34 AM EDT [facility] Platelet Count 171 155 - 369 10*3/uL LAB HEMATOLOGY METHOD 02/20/2025 3:34 AM EDT [facility] MCV 95 79 - 98 fL LAB HEMATOLOGY METHOD 02/20/2025 3:34 AM EDT [facility] MCH 31.0 26.0 - 32.0 pg LAB HEMATOLOGY METHOD 02/20/2025 3:34 AM EDT [facility] MCHC 32.6 30.7 - 35.5 g/dL LAB HEMATOLOGY METHOD 02/20/2025 3:34 AM EDT [facility] RDW 16.0(H) 11.5 - 14.5 % LAB HEMATOLOGY METHOD 02/20/2025 3:34 AM EDT [facility] MPV 10.0 8.8 - 12.5 fL LAB HEMATOLOGY METHOD 02/20/2025 3:34 AM EDT [facility] nRBC 0.4(H) <=0.0 per 100 WBCs LAB HEMATOLOGY METHOD 02/20/2025 3:34 AM EDT [facility] Blood Venous blood specimen / Unknown Venipuncture / Unknown 02/20/2025 3:20 AM EDT 02/20/2025 3:25 AM EDT us Joce Covarrubias APRN LAB BLOOD ORDERABLES Final Re sult [facility] [address] [place] [address] * Urinalysis Microscopic Examination (02/20/2025 3:04 AM EDT) Urine Urine specimen obtained by clean catch procedure / Unknown Non-blood Collection / Unknown 02/20/2025 3:04 AM EDT 02/20/2025 3:09 AM EDT us Leida Marcano AIR HOSE COUPLER, DNP LAB URINE ORDERABLES Final Result [facility] [address] [place] [address] * (ABNORMAL) Urinalysis with reflex microscopic (Culture NOT Included) (02/20/2025 3:04 AM EDT) Color, Urine Yellow LAB URINALYSIS - AUTOMATED METHOD 02/20/2025 3:27 AM EDT [facility] Clarity, Urine Cloudy LAB URINALYSIS - AUTOMATED METHOD 02/20/2025 3:27 AM EDT [facility] Spec [place], Urine 1.023 1.005 - 1.030 LAB URINALYSIS - AUTOMATED METHOD 02/20/2025 3:27 AM EDT [facility] pH, Urine 6.0 5.0 - 8.0 LAB URINALYSIS - AUTOMATED METHOD 02/20/2025 3:27 AM EDT [facility] Protein, Urine Negative Negative mg/dL LAB URINALYSIS - AUTOMATED METHOD 02/20/2025 3:27 AM EDT [facility] Glucose, Urine Negative Negative mg/dL LAB URINALYSIS - AUTOMATED METHOD 02/20/2025 3:27 AM EDT [facility] Ketones, Urine Trace(A) Negative mg/dL LAB URINALYSIS - AUTOMATED METHOD 02/20/2025 3:27 AM EDT [facility] Blood, Urine Negative Negative LAB URINALYSIS - AUTOMATED METHOD 02/20/2025 3:27 AM EDT [facility] Bilirubin, Urine Negative Negative LAB URINALYSIS - AUTOMATED METHOD 02/20/2025 3:27 AM EDT [facility] Urobilinogen, Urine 1.0 0.2 to 1.0 mg/dL LAB URINALYSIS - AUTOMATED METHOD 02/20/2025 3:27 AM EDT [facility] Leukocytes, Urine Moderate(A) Negative LAB URINALYSIS - AUTOMATED METHOD 02/20/2025 3:27 AM EDT [facility] Nitrite, Urine Negative Negative LAB URINALYSIS - AUTOMATED METHOD 02/20/2025 3:27 AM EDT [facility] RBC, Urine 3 0 to 3 /HPF LAB URINALYSIS - AUTOMATED METHOD 02/20/2025 3:27 AM EDT [facility] WBC, Urine >50(A) 0 to 5 /HPF LAB URINALYSIS - AUTOMATED METHOD 02/20/2025 3:27 AM EDT [facility] Squamous Epithelial Cells 11 - 20(A) 0 to 5 /HPF LAB URINALYSIS - AUTOMATED METHOD 02/20/2025 3:27 AM EDT [facility] Hyaline Casts 0 - 2 0 to 5 /LPF LAB URINALYSIS - AUTOMATED METHOD 02/20/2025 3:27 AM EDT [facility] Bacteria, Urine Present Negative LAB URINALYSIS - AUTOMATED METHOD 02/20/2025 3:27 AM EDT [facility] Urine Urine specimen obtained by clean catch procedure / Unknown Non-blood Collection / Unknown 02/20/2025 3:04 AM EDT 02/20/2025 3:09 AM EDT us Leida Marcano AIR HOSE COUPLER, DNP LAB URINE ORDERABLES Final Result [facility] [address] [place] [address] * (ABNORMAL) POCT glucose meter (02/19/2025 8:39 PM EDT) POCT Glucose 131(H) 74 - 99 mg/dL 02/19/2025 8:41 PM EDT [facility] Comment:Accuracy of a glucos e result obtained from a capillary whole blood specimen relies upon adequate, non-compromised capillary blood flow. If the capillary glucose result is not consistent with the patient's clinical signs and symptoms, glucose testing should be repeated with either an arterial or venous sample on the glucometer or sent to the main labortory for testing. Comment 02/19/2025 8:41 PM EDT [facility] Blower And Compressor Assembler ID Carie Mlies 8:41 PM EDT [facility] Device ID [id number] 02/19/2025 8:41 PM EDT [facility] Specimen Type POC Capillary 02/19/2025 8:41 PM EDT [facility] Blood Capillary blood specimen / Unknown 02/19/2025 8:39 PM EDT 02/19/2025 8:41 PM EDT us Jeremy Wilburnox MD LAB POINT OF CARE TE ST DOCKED DEVICE UNSOLICITED RESULTS Final Result [facility] [address] [place] [address] * (ABNORMAL) POCT glucose meter (02/19/2025 5:34 PM EDT) Pathologist [facility] [place] POCT Glucose 177(H) 74 - 99 mg/dL 02/19/2025 5:36 PM EDT [facility] Comment:Accuracy of a glucos e result obtained from a capillary whole blood specimen relies upon adequate, non-compromised capillary blood flow. If the capillary glucose result is not consistent with the patient's clinical signs and symptoms, glucose testing should be repeated with either an arterial or venous sample on the glucometer or sent to the main labortory for testing. Comment 02/19/2025 5:36 PM EDT [facility] Blower And Compressor Assembler ID Rima Dukes 02/20/20 5:36 PM EDT [facility] Device ID [id number] 02/19/2025 5:36 PM EDT [facility] Specimen Type POC Capillary 02/19/2025 5:36 PM EDT [facility] Blood Capillary blood specimen / Unknown 02/19/2025 5:34 PM EDT 02/19/2025 5:36 PM EDT us Jeremy Ramirez MD LAB POINT OF CARE TE ST DOCKED DEVICE UNSOLICITED RESULTS Final Result Performing Organization Address City/[facility] Co de Phone Number [facility] [address] [place] [address] * (ABNORMAL) POCT glucose meter (02/19/2025 12:05 PM EDT) Pathologist [facility] POCT Glucose 147(H) 74 - 99 mg/dL 02/19/2025 12:07 PM EDT [facility] Comment:Accuracy of a glucos e result obtained from a capillary whole blood specimen relies upon adequate, non-compromised capillary blood flow. If the capillary glucose result is not consistent with the patient's clinical signs and symptoms, glucose testing should be repeated with either an arterial or venous sample on the glucometer or sent to the main labortory for testing. Comment 02/19/2025 12:07 PM EDT [facility] Blower And Compressor Assembler ID Rima Dukes 02/20/20 12:07 PM EDT [facility] Device ID [id number] 02/19/2025 12:07 PM EDT [facility] Specimen Type POC Capillary 02/19/2025 12:07 PM EDT [facility] Blood Capillary blood specimen / Unknown 02/19/2025 12:05 PM EDT 02/19/2025 12:07 PM EDT Jeremy Ramirez MD LAB POINT OF CARE TE ST DOCKED DEVICE UNSOLICITED RESULTS Final Result Performing Organization Address City/[facility]/ZIP Co de Phone Number [facility] [address] [place] [address] * (ABNORMAL) POCT glucose meter (02/19/2025 8:41 AM EDT) POCT Glucose 114(H) 74 - 99 mg/dL 02/19/2025 12:06 PM EDT [facility] Comment:Accuracy of a glucos e result obtained from a capillary whole blood specimen relies upon adequate, non-compromised capillary blood flow. If the capillary glucose result is not consistent with the patient's clinical signs and symptoms, glucose testing should be repeated with either an arterial or venous sample on the glucometer or sent to the main labortory for testing. Comment 02/19/2025 12:06 PM EDT [facility] Blower And Compressor Assembler ID Rima Dukes 02/20/20 12:06 PM EDT [facility] Device ID [id number] 02/19/2025 12:06 PM EDT [facility] Specimen Type POC Venous 02/19/2025 12:06 PM EDT [facility] Blood Venous blood specimen / Unknown 02/19/2025 8:41 AM EDT 02/19/2025 12:06 PM EDT us Jeremy Ramirez MD LAB POINT OF CARE TE ST DOCKED DEVICE UNSOLICITED RESULTS Final Result Performing Organization Address City/[facility]/ZIP Co de Phone Number [facility] [address] [place] [address] * Phosphorus, Plasma (02/19/2025 8:41 AM EDT) [facility] Phosphorus, Plasma 2.7 2.5 - 4.5 mg/dL 02/19/2025 9:36 AM EDT [facility] Blood Venous blood specimen / Unknown Venipuncture / Unknown 02/19/2025 8:41 AM EDT 02/19/2025 8:53 AM EDT Leida Marcano APRN, DNP LAB BLOOD ORDERABLES Final Result Performing Organization Address City/[facility]/ZIP Co de Phone Number [facility] [address] [place] [address] * (ABNORMAL) POCT glucose meter (02/19/2025 4:30 AM EDT) [facility] POCT Glucose 115(H) 74 - 99 mg/dL 02/19/2025 4:32 AM EDT [facility] Comment:Accuracy of a glucos e result obtained from a capillary whole blood specimen relies upon adequate, non-compromised capillary blood flow. If the capillary glucose result is not consistent with the patient's clinical signs and symptoms, glucose testing should be repeated with either an arterial or venous sample on the glucometer or sent to the main labortory for testing. Comment 02/19/2025 4:32 AM EDT [facility] Blower And Compressor Assembler ID Javier Hilario 025 4:32 AM EDT [facility]ALTH[facility] LAB Device ID [id number] 02/19/2025 4:32 AM EDT [facility] Specimen Type POC Capillary 02/19/2025 4:32 AM EDT [facility] Blood Capillary blood specimen / Unknown 02/19/2025 4:30 AM EDT 02/19/2025 4:32 AM EDT us Jeremy Ramirez MD LAB POINT OF CARE TE ST DOCKED DEVICE UNSOLICITED RESULTS Final Result Performing Organization Address City/[facility]/ZIP Co de Phone Number [facility] [address] [place] [address] * Prothrombin Time/INR (02/19/2025 12:40 AM EDT) [facility] Prothrombin Time 13.7 12.0 - 14.3 sec LAB COAGULATION METHOD 02/19/2025 1:20 AM EDT [facility] INR 1.0 0.9 - 1.1 LAB COAGULATION METHOD 02/19/2025 1:20 AM EDT [facility] Blood Venous blood specimen / Unknown Venipuncture / Unknown 02/19/2025 12:40 AM EDT 02/19/2025 12:49 AM EDT Narrative [facility] - 02/19/2025 1:20 AM EDT OPTIMAL INR RANGES FOR PATIENT ON ORAL ANTICOAGULANT THERAPY Prevention of venous thromboembolism INR 2.0 to 3.0 In patients with heart disease: Atrial fibrillation INR 2.0 to 3.0 Valvular heart disease INR 2.0 to 3.0 Tissue heart valves INR 2.0 to 3.0 Mechanical prosthetic valves INR 2.5 to 3.5 Prevention of recurrent MS INR 2.5 to 3.5 Leida Marcano AIR HOSE COUPLER, DNP LAB BLOOD ORDERABLES Final Result [facility] [address] [place] [address] * (ABNORMAL) Comprehensive Metabolic Panel, Plasma (02/19/2025 12:40 AM EDT) Glucose, Plasma 131(H) 74 - 99 mg/dL 02/19/2025 1:21 AM EDT [facility] BUN, Plasma 8 7 - 21 mg/dL 02/19/2025 1:21 AM EDT [facility] Creatinine, Plasma 0.38(L) 0.60 - 1.10 mg/dL 02/19/2025 1:21 AM EDT [facility] BUN/Creatinine Ratio 02/19/2025 1:21 AM EDT [facility] Sodium, Plasma 140 136 - 145 mmol/L 02/19/2025 1:21 AM EDT [facility] Potassium, Plasma 4.2 3.6 - 4.9 mmol/L 02/19/2025 1:21 AM EDT [facility] Chloride, Plasma 107 97 - 107 mmol/L 02/19/2025 1:21 AM EDT [facility] CO2, Plasma 24 22 - 29 mmol/L 02/19/2025 1:21 AM EDT [facility] Anion Gap 9 6 - 16 mmol/L 02/19/2025 1:21 AM EDT [facility] Total Calcium, Plasma 8.8(L) 8.9 - 10.2 mg/dL 02/19/2025 1:21 AM EDT [facility] Total Protein 7.1 6.3 - 7.9 g/dL 02/19/2025 1:21 AM EDT [facility] Albumin, Plasma 3.5 3.5 - 5.2 g/dL 02/19/2025 1:21 AM EDT [facility] AST, Plasma 38(H) 10 - 35 U/L 02/19/2025 1:21 AM EDT [facility] Comment:Hemolyzed, result ma y be falsely increased. ALT, Plasma 32 10 - 35 U/L 02/19/2025 1:21 AM EDT [facility] Alkaline Phosphatase, Plasma 65 35 - 104 U/L 02/19/2025 1:21 AM EDT [facility] Total Bilirubin, Plasma 0.3 0.2 - 1.1 mg/dL 02/19/2025 1:21 AM EDT [facility] eGFRcr 125.3 mL/min/1.7 3m*2 02/19/2025 1:21 AM EDT [facility] Comment:Reported eGFRcr in m L/min/1.73m2 is based the CKD-EPI 2020 equation that does not use a race coefficient. Blood Venous blood specimen / Unknown Venipuncture / Unknown 02/19/2025 12:40 AM EDT 02/19/2025 12:49 AM EDT us Joce Covarrubias AIR HOSE COUPLER LAB BLOOD ORDERABLES Final Re sult [facility] [address] [place] [address] * Ionized calcium, whole blood (02/19/2025 12:40 AM EDT) Ionized Calcium, Whole Blood 4.6 4.6 - 5.1 mg/dL LAB HEMATOLOGY METHOD 02/19/2025 12:50 AM EDT [facility] Blood Venous blood specimen / Unknown Venipuncture / Unknown 02/19/2025 12:40 AM EDT 02/19/2025 12:48 AM EDT Joce Covarrubias AIR HOSE COUPLER LAB BLOOD ORDERABLES Final Re sult Performing Organization Address [facility]/ZIP Co de Phone Number [facility] [address] [place] [address] * Magnesium, Plasma (02/19/2025 12:40 AM EDT) Pathologist [facility] [place] Magnesium, Plasma 2.2 1.9 - 2.4 mg/dL 02/19/2025 1:21 AM EDT [facility] Blood Venous blood specimen / Unknown Venipuncture / Unknown 02/19/2025 12:40 AM EDT 02/19/2025 12:49 AM EDT Joce Covarrubias AIR HOSE COUPLER LAB BLOOD ORDERABLES Final Re sult Performing Organization Address [facility]/ZIP Co de Phone Number [facility] [address] [place] [address] * (ABNORMAL) CBC W/O Differential (02/19/2025 12:40 AM EDT) Pathologist [facility] WBC Count 7.38 3.70 - 10.30 10*3/uL LAB HEMATOLOGY METHOD 02/19/2025 1:00 AM EDT [facility] RBC Count 3.56(L) 3.90 - 5.20 10*6/uL LAB HEMATOLOGY METHOD 02/19/2025 1:00 AM EDT [facility] HGB 10.8(L) 11.2 - 15.7 g/dL LAB HEMATOLOGY METHOD 02/19/2025 1:00 AM EDT [facility] HCT 33.7(L) 34.0 - 45.0 % LAB HEMATOLOGY METHOD 02/19/2025 1:00 AM EDT [facility] Platelet Count 171 155 - 369 10*3/uL LAB HEMATOLOGY METHOD 02/19/2025 1:00 AM EDT [facility] MCV 95 79 - 98 fL LAB HEMATOLOGY METHOD 02/19/2025 1:00 AM EDT [facility] MCH 30.3 26.0 - 32.0 pg LAB HEMATOLOGY METHOD 02/19/2025 1:00 AM EDT [facility] MCHC 32.0 30.7 - 35.5 g/dL LAB HEMATOLOGY METHOD 02/19/2025 1:00 AM EDT [facility] RDW 15.6(H) 11.5 - 14.5 % LAB HEMATOLOGY METHOD 02/19/2025 1:00 AM EDT [facility] MPV 9.8 8.8 - 12.5 fL LAB HEMATOLOGY METHOD 02/19/2025 1:00 AM EDT [facility] nRBC 0.0 <=0.0 per 100 WBCs LAB HEMATOLOGY METHOD 02/19/2025 1:00 AM EDT [facility] Blood Venous blood specimen / Unknown Venipuncture / Unknown 02/19/2025 12:40 AM EDT 02/19/2025 12:51 AM EDT us Joce Covarrubias APRN LAB BLOOD ORDERABLES Final Re sult [facility] [address] [place] [address] * (ABNORMAL) Phosphorus, Plasma (02/19/2025 12:40 AM EDT) Pathologist [facility] [place] Phosphorus, Plasma 2.3(L) 2.5 - 4.5 mg/dL 02/19/2025 1:21 AM EDT [facility] Blood Venous blood specimen / Unknown Venipuncture / Unknown 02/19/2025 12:40 AM EDT 02/19/2025 12:49 AM EDT us Leida Marcano AIR HOSE COUPLER, DNP LAB BLOOD ORDERABLES Final Result Performing Organization Address City/[facility]/ZIP Co de Phone Number [facility] [address] [place] [address] * (ABNORMAL) POCT glucose meter (02/18/2025 10:19 PM EDT) POCT Glucose 129(H) 74 - 99 mg/dL 02/18/2025 10:20 PM EDT [facility] Comment:Accuracy of a glucos e result obtained from a capillary whole blood specimen relies upon adequate, non-compromised capillary blood flow. If the capillary glucose result is not consistent with the patient's clinical signs and symptoms, glucose testing should be repeated with either an arterial or venous sample on the glucometer or sent to the main labortory for testing. Comment 02/18/2025 10:20 PM EDT [facility] Blower And Compressor Assembler ID Noe Patricio 10:20 PM EDT [facility] Device ID [id number] 02/18/2025 10:20 PM EDT [facility] Specimen Type POC Capillary 02/18/2025 10:20 PM EDT [facility] Blood Capillary blood specimen / Unknown 02/18/2025 10:19 PM EDT 02/18/2025 10:20 PM EDT Jeremy Ramirez MD LAB POINT OF CARE TE ST DOCKED DEVICE UNSOLICITED RESULTS Final Result [facility] [address] [place] [address] * (ABNORMAL) POCT glucose meter (02/18/2025 6:21 PM EDT) [facility] POCT Glucose 172(H) 74 - 99 mg/dL 02/18/2025 6:23 PM EDT [facility] Comment:Accuracy of a glucos e result obtained from a capillary whole blood specimen relies upon adequate, non-compromised capillary blood flow. If the capillary glucose result is not consistent with the patient's clinical signs and symptoms, glucose testing should be repeated with either an arterial or venous sample on the glucometer or sent to the main labortory for testing. Comment 02/18/2025 6:23 PM EDT [facility] Blower And Compressor Assembler ID Yamilet Sheldon 6:23 PM EDT [facility] Device ID [id number] 02/18/2025 6:23 PM EDT [facility] Specimen Type POC Capillary 02/18/2025 6:23 PM EDT [facility] Blood Capillary blood specimen / Unknown 02/18/2025 6:21 PM EDT 02/18/2025 6:23 PM EDT us Jeremy Ramirez MD LAB POINT OF CARE TE ST DOCKED DEVICE UNSOLICITED RESULTS Final Result [facility] [address] [place] [address] * XR Cervical Spine 2 or 3 Views (02/18/2025 6:00 PM EDT) Anatomical Region Laterality Modality Spine, C-spine Computed Radiogr aphy Impressions 02/18/2025 10:49 PM EDT Expected recent post surgical changes from posterior fusion from C3 through C7. Mild C5-6 and C6-7 retrolisthesis. CRITICAL RESULT: No. COMMUNICATION: Per this written report. Drafted by Boston Nagel MD on 02/18/2025 10:47 PM Final report signed by Boston Nagel MD on 02/18/2025 10:49 PM Narrative 02/18/2025 10:49 PM EDT CLINICAL INDICATION: Post-op fusion TECHNIQUE: XR CERVICAL SPINE 2 OR 3 VIEWS COMPARISON: January 08, 2025 FINDINGS: Monitoring wires overlie the chest limiting evaluation. Imaged chest is otherwise unremarkable. Postoperative changes from interval posterior fusion from C3 through C7. Straightening of cervical lordosis. There is mild C5-6 and C6-7 retrolisthesis. Skin reina are seen posteriorly. Drain is in place posteriorly. Procedure Note Boston Nagel MD - 02/18/2025 CLINICAL INDICATION: Post-op fusion TECHNIQUE: XR CERVICAL SPINE 2 OR 3 VIEWS COMPARISON: January 08, 2025 FINDINGS: Monitoring wires overlie the chest limiting evaluation. Imaged chest isotherwise unremarkable. Postoperative changes from interval posteriorfusion from C3 through C7. Straightening of cervical lordosis. There ismild C5-6 and C6-7 retrolisthesis. Skin reina are seen posteriorly.Drain is in place posteriorly. IMPRESSION: Expected recent post surgical changes from posterior fusion from [id number] C7. Mild C5-6 and C6-7 retrolisthesis. CRITICAL RESULT: No. COMMUNICATION: Per this written report. Drafted by Boston Nagel MD on 02/18/2025 10:47 PM Final report signed by Boston Nagel MD on 02/18/2025 10:49 PM us Jeremy Ramirez MD IMG XR PROCEDURES Final Result * (ABNORMAL) Phosphorus (02/18/2025 2:33 PM EDT) [facility] Phosphorus, Plasma 1.9(L) 2.5 - 4.5 mg/dL 02/18/2025 3:33 PM EDT [facility] Blood Venous blood specimen / Unknown Venipuncture / Unknown 02/18/2025 2:33 PM EDT 02/18/2025 3:06 PM EDT us Jeremy Ramirez MD LAB BLOOD ORDERABLES Final Res ult Performing Organization Address City/[facility] Co de Phone Number [facility] [address] [place] [address] * (ABNORMAL) POCT glucose meter (02/18/2025 12:14 PM EDT) [facility] POCT Glucose 153(H) 74 - 99 mg/dL 02/18/2025 12:15 PM EDT [facility] Comment:Accuracy of a glucos e result obtained from a capillary whole blood specimen relies upon adequate, non-compromised capillary blood flow. If the capillary glucose result is not consistent with the patient's clinical signs and symptoms, glucose testing should be repeated with either an arterial or venous sample on the glucometer or sent to the main labortory for testing. Comment 02/18/2025 12:15 PM EDT [facility] Blower And Compressor Assembler ID Yamilet Sheldon 12:15 PM EDT [facility] Device ID [id number] 02/18/2025 12:15 PM EDT [facility] Specimen Type POC Capillary 02/18/2025 12:15 PM EDT [facility] Blood Capillary blood specimen / Unknown 02/18/2025 12:14 PM EDT 02/18/2025 12:15 PM EDT us Jeremy Ramirez MD LAB POINT OF CARE TE ST DOCKED DEVICE UNSOLICITED RESULTS Final Result [facility] [address] [place] [address] * (ABNORMAL) Phosphorus (02/18/2025 1:38 AM EDT) Phosphorus, Plasma 0.8(LL) 2.5 - 4.5 mg/dL 02/18/2025 2:55 AM EDT [facility] Blood Venous blood specimen / Unknown Venipuncture / Unknown 02/18/2025 1:38 AM EDT 02/18/2025 1:44 AM EDT Joce Covarrubias AIR [employer]SE COUPLER LAB BLOOD ORDERABLES Final Re sult [facility] [address] [place] [address] * (ABNORMAL) Phosphorus, Plasma (02/18/2025 12:35 AM EDT) Phosphorus, Plasma 0.8(LL) 2.5 - 4.5 mg/dL 02/18/2025 1:21 AM EDT [facility] Blood Venous blood specimen / Unknown Venipuncture / Unknown 02/18/2025 12:35 AM EDT 02/18/2025 12:49 AM EDT us Joce Covarrubias [employer]PLER LAB BLOOD ORDERABLES Final Re sult Performing Organization Address City/[facility]/ZIP Co de Phone Number [facility] [address] [place] [address] * (ABNORMAL) Comprehensive Metabolic Panel, Plasma (02/18/2025 12:35 AM EDT) Glucose, Plasma 206(H) 74 - 99 mg/dL 02/18/2025 1:21 AM EDT [facility] BUN, Plasma 10 7 - 21 mg/dL 02/18/2025 1:21 AM EDT [facility] Creatinine, Plasma 0.54(L) 0.60 - 1.10 mg/dL 02/18/2025 1:21 AM EDT [facility] BUN/Creatinine Ratio 19 02/18/2025 1:21 AM EDT [facility] Sodium, Plasma 140 136 - 145 mmol/L 02/18/2025 1:21 AM EDT [facility] Potassium, Plasma 4.1 3.6 - 4.9 mmol/L 02/18/2025 1:21 AM EDT [facility] Chloride, Plasma 106 97 - 107 mmol/L 02/18/2025 1:21 AM EDT [facility] CO2, Plasma 22 22 - 29 mmol/L 02/18/2025 1:21 AM EDT [facility] Anion Gap 12 6 - 16 mmol/L 02/18/2025 1:21 AM EDT [facility] Total Calcium, Plasma 8.4(L) 8.9 - 10.2 mg/dL 02/18/2025 1:21 AM EDT [facility] Total Protein 6.9 6.3 - 7.9 g/dL 02/18/2025 1:21 AM EDT [facility] Albumin, Plasma 3.5 3.5 - 5.2 g/dL 02/18/2025 1:21 AM EDT [facility] AST, Plasma 37(H) 10 - 35 U/L 02/18/2025 1:21 AM EDT [facility] Comment:Hemolyzed, result ma y be falsely increased. ALT, Plasma 22 10 - 35 U/L 02/18/2025 1:21 AM EDT [facility] Alkaline Phosphatase, Plasma 67 35 - 104 U/L 02/18/2025 1:21 AM EDT [facility] Total Bilirubin, Plasma 0.3 0.2 - 1.1 mg/dL 02/18/2025 1:21 AM EDT [facility] eGFRcr 115.2 mL/min/1.7 3m*2 02/18/2025 1:21 AM EDT [facility] Comment:Reported eGFRcr in m L/min/1.73m2 is based the CKD-EPI 2020 equation that does not use a race coefficient. Blood Venous blood specimen / Unknown Venipuncture / Unknown 02/18/2025 12:35 AM EDT 02/18/2025 12:49 AM EDT Joce Covarrubias APRN LAB BLOOD ORDERABLES Final Re sult Performing Organization Address City/[facility]/ZIP Co de Phone Number [facility] [address] [place] [address] * Prothrombin Time/INR (02/18/2025 12:35 AM EDT) Prothrombin Time 13.7 12.0 - 14.3 sec LAB COAGULATION METHOD 02/18/2025 1:14 AM EDT [facility] INR 1.0 0.9 - 1.1 LAB COAGULATION METHOD 02/18/2025 1:14 AM EDT [facility] Blood Venous blood specimen / Unknown Venipuncture / Unknown 02/18/2025 12:35 AM EDT 02/18/2025 12:49 AM EDT Narrative [facility] - 02/18/2025 1:14 AM EDT OPTIMAL INR RANGES FOR PATIENT ON ORAL ANTICOAGULANT THERAPY Prevention of venous thromboembolism INR 2.0 to 3.0 In patients with heart disease: Atrial fibrillation INR 2.0 to 3.0 Valvular heart disease INR 2.0 to 3.0 Tissue heart valves INR 2.0 to 3.0 Mechanical prosthetic valves INR 2.5 to 3.5 Prevention of recurrent MS INR 2.5 to 3.5 Joce Covarrubias APRN LAB BLOOD ORDERABLES Final Re sult Performing Organization Address [facility] Co de Phone Number [facility] [address] [place] [address] * (ABNORMAL) Ionized calcium, whole blood (02/18/2025 12:35 AM EDT) Ionized Calcium, Whole Blood 4.5(L) 4.6 - 5.1 mg/dL LAB HEMATOLOGY METHOD 02/18/2025 12:51 AM EDT [facility] Blood Venous blood specimen / Unknown Venipuncture / Unknown 02/18/2025 12:35 AM EDT 02/18/2025 12:49 AM EDT Joce Covarrubias APRN LAB BLOOD ORDERABLES Final Re sult [facility] [address] [place] [address] * (ABNORMAL) Magnesium, Plasma (02/18/2025 12:35 AM EDT) Magnesium, Plasma 1.7(L) 1.9 - 2.4 mg/dL 02/18/2025 1:21 AM EDT [facility] Blood Venous blood specimen / Unknown Venipuncture / Unknown 02/18/2025 12:35 AM EDT 02/18/2025 12:49 AM EDT us Joce Covarrubias [employer]PL[employer] LAB BLOOD ORDERABLES Final Re sult [facility] [address] [place] [address] * (ABNORMAL) CBC W/O Differential (02/18/2025 12:35 AM EDT) WBC Count 8.68 3.70 - 10.30 10*3/uL LAB HEMATOLOGY METHOD 02/18/2025 12:56 AM EDT [facility] RBC Count 3.36(L) 3.90 - 5.20 10*6/uL LAB HEMATOLOGY METHOD 02/18/2025 12:56 AM EDT [facility] HGB 10.3(L) 11.2 - 15.7 g/dL LAB HEMATOLOGY METHOD 02/18/2025 12:56 AM EDT [facility] HCT 32.1(L) 34.0 - 45.0 % LAB HEMATOLOGY METHOD 02/18/2025 12:56 AM EDT [facility] Platelet Count 202 155 - 369 10*3/uL LAB HEMATOLOGY METHOD 02/18/2025 12:56 AM EDT [facility] MCV 96 79 - 98 fL LAB HEMATOLOGY METHOD 02/18/2025 12:56 AM EDT [facility] MCH 30.7 26.0 - 32.0 pg LAB HEMATOLOGY METHOD 02/18/2025 12:56 AM EDT [facility] MCHC 32.1 30.7 - 35.5 g/dL LAB HEMATOLOGY METHOD 02/18/2025 12:56 AM EDT [facility] RDW 16.2(H) 11.5 - 14.5 % LAB HEMATOLOGY METHOD 02/18/2025 12:56 AM EDT [facility] MPV 10.0 8.8 - 12.5 fL LAB HEMATOLOGY METHOD 02/18/2025 12:56 AM EDT [facility] nRBC 0.0 <=0.0 per 100 WBCs LAB HEMATOLOGY METHOD 02/18/2025 12:56 AM EDT [facility] Blood Venous blood specimen / Unknown Venipuncture / Unknown 02/18/2025 12:35 AM EDT 02/18/2025 12:50 AM EDT us Joce Covarrubias APRN LAB BLOOD ORDERABLES Final Re sult Performing Organization Address [facility] Co de Phone Number [facility] [address] [place] [address] * Buddy auris Surveillance by PCR (02/17/2025 3:25 AM EDT) Buddy auris PCR Result Not Detected Not Detected 02/17/2025 9:33 AM EDT [facility] Swab (Axilla and Groin) Non-blood Collection / Unknown 02/17/2025 3:25 AM EDT 02/17/2025 4:25 AM EDT Narrative [facility] - 02/17/2025 9:33 AM EDT This PCR assay was developed and its performance characteristics determined by [facility] as appropriate for clinical purposes. This assay has not been cleared or approved by the FDA, but is performed in a CLIA regulated laboratory that is qualified to perform high-complexity testing. us Jeremy Ramirez MD LAB MICROBIOLOGY - GENERAL ORD ERABLES Final Result Performing Organization Address [facility]/ZIP Co de Phone Number [facility] [address] [place] [address] * Multi Drug Resistance Test (02/17/2025 3:25 AM EDT) Culture No growth at day 1 02/18/2025 6:06 AM EDT [facility] Swab (Nares and Jeimy Rectal) Non-blood Collection / Unknown 02/17/2025 3:25 AM EDT 02/17/2025 4:25 AM EDT Narrative [facility] - 02/18/2025 6:06 AM EDT This test was developed and its performance characteristics determined by the [facility]. Although the media is FDA-approved, it is not FDA-approved for all specimen types submitted. The FDA has determined that such clearance or approval is not necessary. This test is used for surveillance purposes. It should not be regarded as investigational or for research. The [facility] is certified under the Clinical Laboratory Improvement Amendments of 1988 (CLIA-88) as qualified to perform high complexity clinical laboratory testing. us Jeremy Ramirez MD LAB MICROBIOLOGY - GENERAL ORD ERABLES Final Result Performing Organization Address [facility] Co de Phone Number [facility] [address] [place] [address] * (ABNORMAL) Phosphorus, Plasma (02/17/2025 3:25 AM EDT) Phosphorus, Plasma 2.2(L) 2.5 - 4.5 mg/dL 02/17/2025 4:09 AM EDT [facility] Blood Venous blood specimen / Unknown Venipuncture / Unknown 02/17/2025 3:25 AM EDT 02/17/2025 3:39 AM EDT Joce Covarrubias APRN LAB BLOOD ORDERABLES Final Re sult Performing Organization Address [facility]/ZIP Co de Phone Number [facility] [address] [place] [address] * (ABNORMAL) Comprehensive Metabolic Panel, Plasma (02/17/2025 3:25 AM EDT) Glucose, Plasma 117(H) 74 - 99 mg/dL 02/17/2025 4:09 AM EDT [facility] BUN, Plasma 10 7 - 21 mg/dL 02/17/2025 4:09 AM EDT [facility] Creatinine, Plasma 0.52(L) 0.60 - 1.10 mg/dL 02/17/2025 4:09 AM EDT [facility] BUN/Creatinine Ratio 19 02/17/2025 4:09 AM EDT [facility] Sodium, Plasma 139 136 - 145 mmol/L 02/17/2025 4:09 AM EDT [facility] Potassium, Plasma 4.2 3.6 - 4.9 mmol/L 02/17/2025 4:09 AM EDT [facility] Chloride, Plasma 109(H) 97 - 107 mmol/L 02/17/2025 4:09 AM EDT [facility] CO2, Plasma 20(L) 22 - 29 mmol/L 02/17/2025 4:09 AM EDT [facility] Anion Gap 10 6 - 16 mmol/L 02/17/2025 4:09 AM EDT [facility] Total Calcium, Plasma 8.5(L) 8.9 - 10.2 mg/dL 02/17/2025 4:09 AM EDT [facility] Total Protein 7.2 6.3 - 7.9 g/dL 02/17/2025 4:09 AM EDT [facility] Albumin, Plasma 3.3(L) 3.5 - 5.2 g/dL 02/17/2025 4:09 AM EDT [facility] AST, Plasma 37(H) 10 - 35 U/L 02/17/2025 4:09 AM EDT [facility] Comment:Hemolyzed, result ma y be falsely increased. ALT, Plasma 19 10 - 35 U/L 02/17/2025 4:09 AM EDT [facility] Alkaline Phosphatase, Plasma 47 35 - 104 U/L 02/17/2025 4:09 AM EDT [facility] Total Bilirubin, Plasma 0.5 0.2 - 1.1 mg/dL 02/17/2025 4:09 AM EDT [facility] eGFRcr 116.2 mL/min/1.7 3m*2 02/17/2025 4:09 AM T [facility] Comment:Reported eGFRcr in m L/min/1.73m2 is based the CKD-EPI 2020 equation that does not use a race coefficient. Blood Venous blood specimen / Unknown Venipuncture / Unknown 02/17/2025 3:25 AM EDT 02/17/2025 3:39 AM EDT Joce Covarrubias APRN LAB BLOOD ORDERABLES Final Re sult Performing Organization Address [facility] Co de Phone Number [facility] [address] [place] [address] * Prothrombin Time/INR (02/17/2025 3:25 AM EDT) Prothrombin Time 14.1 12.0 - 14.3 sec LAB COAGULATION METHOD 02/17/2025 4:02 AM EDT [facility] INR 1.1 0.9 - 1.1 LAB COAGULATION METHOD 02/17/2025 4:02 AM EDT [facility] Blood Venous blood specimen / Unknown Venipuncture / Unknown 02/17/2025 3:25 AM EDT 02/17/2025 3:40 AM EDT Narrative [facility] - 02/17/2025 4:02 AM EDT OPTIMAL INR RANGES FOR PATIENT ON ORAL ANTICOAGULANT THERAPY Prevention of venous thromboembolism INR 2.0 to 3.0 In patients with heart disease: Atrial fibrillation INR 2.0 to 3.0 Valvular heart disease INR 2.0 to 3.0 Tissue heart valves INR 2.0 to 3.0 Mechanical prosthetic valves INR 2.5 to 3.5 Prevention of recurrent MS INR 2.5 to 3.5 us Joce Covarrubias APRN LAB BLOOD ORDERABLES Final Re sult Performing Organization Address [facility] Co de Phone Number [facility] [address] [place] [address] * (ABNORMAL) Ionized calcium, whole blood (02/17/2025 3:25 AM EDT) Ionized Calcium, Whole Blood 4.5(L) 4.6 - 5.1 mg/dL LAB HEMATOLOGY METHOD 02/17/2025 3:39 AM EDT [facility] Blood Venous blood specimen / Unknown Venipuncture / Unknown 02/17/2025 3:25 AM EDT 02/17/2025 3:38 AM EDT Joce Taveras Covarrubias [employer]PLER LAB BLOOD ORDERABLES Final Re sult Performing Organization Address City/[facility]/ZIP Co de Phone Number [facility] [address] [place] [address] * (ABNORMAL) Magnesium, Plasma (02/17/2025 3:25 AM EDT) Magnesium, Plasma 1.8(L) 1.9 - 2.4 mg/dL 02/17/2025 4:09 AM EDT [facility] Blood Venous blood specimen / Unknown Venipuncture / Unknown 02/17/2025 3:25 AM EDT 02/17/2025 3:39 AM EDT Joce B Covarrubias AIR [employer] COUPLER LAB BLOOD ORDERABLES Final Re sult Performing Organization Address [facility] Co de Phone Number [facility] [address] [place] [address] * (ABNORMAL) CBC W/O Differential (02/17/2025 3:25 AM EDT) WBC Count 8.56 3.70 - 10.30 10*3/uL LAB HEMATOLOGY METHOD 02/17/2025 3:47 AM EDT [facility] RBC Count 3.71(L) 3.90 - 5.20 10*6/uL LAB HEMATOLOGY METHOD 02/17/2025 3:47 AM EDT [facility] HGB 11.3 11.2 - 15.7 g/dL LAB HEMATOLOGY METHOD 02/17/2025 3:47 AM EDT [facility] HCT 35.3 34.0 - 45.0 % LAB HEMATOLOGY METHOD 02/17/2025 3:47 AM EDT [facility] Platelet Count 235 155 - 369 10*3/uL LAB HEMATOLOGY METHOD 02/17/2025 3:47 AM EDT [facility] MCV 95 79 - 98 fL LAB HEMATOLOGY METHOD 02/17/2025 3:47 AM EDT [facility] MCH 30.5 26.0 - 32.0 pg LAB HEMATOLOGY METHOD 02/17/2025 3:47 AM EDT [facility] MCHC 32.0 30.7 - 35.5 g/dL LAB HEMATOLOGY METHOD 02/17/2025 3:47 AM EDT [facility] RDW 15.9(H) 11.5 - 14.5 % LAB HEMATOLOGY METHOD 02/17/2025 3:47 AM EDT [facility] MPV 9.8 8.8 - 12.5 fL LAB HEMATOLOGY METHOD 02/17/2025 3:47 AM EDT [facility] nRBC 0.0 <=0.0 per 100 WBCs LAB HEMATOLOGY METHOD 02/17/2025 3:47 AM EDT [facility] Blood Venous blood specimen / Unknown Venipuncture / Unknown 02/17/2025 3:25 AM EDT 02/17/2025 3:39 AM EDT us Joce Covarrubias APRN LAB BLOOD ORDERABLES Final Re sult [facility] [address] [place] [address] * WI CRITICAL CARE, ADDL 30 MIN, WI CRITICAL CARE, ADDL 30 MIN (02/16/2025 6:33 PM EDT) Narrative Joce Covarrubias APRN - 02/16/2025 6:33 PM EDT Joce Covarrubias APRN 02/16/2025 7:05 PM Critical Care Performed by: Joce Covarrubias APRN Authorized by: Joce Covarrubias APRN Critical care provider statement: Critical care time (minutes): 60 Critical care time was exclusive of: Separately billable procedures and treating other patients Critical care was time spent personally by me on the following activities: Ordering and performing treatments and interventions, ordering and review of laboratory studies, ordering and review of radiographic studies, review of old charts, examination of patient, evaluation of patient's response to treatment, development of treatment plan with patient or surrogate and discussions with primary provider I assumed subsequent critical care for this patient from a provider in my division, on the same day: yes us Joce Covarrubias APRN IN CLINIC/BEDSIDE ORDERABLES Final Result * FL Less than 1 Hour Intraoperative (02/16/2025 11:21 AM EDT) Narrative IMAGING - 02/16/2025 11:22 AM EDT Images were obtained for surgical purposes. See Jeremy Ramirez's surgical note in the patient's chart for the findings. Jeremy Ramirez MD IMG FLUOROSCOPY PROCEDURES Fin al Result Performing Organization Address City/[facility] Co de Phone Number IMAGING * POCT , URINE (02/16/2025 7:19 AM EDT) POCT Test, Urine Negative Males and Non- Females: Negative 02/16/2025 7:25 AM EDT [facility] Blower And Compressor Assembler ID Janice Luna 02/16/2025 7:25 AM EDT [facility] Device ID [id number] 02/16/2025 7:25 AM EDT [facility] Urine Urine specimen obtained by clean catch procedure / Unknown 02/16/2025 7:19 AM EDT 02/16/2025 7:25 AM EDT us Jeremy Ramirez MD LAB POINT OF CARE TE ST DOCKED DEVICE UNSOLICITED RESULTS Final Result Performing Organization Address [facility] de Phone Number [facility] [address] [place] [address] * Type and Screen (02/16/2025 6:56 AM EDT) ABO/Rh O Positive 02/16/2025 6:56 AM EDT BLOOD BANK Antibody Screen Negative 02/16/2025 6:56 AM EDT [facility]LO[facility] Specimen Expiration 02/19/2025 23:59 02/16/2025 6:56 AM EDT BLOOD BANK Blood Venous blood specimen / Unknown Venipuncture / Unknown 02/16/2025 6:56 AM EDT 02/16/2025 7:04 AM EDT us Jeremy Ramirez MD LAB BLOOD BANK TEST ORDERABLES Final Result Performing Organization Address [facility] Co de Phone Number BLOOD BANK [address] [place] [address], documented in this encounter Visit Diagnoses Diagnosis Cervical myelopathy (CMS/[facility])- Primary Cervical spondylosis with myelopathy Cervical stenosis of spine Spinal stenosis in cervical region Cervical stenosis of spine Spinal stenosis in cervical region Electrolyte abnormality Electrolyte and fluid disorders not elsewhere classified Anxiety Anxiety state, unspecified Muscle spasm of back BMI 25.0-25.9,adult Tobacco use Acute post-operative pain Hypophosphatemia Disorders of phosphorus metabolism S/P cervical spinal fusion Arthrodesis status documented in this encounter Admitting Diagnoses Diagnosis Cervical myelopathy (CMS/HCC) Cervical spondylosis with myelopathy documented in this encounter Administered Medications Inactive Administered Medications - up to 3 most recent administrations Medication Order MAR Action Action Date Dose Rate Site acetaminophen (Tylenol) 160 MG/5ML solution 1,000 mg 1,000 mg, Oral, Every 6 hours PRN, Starting on Sat02/16/25 at 1203, Until Sat02/23/25 at 1619, Routine, mild pain, Recovery(Phase II-Outpatient)/On Unit(Inpatient) acetaminophen (Tylenol) suppository 650 mg 650 mg, Rectal, Every 6 hours PRN, Starting on Sat02/16/25 at 1203, Until Sat02/23/25 at 1619, Routine, Recovery(Phase II-Outpatient)/On Unit(Inpatient), mild pain acetaminophen (Tylenol) tablet 1,000 mg 1,000 mg, Oral, Once as needed, 1 dose, Starting on Sat02/16/25 at 1126, Until Sat02/16/25 at 1250, Routine, Recovery (Phase I only), pain score of >1 out of 10 Given 02/16/2025 12:50 PM EDT 1,000 mg acetaminophen (Tylenol) tablet 1,000 mg 1,000 mg, Oral, Every 6 hours PRN, Starting on Sat02/16/25 at 1203, Until Sat02/23/25 at 1619, Routine, Recovery(Phase II-Outpatient)/On Unit(Inpatient), mild pain Given 02/22/2025 8:02 AM EDT 1,000 mg Given 02/21/2025 8:26 AM EDT 1,000 mg Given 02/18/2025 9:40 AM EDT 1,000 mg baclofen (Lioresal) tablet 10 mg 10 mg, Oral, 3 times daily, First dose on Sindy 02/18/25 at 0900, Until Discontinued, Routine Given 02/23/2025 8:02 AM EDT 10 mg Given 02/22/2025 8:00 PM EDT 10 mg Given 02/22/2025 4:18 PM EDT 10 mg bisacodyl (Dulcolax) suppository 10 mg 10 mg, Rectal, Once, 1 dose, On Sat02/19/25 at 1300, Routine Given 02/19/2025 12:03 PM EDT 10 mg bisacodyl (Dulcolax) suppository 10 mg 10 mg, Rectal, Daily, First dose on Sat02/20/25 at 0900, Until Discontinued, Routine Given 02/22/2025 8:02 AM EDT 10 mg cyclobenzaprine (Flexeril) tablet 5 mg 5 mg, Oral, 3 times daily, First dose on Sat02/16/25 at 1600, Until Discontinued, Routine, Recovery(Phase II-Outpatient)/On Unit(Inpatient) Given 02/19/2025 8:48 PM EDT 5 mg Given 02/19/2025 4:03 PM EDT 5 mg Given 02/19/2025 8:25 AM EDT 5 mg cyclobenzaprine (Flexeril) tablet 5 mg 5 mg, Oral, 3 times daily, First dose on Sat02/20/25 at 0900, Until Discontinued, Routine Given 02/23/2025 8:02 AM EDT 5 mg Given 02/22/2025 8:01 PM EDT 5 mg Given 02/22/2025 4:18 PM EDT 5 mg dexamethasone (Decadron) injection 2 mg 2 mg, Intravenous, 2 times daily, 3 doses, First dose on Sat02/19/25 at 2100, Last dose on Sat02/20/25 at 2100, Routine Given 02/20/2025 9:25 PM EDT 2 mg Given 02/20/2025 8:32 AM EDT 2 mg Given 02/19/2025 8:47 PM EDT 2 mg dexamethasone (Decadron) injection 2 mg 2 mg, Intravenous, Daily, 4 doses, First dose on Sat02/21/25 at 0900, Last dose on Sat02/24/25 at 0900, Routine Given 02/23/2025 8:02 AM EDT 2 mg Given 02/22/2025 8:03 AM EDT 2 mg Given 02/21/2025 8:27 AM EDT 2 mg dexamethasone (Decadron) injection 4 mg 4 mg, Intravenous, 3 times daily, 5 doses, First dose (after last modification) on Sat02/16/25 at 2100, Last dose on Sat02/18/25 at 0900, Routine Given 02/17/2025 8:00 AM EDT 4 mg Given 02/16/2025 10:00 PM EDT 4 mg dexamethasone (Decadron) injection 4 mg 4 mg, Intravenous, Every 8 hours scheduled, 6 doses, First dose on Sat02/17/25 at 1400, Last dose on Sat02/19/25 at 0600, Routine Given 02/19/2025 5:35 AM EDT 4 mg Given 02/18/2025 10:17 PM EDT 4 mg Given 02/18/2025 2:22 PM EDT 4 mg dexamethasone (Decadron) tablet 2 mg 2 mg, Oral, Daily, 1 dose, First dose on Sat02/24/25 at 0900, Routine enoxaparin (Lovenox) syringe 40 mg 40 mg, Subcutaneous, Daily, First dose on Sat02/17/25 at 1015, Until Discontinued, Routine Given 02/23/2025 8:01 AM EDT 40 mg Left Lower Abdomen Given 02/22/2025 8:01 AM EDT 40 mg Le ft Lower Abdomen Given 02/21/2025 8:26 AM EDT 40 mg Ri ght Lower Abdomen fentaNYL (Sublimaze) injection 50 mcg 50 mcg, Intravenous, Every 5 min PRN, 2 doses, Starting on Sat02/16/25 at 1126, Until Sat02/16/25 at 1308, Routine, Recovery (Phase I only), pain score of 5-8 out of 10 Given 02/16/2025 1:08 PM EDT 50 mcg Given 02/16/2025 12:56 PM EDT 50 mcg gabapentin (Neurontin) capsule 300 mg 300 mg, Oral, 3 times daily, First dose on Sat02/16/25 at 1600, Until Discontinued, Routine, Recovery(Phase II-Outpatient)/On Unit(Inpatient) Given 02/23/2025 8:02 AM EDT 300 mg Given 02/22/2025 8:00 PM EDT 300 mg Given 02/22/2025 4:18 PM EDT 300 mg hydrALAZINE (Apresoline) injection 10 mg 10 mg, Intravenous, Every 1 hour PRN, Starting on Sat02/16/25 at 1202, Until Sat02/16/25 at 1825, Routine, Recovery(Phase II-Outpatient)/On Unit(Inpatient), high blood pressure, SBP > 140 Given 02/16/2025 3:12 PM EDT 10 mg Given 02/16/2025 12:45 PM EDT 10 mg HYDROmorphone (Dilaudid) injection 0.5 mg 0.5 mg, Intravenous, Every 10 min PRN, 2 doses, Starting on Sat02/16/25 at 1126, Until Sat02/16/25 at 1340, Routine, Recovery (Phase I only), pain score of 9-10 out of 10 Given 02/16/2025 1:21 PM EDT 0.5 mg HYDROmorphone 1 mg/mL clinician bolus dose 0.2-0.8 mg 0.2-0.8 mg, Intravenous, Every 15 min PRN, Starting on Sat02/16/25 at 1325, Until Sat02/18/25 at 0904, Routine, severe pain Bolus from Bag 02/16/2025 1:44 PM EDT 0.8 mg HYDROmorphone 1 mg/mL CATHETERIZATION LABORATORY TECHNICIAN (naive protocol) Patient CATHETERIZATION LABORATORY TECHNICIAN Dose: 0.2 mg, CATHETERIZATION LABORATORY TECHNICIAN Lockout: 6 Minutes, Continuous Dose (MG/hr): 0 mg/hr, Nurse Loading Dose: Not Ordered, Intravenous, Routine Rate/Dose Verify 02/18/2025 8:00 AM EDT Rate/Dose Verify 02/17/2025 6:00 PM EDT Rate/Dose Verify 02/17/2025 4:00 PM EDT insulin lispro (Admelog) 100 units/mL injection - Correction - Standard Dose 0-5 Units, Subcutaneous, 3 times daily with meals, First dose on Sat02/18/25 at 1230, Until Discontinued, Routine Given 02/23/2025 11:38 AM EDT 1 Units Right Upper Arm (Tip k) Given 02/23/2025 8:01 AM EDT 1 Units Le ft Lower Abdomen Given 02/21/2025 4:52 PM EDT 2 Units Ri ght Upper Arm (Back) insulin lispro (Admelog) injection - Correction - Nighttime Dose 0-3 Units, Subcutaneous, 2 times nightly (2100 & 0300), First dose on Sindy 02/18/25 at 2100, Until Discontinued, Routine magnesium hydroxide (Milk of Magnesia) 400 MG/5ML suspension 30 mL 30 mL, Oral, Once, 1 dose, On Sindy 02/18/25 at 1015, Routine Given 02/18/2025 9:40 AM EDT 30 mL magnesium hydroxide (Milk of Magnesia) 400 MG/5ML suspension 30 mL 30 mL, Oral, Once, 1 dose, On Sat02/19/25 at 0845, Routine Given 02/19/2025 9:02 AM EDT 30 mL magnesium hydroxide (Milk of Magnesia) 400 MG/5ML suspension 30 mL 30 mL, Oral, Once, 1 dose, On Sat02/20/25 at 0815, Routine Given 02/20/2025 8:32 AM EDT 30 mL ondansetron (Zofran) injection 4 mg 4 mg, Intravenous, Every 6 hours PRN, Starting on Sat02/16/25 at 1202, Until Sat02/23/25 at 1619, Routine, Recovery(Phase II-Outpatient)/On Unit(Inpatient), nausea, vomiting ondansetron ODT (Zofran-ODT) disintegrating tablet 4 mg 4 mg, Oral, Every 6 hours PRN, Starting on Sat02/16/25 at 1202, Until Sat02/23/25 at 1619, Routine, Recovery(Phase II-Outpatient)/On Unit(Inpatient), nausea, vomiting oxyCODONE (Roxicodone) immediate release tablet 10 mg 10 mg, Oral, Once as needed, 2 doses, Starting on Sat02/16/25 at 1126, Until Sat02/16/25 at 1340, Routine, Recovery (Phase I only), pain score of 6-8 out of 10 Given 02/16/2025 12:50 PM EDT 10 mg oxyCODONE (Roxicodone) immediate release tablet 10 mg 10 mg, Oral, Every 6 hours PRN, Starting on Sindy 02/18/25 at 0904, Until Sat02/23/25 at 1619, Routine, severe pain Given 02/23/2025 10:07 AM EDT 10 mg Given 02/23/2025 4:11 AM EDT 10 mg Given 02/22/2025 8:00 PM EDT 10 mg oxyCODONE (Roxicodone) immediate release tablet 5 mg 5 mg, Oral, Every 6 hours PRN, Starting on Sat02/18/25 at 0904, Until Sat02/23/25 at 1619, Routine, moderate pain phosphorus (K Phos Neutral) tablet 1 tablet 1 tablet (250 mg), Oral, 3 times daily, First dose on Sat02/18/25 at 1630, Until Discontinued, Routine Given 02/22/2025 8:00 PM EDT 1 tablet Given 02/22/2025 4:18 PM EDT 1 tablet Given 02/22/2025 8:02 AM EDT 1 tablet polyethylene glycol (Miralax) packet 17 g 17 g, Oral, 2 times daily, First dose on Sat02/17/25 at 0900, Until Discontinued, Routine Given 02/22/2025 8:00 PM EDT 17 g Given 02/22/2025 8:01 AM EDT 17 g Given 02/20/2025 8:33 AM EDT 17 g potassium chloride CR (Klor-Con) ER tablet 20 mEq 20 mEq, Oral, Once, 1 dose, On Sat02/22/25 at 0915, Routine Given 02/22/2025 9:27 AM EDT 20 mEq potassium chloride CR (Klor-Con) ER tablet 40 mEq 40 mEq, Oral, Once, 1 dose, On Sat02/22/25 at 0715, Routine Given 02/22/2025 8:02 AM EDT 40 mEq Povidone-Iodine 5 % swab solution 1 Application Nasal, Once, 1 dose, On Sat02/16/25 at 0700, Routine Given 02/16/2025 6:53 AM EDT 1 Application senna-docusate (Jeimy-Colace) 8.6-50 MG per tablet 1 tablet 1 tablet, Oral, 2 times daily, First dose on Sat02/16/25 at 1300, Until Discontinued, Routine, Recovery(Phase II-Outpatient)/On Unit(Inpatient) Given 02/19/2025 8:25 AM EDT 1 tablet Given 02/18/2025 8:26 PM EDT 1 tablet Given 02/18/2025 8:07 AM EDT 1 tablet senna-docusate (Jeimy-Colace) 8.6-50 MG per tablet 2 tablet 2 tablet, Oral, 2 times daily, First dose (after last modification) on Sat02/20/25 at 0900, Until Discontinued, Routine Given 02/23/2025 8:02 AM EDT 2 table ts Given 02/22/2025 8:00 PM EDT 2 tablets Given 02/22/2025 8:02 AM EDT 2 tablets sodium chloride 0.9 % flush 10 mL 10 mL, Intravenous, Every 12 hours, First dose on Sat02/16/25 at 0700, Until Discontinued, Routine, Holding - Preprocedure Given 02/16/2025 6:5 3 AM EDT 10 mL sodium chloride 0.9 % flush 10 mL 10 mL, Intravenous, Every 12 hours, First dose on Sat02/16/25 at 1300, Until Discontinued, Routine, Recovery(Phase II-Outpatient)/On Unit(Inpatient) Given 02/23/2025 11:42 AM EDT 10 mL Given 02/23/2025 12:27 AM EDT 10 mL Given 02/22/2025 1:40 PM EDT 10 mL sodium chloride 0.9 % flush 10 mL 10 mL, Intravenous, As needed, Starting on Sat02/16/25 at 1202, Until Sat02/23/25 at 1619, Routine, Recovery(Phase II-Outpatient)/On Unit(Inpatient), line care sodium chloride 0.9 % infusion 5 mL/hr, Intravenous, Continuous, Starting on Sat02/16/25 at 1415, Until [facility] 02/18/25 at 0926, Routine Rate/Dose Verify 02/17/2025 4:00 PM EDT 5 mL/hr 5 mL/hr Rate/Dose Verify 02/17/2025 1:00 PM EDT 5 mL/hr 5 mL/hr Rate/Dose Verify 02/17/2025 8:00 AM EDT 5 mL/hr 5 mL/hr sodium chloride 0.9 % with KCl 20 mEq/L infusion 75 mL/hr, Intravenous, Continuous, Starting on Sat02/16/25 at 1300, Until [facility] 02/18/25 at 0926, Routine Rate/Dose Verify 02/17/2025 4:00 PM EDT 75 mL/hr 75 mL/hr Rate/Dose Verify 02/17/2025 1:00 PM EDT 75 mL/hr 75 mL/h r Rate/Dose Verify 02/17/2025 8:00 AM EDT 75 mL/hr 75 mL/h r sodium phosphates 45 mmol in sodium chloride 0.9 % 500 mL IVPB 45 mmol, Intravenous, Once, 1 dose, On Sindy 02/18/25 at 0345, STAT New Bag 02/18/2025 3:34 AM EDT 45 mmol 93.3 mL/hr Vancomycin HCl in NaCl (Vancocin) IVPB 1,000 mg 1,000 mg (rounded from 1,035 mg = 15 mg/kg 69 kg Order-specific weight), Intravenous, Once, 1 dose, On Sat02/16/25 at 0700, at 250 mL/hr, STAT Given 02/16/2025 6:59 AM EDT 1,000 mg 250 mL/hr documented in this encounter Active and Recently Administered Medications Times are shown in EDT. Scheduled Medication Order 02/21/2025 02/22/2025 02/23/2025 baclofen (Lioresal) tablet 10 mg 10 mg, Oral, 3 times daily, First dose on Sindy 02/18/25 at 0900, Until Discontinued, Routine 0826 (Given - Provider: Morelia Dukes RN)1601 (Given - Provider: Audrey Pearson RN)2003 (Given - Provider: Don Patricio, FLORENCIA) 0802 (Given - Provider: Tran Packer RN)1618 (Given - Provider: Tran Packer, FLORENCIA)1999 (Given - Provider: Don Patricio RN) 0802 (Given - Provider: Marie Chavez, FLORENCIA)1600 (Canceled Entry - Provider: Automatic Discharge Provider - Comment: Automatically canceled at discontinue of medication order) bisacodyl (Dulcolax) suppository 10 mg 10 mg, Rectal, Daily, First dose on 02/20/25 at 0900, Until Discontinued, Routine 0828 (Not Given - Provider: Morelia Dukes RN - Reason: Patient/family refused) 0802 (Given - Provider: Tran Packer RN) 0801 (Not Given - Provider: Marie Chavez RN - Reason: Patient/family refused) cyclobenzaprine (Flexeril) tablet 5 mg 5 mg, Oral, 3 times daily, First dose on Sat02/20/25 at 0900, Until Discontinued, Routine 08 (Given - Provider: Morelia Dukes RN)1599 (Given - Provider: Audrey Pearson RN)2003 (Given - Provider: Don Patricio RN) 801 (Given - Provider: Tran Packer RN)1617 (Given - Provider: Tran Packer RN)2000 (Given - Provider: Don Patricio RN) 801 (Given - Provider: Marie Chavez, FLORENCIA)1599 (Canceled Entry - Provider: Automatic Discharge Provider - Comment: Automatically canceled at discontinue of medication order) dexamethasone (Decadron) injection 2 mg (CANCELED)(Linked Group 1) 2 mg, Intravenous, Daily, 4 doses, First dose on Sat02/21/25 at 0900, Last dose on Sat02/24/25 at 0900, Routine 08 (Given - Provider: Morelia Dukes RN) 08 (Given - Provider: Tran Packer RN) 08 (Given - Provider: Marie Chavez, FLORENCIA) dexamethasone (Decadron) tablet 2 mg 2 mg, Oral, Daily, 1 dose, First dose on Sat02/24/25 at 0900, Routine enoxaparin (Lovenox) syringe 40 mg 40 mg, Subcutaneous, Daily, First dose on Sat02/17/25 at 1015, Until Discontinued, Routine 08 (Given - Provider: Morelia Dukes RN) 08 (Given - Provider: Tran Packer RN) 08 (Given - Provider: Marie Chavez, FLORENCIA) gabapentin (Neurontin) capsule 300 mg 300 mg, Oral, 3 times daily, First dose on Sat02/16/25 at 1600, Until Discontinued, Routine, Recovery(Phase II-Outpatient)/On Unit(Inpatient) 826 (Given - Provider: Morelia Dukes RN)1599 (Given - Provider: Audrey Pearson RN)2003 (Given - Provider: Don Patricio RN) 801 (Given - Provider: Tran Packer RN)1618 (Given - Provider: Tran Packer RN)2000 (Given - Provider: Don Patricio, FLORENCIA) 0802 (Given - Provider: Marie Chavez, FLORENCIA)1600 (Canceled Entry - Provider: Automatic Discharge Provider - Comment: Automatically canceled at discontinue of medication order) insulin lispro (Admelog) 100 units/mL injection - Correction - Standard Dose 0-5 Units, Subcutaneous, 3 times daily with meals, First dose on Sat02/18/25 at 1230, Until Discontinued, Routine 0832 (Given - Provider: Morelia Dukes RN)1151 (Not Given - Provider: Morelia Dukes, FLORENCIA - Reason: Order parameters not met)1652 (Given - Provider: Audrey Pearson, FLORENCIA) 0753 (Not Given - Provider: Tran Packer RN - Reason: Order parameters not met)1155 (Not Given - Provider: Tran Packer RN - Reason: Order parameters not met)1643 (Not Given - Provider: Tran Packer RN - Reason: Order parameters not met) 0801 (Given - Provider: Marie Chavez, FLORENCIA)1138 (Given - Provider: Marie Chavez, FLORENCIA) insulin lispro (Admelog) injection - Correction - Nighttime Dose 0-3 Units, Subcutaneous, 2 times nightly (2100 & 0300), First dose on Sat02/18/25 at 2100, Until Discontinued, Routine 0324 (Not Given - Provider: Carie Miles - Reason: Order parameters not met)2144 (Not Given - Provider: Don Patricio RN - Reason: Order parameters not met) 0220 (Not Given - Provider: Don Patricio RN - Reason: Order parameters not met)2131 (Not Given - Provider: Don Patricio RN - Reason: Order parameters not met) 0502 (Not Given - Provider: Don Patricio RN - Reason: Order parameters not met) phosphorus (K Phos Neutral) tablet 1 tablet (CANCELED) 1 tablet (250 mg), Oral, 3 times daily, First dose on Sindy 02/18/25 at 1630, Until Discontinued, Routine 0827 (Given - Provider: Morelia Dukes RN)1600 (Given - Provider: Audrey Pearson RN)2004 (Given - Provider: Don Patricio RN) 801 (Given - Provider: Tran Packer RN)161 (Given - Provider: Tran Packer RN)1999 (Given - Provider: Don Patricio RN) polyethylene glycol (Miralax) packet 17 g 17 g, Oral, 2 times daily, First dose on Sat02/17/25 at 0900, Until Discontinued, Routine 0828 (Not Given - Provider: Morelia Dukes RN - Reason: Patient/family refused)2003 (Not Given - Provider: Don Patricio RN - Reason: Patient/family refused) 800 (Given - Provider: Tran Packer RN)1999 (Given - Provider: Don Patricio RN) 800 (Not Given - Provider: Marie Chavez RN - Reason: Patient/family refused) potassium chloride CR (Klor-Con) ER tablet 20 mEq (COMPLETED)(Linked Group 2) 20 mEq, Oral, Once, 1 dose, On Sat02/22/25 at 0915, Routine 0927 (Given - Provider: Tran Packer RN) potassium chloride CR (Klor-Con) ER tablet 40 mEq (COMPLETED)(Linked Group 2) 40 mEq, Oral, Once, 1 dose, On Sat02/22/25 at 0715, Routine 08 (Given - Provider: Tran Packer RN) senna-docusate (Jeimy-Colace) 8.6-50 MG per tablet 2 tablet 2 tablet, Oral, 2 times daily, First dose (after last modification) on Sat02/20/25 at 0900, Until Discontinued, Routine 0826 (Given - Provider: Morelia Dukes RN)2003 (Given - Provider: Don Patricio RN) 801 (Given - Provider: Tran Packer RN)1999 (Given - Provider: Don Patricio RN) 801 (Given - Provider: Marie Chavez, FLORENCIA) sodium chloride 0.9 % flush 10 mL(Linked Group 3) 10 mL, Intravenous, Every 12 hours, First dose on Sat02/16/25 at 1300, Until Discontinued, Routine, Recovery(Phase II-Outpatient)/On Unit(Inpatient) 0002 (Given - Provider: Carie Miles)1431 (Given - Provider: Morelia Dukes RN) 0025 (Given - Provider: Don Patricio, RN)1340 (Given - Provider: Tran Packer, FLORENCIA) 0027 (Given - Provider: Don Patricio, RN)1142 (Given - Provider: Marie Chavez RN) PRN Medication Order 02/21/2025 02/22/2025 02/23/2025 acetaminophen (Tylenol) 160 MG/5ML solution 1,000 mg(Linked Group 4) 1,000 mg, Oral, Every 6 hours PRN, Starting on Sat02/16/25 at 1203, Until Sat02/23/25 at 1619, Routine, mild pain, Recovery(Phase II-Outpatient)/On Unit(Inpatient) 0826 (See Alternative - Provider: Morelia Dukes RN) 0802 (See Alternative - Provider: Tran Packer RN) acetaminophen (Tylenol) suppository 650 mg(Linked Group 4) 650 mg, Rectal, Every 6 hours PRN, Starting on Sat02/16/25 at 1203, Until Sat02/23/25 at 1619, Routine, Recovery(Phase II-Outpatient)/On Unit(Inpatient), mild pain 0826 (See Alternative - Provider: Morelia Dukes RN) 0802 (See Alternative - Provider: Tran Packer RN) acetaminophen (Tylenol) tablet 1,000 mg(Linked Group 4) 1,000 mg, Oral, Every 6 hours PRN, Starting on Sat02/16/25 at 1203, Until Sat02/23/25 at 1619, Routine, Recovery(Phase II-Outpatient)/On Unit(Inpatient), mild pain 0826 (Given - Provider: Morelia Dukes RN) 0802 (Given - Provider: Tran Packer, FLORENCIA) ondansetron (Zofran) injection 4 mg(Linked Group 5) 4 mg, Intravenous, Every 6 hours PRN, Starting on Sat02/16/25 at 1202, Until Sat02/23/25 at 1619, Routine, Recovery(Phase II-Outpatient)/On Unit(Inpatient), nausea, vomiting ondansetron ODT (Zofran-ODT) disintegrating tablet 4 mg(Linked Group 5) 4 mg, Oral, Every 6 hours PRN, Starting on Sat02/16/25 at 1202, Until Sat02/23/25 at 1619, Routine, Recovery(Phase II-Outpatient)/On Unit(Inpatient), nausea, vomiting oxyCODONE (Roxicodone) immediate release tablet 10 mg(Linked Group 6) 10 mg, Oral, Every 6 hours PRN, Starting on Sat02/18/25 at 0904, Until Sat02/23/25 at 1619, Routine, severe pain 0236 (Given - Provider: Carie Miles)0826 (Given - Provider: Morelia Dukes, FLORENCIA)1600 (Given - Provider: Audrey Pearson RN) 0118 (Given - Provider: Don Patricio RN)0802 (Given - Provider: Tran Packer RN)1340 (Given - Provider: Tran Packer, RN)1999 (Given - Provider: Don Patricio RN) 041 (Given - Provider: Don Patriico RN)1007 (Given - Provider: Marie Chavez, FLORENCIA) oxyCODONE (Roxicodone) immediate release tablet 5 mg(Linked Group 6) 5 mg, Oral, Every 6 hours PRN, Starting on Sat02/18/25 at 0904, Until Sat02/23/25 at 1619, Routine, moderate pain 0236 (See Alternative - Provider: Carie Miles)0826 (See Alternative - Provider: Morelia Dukes RN)1600 (See Alternative - Provider: Audrey Pearson RN) 0118 (See Alternative - Provider: Don Patricio RN)0802 (See Alternative - Provider: Tran Packer RN)1340 (See Alternative - Provider: Tran Packer, FLORENCIA)1999 (See Alternative - Provider: Don Patricio RN) 041 (See Alternative - Provider: Don Patricio RN)1007 (See Alternative - Provider: Marie Chavez, FLORENCIA) sodium chloride 0.9 % flush 10 mL(Linked Group 3) 10 mL, Intravenous, As needed, Starting on Sat02/16/25 at 1202, Until Sat02/23/25 at 1619, Routine, Recovery(Phase II-Outpatient)/On Unit(Inpatient), line care Linked Groups Order Group 1: dexamethasone (Decadron) injection 4 mg (COMPLETED) 4 mg, Intravenous, Every 8 hours scheduled, 6 doses, First dose on Sat02/17/25 at 1400, Last dose on Sat02/19/25 at 0600, Routine Followed by dexamethasone (Decadron) injection 2 mg (COMPLETED) 2 mg, Intravenous, 2 times daily, 3 doses, First dose on Sat02/19/25 at 2100, Last dose on Sat02/20/25 at 2100, Routine Followed by dexamethasone (Decadron) injection 2 mg (CANCELED)Jump to med 2 mg, Intravenous, Daily, 4 doses, First dose on Sat02/21/25 at 0900, Last dose on Sat02/24/25 at 0900, Routine Group 2: potassium chloride CR (Klor-Con) ER tablet 40 mEq (COMPLETED)Jump to med 40 mEq, Oral, Once, 1 dose, On Sat02/22/25 at 0715, Routine Followed by potassium chloride CR (Klor-Con) ER tablet 20 mEq (COMPLETED)Jump to med 20 mEq, Oral, Once, 1 dose, On Sat02/22/25 at 0915, Routine Group 3: Insert peripheral IV (CANCELED) Once, On Sat02/16/25 at 1203, For 1 occurrence, Recovery(Phase II-Outpatient)/On Unit(Inpatient) And Saline lock IV (CANCELED) Once, On Sat02/16/25 at 1203, For 1 occurrence, Recovery(Phase II-Outpatient)/On Unit(Inpatient) And sodium chloride 0.9 % flush 10 mLJump to med 10 mL, Intravenous, Every 12 hours, First dose on Sat02/16/25 at 1300, Until Discontinued, Routine, Recovery(Phase II-Outpatient)/On Unit(Inpatient) And sodium chloride 0.9 % flush 10 mLJump to med 10 mL, Intravenous, As needed, Starting on Sat02/16/25 at 1202, Until Sat02/23/25 at 1619, Routine, Recovery(Phase II-Outpatient)/On Unit(Inpatient), line care Group 4: acetaminophen (Tylenol) tablet 1,000 mgJump to med 1,000 mg, Oral, Every 6 hours PRN, Starting on Sat02/16/25 at 1203, Until Sat02/23/25 at 1619, Routine, Recovery(Phase II-Outpatient)/On Unit(Inpatient), mild pain Or acetaminophen (Tylenol) 160 MG/5ML solution 1,000 mgJump to med 1,000 mg, Oral, Every 6 hours PRN, Starting on Sat02/16/25 at 1203, Until Sat02/23/25 at 1619, Routine, mild pain, Recovery(Phase II-Outpatient)/On Unit(Inpatient) Or acetaminophen (Tylenol) suppository 650 mgJump to med 650 mg, Rectal, Every 6 hours PRN, Starting on Sat02/16/25 at 1203, Until Sat02/23/25 at 1619, Routine, Recovery(Phase II-Outpatient)/On Unit(Inpatient), mild pain Group 5: ondansetron ODT (Zofran-ODT) disintegrating tablet 4 mgJump to med 4 mg, Oral, Every 6 hours PRN, Starting on Sat02/16/25 at 1202, Until Sat02/23/25 at 1619, Routine, Recovery(Phase II-Outpatient)/On Unit(Inpatient), nausea, vomiting Or ondansetron (Zofran) injection 4 mgJump to med 4 mg, Intravenous, Every 6 hours PRN, Starting on Sat02/16/25 at 1202, Until Sat02/23/25 at 1619, Routine, Recovery(Phase II-Outpatient)/On Unit(Inpatient), nausea, vomiting Group 6: oxyCODONE (Roxicodone) immediate release tablet 5 mgJump to med 5 mg, Oral, Every 6 hours PRN, Starting on Sindy 02/18/25 at 0904, Until Sat02/23/25 at 1619, Routine, moderate pain Or oxyCODONE (Roxicodone) immediate release tablet 10 mgJump to med 10 mg, Oral, Every 6 hours PRN, Starting on Sindy 02/18/25 at 0904, Until Sat02/23/25 at 1619, Routine, severe pain documented in this encounter Additional Health Concerns Assessment Noted Time A fall risk assessment has been complete d for the patient 01/28/2025 2:22 PM EDT A Body Mass Index follow-up plan has been documented for the patient 02/23/2025 12:26 PM EDT documented as of this encounter Care Teams Tool Setter Apprentice Relationship Specialty Start Date End Date Sheila Ashraf APRN [address] [place], [place] [id number] PCP - General 12/28/24 Jeremy Ramirez MD [address] [place] [address] Surgeon Neurosurgery 01/08/25 Marisol Allen APRN [address] [place] [address] Nurse Practitioner 01/28/25 documented as of this encounter
--- OUTSIDE RECORDS SUMMARY | 2025-02-16 07:27 | XMS_ITS | Encounter Summary ---
Author Organization [facility] Address [address] [place] [address] Care Team Providers Care Data Warehousing Specialist Name Role Phone Sheila Ashraf BUS AND TROLLEY INSPECTING DISPATCHER Primary Care Provider [phone] Jeremy Ramirez MD Unavailable [phone] Marisol Allen BUS AND TROLLEY INSPECTING DISPATCHER Unavailable [phone] Reason for Visit * Auth/Cert (Routine) Specialty Diagnoses / Procedures Referred By Cachorro machado Referred To Contact Diagnoses Cervical myelopathy (CMS/HCC) Cervical myelopathy ([facility]) [G95.9] Procedures VA ARTHRODESIS POSTERIOR/POSTERIORLATERAL CERVICAL BELOW C2 VA ARTHRODESIS ANT INTERBODY INC DISCECTOMY, CERVICAL BELOW C2 VA ARTHRODESIS ANT INTERBODY INC DISCECTOMY, CERVICAL BELOW C2 EACH ADDL VA ARTHRODESIS ANT INTERBODY INC DISCECTOMY, CERVICAL BELOW C2 EACH ADDL VA ANTERIOR INSTRUMENTATION 4-7 VERTEBRAL SEGMENTS VA INSJ BIOMCHN DEV INTERVERTEBRAL DSC SPC W/ARTHRD VA INSJ BIOMCHN DEV INTERVERTEBRAL DSC SPC W/ARTHRD VA INSJ BIOMCHN DEV INTERVERTEBRAL DSC SPC W/ARTHRD VA INSJ BIOMCHN DEV INTERVERTEBRAL DSC SPC W/ARTHRD VA ARTHRODESIS POSTERIOR/POSTERIORLATERAL CERVICAL BELOW C2 VA ARTHRODESIS POSTERIOR/POSTEROLATERAL EA ADDL VA ARTHRODESIS POSTERIOR/POSTEROLATERAL EA ADDL VA ARTHRODESIS POSTERIOR/POSTEROLATERAL EA ADDL VA LAMINECTOMY,>2 SGMT,CERVICAL VA POSTERIOR SEGMENTAL INSTRUMENTATION 3-6 VRT SEG VA AUTOGRAFT SPINE SURGERY LOCAL FROM SAME INCISION VA ALLOGRAFT FOR SPINE SURGERY ONLY MORSELIZED C3-7 PCF, w IONM Jeremy Ramirez MD [address] [facility] [address] [place] [address] Phone: tel: fax: [facility] [address] [place] [address] Phone: tel: Referral ID Status Reason Start Date Expiration Date Visits Re quested Visits Authorized [id number] 1 9 Encounter Details Date Type Department Care Team (Late st Contact Info) Description 02/16/2025 7:27 AM EDT Anesthesia Event [facility] [address] [place] [address] Franck Omer MD [address] [place] [address] Chester Nazario CRNA [address] [place] [address] Anesthesia Record Procedure Summary Procedure Name Responsible [...] acknowledgement of understanding. 1216 An Stop Meds Name Total fentaNYL (Sublimaze) injection 50 mcg/mL 250 mcg midazolam (Versed) injection 1 mg/mL 2 m g ondansetron (Zofran) injection 2 mg/mL 4 mg dexamethasone (Decadron) injection 4 mg/ mL 8 mg succinylcholine (Anectine) injection 20 mg/mL 120 mg rocuronium (ZeMuron) injection 10 mg/mL 10 mg lidocaine PF (Xylocaine-MPF) 2% 100 mg propofol (Diprivan) injection 10 mg/mL 2 00 mg propofol (Diprivan) infusion 10 mg/mL 2, 563.1 mg ceFAZolin (Ancef) IV syringe 100 mg/mL 2 g dexmedetomidine (Precedex) infusion in N aCl 4 mcg/mL 24 mcg HYDROmorphone 1 MG/ML 1 mg phenylephrine in 0.9% NaCl infusion 100 mcg/mL 1.85 mg ketorolac (Toradol) injection 30 mg/mL 3 0 mg lactated Ringer's infusion 250 mL sodium chloride 0.9 % infusion 1,400 mL * Agents Name O2 N2O Air Sevoflurane Isoflurane Desflurane Inspired Desflurane Inspired Isoflurane Inspired Sevoflurane N2O Inspired N2O * Blood No blood administrations on file. [...] None; Technique: Anatomical landmarks; Inserted by: Vicky CADENA RN; Insertion Attempts: 1; Patient Tolerance: Tolerated well; Removal Date: 02/22/25; Removal Time: 0852 02/16/25 0630 by Migdalia Cadena RN 02/22/25 0852 by Tran Packer RN [...] Returned: Yes; Removal Date: 02/17/25; Removal Time: 1834; Removal Reason: Per order 02/16/25 0800 by [...] money to buy more. Never true 02/18/20 Within the past 12 months, t he [...] any time in the past 12 m [facility], were you homeless or living in a chcf (including now)? No 02/17/2025 CAGE ASSESSMENT Answer [...] drink first t mt in the morning (EYE-SACK MAKER) to steady your nerves or to get [...] AM EDT documented as of this encounter Miscellaneous Notes * Anesthesia Procedure Notes - Chester Nazario CRNA - 02/16/2025 1:56 PM EDT Associated Order(s): Arterial Line Arterial Line: Date/Time: 02/16/2025 7:50 AM An arterial line was placed. Procedure performed using ultrasound guidance in the OR for the following indication(s): continuousblood pressure monitoring. A 20 gauge (size), 1 and 3/4 inch (length), Arrow (type) catheter was placed into the Left radial artery and secured by tape. Seldinger technique used Staffing Performed: FORMAT PROOFREADER FORMAT PROOFREADER: Chester Nazario CRNA * Anesthesia Postprocedure Evaluation - Chester Nazario CRNA - 02/16/2025 12:15 PM EDT Patient: Hyacinth Marin Anesthesia Type: general Vitals Value Taken Time BP 131/83 02/16/25 12:15 Temp 97.9 02/16/25 12:15 Pulse 81 02/16/25 12:14 Resp 19 02/16/25 12:14 SpO2 99 % 02/16/25 12:14 Vitals shown include unfiled device data. Anesthesia Post Evaluation Patient location during evaluation: PACU Patient participation: complete - patient participated Level of consciousness: awake Pain management: adequate (pain score 0-3) Airway patency: natural airway Cardiovascular status: acceptable and hemodynamically stable Respiratory status: acceptable and blow-by oxygen Hydration status: acceptable Nausea/Vomiting: No No notable events documented. * Anesthesia Preprocedure Evaluation - Franck Omer MD - 02/16/2025 8:36 AM EDT Anesthesiologist: Franck Omer MD FORMAT PROOFREADER: Chester Nazario CRNA Patient: Hyacinth Marin HPI Hyacinth Marin is a 45 y.o. female with body mass index is unknown because there is no height or weight on file. who presents with Cervical myelopathy (CMS/HCC), now for C3-7 PCF, w IONM (N/A) Procedure Information Anesthesia Start Date/Time: 02/16/25726 Procedure: C3-7 PCF, w IONM (Spine Cervical) [facility] [address] [place] [address] OR Surgeons: Jeremy Ramirez MD Relevant Problems No relevant active problems ALLERGIES Allergies[1] NPO STATUS Date of Last Liquid: 02/16/25 Time of Last Liquid: 329 Date of Last Solid: 02/15/25 Time of Last Solid: 2199 Last Intake Type: Clear fluids Time of Last Void: 0650 Past Medical History[2] AIRWAY HISTORY Airway Detailed Review Displaying the 20 most recent records No records found. MEDICATIONS Outpatient Current Outpatient Medications Medication Instructions albuterol 108 (90 Base) MCG/ACT inhaler inhale two puffs by mouth every 4 hours as needed BIOTIN PO Daily celecoxib (CeleBREX) 200 MG capsule Take by mouth daily. Cholecalciferol (VITAMIN D-3 PO) Daily citalopram (CeleXA) 20 MG tablet TAKE ONE TABLET BY MOUTH EVERY MORNING FOR ANXIETY lidocaine (Lidoderm) 5 % patch 1 patch, Apply externally, Daily, Remove & discard patch within 12 hours or as directed by MD. loratadine (CLARITIN) 10 mg, Daily PRN methocarbamol (ROBAXIN) 500 mg, Oral, 4 times daily PRN SPIRONOLACTONE PO Daily Scheduled Current Scheduled Medications[3] PRNs Current PRN Medications[4] SURGICAL HX: Surgical History[5] SOCIAL HX: Social History[6] OBJECTIVE DATA LABS Lab Results Component Value Date WBC 11.35 (H) 01/28/2025 HGB 10.9 (L) 01/28/2025 HCT 33.7 (L) 01/28/2025 MCV 92 01/28/2025 PLT 195 01/28/2025 Lab Results Component Value Date CALCIUM 9.1 01/28/2025 BUN 8 01/28/2025 CREATININE 0.53 (L) 01/28/2025 BCR 15 01/28/2025 NA 140 01/28/2025 K 3.6 01/28/2025 CL 100 01/28/2025 CO2 28 01/28/2025 Type and Screen ABO/Rh Date Value Ref Range Status 02/16/2025 O Positive Final No results found for: HGBA1C Lab Results Component Value Date GLUCOSE 91 01/28/2025 ABG No results found for: PHART , CNG5HZX , PO2ART , SO2ART , BEART , PAL6DON , HCTART , SODIUMART , POTASSIUMART , POCTCL , POCGLU , IONCALART , LACTATE No results found for: PH , PCO2 , PO2 , R3EBDAUZ , BASEEXC , HCTSYR , KSYR , CLSYR , GLUSYR , CAION , LACTATE ECHO No echocardiogram results found for the past 12 months PFTs No results found for: ZNM8QGW , YQL5QDXC , BKF9YNP , FVCPRED BP Readings from Last 5 Encounters: 02/16/25 (!) 155/95 01/28/25 132/82 01/08/25 (!) 144/88 12/29/24 (!) 141/82 Physical Exam Airway Mallampati: II Cardiovascular Rhythm: regular Rate: normal Dental Pulmonary Breath sounds clear to auscultation Neurological Skin Musculoskeletal Extremities Anesthesia Plan ASA 2 Plan was reviewed with: FORMAT PROOFREADER Anesthesia technique(s) discussed with the patient/family: general Anesthesia plan agreed upon was: general Anesthetic plan and risks discussed with patient. Use of blood products discussed with patient who. Anesthesia Evaluation [1] Allergies Allergen Reactions Penicillins Rash Sulfa Drugs Rash [2] Past Medical History: Diagnosis Date Anxiety Neuromuscular disorder (CMS/HCC) [3] Insert peripheral IV, , , Once AND Saline lock IV, , , Once AND sodium chloride, 10 mL,Intravenous, q12h AND sodium chloride, 10 mL, Intravenous, PRN [4] PRN medications: Insert peripheral IV AND Saline lock IV AND sodium chloride AND sodium chloride [5] Past Surgical History: Procedure Laterality Date SECTION, CLASSIC ESOPHAGOSCOPY / EGD with dilation WISDOM TOOTH EXTRACTION [6] Social History Tobacco Use Smoking status: Some Days Current packs/day: 0.25 Average packs/day: 0.3 packs/day for 30.6 years (7.7 ttl pk-yrs) Types: Cigarettes Start date: 07/1994 Smokeless tobacco: Never Vaping Use Vaping status: Every Day Substances: Nicotine Devices: Disposable Substance Use Topics Alcohol use: Not Currently Comment: rare Drug use: Not Currently * Anesthesia Procedure Notes - Chester Nazario CRNA - 02/16/2025 7:52 AM EDT Associated Order(s): Airway Airway Date/Time: 02/16/2025 7:39 AM Reason: elective Airway not difficult General Information and Staff Patient location during procedure: OR Anesthesiologist: Franck Omer MD FORMAT PROOFREADER: Chester Nazario CRNA Performed: FORMAT PROOFREADER Patient Condition Indications for airway management: anesthesia MILS maintained throughout Final Airway Details Final airway type: endotracheal airway Successful airway: ETT Cuffed: yes Successful intubation technique: video laryngoscopy Adjuncts used in placement: intubating stylet Endotracheal tube insertion site: oral Blade: Rajesh Blade size: #3 ETT size (mm): 7.0 Cormack-Lehane Classification: grade I - full view of glottis Placement verified by: chest auscultation and capnometry Cuff volume (mL): 7 Measured from: lips ETT to lips (cm): 21 documented in this encounter Plan of Treatment Upcoming Encounters Date Type Department Care Team (Late st Contact Info) Description 04/02/2025 1:20 PM EDT Office Visit [place] [facility] [address] [place] [address] Jeremy Ramirez MD [address] [place] [address] documented as of this encounter Procedures Procedure Name Priority Date/Time Associated Diagnosis Comments PB ANESTHESIA NON-TIMED PROCEDURE PLACEHOLDER Routine 02/16/2025 7:50 AM EDT PB ANESTHESIA PLACEHOLDER Routine 02/16/2025 7:39 AM EDT VA AN ELECTIVE ENDOTRACHEAL AIRWAY Routine 02/16/2025 7:39 AM EDT documented in this encounter Results * PB ANESTHESIA NON-TIMED PROCEDURE PLACEHOLDER (02/16/2025 7:50 AM EDT) Narrative Chester Nazario CRNA - 02/16/2025 7:50 AM EDT Chester Nazario CRNA 02/16/2025 1:57 PM Arterial Line: Date/Time: 02/16/2025 7:50 AM An arterial line was placed. Procedure performed using ultrasound guidance in the OR for the following indication(s): continuous blood pressure monitoring. A 20 gauge (size), 1 and 3/4 inch (length), Arrow (type) catheter was placed into the Left radial artery and secured by tape. Seldinger technique used Staffing Performed: GLENIS FORMAT PROOFREADER: Chester Nazario CRNA Franck Omer MD ANESTHESIA ORDERABLES Final Re sult * VA AN ELECTIVE ENDOTRACHEAL AIRWAY, PB ANESTHESIA PLACEHOLDER (02/16/2025 7:39 AM EDT) Narrative Chester Nazario CRNA - 02/16/2025 7:39 AM EDT Chestre Nazario CRNA 02/16/2025 7:53 AM Airway Date/Time: 02/16/2025 7:39 AM Reason: elective Airway not difficult General Information and Staff Patient location during procedure: OR Anesthesiologist: Franck Omer MD FORMAT PROOFREADER: Chester Nazario CRNA Performed: GLENIS Patient Condition Indications for airway management: anesthesia MILS maintained throughout Final Airway Details Final airway type: endotracheal airway Successful airway: ETT Cuffed: yes Successful intubation technique: video laryngoscopy Adjuncts used in placement: intubating stylet Endotracheal tube insertion site: oral Blade: Rajesh Blade size: #3 ETT size (mm): 7.0 Cormack-Lehane Classification: grade I - full view of glottis Placement verified by: chest auscultation and capnometry Cuff volume (mL): 7 Measured from: lips ETT to lips (cm): 21 Franck Omer MD ANESTHESIA ORDERABLES Final Re sult documented in this encounter Visit Diagnoses Not on filedocumented in this encounter Administered Medications Inactive Administered Medications - up to 3 most recent administrations Medication Order MAR Action Action Date Dose Rate Site ceFAZolin (Ancef) IV syringe Intravenous, As needed, Starting on Sat02/16/25 at 0800, Until Sat02/16/25 at 1216, Administer over 30 Minutes, Routine Given 02/16/2025 8:15 AM EDT 2 g dexamethasone (Decadron) injection Intravenous, As needed, Starting on Sat02/16/25 at 0745, Until Sat02/16/25 at 1216, Routine, Anesthesia Intraprocedure Given 02/16/2025 7:45 AM EDT 8 mg dexmedetomidine in NS (Precedex) 4 mcg/mL infusion Intravenous, As needed, Starting on Sat02/16/25 at 0727, Until Sat02/16/25 at 1216, Routine Given 02/16/2025 8:51 AM EDT 8 mcg Given 02/16/2025 8:30 AM EDT 8 mcg Given 02/16/2025 7:27 AM EDT 8 mcg fentaNYL (Sublimaze) injection Intravenous, As needed, Starting on Sat02/16/25 at 0737, Until Sat02/16/25 at 1216, Routine, Anesthesia Intraprocedure Given 02/16/2025 12:16 PM EDT 50 mcg Given 02/16/2025 8:08 AM EDT 150 mcg Given 02/16/2025 7:37 AM EDT 50 mcg HYDROmorphone (Dilaudid) injection Intravenous, As needed, Starting on Sat02/16/25 at 0851, Until Sat02/16/25 at 1216, Routine, Anesthesia Intraprocedure Given 02/16/2025 8:51 AM EDT 1 mg ketorolac (Toradol) injection Intravenous, As needed, Starting on Sat02/16/25 at 1149, Until Sat02/16/25 at 1216, Routine, Anesthesia Intraprocedure Given 02/16/2025 11:49 AM EDT 30 mg lactated Ringer's infusion Intravenous, Continuous PRN, Starting on Sat02/16/25 at 0727, Until Sat02/16/25 at 1216, Routine New Bag 02/16/2025 7:27 AM EDT lidocaine PF (Xylocaine) 2 % injection Intravenous, As needed, Starting on Sat02/16/25 at 0737, Until Sat02/16/25 at 1216, Routine, Anesthesia Intraprocedure Given 02/16/2025 7:37 AM EDT 100 mg midazolam (Versed) injection Intravenous, As needed, Starting on Sat02/16/25 at 0727, Until Sat02/16/25 at 1216, Routine, Anesthesia Intraprocedure Given 02/16/2025 7:27 AM EDT 2 mg ondansetron (Zofran) injection Intravenous, As needed, Starting on Sat02/16/25 at 0745, Until Sat02/16/25 at 121, Routine, Anesthesia Intraprocedure Given 02/16/2025 7:45 AM EDT 4 mg phenylephrine 25 mg in NS 250 mL (0.1 mg/mL) infusion (compounding pharmacy premix) Intravenous, Continuous PRN, Starting on Sat02/16/25 at 0911, Until Sat02/16/25 at 1216, Routine, Anesthesia Intraprocedure Rate/Dose Change 02/16/2025 10:19 AM EDT 0.1 mcg/kg/min 4.26 mL/hr Rate/Dose Change 02/16/2025 9:18 AM EDT 0.2 mcg/kg/min 8.5 2 mL/hr New Bag 02/16/2025 9:11 AM EDT 0.3 mcg/kg/min 12.78 mL/ hr propofol (Diprivan) infusion 10 mg/mL Intravenous, Continuous PRN, Starting on Sat02/16/25 at 0755, Until Sat02/16/25 at 1216, Routine Rate/Dose Change 02/16/2025 10:59 AM EDT 50 mcg/kg/min 21.3 mL/hr Rate/Dose Change 02/16/2025 9:09 AM EDT 180 mcg/kg/min 76. 68 mL/hr Rate/Dose Change 02/16/2025 8:00 AM EDT 200 mcg/kg/min 85. 2 mL/hr propofol (Diprivan) injection Intravenous, As needed, Starting on Sat25 at 0737, Until 02/16/25 at 1216, Routine, Anesthesia Intraprocedure Given 02/16/2025 8:15 AM EDT 50 mg Given 02/16/2025 7:37 AM EDT 150 mg rocuronium (ZeMuron) injection Intravenous, As needed, Starting on 02/16/25 at 0737, Until 02/16/25 at 1216, Routine, Anesthesia Intraprocedure Given 02/16/2025 7:37 AM EDT 10 mg sodium chloride 0.9 % infusion Intravenous, Continuous PRN, Starting on e 02/16/25 at 0820, Until 02/16/25 at 1216, Routine New Bag 02/16/2025 8:20 AM EDT succinylcholine (Anectine) injection Intravenous, As needed, Starting on Sat02/16/25 at 0737, Until e 02/16/25 at 1216, Routine, Anesthesia Intraprocedure Given 02/16/2025 7:37 AM EDT 120 mg documented in this encounter Additional Health Concerns Assessment Noted Time A fall risk assessment has been complete d for the patient 01/28/2025 2:22 PM EDT A Body Mass Index follow-up plan has been documented for the patient 02/23/2025 12:26 PM EDT documented as of this encounter Care Teams Data Warehousing Specialist Relationship Specialty Start Date End Date Sheila Ashraf APRN [address] [place] [address] PCP - General 12/28/24 Jeremy Ramirez MD [address] [address] Surgeon Neurosurgery 01/08/25 Marisol Allen APRN [address] [address] Nurse Practitioner 01/28/25 documented as of this encounter
--- OUTSIDE RECORDS SUMMARY | 2025-02-16 07:30 | XMS_ITS | Encounter Summary ---
Author Organization [facility] Address [address] [place] [address] Care Team Providers Care Assistant Facility Manager Name Role Phone Sheila Ashraf PROFESSOR OF ART HISTORY Primary Care Provider [phone] Jeremy Ramirez MD Unavailable [phone] Marisol Allen PROFESSOR OF ART HISTORY Unavailable [phone] Reason for Visit * Auth/Cert (Routine) Specialty Diagnoses / Procedures Referred By Cachorro machado Referred To Contact Diagnoses Cervical myelopathy (CMS/HCC) Cervical myelopathy ([facility]) [G95.9] Procedures MS ARTHRODESIS POSTERIOR/POSTERIORLATERAL CERVICAL BELOW C2 MS ARTHRODESIS ANT INTERBODY INC DISCECTOMY, CERVICAL BELOW C2 MS ARTHRODESIS ANT INTERBODY INC DISCECTOMY, CERVICAL BELOW C2 EACH ADDL MS ARTHRODESIS ANT INTERBODY INC DISCECTOMY, CERVICAL BELOW C2 EACH ADDL MS ANTERIOR INSTRUMENTATION 4-7 VERTEBRAL SEGMENTS MS INSJ BIOMCHN DEV INTERVERTEBRAL DSC SPC W/ARTHRD MS INSJ BIOMCHN DEV INTERVERTEBRAL DSC SPC W/ARTHRD MS INSJ BIOMCHN DEV INTERVERTEBRAL DSC SPC W/ARTHRD MS INSJ BIOMCHN DEV INTERVERTEBRAL DSC SPC W/ARTHRD MS ARTHRODESIS POSTERIOR/POSTERIORLATERAL CERVICAL BELOW C2 MS ARTHRODESIS POSTERIOR/POSTEROLATERAL EA ADDL MS ARTHRODESIS POSTERIOR/POSTEROLATERAL EA ADDL MS ARTHRODESIS POSTERIOR/POSTEROLATERAL EA ADDL MS LAMINECTOMY,>2 SGMT,CERVICAL MS POSTERIOR SEGMENTAL INSTRUMENTATION 3-6 VRT SEG MS AUTOGRAFT SPINE SURGERY LOCAL FROM SAME INCISION MS ALLOGRAFT FOR SPINE SURGERY ONLY MORSELIZED C3-7 PCF, w IONM Jeremy Ramirez MD [address] [facility] [address] [place] [address] Phone: tel: fax: [facility] [address] [place] [address] Phone: tel: Referral ID Status Reason Start Date Expiration Date Visits Re quested Visits Authorized [id number] 1 9 Encounter Details Date Type Department Care Team (Late st Contact Info) Description 02/16/2025 7:30 AM EDT - 02/16/2025 1:10 PM EDT Surgery [facility] [address] [place] [address] Jeremy Ramirez MD [address] [facility] [address] [place] [address] C3-7 PCF, w IONM [47022 (CPT )] Surgery Details Date/Time Status Location OR Service Patient Class Case Class Case Type Trauma Case? 02/16/2025 7:30 AM Posted [facility] OR Neurosurgery Surgery Admit E-Electi ve Panel 1 Procedure LRB Anes Op Region Wound Class Comments C3-7 PCF, w IONM N/A General Spine Cervical Class I/ Clean Surgeon Surgeon Role Service Panel Ashvin Magana MD Resident - Assisting 1 Jeremy Ramirez MD Primary Neurosurgery 1 documented in this encounter Social History Tobacco [...] time in the past 12 m [facility], were you homeless or living in a care home (including now)? 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 0 02/17/2025 CAGE Questionnaire Score 0 025 Utilities Answer Date Recorded In the past 12 months has th e Wine in [employer], gas, oil, or water company threatened to [...] Sign Reading Time Taken Comments Blood Pressure 144/88 02/16/2025 1:00 PM EDT Pulse 97 02/16/2025 1:00 PM EDT Temperature 36.6 C (97.9 F) 02/16/2025 12:13 PM EDT Respiratory Rate 17 02/16/2025 1:00 PM EDT Oxygen Saturation 95% 02/16/2025 1:00 PM EDT Inhaled Oxygen Concentration - - Weight - - Height - - Body Mass Index - - documented in this encounter Medications at Time of Discharge [...] 12 hours or as directed by . 14 patch 5 loratadine (Claritin) 10 MG [...] Actions taken: Charge Capture section accepted * Matthew Olivarez - Marie Chavez RN - 02/23/2025 12:14 PM EDT Images from the original note were not included. [id number] Cervical Spinal Stenosis: Care Instructions Overview Spinal [...] your doctor if you can take an fjbu-fnw-djzqvdc pain medicine, such as acetaminophen (Tylenol), ibuprofen [...] this instruction, always ask your healthcare professional. [employer] disclaims any warranty or liability for your use of this information. ?? [id number] [employer]. * Progress Notes - Enzo Rome RN - 02/23/2025 12:13 PM EDT Case Management Discharge Note Hyacinth Marin 45 y.o. female CSN: [id number] Admission: 02/16/2025 5:50 AM Primary Problem: Cervical myelopathy (CMS/[facility]) Primary Anesthetic Assistant: Primary Caregiver: Self Assistance Available at Discharge: [...] days Follow-up: Primary care provider (PCP) Sheila Ashraf APRN [address] [place] [address] Department: You will need to follow up with Marisol Allen APRN on 03/03/2025 at 12 pm in the [facility]. Discharge Transportation: Transportation Anticipated: medical transport Transportation Home at Discharge: Medical Transport Has discharge transport been arranged?: Yes What day is the transport expected?: 02/23/25 What time is the transport expected?: 1445 Follow Up Transport: Transportation Needed to Follow up Appoinments: Family/Friend will Provide Additional Comments: POC reviewed with team and pt is medically ready to discharge. Pt has been accepted at [facility] and will transport there via [facility] shuttle at 1445. Bedside nurse and pt notified. Report can be called to [phone]. CM will fax dc summary to [phone]. No other CM needs identified. Enzo Rome, RN * Discharge Summary - Brad Deshpande APRN - 02/23/2025 10:48 AM EDT Images from the original note were not included. Hospitalization Admit Date/Time: 02/16/2025 5:50 AM Admitting Attending: Jeremy Ramirez Discharge Date: 02/23/2025 Discharge Attending Physician: Jeremy Ramirez MD PCP name and Address: Sheila Ashraf, [facility] [facility] / [place] [address] Referring provider name and address: No referring provider defined for this encounter. Chief Concern, Brief History of Present Illness, and Hospital Course Hyacinth Marin is a 45 y.o. female who presented to the [facility] on 02/16/2025 to undergo a scheduled C3-C7 posterior cervical fusion with Dr. Ramirez. Patient has been seen in the neurosurgery clinic for numbness and progressive weakness of the bilateral upper extremities with balance/gait instability. She was found to have severe stenosis in the cervical spine concerning for cervical myelopathy progression. MJ OA at last visit. She had attempted physical [...] PT/OT due to lethargy from pain medications. TATTOO DESIGNER discussed that patient's pain seems to bebetter controlled and that she has been participating with the therapist in the hospital. TATTOO DESIGNER also explained that patient would benefit from [...] hours or as directed by . 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 RUE: 5/5 5/5 4/5 4/5 LUE: 5/5 5/5 5/5 5/5 HF KE DF PF RLE: 5/5 5/5 1/5 2/5 LLE: 5/5 5/5 5/5 5/5 Barely wiggles few toes on the right foot Discharge Disposition/Condition Disposition: [facility] Condition: Stable (s/sx potential problems absent or [...] Ongoing, Progressing Flowsheets (Taken 02/23/2025812 by Marie Chavez RN) Patient/Family-Specific Goals (Include Timeframe): patients pain [...] Identify and Manage Contributors Flowsheets (Taken 02/23/2025 0907) Medication Review/Management: medications reviewed high-risk medications identified Self-Care Promotion: independence encouraged BADL personal objects within reach BADL personal routines maintained Problem: Skin Injury Risk Increased Goal: Skin Health and Integrity Outcome: Ongoing, Progressing Intervention: Optimize Skin Protection Flowsheets (Taken 02/23/2025 0907) Activity Management: activity adjusted per tolerance activity [...] Review Outcome: Ongoing, Progressing Flowsheets Taken 02/23/2025 0817 by Marie Chavez RN Progress: no change [...] Intervention: Prevent or Manage Pain Flowsheets Taken 02/23/2025457 by Don Patricio, ux visual designer Interventions: emotional support Taken 02/22/20252208 by Don Patricio RN Diversional Activities: television Goal: Nausea and Vomiting Relief Outcome: Ongoing, Progressing Goal: Effective Urinary Elimination Outcome: Ongoing, Progressing Goal: Effective Oxygenation and Ventilation Outcome: Ongoing, Progressing Problem: Infection Goal: Absence of Infection Signs and Symptoms Outcome: Ongoing, Progressing Intervention: Prevent or Manage Infection Flowsheets Taken 02/23/2025812 by Marie Chavez RN Isolation Precautions: precautions maintained Taken 02/22/20252208 by Don Patricio RN Infection Management: aseptic technique maintained Fever Reduction/Comfort Measures: lightweight bedding Problem: Fall Injury Risk Goal: Absence of Fall and Fall-Related Injury Outcome: Ongoing, Progressing Intervention: Promote Injury-Free Environment Flowsheets (Taken 02/22/20252208 by Don Patricio RN) Safety Promotion/Fall Prevention: activity supervised Problem: Skin Injury Risk Increased Goal: Skin Health and Integrity Outcome: Ongoing, Progressing Intervention: Promote and Optimize Oral Intake Flowsheets (Taken 02/22/20252208 by Don Patricio RN) Oral Nutrition Promotion: adaptive equipment use [...] 3:28 PM EDT Associated Problem(s): Cervical myelopathy (CMS/HCC) - 02/16 s/p C3-7 PCF (*lost motors) [...] Recommend acute rehab. Has been referred to [facility]. * Assessment & Plan Note - Brad [...] Recommend acute rehab. Has been referred to [facility]. * Assessment & Plan Note - Brad [...] Recommend acute rehab. Has been referred to [facility]. * Assessment & Plan Note - Brad [...] Recommend acute rehab. Has been referred to [facility]. * Assessment & Plan Note - Brad [...] Recommend acute rehab. Has been referred to [facility]. * Assessment & Plan Note - Brad [...] session. Participants in Care Family/Caregiver Present: No Medicaid Analyst: Not Applicable Presentation Oxygen Therapy: None (Room [...] RUE function. Pt was able to maintain lopper. OT provided proximal support for the oeee-ysglv-ggucdvypz and ptable to bring toothbrush to mouth [...] (8ft) as preparatory for commodetransfer. OT provided VOCATIONAL NURSE LVN on L side; PT positioned on R. [...] transition. Bed Mobility Exam: Rolling/Turning Level of [place]: Minimum assist (75% patient effort) (rolling right) Physical/Nonphysical Assist: Verbal Cues, Additional assist utilized for safety Assistive Device: Bed rails Bed Mobility Exam: Scooting/Bridging Level of [place]: Minimum assist (75% patient's effort) Physical/Nonphysical Assist: Verbal Cues, Additional assist utilized for safety Assistive Device: Bed rails Bed Mobility Exam: Supine to Sit Level of [place]: Moderate assist (50% patient's effort) Physical/Nonphysical Assist: Verbal Cues, Additional assist utilized for safety Assistive Device: Bed rails Bed Mobility Exam: Sit to Supine Level of [place]: Maximum assist (25% patient's effort) Physical/Nonphysical Assist: Verbal Cues, Additional assist utilized for safety Assistive Device: Bed rails Transfers See Self-Care section for details on OT transfer interventions. Transfer Interventions: Transfer to chair deferred since pt had recently returned to bed. RN endorsed that pt sat up in chair for most of the morning Transfer Exam: Sit to stand Level of [place]: Minimum assist (75% patient's effort) Physical/Nonphysical Assist: Verbal Cues, Nonverbal cues (demo/gestures), Additional assist utilized for safety Assistive Device: Hand held assist Transfer Exam: Stand to Sit Level of [place]: Minimum assist (75% patient's effort) Physical/Nonphysical Assist: [...] upper extremity support, Left upper extremity support (VOCATIONAL NURSE LVN) Static Standing-Level of Assistance: Minimum assistance Dynamic Standing Balance Dynamic Standing-Balance Support: Right upper extremity support, Left upper extremity support (VOCATIONAL NURSE LVN) Dynamic Standing-Balance: Lateral weight shifts, Anterior/Posterior weight [...] UE Type: Pre-Fabricated Splinting Education: Fitting, Donning, [place], Wear schedule, Precautions Skin Check: Skin intact [...] shoulder, elbow and wrist strength. Digits and lopper strength still fairly limited. Pt was able to progress with short distance mobility in preparation for commode transfer (8ft) with MOD A 1+1. Despite mild improvement, pt's ADL independence and functional mobility continue to be significantly impacted by pain, RUE/RLE weakness/sensation impairments, impaired balance and activity tolerance. She is independent with ADLs and IADLs at baseline. 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 OT recommends acute rehab [...] Tub/Shower combo Standard Additional Comments Pt on TAILMAN and drowsy today. She admitted having some [...] admission Level of Mobility Ambulatory- community Mobility [place] Independent gait without device History of Falls [...] unaware when pt may be discharged from [facility]. Medicaid Analyst (if applicable) OBJECTIVE & INTERVENTIONS PAIN Pain [...] Treatment Minutes 21 BED MOBILITY Level of [place] Physical/Non- physical Assist Adaptive Equipment Utilized Rolling/ [...] spinal precautions Bed rails TRANSFERS Level of [place] Physical/Non- physical Assist Adaptive Equipment Utilized Sit [...] Posture: Forward head, Stooped posture Level of [place] Balance Support Interventions Static Sit Contact guard [...] pelvis to faciliate movement. AMBULATION Level of [place] Distance Adaptive Equipment Utilized Ambulation Moderate assistance, [...] maximizing muscle contractibility and strength. Standardized Assessments [facility] 6-Clicks Mobility Assessment Difficulty patient has [...] 3-5 steps with a railing?: A lot [facility] 6-Clicks Mobility Assessment Total : 14 [...] weeks PT Goal 2: Pt will demonstrate pfzwlt-xrv-nrbytz transfers with standby assist PT Goal 2 Established Date: 02/17/25 PT Goal 2 Time Frame: 2 weeks PT Goal 3: Pt will perform txg-ysoby-rbz transfers with contact guard assist. PT Goal [...] utilized * Progress Notes - Enma Pitt F - 02/22/2025 10:58 AM EDT Speech Language Pathology TREATMENT NOTE Patient Name: Hyacinth Marin Age: 45 y.o. Today's Date: 02/22/2025 Recommendations: Regular (IDDSI Level 7) diet w/ thin liquids (Level 0). Meds as able. No further VP SITE services indicated. Will sign off at this time. Please re- consult as needed. VP SITE Treatment Area(s): Swallow Treatment Time: 08 minutes [...] (Level 0). Meds as able. No further VP SITE services indicated at this time. Will sign off. Please re-consult if needed. Patient Education was provided via verbal instruction to patient re: d/c. Plan / Recommendations Regular (IDDSI Level 7) diet w/ thin liquids (Level 0). Meds as able. No further VP SITE services indicated. Will sign off at this [...] Center 03/03/2025 12:00 PM Marisol Allen APRN [facility] 04/02/2025 1:20 PM Jeremy Ramirez MD [facility] Mobility Orders Mobility Protocol: General - Mobility [...] tetraplegia - Post-operative pain - initially required TAILMAN; has since been transitioned to PO - [...] We will continue to follow. Please page [phone] with any questions, or resident on-call if [...] as documented. * Progress Notes - Nancy Mora RN - 02/22/2025 10:15 AM EDT POC reviewed with multidisciplinary team, per MD, pt is medically ready to discharge to [facility]. CM asked for updated PT/OT notes and updated [facility]. CM will continue to follow and assist [...] recovery. No questions or concerns. Allie Akers correctional officer chief Nurse Navigator * Assessment & Plan Note - Brad Deshpande APRN - 02/22/2025 6:23 AM EDT Associated Problem(s): Tobacco use - Recommend tobacco cessation prior to discharge. * Progress Notes - Brad Deshpande APRN - 02/22/2025 5:52 AM EDT Images from the original note were not included. Neurosurgery Progress Note Jen Marin is a 45 y.o. female patient [...] to flex or extend her foot for TATTOO DESIGNER and looked as though she had foot drop. However, RN reported that patient was able to wiggle her toes this morning. She has not been up to the chair today. TATTOO DESIGNER discussed the importance of getting out of [...] Sensation intact throughout Strength: Delt Bi Tri Slitting Machine Operator RUE: /5 4/5 4/5 3/5 LUE: / 5/5 5/5 5/5 HF KE DF PF RLE: 11/02 11/02 07/05 07/05 LLE: 11/02 11/02 11/02 11/02 Imaging XR Cervical Spine: Monitoring wires overlie [...] Recommend acute rehab. Has been referred to [facility]. Electrolyte abnormality - hypophosphatemia, hypokalemia - 02/22 [...] with any questions or concerns. Brad Deshpande, DORA, PROFESSOR OF ART HISTORY Advanced Practice Provider Department of Neurosurgery [facility] Medically Ready for Discharge:Ready Now [1] Current [...] 5 mg 5 mg Oral q6h PRN Rommelman, Stevan A Or oxyCODONE (Roxicodone) immediate release tablet 10 mg 10 mg Oral q6h PRN Stevan Mccarthy A 10 mg at 02/22/25 0118 phosphorus (K Phos Neutral) tablet 1 tablet 250 mg Oral TID Leida Marcano APRN, DNP 1 tablet at 02/21/252003 polyethylene glycol (Miralax) [...] PO pain medication - PM&R: (02/18) Recommend VP SITE evaluation and treatment for impaired cognition, word processing, and swallowing Dispo: Acute - VP SITE (02/19): OK to continue Regular (IDDSI Level 7) diet w/ thin liquids (Level 0). Meds as able. VP SITE to f/u for diet tolerance x1. No acute speech/language/cognitive services indicated. - Baclofen 10mg TID - Discontinue Quick catheter - Pain management - PT/OT - IV Dex 4 q8 48 hours total (ordered) - MAPs completed Chace Crain MD Resident Physician, PGY-2 Department of Neurosurgery [facility] [1] Current Facility-Administered Medications Medication Dose Route [...] injection 2 mg 2 mg Intravenous Daily Jreemy Ramirez MD 2 mg at enoxaparin (Lovenox) syringe 40 mg 40 mg Subcutaneous Daily Stevan Mccarthy A 40 mg at 02/21/25825 gabapentin (Neurontin) capsule [...] PRN Stevan Mccarthy A 10 mg at 02/21/25825 phosphorus (K Phos Neutral) tablet 1 tablet 250 mg Oral TID Leida Marcano APRN, DNP 1 tablet at 02/21/25 0827 polyethylene glycol (Miralax) packet 17 g 17 g Oral BID Julio Beasley III, MD 17 g at 02/20/25 0833 senna-docusate (Jeimy-Colace) 8.6-50 MG per tablet 2 tablet 2 tablet Oral BID Omar Theresa Barrett, PROFESSOR OF ART HISTORY 2 tablet at 02/21/25 0826 sodium chloride [...] Review Outcome: Ongoing, Progressing Flowsheets Taken 02/21/2025 09 by Morelia Dukes RN Progress: improving Taken [...] Intake/Output Summary (Last 24 hours) at 02/20/2025 0724 Last data filed at 02/19/2025 1600 Gross per 24 hour Intake 1440 ml Output 40 ml Net 1400 ml Output by Drain (mL) 02/18/25 0700 - 02/18/25 1859 02/18/25 1900 - 02/19/25 0659 02/19/25 0700 - 02/19/25 18502/19/25 1900 - 02/20/25 0659 02/20/25 0700 - 02/20/25 0724 Patient has no LDAs of requested type attached. Physical Exam GCS (EMV): 465 Awake, alert, oriented x3 Follows commands appropriately Speech clear Strength RUE 5552 LUE 5555 RLE 2524 LLE 5555 Assessment and Plan Hyacinth Marni is a 45 y.o. female patient with [...] PO pain medication - PM&R: (02/18) Recommend VP SITE evaluation and treatment for impaired cognition, word processing, and swallowing Dispo: Acute - VP SITE (02/19): OK to continue Regular (IDDSI Level 7) diet w/ thin liquids (Level 0). Meds as able. VP SITE to f/u for diet tolerance x1. No acute speech/language/cognitive services indicated. - Baclofen 10mg TID - Discontinue Quick catheter - Pain management - PT/OT - IV Dex 4 q8 48 hours total (ordered) - MAPs completed Chace Crain MD Resident Physician, PGY-2 Department of Neurosurgery [facility] [1] Current Facility-Administered Medications Medication Dose Route [...] Daily Rommelparveen Stevan A 40 mg at 02/19/25824 gabapentin (Neurontin) [...] for any further needs. Theresa Nelson APRN [phone] * Care Plan - Carie Miles - [...] Care Flowsheets (Taken 02/17/2025 0146 by Micha Abreu, RN) Trust Relationship/Rapport: care explained choices provided [...] PO pain medication - PM&R: (02/18) Recommend VP SITE evaluation and treatment for impaired cognition, word processing, and swallowing Dispo: Acute - VP SITE (02/19): OK to continue Regular (IDDSI Level 7) diet w/ thin liquids (Level 0). Meds as able. VP SITE to f/u for diet tolerance x1. No acute speech/language/cognitive services indicated. - Baclofen 10mg TID - Discontinue Quick catheter - Pain management - PT/OT - MAPs > 85 (#3/3) - IV Dex 4 q8 48 hours total (ordered) Blayne De La Torre MD Resident Physician PGY-1 Department of Neurosurgery [facility] [1] Current Facility-Administered Medications Medication Dose Route [...] Subcutaneous Daily Stevan Mccarthy 40 mg at 02/19/25 0825 gabapentin (Neurontin) capsule 300 mg 300 mg Oral TID Ashvin Mgaana MD 300 mg at 02/19/25 0825 insulin [...] 10 mg Oral q6h PRN Stevan Mccarthy 10 mg at 02/19/25 0825 phosphorus (K Phos Neutral) tablet 1 tablet 250 mg Oral TID Leida Marcano, PROFESSOR OF ART HISTORY, DNP 1 tablet at 02/19/25 0902 polyethylene [...] Tub/Shower combo Standard Additional Comments Pt on TAILMAN and drowsy today. She admitted having some [...] admission Level of Mobility Ambulatory- community Mobility [place] Independent gait without device History of Falls [...] unaware when pt may be discharged from [facility]. Medicaid Analyst (if applicable) Not Applicable OBJECTIVE & INTERVENTIONS PAIN Pain Intensity / Location Pre-Mobility: 09/07 neck/shoulder pain Pain Intensity / Location Post-Mobility: 10/08 neck/shoulder pain Prior to PT's departure: * [...] status. Pt participatedin bed mobility, supine-sit and csj-rbjsp-ipw transfers. They were able to progress to standing pivot transfers twice toward R side. PT provided education to patient regarding frequent movement of R arm using L arm to assist. Verbal and tactile cues given to pt by PT for: postural alignment, weightshifting, improved biomechanics, safety, movement sequence, hand/foot placement, assistive device management, and appropriate activity pacing. BED MOBILITY Level of [place] Physical/Non- physical Assist Adaptive Equipment Utilized Rolling/ Turning Minimum assist (75% patient effort) (rolling right) Verbal Cues, Additional assist utilizedfor safety Bed rail Scooting/ Bridging Moderate assist (50% patient's effort) Verbal Cues, Additional assist utilized for safety Draw sheet Supine to Sit Moderate assist (50% patient's effort) Verbal Cues, Additional assist utilized for safety Bed rail TRANSFERS Level of [place] Physical/Non- physical Assist Adaptive Equipment Utilized Sit [...] Posture: Forward head, Stooped posture Level of [place] Balance Support Activities Static Sit Contact guard [...] flexion stretch x5 reps each. Standardized Assessments [facility] 6-Clicks Mobility Assessment Difficulty patient has [...] climbing 3-5 steps with a railing?: Unable [facility] 6-Clicks Mobility Assessment Total : 13 [...] weeks PT Goal 2: Pt will demonstrate fjemah-ugc-icrxmg transfers with standby assist PT Goal 2 Established Date: 02/17/25 PT Goal 2 Time Frame: 2 weeks PT Goal 3: Pt will perform swy-qctrp-qcc transfers with contact guard assist. PT Goal [...] better Participants in Care Family/Caregiver Present: No Medicaid Analyst: Not Applicable Presentation Oxygen Therapy: None (Room [...] hands for opening package. OT provided gentle tpnn-wvfr-aswb assist to support lopper and pull. Once opened, pt able to [...] and OT provided gentle tactile cues with dfxh-rdkf-kzaa assist to support AAROM. Pt fatigued and [...] transition. Bed Mobility Exam: Rolling/Turning Level of [place]: Minimum assist (75% patient effort) (rolling right) Physical/Nonphysical Assist: Verbal Cues, Additional assist utilized for safety Assistive Device: Bed rails Bed Mobility Exam: Scooting/Bridging Level of [place]: Moderate assist (50% patient's effort) Physical/Nonphysical Assist: Verbal Cues, Additional assist utilized for safety Assistive Device: Other (drawsheet) Bed Mobility Exam: Supine to Sit Level of [place]: Moderate assist (50% patient's effort) Physical/Nonphysical Assist: Verbal Cues, Additional assist utilized for safety Assistive Device: Bed rails Transfers See Self-Care section for details on OT transfer interventions. Transfer Exam: Sit to stand Level of [place]: Moderate assist (50% patient's effort) Physical/Nonphysical Assist: Verbal Cues, Additional assist utilized for safety Assistive Device: Hand held assist Transfer Exam: Stand to Sit Level of [place]: Moderate assist (50% patient's effort) Physical/Nonphysical Assist: Verbal Cues, Additional assist utilized for safety Assistive Device: Hand held assist Transfer Exam: Bed to Chair/Chair to Bed Level of [place]: Moderate assist (50% patient's effort) Physical/Nonphysical Assist: [...] IADLs at baseline. 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 OT recommends acute rehab [...] drips. Added milk of mag + biscodyl. VP SITE consulted per PM&R recs. Edited by: Julio [...] Unknown -Off IVPCA, acute pain signed off -[facility] Hypophosphatemia Present on Admission: Yes -Monitor [...] plan as documented. * Progress Notes - MosesJose Miguel pagejuan a Crisostomo - 02/19/2025 8:19 AM EDT Speech Language Pathology Clinical Swallow Initial Evaluation Speech/Language/Cognition Initial Evaluation or Discharge Evaluation Patient Name: Hyacinth Marin Age: 45 y.o. Today's Date: 02/19/2025 Recommendations: OK to continue Regular (IDDSI Level 7) diet w/ thin liquids (Level 0). Meds as able. VP SITE to f/u for diet tolerance x1. 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 Meds as able. VP SITE to f/u for diet tolerance x1 given [...] thin liquids (Level 0). Meds as able. VP SITE to f/u fordiet tolerance x1. No acute [...] Risk Flowsheets (Taken 02/18/2025 1016 by Morelia Dukes RN) Safety Promotion/Fall Prevention: activity supervised Intervention: Prevent Skin Injury Flowsheets Taken 02/18/2025 1800 by Morelia Dukes RN Body Position: weight shifting Taken 02/17/2025 [...] or concerns at this time. Allie Akers correctional officer chief Nurse Navigator * Progress Notes - Nancy Mora RN - 02/18/2025 12:55 PM EDT POC reviewed with multidisciplinary team, per MD, pt is not medically ready to discharge d/t pt is POD #2 C3-7 PCF. CM spoke to pt at bedside about IRF. CM sent referral to [facility] per pts request. CM will continue to follow and assist with discharge planning needs. * Progress Notes - Arvind Oliva Elvie - 02/18/2025 12:05 PM EDT OCCUPATIONAL THERAPY [...] Treatment Minutes (if applicable) 29 Level of [place] Adaptive Equipment Utilized Interventions Feeding Setup Chair [...] use of BSC BED MOBILITY Level of [place] Physical/Non- physical Assist Scooting/ Bridging Minimum assist (75% patient's effort) Verbal Cues, Nonverbal cues (demo/gestures), Additional assist utilized for safety, Set-up required Supine to Sit Moderate assist (50% patient's effort) Verbal Cues, Nonverbal cues (demo/gestures), Additional assist utilized for safety TRANSFERS Level of [place] Physical/Non- physical Assist Adaptive Equipment Utilized Sit [...] Increased thoracic kyphosis, Rounded shoulders Level of [place] Balance Support Interventions Static Sit Contact guard [...] admission Level of Mobility Ambulatory- community Mobility [place] Independent gait without device History of Falls [...] unaware when pt may be discharged from [facility]. Medicaid Analyst (if applicable) Not Applicable OBJECTIVE & INTERVENTIONS [...] sedentary status. Pt participatedin bed mobility, supine-sit, [id number], bed to BSC and BSC to recliner chair transfers. They were able to progress to remaining sitting in chair with multiple pillow support. PT provided education to patient regarding transfer techniques. Verbal and tactile cues given to pt by PT for: postural alignment, weight shifting, improved biomechanics, safety, movement sequence, hand/foot placement, assistive device management, and appropriate activity pacing. BED MOBILITY Level of [place] Physical/Non- physical Assist Adaptive Equipment Utilized Scooting/ Bridging Minimum assist (75% patient's effort) Verbal Cues, Nonverbal cues (demo/gestures), Additional assist utilized for safety, Set-up required Bed rails, draw sheet Supine to Sit Moderate assist (50% patient's effort) Verbal Cues, Nonverbal cues (demo/gestures), Additional assist utilized for safety Bed rails TRANSFERS Level of [place] Physical/Non- physical Assist Adaptive Equipment Utilized Sit [...] Increased thoracic kyphosis, Rounded shoulders Level of [place] Balance Support Activities Static Sit Contact guard [...] shifts, Reaching for object AMBULATION Level of [place] Distance Adaptive Equipment Utilized Ambulation Maximum assistance, Maximum tactile cues, Additional assist utilized for safety 2 feet Rolling walker, Hand held assist Comments Very limited distance secondary to: pt unable to maintain lopper on R side of walker, unableto advance R leg due to hypertonic gastroc and quad muscle contractions. 1st call provider notifiedof these problems via [employer] chat NEUROMUSCULAR RE-EDUCATION Treatment Minutes 14 Interventions PT facilitated pt in R UE positioning and weight bearing with support during transfers and walking attempts. PT facilitating pt in advancing her R leg during ambulation attempts. Pt is grossly unsteady and unable to progress ambulation distance after 2 intervals. Standardized Assessments [facility] 6-Clicks Mobility Assessment Difficulty patient has [...] climbing 3-5 steps with a railing?: Unable [facility] 6-Clicks Mobility Assessment Total : 13 [...] weeks PT Goal 2: Pt will demonstrate tcrrgx-pyg-ajeycj transfers with standby assist PT Goal 2 Established Date: 02/17/25 PT Goal 2 Time Frame: 2 weeks PT Goal 3: Pt will perform wxz-nofop-eax transfers with contact guard assist. PT Goal [...] Patient: Hyacinth Marin : 1980 PCP: Sheila Ashraf, PROFESSOR OF ART HISTORY at [address] [facility] / [place] [address] Payor: ISAK / Plan: SIAK KUMAR/[place]/F[place] BCBS / Product Type: *No Product type* / Date of Service: 02/18/25 cc: Cervical myelopathy ([facility]) Reason for Consultation: functional evaluation History of Present Illness: Hyacinth Marin is a 45 y.o. female w/PMH of nicotine dependence, hidradenitis, and cervical myelopathy who presented to on 02/16/2025 (LOS: 2d) for a planned C3-[address] Ramirez. Post-operatively, patient had new onset weakness and was upgraded to ICU for A-line placement and MAP goals. Patient initially had IV TAILMAN, which has been discontinued. 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 Although the media is FDA-approved, it is not FDA-approved for all specimen types submitted. The FDA has determined that such clearance or approval is not necessary. This test is used for surveillance purposes. It should not be regarded as investigational or for research. The [facility] is certified under the Clinical Laboratory Improvement Amendments of 1988 (CLIA-88) as qualified to perform high complexity clinical laboratory testing. Buddy auris Surveillance by PCR [[id number]] (Normal) Collected: 02/17/25 0325 Order Status: Completed Specimen: Swab from Axilla and Groin Updated: 02/17/25932 Buddy auris PCR Result Not Detected Narrative: This PCR assay was developed and its performance characteristics determined by [facility] as appropriate for clinical purposes. [...] Normal Ventricular Rate 108 Atrial Rate 108 MS Interval 116 QRSD Interval 86 QT Interval 320 QTC Interval 428 P Monroe 4 R Monroe 23 T Wave Monroe 19 Diagnosis Sinus tachycardia Diagnosis Otherwise normal [...] Center 03/03/2025 12:00 PM Marisol Allen APRN [facility] 04/02/2025 1:20 PM Jeremy Ramirez MD [facility] Mobility Orders Mobility Protocol: General - Mobility [...] tetraplegia - Post-operative pain - initially required TAILMAN; has since been transitioned to PO - ABLA - Hypocalcemia - Hyperglycemia - started SSI - Mild transaminitis - Electrolyte abnormalities - Functional decline - Impaired gait - Impaired ADLs - Impaired cognition - Nicotine dependence Recommendations: - Recommend VP SITE evaluation and treatment for impaired cognition, word [...] We will continue to follow. Please page [phone] with any questions, or resident on-call if [...] technique maintained Taken 02/17/2025 0146 by Micha Aberu RN Fever Reduction/Comfort Measures: lightweight clothing Goal: [...] 10:00 AM EDT Procedures 02/18/25 Hyacinth Marin HPI Hyacinth Marin is a 45 y.o. female who presents with Cervical myelopathy (CMS/[facility]). If applicable, patient is s/p Procedure(s) and Anesthesia Type: * C3-7 PCF, w IONM - General. Patient is 2 Days Post-Op with Neurosurgery. Past 24 hours: PM: Phos 0.8 (rechecked & confirmed), 45mmol IV replacement AM: No acute distress, GCS 15 has RLE/RUE weakness. Continue ICU, continue MAP goal >85. On no hemodynamic drips. Stopped TAILMAN. PM&R consult. Added SSI, recheck phos. Edited by: Julio Beasley III, MD at 02/18/2025 1000 Lines/Drains/Tubes: Patient Lines/Drains/Airways Status Active Active LDAs Name Placement date Placement time Site Days Peripheral IV 02/16/25 Left;Posterior Hand 02/16/25 0630 Hand 2 Peripheral IV 02/16/25 Posterior;Right Forearm 02/16/25 -- Forearm 2 Closed/Suction Drain 1 Posterior Neck Accordion 15 Fr. 02/16/25 1059 Neck 1 GCS: Jennifer Coma Scale Score: 15 Review [...] Unknown -Off IVPCA, acute pain signed off -[facility] Julio Beasley III, MD Cosigned by Brian Aguiar MD at 02/21/2025 4:09 PM EDT Associated attestation - Brian Aguiar MD - 02/21/2025 4:09 PM EDT I saw and evaluated the patient with the resident/fellow. I discussed the case with the resident/fellow and agree with the findings and plan as documented. * Consults - Hayden Munoz RN - 02/18/2025 9:29 AM EDT DC TAILMAN orders placed by primary svc, PO medications [...] states pain curently controlled with IVPCA IV TAILMAN Medication: received 39 doses of Hydromorphone totaling [...] injection 4 mg 4 mg Intravenous q8h [facility] gabapentin (Neurontin) capsule 300 mg 300 mg [...] 2 mg 2 mg Intravenous Daily IV TAILMAN Hydromorphone (1mg/ml) 0.2mg/q6mins. C3-7 PCF 02/16/25 Blood pressure (!) 159/86, pulse 98, temperature 37.1 ??C (98.8 ??F), temperature source Oral, resp. rate 18, weight 70.8 kg (156 lb 1.4 oz), SpO2 95%. Please Contact Acute Pain Service with any additional questions or concerns via [employer] orpage [phone]. * Progress Notes - Chace Jin MD [...] 791 ml Output by Drain (mL) 02/16/25 0700 - 02/16/25 1859 02/16/25 1900 - 02/17/25 0659 02/17/25 0700 - 02/17/25 1859 02/17/25 1900 - 02/18/25 0659 02/18/25 0700 - 02/18/25 0811 Closed/Suction Drain 1 Posterior Neck Accordion 15 Fr. 185 60 70 Physical Exam GCS (EMV): 465 Awake, alert, oriented x3 Follows commands appropriately Speech clear Strength RUE 54+4-2 LUE 5555 RLE 2514 LLE 5522 Assessment [...] MD Resident Physician, PGY-2 Department of Neurosurgery [facility] [1] Current Facility-Administered Medications Medication Dose Route [...] syringe 40 mg 40 mg Subcutaneous Daily Rommelman Stevan A 40 mg at 02/18/25 0807 gabapentin (Neurontin) capsule 300 mg 300 mg Oral TID Ashvni Magana MD 300 mg at 02/18/25 0807 HYDROmorphone 1 mg/mL TAILMAN (naive protocol) Intravenous Continuous Javier Perez DO [...] IVPB 45 mmol Intravenous Once Joce Covarrubias, XAVIER 93.3 mL/hr at 02/18/25 0334 45 mmol [...] Patient is currently receiving the following: IV TAILMAN Medication: received 33 doses of Hydromorphone totaling [...] injection 4 mg 4 mg Intravenous q8h [facility] gabapentin (Neurontin) capsule 300 mg 300 mg Oral TID HYDROmorphone 1 mg/mL TAILMAN (naive protocol) no dose Intravenous Continuous HYDROmorphone [...] 2 mg 2 mg Intravenous Daily IV TAILMAN Hydromorphone (1mg/ml) 0.2mg/q6mins. C3-7 PCF 02/16/25 Blood pressure (!) 161/92, pulse 100, temperature 37.1 ??C (98.8 ??F), temperature source Oral, resp. rate 18, weight 70.8 kg (156 lb 1.4 oz), SpO2 95%. Please Contact Acute Pain Service with any additional questions or concerns via [employer] [phone]. * Care Plan - Rob San - [...] Olson RN Body Position: heels elevated Taken 02/17/2025 014 by Micha Abreu RN Skin Protection: hydrocolloids used incontinence pads utilized drying agents applied Intervention: Prevent and Manage VTE (Venous Thromboembolism) Risk Flowsheets (Taken 02/17/2025 1800 by Carolee Olson RN) VTE Prevention/Management: bilateral SCDs (sequential compression devices) on Intervention: Prevent Infection Flowsheets (Taken 02/17/2025 014 by Micha Abreu RN) Infection Prevention: environmental surveillance performed hand hygiene promoted rest/sleep promoted personal protective equipment utilized Goal: Optimal Comfort and Wellbeing Outcome: Ongoing, Progressing Intervention: Monitor Pain and Promote Comfort Flowsheets (Taken 02/17/2025 0810 by Carolee Olson RN) Pain Management Interventions: pillow support provided pain pump in use Intervention: Provide Person-Centered Care Flowsheets (Taken 02/17/2025 014 by Micha Abreu RN) Trust Relationship/Rapport: care explained choices provided emotional support provided empathic listening provided questions encouraged reassurance provided thoughts/feelings acknowledged Problem: Infection Goal: Absence of Infection Signs and Symptoms Outcome: Ongoing, Progressing Intervention: Prevent or Manage Infection Flowsheets Taken 02/17/2025 0810 by Carolee Olson RN Infection Management: aseptic technique maintained Taken 02/17/2025145 by Micha Abreu RN Fever Reduction/Comfort Measures: lightweight clothing Isolation Precautions: precautions maintained protective Problem: Fall Injury Risk Goal: Absence of Fall and Fall-Related Injury Outcome: Ongoing, Progressing Intervention: Identify and Manage Contributors Flowsheets (Taken 02/17/2025 0810 by Carolee Oslon, RN) Medication Review/Management: medications reviewed Self-Care Promotion: independence encouraged meal set-up provided Intervention: Promote Injury-Free Environment Flowsheets (Taken 02/17/2025 0146 by Micha Abreu RN) Safety Promotion/Fall Prevention: activity supervised fall prevention program maintained clutter-free environment maintained safety round/check completed * Progress Notes - Enzo Rome RN - 02/17/2025 1:58 PM EDT Case Management Adult Initial Progress Note Hyacinth Tania 45 y.o. female CSN: [id number] Admission: 02/16/2025 5:50 AM Primary Problem: Cervical myelopathy (CMS/HCC) Compressor Station Chief Engineer reviewed chart and spoke with patient to complete this Initial Case Management Assessment. PCP: Sheila Ashraf APRN Emergency Contact: Extended Emergency Contact Information Primary Emergency Contact: Tee Marin Address: [address] [place] [address] of [facility] Mobile Relation: Spouse Preferred language: Kyrgyz Medicaid Analyst needed? No Secondary Emergency Contact: Malissa Schmidt Mobile Relation: Relative Preferred language: Kyrgyz Medicaid Analyst needed? No Insurance: Primary Visit Coverage Payer Plan Sponsor Code Group Number Group Name ISAK [facility] [id number] Primary Visit Coverage Subscriber Subscriber ID Subscriber Name Subscriber N Subscriber Address [id number] Hyacinth Marin [id number] [place] [address] Patient information: Primary Caregiver: Self Support System: Immediate family Daily Living Activities: Functional Status: Independent Living Arrangements: Family Type of Residence: Private residence [address] [place] [address] Current DME: Equipment Currently Used at Home: [...] Outpatient Dialysis Services: Living Will/Advance Directive/Power of Big Data Platform Architect /Guardian: Advance Directive: Not applicable Information Provided [...] admitted 02/16/2025 for work-up of Cervical myelopathy ([facility]). Problem List Active Hospital Problems Diagnosis Date Noted Acute post-operative pain 02/17/2025 Electrolyte abnormality 02/16/2025 Muscle spasm of back 02/16/2025 BMI 25.0-25.9,adult 02/16/2025 Tobacco use 02/16/2025 Cervical stenosis of spine 12/29/2024 Cervical myelopathy (CMS/HCC) 01/18/2025 Procedures 02/16/2025 Procedure(s): C3-7 PCF, w IONM Past Medical History Patient has a past medical history of Anxiety and Neuromuscular disorder (CMS/[facility]). Past Surgical History Patient has a past surgical history that includes section, classic; [place] tooth extraction; and Esophagoscopy / EGD. Precautions Medical Precautions: Fall precautions, Post-Surgical precautions Post-Surgical Precautions: cervical spine Medical Precautions: MAP > 85 Subjective It hurts so bad. I wish it would just stop . Participants in Care Family/Caregiver Present: No Medicaid Analyst: Not Applicable Presentation Oxygen Therapy: None (Room [...] Toilet: Standard Home Living Comments: Pt on TAILMAN and drowsy today. She admitted having some [...] admission Level of Mobility: Ambulatory- community Mobility [place]: Independent gait without device History of Falls: No ADL Performance: Independent Patient/Family Goals Statement To improve pain Objective Pain Pt endorsed 10/10 cervical pain. RN aware and endorsed she provided pt with tylenol prior to this evaluation. TAILMAN also available to pt throughout and she [...] transitions. Bed Mobility Exam: Rolling/Turning Level of [place]: Maximum assist (25% patient effort) Physical/Nonphysical Assist: Verbal Cues, Nonverbal cues (demo/gestures), Additional assist utilized for safety Assistive Device: Bed rails Bed Mobility Exam: Scooting/Bridging Level of [place]: Maximum assist (25% patient's effort) Physical/Nonphysical Assist: Verbal Cues, Nonverbal cues (demo/gestures), Additional assist utilized for safety Assistive Device: Bed rails Bed Mobility Exam: Supine to Sit Physical/Nonphysical Assist: Verbal Cues, Nonverbal cues (demo/gestures), Additional assist utilized for safety Assistive Device: Bed rails Bed Mobility Exam: Sit to Supine Level of [place]: Maximum assist (25% patient's effort) Physical/Nonphysical Assist: [...] Level of Assistance: Moderate assistance Standardized Assessments [facility] 6-Click Daily Activities Help from Other: Don/Doff Regular Lower Body Clothings: A lot Help From Other: Bathing: A lot Help From Other: Toileting: A lot Help From Other: Don/Doff Upper Body Clothings: A lot Help From Other: Grooming: Little Help From Other: Eating Meals: Little [facility] 6 Click - Daily Activities Score: 14 Assessment Pt participated in occupational therapy assessment and intervention s/p C3-C7 posterior cervical fusion on 02/16/25. Pt in the ICU with MAP goals. Vitals remained stable throughout. On TAILMAN and moderately drowsy but provided good effort with cues. Pt presenting with RUE/RLE weakness and sensation impairments. She completed sup>sit transition with MAX A and required DEP A for grooming task at EOBdue to pain. 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 Hospital Course 1. Cervical stenosis of spine Procedures (if applicable) 02/16/2025 Procedure(s): C3-7 PCF, w IONM Past Medical History Patient has a past medical history of Anxiety and Neuromuscular disorder (CMS/HCC). Past Surgical History Patient has a past surgical history that includes section, classic; [place] tooth extraction; and Esophagoscopy / EGD. PRECAUTIONS Medical Precautions Yes Medical Precautions: Fall precautions, Post-Surgical precautions Post-Surgical Precautions: cervical spine Medical Precautions: MAP > 85 SUBJECTIVE PARTICIPANTS IN CARE Visitors Present No Subjective Report Pt has NOT been: * Ambulating in-room distances * Transferring Bed <> Chair since being admitted to the hospital. Pt remains unaware when pt may be discharged from [facility]. Medicaid Analyst (if applicable) Not Applicable HOME LIVING/SET-UP Lives With Spouse, Son (17 y/o) Home Type House Home Equipment None Home Layout One level, Stairs to enter with rails Number of Stairs: 3 Bathroom Layout Bathroom: Tub/Shower: Tub/Shower combo Bathroom: Toilet: Standard Additional Comments Pt on TAILMAN and drowsy today. She admitted having some [...] admission Level of Mobility Ambulatory- community Mobility [place] Independent gait without device History of Falls [...] neck pain Pain Intensity / Location Post-Mobility: 10/10 neck pain Prior to PT's departure: * [...] sedentary status. Pt participatedin bed mobility and aggcpu-ktb-[id number] transfers. They were unable to progress to standing secondaryto severe pain. PT provided education to patient regarding neutral sitting posture with reduced FWD head position. Verbal and tactile cues given to pt by PT for: weight shifting, improved biomechanics, safety, movement sequence, hand/foot placement, and appropriate activity pacing. BED MOBILITY Level of [place] Physical/Non- physical Assist Adaptive Equipment Utilized Rolling/ [...] HOB elevated Bed rails and Draw sheet Interventions TRANSFERS Level of [place] Sit to Stand Unable to perform (Pt requested to stop at sitting on edge of bed due to 10/10 pain) BALANCE Postural Appearance Posture: Forward head, Increased thoracic kyphosis, Rounded shoulders Level of [place] Balance Support Interventions Static Sit Minimum assistance Right upper extremity support, Left upper extremity support, Feet supported Dynamic Sit Moderate assistance Right upper extremity support, Left upper extremity support, Feet supported Dynamic Sitting-Balance: Lateral weight shifts, Anterior/Posterior weight shifts AMBULATION Comments Unable to stand or walk due to severe pain STANDARDIZED ASSESSMENTS [facility] 6-Clicks Mobility Assessment Difficulty patient has [...] climbing 3-5 steps with a railing?: Unable [facility] 6-Clicks Mobility Assessment Total : 8 [...] and muscle spasms despite use of her TAILMAN. Pt's current level of function is lower [...] weeks PT Goal 2: Pt will demonstrate [id number] transfers with standby assist 2 weeks PT Goal 3: Pt will perform [id number] transfers with contact guard assist. 2 weeks [...] EDT Associated Problem(s): Acute post-operative pain -IV TAILMAN per spine protocol -Acute pain following -[facility] [...] y.o. female who presents with Cervical myelopathy ([facility]). If applicable, patient is s/p Procedure(s) and [...] 16 Fr. 02/16/25 0800 -- 1 GCS: Jennifer Coma Scale Score: 14 Review of Systems [...] post-operative pain Present on Admission: Unknown -IV TAILMAN per spine protocol -Acute pain following -[facility] Julio Beasley III, MD Cosigned by Brian Aguiar MD at 02/17/2025 1:38 PM EDT Associated attestation - Brian Aguira MD - 02/17/2025 1:38 PM EDT I [...] Patient is currently receiving the following: IV TAILMAN Medication: received 23 doses of Hydromorphone totaling [...] 300 mg Oral TID HYDROmorphone 1 mg/mL TAILMAN (naive protocol) no dose Intravenous Continuous HYDROmorphone [...] 4 mg 4 mg Intravenous q8h SHANICE dexamethasone (Decadron) injection 2 mg 2 mg Intravenous BID dexamethasone (Decadron) injection 2 mg 2 mg Intravenous Daily IV TAILMAN Hydromorphone (1mg/ml) 0.2mg/q6mins. C3-7 PCF 02/16/25 Blood pressure (!) 160/74, pulse 104, temperature 37 ??C (98.6 ??F), temperature source Oral, resp.rate 19, weight 70.8 kg (156 lb 1.4 oz), SpO2 96%. Please Contact Acute Pain Service with any additional questions or concerns via [employer] orpage [phone]. * Care Plan - Carolee Olson RN [...] pain at a tolerable level while using TAILMAN pump Anxieties, Fears or Concerns: Denies Goal: [...] Monitor and Manage Bleeding Flowsheets (Taken 02/17/2025 0810) Bleeding Management: dressing monitored Goal: Fluid and Electrolyte Balance Outcome: Ongoing, Progressing Intervention: Monitor and Manage Fluid and Electrolyte Balance Flowsheets (Taken 02/17/2025 0810) Fluid/Electrolyte Management: intravenous fluids adjusted Goal: Blood Glucose Level Within Target Range Outcome: Ongoing, Progressing Intervention: Optimize Glycemic Control Hyperglycemia Management: blood glucose monitored Hypoglycemia Management: blood glucose monitored Goal: Absence of Infection Signs and Symptoms Outcome: Ongoing, Progressing Intervention: Prevent or Manage Infection Flowsheets Taken 02/17/2025 0810 by Carolee Olson RN Infection Management: aseptic technique maintained Isolation Precautions: precautions maintained protective Goal: Optimal Pain Control and Function Outcome: Ongoing, Progressing Intervention: Prevent or Manage Pain Flowsheets (Taken 02/17/2025 0810) Pain Management Interventions: pillow support provided pain pump in use Diversional Activities: smartphone television Goal: Nausea and Vomiting Relief Outcome: Ongoing, Progressing Intervention: Prevent or Manage Nausea and Vomiting Flowsheets (Taken 02/17/2025 0810) Nausea/Vomiting Interventions: cool cloth applied slow deep breathing encouraged sips of clear liquids given Goal: Effective Urinary Elimination Outcome: Ongoing, Progressing Intervention: Monitor and Manage Urinary Retention Urinary Elimination Promotion: catheter patency maintained Goal: Effective Oxygenation and Ventilation Outcome: Ongoing, Progressing Intervention: Optimize Oxygenation and Ventilation Flowsheets Taken 02/17/2025 08 by Carolee Olson RN Cough And Deep Breathing: done with encouragement Head of Bed (HOB) Positioning: HOB at 30-45 degrees Airway/Ventilation Management: airway patency maintained calming measures promoted Activity Management: activity adjusted per tolerance activity encouraged Problem: Infection Goal: Absence of Infection Signs and Symptoms Outcome: Ongoing, Progressing Intervention: Prevent or Manage Infection Flowsheets (Taken 02/17/2025 0810) Infection Management: aseptic technique maintained Problem: Fall Injury Risk Goal: Absence of Fall and Fall-Related Injury Outcome: Ongoing, Progressing Intervention: Identify and Manage Contributors Flowsheets (Taken 02/17/2025 0810) Medication Review/Management: medications reviewed Self-Care Promotion: independence [...] 2524+ LLE [id number] Assessment and Plan Hyacinth Marni is a 45 y.o. female patient with [...] MD Resident Physician, PGY-2 Department of Neurosurgery [facility] [1] Current Facility-Administered Medications Medication Dose Route [...] TID Ashvin Magana MD 5 mg at 02/16/250 dexamethasone (Decadron) injection 4 mg 4 mg Intravenous TID Misha Purdy MD 4 mg at 02/16/25 2200 gabapentin (Neurontin) capsule 300 mg 300 mg Oral TID Ashvin Magana MD 300 mg at 02/16/25 2200 HYDROmorphone 1 mg/mL TAILMAN (naive protocol) Intravenous Continuous Javier Perez DO [...] BID Ashvin Magana MD 1 tablet at 02/16/25 2200 [...] mL/hr at 02/17/25 0239 Cosigned by Jeremy Ramierz MD at 02/19/2025 9:39 AM EDT Associated [...] Care Review Outcome: Ongoing, Progressing Flowsheets (Taken 02/17/2025 0146) Progress: improving Plan of Care Reviewed With: patient Goal: Patient-Specific Goal (Individualized) Outcome: Ongoing, Progressing Flowsheets (Taken 02/16/2025 2100) Patient/Family-Specific Goals (Include Timeframe): Patient will have pain score at or below a 3, which is an acceptable pain level for her Individualized Care Needs: Patient will have pain at a tolerable level while on TAILMAN pump Anxieties, Fears or Concerns: Denies Goal: Absence of Hospital-Acquired Illness or Injury Outcome: Ongoing, Progressing Intervention: Identify and Manage Fall Risk Flowsheets (Taken 02/17/2025145) Safety Promotion/Fall Prevention: activity supervised fall prevention program maintained clutter-free environment maintained safety round/check completed Intervention: Prevent Skin Injury Flowsheets Taken 02/17/2025145 by Micha Abreu RN Skin Protection: hydrocolloids used incontinence pads utilized drying agents applied Taken 02/16/20252199 by Shea Vasquez Body Position: turned left heels elevated Intervention: Prevent and Manage VTE (Venous Thromboembolism) Risk Flowsheets (Taken 02/16/20251999 by Shea Vasquez) VTE Prevention/Management: bilateral lower extremity SCDs (sequential compression devices) on Intervention: Prevent Infection Flowsheets (Taken 02/17/2025145) Infection Prevention: environmental surveillance performed hand hygiene promoted rest/sleep promoted personal protective equipment utilized Goal: Optimal Comfort and Wellbeing Outcome: Ongoing, Progressing Intervention: Monitor Pain and Promote Comfort Flowsheets (Taken 02/16/2025 150 by Laura Ayala, RN) Pain Management Interventions: pain pump in use Intervention: Provide Person-Centered Care Flowsheets (Taken 02/17/2025145) Trust Relationship/Rapport: care explained choices provided emotional support provided empathic listening provided questions encouraged reassurance provided thoughts/feelings acknowledged Problem: Surgery Nonspecified Goal: Absence of Bleeding Outcome: Ongoing, Progressing Intervention: Monitor and Manage Bleeding Flowsheets (Taken 02/17/2025145) Bleeding Management: dressing monitored Goal: Fluid and [...] Intervention: Prevent or Manage Infection Flowsheets (Taken 02/17/2025145) Fever Reduction/Comfort Measures: lightweight clothing Isolation Precautions: precautions maintained protective Goal: Anesthesia/Sedation Recovery Outcome: Ongoing, Progressing Intervention: Optimize Anesthesia Recovery Flowsheets (Taken 02/17/2025145) Stabilization Measures: airway opened Safety Promotion/Fall Prevention: activity supervised fall prevention program maintained clutter-free environment maintained safety round/check completed Goal: Optimal Pain Control and Function Outcome: Ongoing, Progressing Intervention: Prevent or Manage Pain Flowsheets Taken 02/16/2025 2100 by Micha Abreu RN Diversional Activities: television Taken 02/16/2025 1505 by Laura Ayala ux visual designer Interventions: pain pump in use Goal: Nausea and Vomiting Relief Outcome: Ongoing, Progressing Intervention: Prevent or Manage Nausea and Vomiting Flowsheets (Taken 02/17/2025 0146) Nausea/Vomiting Interventions: slow deep breathing encouraged nausea triggers minimized Goal: Effective Urinary Elimination Outcome: Ongoing, Progressing Intervention: Monitor and Manage Urinary Retention Flowsheets (Taken 02/17/2025 0146) Urinary Elimination Promotion: catheter patency maintained Goal: Effective Oxygenation and Ventilation Outcome: Ongoing, Progressing Intervention: Optimize Oxygenation and Ventilation Flowsheets Taken 02/17/2025 0146 by Micha Abreu RN Airway/Ventilation Management: airway patency maintained calming measures promoted Taken 02/16/2025 220 by Shea Vasquez Head of Bed (HOB) Positioning: HOB at 30-45 degrees Taken 02/16/20251999 by Shea Vasquez Activity Management: activity adjusted per tolerance activity encouraged Problem: Infection Goal: Absence of Infection Signs and Symptoms Outcome: Ongoing, Progressing Intervention: Prevent or Manage Infection Flowsheets (Taken 02/17/2025 0146) Fever Reduction/Comfort Measures: lightweight clothing Isolation Precautions: precautions maintained protective * Consults - Malinda Mccormack RN - 02/16/2025 11:18 PM EDT Acute Pain Service Follow-Up Evaluation Hyacinth Marin is a 45 y.o. female Follow-Up: Follow-up reason: APS rounds Pain Rating (0-10): asleep Acute Pain Service Comments: Patient is currently receiving the following: IV TAILMAN Medication: received 8 doses of Hydromorphone totaling [...] 300 mg Oral TID HYDROmorphone 1 mg/mL TAILMAN (naive protocol) no dose Intravenous Continuous HYDROmorphone [...] depression, for respiratory rate < 10 IV TAILMAN Hydromorphone (1mg/ml) 0.2mg/q6mins. C3-7 PCF 02/16/25 Blood pressure (!) 153/85, pulse 83, temperature 36.8 ??C (98.2 ??F), temperature source Oral, resp. rate 16, weight 70.8 kg (156 lb 1.4 oz), SpO2 93%. Please Contact Acute Pain Service with any additional questions or concerns via [employer] [phone]. * Assessment & Plan Note - Joce Covarrubias APRN - 02/16/2025 6:35 PM EDT Associated Problem(s): Cervical myelopathy (CMS/HCC) See [...] y.o. female who presents with Cervical myelopathy ([facility]). Ms. Marin had C3-C7 posterior cervical spine [...] Cervical stenosis of spine 12/29/2024 Cervical myelopathy ([facility]) 01/18/2025 Resolved Ambulatory Problems Diagnosis Date Noted No Resolved Ambulatory Problems Past Medical History: Diagnosis Date Anxiety Neuromuscular disorder ([facility]) Past Surgical History: Surgical History[1] Home Medications: [...] and otherwise non-contributory. Allergies: Allergies[4] ROS: GCS: Magnolia Coma Scale Score: 12 Review of Systems [...] ear normal. Nose: Nose normal. Mouth/Throat: Lips: [place]. Mouth: Mucous membranes are moist. Pharynx: Oropharynx [...] GCS motor subscore is 6. Comments: IV TAILMAN 0.2mg, lockout 6 min Very lethargic but [...] breathing trials: O2 Delivery Method: Face tent MS SUP: 10 cm H20 Insp Time (sec): 1.7 sec S RR: 12 MS SUP: 10 cm H20 Bowel regimen: Quick [...] Patient is currently receiving the following: IV TAILMAN Medication: received 2 doses of Hydromorphone totaling [...] 300 mg Oral TID HYDROmorphone 1 mg/mL TAILMAN (naive protocol) no dose Intravenous Continuous HYDROmorphone [...] mg Intravenous PRN for respiratory depression IV TAILMAN Hydromorphone (1mg/ml) 0.2mg/q6mins. C3-7 PCF 02/16/25 Blood pressure (!) 144/87, pulse 98, temperature 36.6 ??C (97.9 ??F), temperature source Axillary, resp. rate 10, weight 70.8 kg (156 lb 1.4 oz), SpO2 96%. Please Contact Acute Pain Service with any additional questions or concerns via [employer] orpage [phone]. * Consults - Claritza Sanders RN - [...] 300 mg Oral TID HYDROmorphone 1 mg/mL TAILMAN (naive protocol) no dose Intravenous Continuous HYDROmorphone [...] Pain Service Plan: Plan: Place on IV TAILMAN IV TAILMAN Hydromorphone (1mg/ml) 0.2mg/q6mins. C3-7 PCF 02/16/25 dilaudid 1 mg/ml TAILMAN settin.2 mg q 6 minutes Basal rate: none Various methods of pain control discussed with patient and/ or family: Yes Discussed with doctor: Yes Please Contact Inpatient Pain Service with any additional questions or concerns via [employer] Secure Chat or page [phone]. [1] Allergies Allergen Reactions Penicillins Rash Sulfa Drugs Rash [2] Social History Tobacco Use Smoking Status Some Days Current packs/day: 0.25 Average packs/day: 0.3 packs/day for 30.6 years (7.7 ttl pk-yrs) Types: Cigarettes Start date: 07/1994 Smokeless Tobacco Never * Consults - Caro Hobbs APRN - 02/16/2025 12:29 PM EDT Pain Consult Note Reason for Consult: TAILMAN request, Chronic pain condition, Acute pain condition, and Multimodal pain management Ordering Provider: Jeremy Ramirez MD History of Present Illness Hyacinth Marin is a 45 y.o. female admitted on 02/16/2025 with PMH numbness and concern for progressive cervical myelopathy/cervical stenosis who presented to [facility] for planned C3-C7 posterior cervical fusion. Post [...] Opioids Initiated, Pain Treatment Preferences Discussed, and TAILMAN- Started Assessment: Ms. Marin has acute on chronic, opioid naive, uncontrolled somatic pain s/p Laminectomy, laminotomy and arthrodesis of C3-C7. In the acute postoperative phase opioids via IV TAILMAN are a reasonable part of a multimodal pain regimen. Once pain is well controlled and tolerating PO pain medications, would consider transitioning to PO/IV opioids and weaning thereafter. Recommendations: - Start Dilaudid IV TAILMAN @ 0.2 mg Q6M lockout - Start [...] Data Reviewed: notes. Details: Reviewed Notes From: - 02/16 H&P and OP Note by Dr. Magana Discussion of management or test interpretation with external provider(s): IPS JENNIE discussed current pain and recommendations with primary provider for the day Dr. De La Torre via this note. Risk OTC drugs. Prescription drug management. Parenteral controlled substances. Drug therapy requiring intensive monitoring for toxicity. Risk Details: High risk due to initiation of Dilaudid IV TAILMAN with potential for life threatening complications including overdose, respiratory compromise and/or . Caro Hobbs, MSN, [facility] Department of Anesthesiology, Perioperative, Critical Care and [...] AM EDT Operative Note Date: 02/16/25 Location: [place] [facility] Name: Hyacinth Marin, : 1980, Diagnoses: [...] Attending Surgeon(s): * Jeremy Ramirez - Primary Junior Bookkeeper(s): * Ashvin Maagna MD - Resident - Assisting Anesthesia: General [...] 02/16/251212 CAUTI: Securement Method Securing device (Describe) 02/16/25 121 CAUTI: Specimen Collection Port Covered with Alcohol Cap Yes 02/16/25 1213 Implants Type Name Action Serial No. CHIP BONE 10CC - [id number] Implanted [id number] MATRIX FIBERGRAFT BG MEDIUM 6.25CC - [id number] Implanted Screw SCREW 4.0 PLY 3.5X14 - SNA - [id number] Implanted NA Screw SCREW 4.0 PLY 3.5X16 - SNA - [id number] Implanted NA Screw SET SCREW - SNA - [id number] Implanted NA Bailey BAILEY TI 4.0X065 KALI - S. - [id number] Implanted . Specimen: None Findings: Severe cervical spinal stenosis. For further details, please see below. Indications: Hyacinth Marin is an 45 y.o. female who is having surgery for Cervical myelopathy ([facility]). She was seen in clinic with severe [...] bony surfaces were carefully decorticated using the Kuonaas drill. Two rods of appropriate length were [...] the exposed neural elements on completion. A 15-Bulgarian drain was thereafter placed in the wound, [...] 02/19/2025 9:59 AM EDT Associated attestation - Jeremy Ramirez MD - 02/19/2025 9:59 AM EDT [...] concerning for cervical myelopathy progression. MJ OA at last visit. She had attempted physical [...] atrophy noted. mJOA: . NDI: 25/50, 50%. [id number]: na/50. NRS-Neck: na/10. NRS-Arm: na/10. Neurologic exam: GCS (EMV): 465 PERRL, EOMI Strength: Delt Bi Tri Slitting Machine Operator Intrinsics RUE: 5/5 5/5 5/5 4+/5 4+/5 LUE: /5 5/5 5/5 5/5 5/5 HF KE KF DF EHL PF RLE: /5 5/5 5/5 5/5 5/5 5/5 LLE: 5/5 5/5 5/5 5/5 5/5 5/5 Sensation was [...] pain and/or paralysis, leakage of spinal fluid, [place], CVA, DVT, and PE or other unforseen [...] documentation and imaging, completion of today's documentation, [id number] visit, care coordination and planning Marisol Allen APRN [facility] Department of Neurosurgery Cosigned by Jeremy Ramirez [...] Description 04/02/2025 1:20 PM EDT Office Visit [facility] [address] [place] [address] Jeremy Ramirez MD [address] [place] [address] documented as of this encounter Procedures Procedure [...] PANEL, PLASMA Routine 02/17/2025 3:25 AM EDT MS CRITICAL CARE, ADDL 30 MIN Routine 02/16/2025 6:33 PM EDT Cervical stenosis of spine MS CRITICAL CARE, ADDL 30 MIN Routine 02/16/2025 6:33 PM EDT Cervical stenosis of spine FL LESS THAN 1 HOUR (NON-REPORTABLE) Routine 02/16/2025 11:21 AM EDT POCT , URINE Routine 02/16/2025 7:19 AM EDT MS ARTHRODESIS POSTERIOR/POSTERIORLAT ERAL CERVICAL BELOW C2 02/16/2025 7:15 AM EDT Cervical myelopathy (CMS/HCC) TYPE AND SCREEN Routine 02/16/2025 6:56 AM EDT documented in this encounter Results * (ABNORMAL) POCT glucose meter (02/23/2025 11:12 AM EDT) POCT Glucose 177(H) 74 - 99 mg/dL 02/23/2025 11:14 AM EDT [facility] Comment:Accuracy of [...] for testing. Comment 02/23/2025 11:14 AM EDT [facility] Clerical Administrative Assistant ID Rima Rock 025 11:14 AM EDT HEALTHCARE LAB Device ID [id number] 02/23/2025 11:14 AM EDT [facility] Specimen Type POC Capillary 02/23/2025 11:14 AM EDT [facility] Blood Capillary blood specimen / Unknown 02/23/2025 11:12 AM EDT 02/23/2025 11:14 AM EDT us Jeremy Ramirez MD LAB POINT OF CARE TE ST DOCKED DEVICE UNSOLICITED RESULTS Final Result [facility] [address] [place] [address] * (ABNORMAL) POCT glucose meter (02/23/2025 7:39 [...] for testing. Comment 02/23/2025 8:02 AM EDT HEALTHCARE LAB Clerical Administrative Assistant ID Luda Hobbs 02/23/2025 8:02 AM EDT HEALTHCARE LAB Device ID [id number] 02/23/2025 8:02 AM EDT [facility]ALTH[facility]ARE [facility] Specimen Type POC Capillary 02/23/2025 8:02 AM EDT [facility] Blood Capillary blood specimen / Unknown 02/23/2025 7:39 AM EDT 02/23/2025 8:02 AM EDT us Jeremy Ramirez MD LAB POINT OF CARE TE ST DOCKED DEVICE UNSOLICITED RESULTS Final Result [facility] [address] [place] [address] * Potassium (02/23/2025 4:25 AM EDT) Potassium, Plasma 3.7 3.6 - 4.9 mmol/L 02/23/2025 7:15 AM EDT [facility] Blood Venous blood specimen / Unknown Venipuncture / Unknown 02/23/2025 4:25 AM EDT 02/23/2025 4:40 AM EDT us Brad Deshpande APRN LAB BLOOD ORDERABLES F inal Result [facility] [address] [place] [address] * Magnesium, Plasma (02/23/2025 4:25 AM EDT) Magnesium, Plasma 2.0 1.9 - 2.4 mg/dL 02/23/2025 5:07 AM EDT [facility] Blood Venous blood specimen / Unknown Venipuncture / Unknown 02/23/2025 4:25 AM EDT 02/23/2025 4:40 AM EDT Theresa Barrett CokerNelson XAVIER LAB BLOOD ORDERABLES Final Result [facility] [address] [place] [address] * (ABNORMAL) CBC W/O Differential (02/23/2025 4:25 AM EDT) WBC Count 7.76 3.70 - 10.30 10*3/uL LAB HEMATOLOGY METHOD 02/23/2025 4:53 AM EDT [facility] RBC Count 3.76(L) 3.90 - 5.20 10*6/uL LAB HEMATOLOGY METHOD 02/23/2025 4:53 AM EDT [facility] HGB 11.9 11.2 - 15.7 g/dL LAB HEMATOLOGY METHOD 02/23/2025 4:53 AM EDT [facility] HCT 35.5 34.0 - 45.0 % LAB HEMATOLOGY METHOD 02/23/2025 4:53 AM EDT [facility] Platelet Count 146(L) 155 - 369 10*3/uL LAB HEMATOLOGY METHOD 02/23/2025 4:53 AM EDT [facility] MCV 94 79 - 98 fL LAB HEMATOLOGY METHOD 02/23/2025 4:53 AM EDT [facility] MCH 31.6 26.0 - 32.0 pg LAB HEMATOLOGY METHOD 02/23/2025 4:53 AM EDT [facility] MCHC 33.5 30.7 - 35.5 g/dL LAB HEMATOLOGY METHOD 02/23/2025 4:53 AM EDT [facility] RDW 16.2(H) 11.5 - 14.5 % LAB HEMATOLOGY METHOD 02/23/2025 4:53 AM EDT [facility] MPV 9.5 8.8 - 12.5 fL LAB HEMATOLOGY METHOD 02/23/2025 4:53 AM EDT [facility] nRBC 0.0 <=0.0 per 100 WBCs LAB HEMATOLOGY METHOD 02/23/2025 4:53 AM EDT [facility] Blood Venous blood specimen / Unknown Venipuncture / Unknown 02/23/2025 4:25 AM EDT 02/23/2025 4:43 AM EDT Theresa Nelson PROFESSOR OF ART HISTORY LAB BLOOD ORDERABLES Final Result Performing Organization Address City/[facility]/ZIP Co de Phone Number [facility] [address] [place] [address] * Phosphorus (02/23/2025 4:25 AM EDT) [facility] Phosphorus, Plasma 3.8 2.5 - 4.5 mg/dL 02/23/2025 5:07 AM EDT [facility] Blood Venous blood specimen / Unknown Venipuncture / Unknown 02/23/2025 4:25 AM EDT 02/23/2025 4:40 AM EDT Brad Deshpande PROFESSOR OF ART HISTORY LAB BLOOD ORDERABLES F inal Result Performing Organization Address City/[facility] [place] [address] * (ABNORMAL) POCT glucose meter (02/22/2025 7:21 PM EDT) [facility] POCT Glucose 213(H) 74 - 99 mg/dL [...] 02/22/2025 7:24 PM EDT [facility] Clerical Administrative Assistant ID Melania Rubio 02/23/20 7:24 PM EDT [facility] Device ID [id number] 02/22/2025 7:24 PM EDT [facility] Specimen Type POC Capillary 02/22/2025 7:24 PM EDT [facility] Blood Capillary blood specimen / Unknown 02/22/2025 7:21 PM EDT 02/22/2025 7:24 PM EDT us Jeremy Ramirez MD LAB POINT OF CARE TE ST DOCKED DEVICE UNSOLICITED RESULTS Final Result Performing Organization Address [facility] de Phone Number [facility] [address] [place] [address] * (ABNORMAL) POCT glucose meter (02/22/2025 5:25 PM EDT) POCT Glucose 192(H) 74 - 99 mg/dL [...] Comment 02/22/2025 5:27 PM EDT [facility]ARE [facility] Clerical Administrative Assistant ID Cherrie Wiggins 02/22/2025 5:27 PM EDT HEALTH[facility]ARE LAB Device ID [id number] 02/22/2025 5:27 PM EDT [facility] Specimen Type POC Capillary 02/22/2025 5:27 PM EDT [facility] Blood Capillary blood specimen / Unknown 02/22/2025 5:25 PM EDT 02/22/2025 5:27 PM EDT Jeremy Ramirez MD LAB POINT OF CARE TE ST DOCKED DEVICE UNSOLICITED RESULTS Final Result Performing Organization Address City/[facility] de Phone Number [facility] [address] [place] [address] * POCT glucose meter (02/22/2025 4:23 PM EDT) POCT Glucose 84 74 - 99 mg/dL [...] for testing. Comment 02/22/2025 4:25 PM EDT [facility] Clerical Administrative Assistant ID Cherrie Wiggins 02/22/2025 4:25 PM EDT [facility] Device ID [id number] 02/22/2025 4:25 PM EDT [facility] Specimen Type POC Capillary 02/22/2025 4:25 PM EDT [facility] Blood Capillary blood specimen / Unknown 02/22/2025 4:23 PM EDT 02/22/2025 4:25 PM EDT us Jeremy Ramirez MD LAB POINT OF CARE TE ST DOCKED DEVICE UNSOLICITED RESULTS Final Result Performing Organization Address City/[facility] Co de Phone Number [facility] [address] [place] [address] * (ABNORMAL) POCT glucose meter (02/22/2025 11:45 AM EDT) [facility] Signature POCT Glucose 134(H) 74 - 99 mg/dL 02/22/2025 11:47 AM EDT [facility] Comment:Accuracy of [...] Comment 02/22/2025 11:47 AM EDT [facility] Clerical Administrative Assistant ID Cherrie Wiggins 02/22/2025 11:47 AM EDT HEALTHCARE LAB Device ID [id number] 02/22/2025 11:47 AM EDT [facility] Specimen Type POC Capillary 02/22/2025 11:47 AM EDT [facility] Blood Capillary blood specimen / Unknown 02/22/2025 11:45 AM EDT 02/22/2025 11:47 AM EDT us Jeremy Ramirez MD LAB POINT OF CARE TE ST DOCKED DEVICE UNSOLICITED RESULTS Final Result Performing Organization Address City/[facility]/ZIP Co de Phone Number [facility] [address] [place] [address] * (ABNORMAL) POCT glucose meter (02/22/2025 7:49 AM EDT) POCT Glucose 130(H) 74 - 99 mg/dL [...] Comment 02/22/2025 7:52 AM EDT HEALTHCARE LAB Clerical Administrative Assistant ID Cherrie Wiggins 02/22/2025 7:52 AM EDT HEALTHCARE LAB Device ID [id number] 02/22/2025 7:52 AM EDT HEALTHCARE LAB Specimen Type POC Capillary 02/22/2025 7:52 AM EDT [facility] Blood Capillary blood specimen / Unknown 02/22/2025 7:49 AM EDT 02/22/2025 7:52 AM EDT us Jeermy Ramirez MD LAB POINT OF CARE TE ST DOCKED DEVICE UNSOLICITED RESULTS Final Result [facility] [address] [place] [address] * Magnesium, Plasma (02/22/2025 12:58 AM EDT) [facility] Magnesium, Plasma 2.0 1.9 - 2.4 mg/dL 02/22/2025 1:28 AM EDT [facility] Blood Venous blood specimen / Unknown Venipuncture / Unknown 02/22/2025 12:58 AM EDT 02/22/2025 1:02 AM EDT us Theresa Nelson APRN LAB BLOOD ORDERABLES Final Result [facility] [address] [place] [address] * (ABNORMAL) CBC W/O Differential (02/22/2025 12:58 AM EDT) [facility] WBC Count 9.50 3.70 - 10.30 10*3/uL LAB HEMATOLOGY METHOD 02/22/2025 1:09 AM EDT [facility] RBC Count 3.52(L) 3.90 - 5.20 10*6/uL LAB HEMATOLOGY METHOD 02/22/2025 1:09 AM EDT [facility] HGB 10.9(L) 11.2 - 15.7 g/dL LAB HEMATOLOGY METHOD 02/22/2025 1:09 AM EDT [facility] HCT 33.1(L) 34.0 - 45.0 % LAB HEMATOLOGY METHOD 02/22/2025 1:09 AM EDT [facility] Platelet Count 157 155 - 369 10*3/uL LAB HEMATOLOGY METHOD 02/22/2025 1:09 AM EDT [facility] MCV 94 79 - 98 fL LAB HEMATOLOGY METHOD 02/22/2025 1:09 AM EDT [facility] MCH 31.0 26.0 - 32.0 pg LAB HEMATOLOGY METHOD 02/22/2025 1:09 AM EDT [facility] MCHC 32.9 30.7 - 35.5 g/dL LAB HEMATOLOGY METHOD 02/22/2025 1:09 AM EDT [facility] RDW 15.8(H) 11.5 - 14.5 % LAB HEMATOLOGY METHOD 02/22/2025 1:09 AM EDT [facility] MPV 9.6 8.8 - 12.5 fL LAB HEMATOLOGY METHOD 02/22/2025 1:09 AM EDT [facility] nRBC 0.0 <=0.0 per 100 WBCs LAB HEMATOLOGY METHOD 02/22/2025 1:09 AM EDT [facility] Blood Venous blood specimen / Unknown Venipuncture / Unknown 02/22/2025 12:58 AM EDT 02/22/2025 1:02 AM EDT us Theresa Nelson APRN LAB BLOOD ORDERABLES Final Result [facility] [address] [place] [address] * (ABNORMAL) Renal Function Panel, Plasma (02/22/2025 12:58 AM EDT) Glucose, Plasma 101(H) 74 - 99 mg/dL 02/22/2025 1:28 AM EDT [facility] BUN, Plasma 16 7 - 21 mg/dL 02/22/2025 1:28 AM EDT [facility] Creatinine, Plasma 0.46(L) 0.60 - 1.10 mg/dL 02/22/2025 1:28 AM EDT [facility] BUN/Creatinine Ratio 35 02/22/2025 1:28 AM EDT [facility] Sodium, Plasma 139 136 - 145 mmol/L 02/22/2025 1:28 AM EDT [facility] Potassium, Plasma 3.4(L) 3.6 - 4.9 mmol/L 02/22/2025 1:28 AM EDT [facility] Chloride, Plasma 104 97 - 107 mmol/L 02/22/2025 1:28 AM EDT [facility] CO2, Plasma 25 22 - 29 mmol/L 02/22/2025 1:28 AM EDT [facility] Anion Gap 10 6 - 16 mmol/L 02/22/2025 1:28 AM EDT [facility] Total Calcium, Plasma 8.2(L) 8.9 - 10.2 mg/dL 02/22/2025 1:28 AM EDT [facility] Phosphorus, Plasma 3.2 2.5 - 4.5 mg/dL 02/22/2025 1:28 AM EDT [facility] Albumin, Plasma 3.3(L) 3.5 - 5.2 g/dL 02/22/2025 1:28 AM EDT [facility] eGFRcr 119.7 mL/min/1.7 3m*2 02/22/2025 1:28 AM EDT [facility] Comment:Reported eGFRcr in m L/min/1.73m2 is based the CKD-EPI 2020 equation that does not use a race coefficient. Blood Venous blood specimen / Unknown Venipuncture / Unknown 02/22/2025 12:58 AM EDT 02/22/2025 1:02 AM EDT us Theresa Nelson APRN LAB BLOOD ORDERABLES Final Result [facility] [address] [place] [address] * (ABNORMAL) POCT glucose meter (02/21/2025 8:46 PM EDT) Pathologist [facility] POCT Glucose 164(H) 74 - 99 mg/dL [...] for testing. Comment 02/21/2025 8:47 PM EDT [facility] Clerical Administrative Assistant ID Noe Avina 8:47 PM EDT [facility] LAB Device ID [id number] 02/21/2025 8:47 PM EDT [facility] Specimen Type POC Capillary 02/21/2025 8:47 PM EDT [facility] Blood Capillary blood specimen / Unknown 02/21/2025 8:46 PM EDT 02/21/2025 8:47 PM EDT us Jeremy Ramirez MD LAB POINT OF CARE TE ST DOCKED DEVICE UNSOLICITED RESULTS Final Result Performing Organization Address City/[facility] Co de Phone Number [facility] [address] [place] [address] * (ABNORMAL) POCT glucose meter (02/21/2025 4:43 PM EDT) [facility] POCT Glucose 232(H) 74 - 99 mg/dL [...] Comment 02/21/2025 4:45 PM EDT [facility]ALTHCARE LAB Clerical Administrative Assistant ID Audrey Pearson [id number] 4:45 PM EDT HEALTHCARE LAB Device ID [id number] 02/21/2025 4:45 PM EDT [facility]ALTH[facility]ARE LAB Specimen Type POC Capillary 02/21/2025 4:45 PM EDT [facility] LAB Blood Capillary blood specimen / Unknown 02/21/2025 4:43 PM EDT 02/21/2025 4:45 PM EDT us Jeremy Ramirez MD LAB POINT OF CARE TE ST DOCKED DEVICE UNSOLICITED RESULTS Final Result Performing Organization Address City/[facility]/ZIP Co de Phone Number [facility] [address] [place] [address] * (ABNORMAL) POCT glucose meter (02/21/2025 11:51 AM EDT) POCT Glucose 146(H) 74 - 99 mg/dL 02/21/2025 11:53 AM EDT [facility] Comment:Accuracy of [...] for testing. Comment 02/21/2025 11:53 AM EDT [facility]ALTHCARE LAB Clerical Administrative Assistant ID Tatianna Chavez 02/21/2025 11:53 AM EDT HEALTHCARE LAB Device ID [id number] 02/21/2025 11:53 AM EDT HEALTHCARE LAB Specimen Type POC Capillary 02/21/2025 11:53 AM EDT [facility] Blood Capillary blood specimen / Unknown 02/21/2025 11:51 AM EDT 02/21/2025 11:53 AM EDT us Jeremy Ramirez MD LAB POINT OF CARE TE ST DOCKED DEVICE UNSOLICITED RESULTS Final Result Performing Organization Address City/[facility]/ZIP Co de Phone Number [facility] [address] [place] [address] * (ABNORMAL) POCT glucose meter (02/21/2025 8:32 AM EDT) [facility] POCT Glucose 167(H) 74 - 99 mg/dL [...] Comment 02/21/2025 8:33 AM EDT HEALTHCARE LAB Clerical Administrative Assistant ID Rima Dukes 02/22/20 8:33 AM EDT HEALTHCARE LAB Device ID [id number] 02/21/2025 8:33 AM EDT [facility] Specimen Type POC Capillary 02/21/2025 8:33 AM EDT [facility] Blood Capillary blood specimen / Unknown 02/21/2025 8:32 AM EDT 02/21/2025 8:33 AM EDT us Jeremy Ramirez MD LAB POINT OF CARE TE ST DOCKED DEVICE UNSOLICITED RESULTS Final Result Performing Organization Address City/[facility]/ZIP Co de Phone Number [facility] [address] [place] [address] * Magnesium, Plasma (02/21/2025 2:45 AM EDT) [facility] Magnesium, Plasma 2.0 1.9 - 2.4 mg/dL 02/21/2025 3:20 AM EDT [facility] Blood Venous blood specimen / Unknown Venipuncture / Unknown 02/21/2025 2:45 AM EDT 02/21/2025 2:50 AM EDT us Theresa Nelson APRN LAB BLOOD ORDERABLES Final Result [facility] [address] [place] [address] * (ABNORMAL) CBC W/O Differential (02/21/2025 2:45 AM EDT) [facility] WBC Count 8.01 3.70 - 10.30 10*3/uL LAB HEMATOLOGY METHOD 02/21/2025 2:59 AM EDT [facility] RBC Count 3.60(L) 3.90 - 5.20 10*6/uL LAB HEMATOLOGY METHOD 02/21/2025 2:59 AM EDT [facility] HGB 11.3 11.2 - 15.7 g/dL LAB HEMATOLOGY METHOD 02/21/2025 2:59 AM EDT [facility] HCT 33.9(L) 34.0 - 45.0 % LAB HEMATOLOGY METHOD 02/21/2025 2:59 AM EDT [facility] Platelet Count 174 155 - 369 10*3/uL LAB HEMATOLOGY METHOD 02/21/2025 2:59 AM EDT [facility] MCV 94 79 - 98 fL LAB HEMATOLOGY METHOD 02/21/2025 2:59 AM EDT [facility] MCH 31.4 26.0 - 32.0 pg LAB HEMATOLOGY METHOD 02/21/2025 2:59 AM EDT [facility] MCHC 33.3 30.7 - 35.5 g/dL LAB HEMATOLOGY METHOD 02/21/2025 2:59 AM EDT [facility] RDW 16.0(H) 11.5 - 14.5 % LAB HEMATOLOGY METHOD 02/21/2025 2:59 AM EDT [facility] MPV 9.7 8.8 - 12.5 fL LAB HEMATOLOGY METHOD 02/21/2025 2:59 AM EDT [facility] nRBC 0.4(H) <=0.0 per 100 WBCs LAB HEMATOLOGY METHOD 02/21/2025 2:59 AM EDT [facility] Blood Venous blood specimen / Unknown Venipuncture / Unknown 02/21/2025 2:45 AM EDT 02/21/2025 2:50 AM EDT us Theresa Nelson APRN LAB BLOOD ORDERABLES Final Result [facility] [address] [place] [address] * (ABNORMAL) Renal Function Panel, Plasma (02/21/2025 2:45 AM EDT) Glucose, Plasma 134(H) 74 - 99 mg/dL 02/21/2025 3:20 AM EDT [facility] BUN, Plasma 14 7 - 21 mg/dL 02/21/2025 3:20 AM EDT [facility] Creatinine, Plasma 0.45(L) 0.60 - 1.10 mg/dL 02/21/2025 3:20 AM EDT [facility] BUN/Creatinine Ratio 31 02/21/2025 3:20 AM EDT [facility] Sodium, Plasma 141 136 - 145 mmol/L 02/21/2025 3:20 AM EDT [facility] Potassium, Plasma 4.1 3.6 - 4.9 mmol/L 02/21/2025 3:20 AM EDT [facility] Chloride, Plasma 105 97 - 107 mmol/L 02/21/2025 3:20 AM EDT [facility] CO2, Plasma 25 22 - 29 mmol/L 02/21/2025 3:20 AM EDT [facility] Anion Gap 11 6 - 16 mmol/L 02/21/2025 3:20 AM EDT [facility] Total Calcium, Plasma 8.7(L) 8.9 - 10.2 mg/dL 02/21/2025 3:20 AM EDT [facility] Phosphorus, Plasma 3.2 2.5 - 4.5 mg/dL 02/21/2025 3:20 AM EDT [facility] Albumin, Plasma 3.5 3.5 - 5.2 g/dL 02/21/2025 3:20 AM EDT [facility] eGFRcr 120.3 mL/min/1.7 3m*2 02/21/2025 3:20 AM EDT [facility] Comment:Reported eGFRcr in m L/min/1.73m2 is based the CKD-EPI 2020 equation that does not use a race coefficient. Blood Venous blood specimen / Unknown Venipuncture / Unknown 02/21/2025 2:45 AM EDT 02/21/2025 2:50 AM EDT us Theresa Nelson APRN LAB BLOOD ORDERABLES Final Result [facility] [address] [place] [address] * (ABNORMAL) POCT glucose meter (02/20/2025 9:24 PM EDT) [facility] POCT Glucose 169(H) 74 - 99 mg/dL [...] Comment 02/20/2025 9:26 PM EDT HEALTHCARE LAB Clerical Administrative Assistant ID Carie Miles 9:26 PM EDT HEALTHCARE LAB Device ID [id number] 02/20/2025 9:26 PM EDT HEALTHCARE LAB Specimen Type POC Capillary 02/20/2025 9:26 PM EDT [facility] Blood Capillary blood specimen / Unknown 02/20/2025 9:24 PM EDT 02/20/2025 9:26 PM EDT Jeremy Ramirez MD LAB POINT OF CARE TE ST DOCKED DEVICE UNSOLICITED RESULTS Final Result Performing Organization Address [facility] de Phone Number HEALTHCARE LAB [address] [place] [address] * (ABNORMAL) POCT glucose meter (02/20/2025 6:19 PM EDT) [facility] POCT Glucose 301(H) 74 - 99 mg/dL [...] for testing. Comment 02/20/2025 6:20 PM EDT [facility] Clerical Administrative Assistant ID Rima Dukes 02/21/20 6:20 PM EDT HEALTHCARE LAB Device ID [id number] 02/20/2025 6:20 PM EDT HEALTHCARE LAB Specimen Type POC Capillary 02/20/2025 6:20 PM EDT HEALTHCARE LAB Blood Capillary blood specimen / Unknown 02/20/2025 6:19 PM EDT 02/20/2025 6:20 PM EDT us Jeremy Ramirez MD LAB POINT OF CARE TE ST DOCKED DEVICE UNSOLICITED RESULTS Final Result Performing Organization Address City/[facility] Co de Phone Number [facility] [address] [place] [address] * (ABNORMAL) POCT glucose meter (02/20/2025 12:30 PM EDT) [facility] POCT Glucose 107(H) 74 - 99 mg/dL 02/20/2025 12:32 PM EDT [facility] Comment:Accuracy of [...] Comment 02/20/2025 12:32 PM EDT HEALTHCARE LAB Clerical Administrative Assistant ID Rima Dukes 02/21/20 12:32 PM EDT HEALTHCARE LAB Device ID [id number] 02/20/2025 12:32 PM EDT HEALTHCARE LAB Specimen Type POC Venous 02/20/2025 12:32 PM EDT [facility]ALTH[facility]ARE LAB Blood Venous blood specimen / Unknown 02/20/2025 12:30 PM EDT 02/20/2025 12:32 PM EDT us Jeremy Ramirez MD LAB POINT OF CARE TE ST DOCKED DEVICE UNSOLICITED RESULTS Final Result Performing Organization Address City/[facility] Co de Phone Number [facility]ARE [facility] [address] [place] [address] * (ABNORMAL) Renal Function Panel, Plasma (02/20/2025 12:30 PM EDT) Pathologist [facility] Glucose, Plasma 100(H) 74 - 99 mg/dL 02/20/2025 1:36 PM EDT [facility] BUN, Plasma 19 7 - 21 mg/dL 02/20/2025 1:36 PM EDT [facility] Creatinine, Plasma 0.49(L) 0.60 - 1.10 mg/dL 02/20/2025 1:36 PM EDT [facility] BUN/Creatinine Ratio 39 02/20/2025 1:36 PM EDT [facility] Sodium, Plasma 139 136 - 145 mmol/L 02/20/2025 1:36 PM EDT [facility] Potassium, Plasma 4.0 3.6 - 4.9 mmol/L 02/20/2025 1:36 PM EDT [facility] Chloride, Plasma 105 97 - 107 mmol/L 02/20/2025 1:36 PM EDT [facility] CO2, Plasma 26 22 - 29 mmol/L 02/20/2025 1:36 PM EDT [facility] Anion Gap 8 6 - 16 mmol/L 02/20/2025 1:36 PM EDT [facility] Total Calcium, Plasma 8.7(L) 8.9 - 10.2 mg/dL 02/20/2025 1:36 PM EDT [facility] Phosphorus, Plasma 3.1 2.5 - 4.5 mg/dL 02/20/2025 1:36 PM EDT [facility] Albumin, Plasma 3.5 3.5 - 5.2 g/dL 02/20/2025 1:36 PM EDT [facility] eGFRcr 117.9 mL/min/1.7 3m*2 02/20/2025 1:36 PM EDT [facility] Comment:Reported eGFRcr in m L/min/1.73m2 is based the CKD-EPI 2020 equation that does not use a race coefficient. Blood Venous blood specimen / Unknown Venipuncture / Unknown 02/20/2025 12:30 PM EDT 02/20/2025 12:38 PM EDT us Theresa Nelson PROFESSOR OF ART HISTORY LAB BLOOD ORDERABLES Final Result [facility] [address] [place] [address] * POCT glucose meter (02/20/2025 8:31 AM EDT) POCT Glucose 99 74 - 99 mg/dL [...] Comment 02/20/2025 8:33 AM EDT HEALTHCARE LAB Clerical Administrative Assistant ID Rima Dukes 02/21/20 8:33 AM EDT HEALTHCARE LAB Device ID [id number] 02/20/2025 8:33 AM EDT HEALTHCARE LAB Specimen Type POC Capillary 02/20/2025 8:33 AM EDT HEALTHCARE LAB Blood Capillary blood specimen / Unknown 02/20/2025 8:31 AM EDT 02/20/2025 8:33 AM EDT us Jeremy Ramirez MD LAB POINT OF CARE TE ST DOCKED DEVICE UNSOLICITED RESULTS Final Result Performing Organization Address City/[facility]/ZIP Co de Phone Number HEALTHCARE [facility] [address] [place] [address] * Phosphorus (02/20/2025 3:20 AM EDT) Pathologist [facility] Phosphorus, Plasma 3.4 2.5 - 4.5 mg/dL 02/20/2025 4:17 AM EDT [facility] Blood Venous blood specimen / Unknown Venipuncture / Unknown 02/20/2025 3:20 AM EDT 02/20/2025 3:25 AM EDT us Jeremy Ramirez MD LAB BLOOD ORDERABLES Final Res ult [facility] [address] [place] [address] * Prothrombin Time/INR (02/20/2025 3:20 AM EDT) Pathologist [facility] Prothrombin Time 13.4 12.0 - 14.3 sec LAB COAGULATION METHOD 02/20/2025 3:41 AM EDT [facility] INR 1.0 0.9 - 1.1 LAB COAGULATION METHOD 02/20/2025 3:41 AM EDT [facility] Blood Venous blood specimen / Unknown Venipuncture / Unknown 02/20/2025 3:20 AM EDT 02/20/2025 3:25 AM EDT [facility] - 02/20/2025 3:41 AM EDT OPTIMAL INR RANGES FOR PATIENT ON ORAL ANTICOAGULANT THERAPY Prevention of venous thromboembolism INR 2.0 to 3.0 In patients with heart disease: Atrial fibrillation INR 2.0 to 3.0 Valvular heart disease INR 2.0 to 3.0 Tissue heart valves INR 2.0 to 3.0 Mechanical prosthetic valves INR 2.5 to 3.5 Prevention of recurrent [place] INR 2.5 to 3.5 Leida Marcano PROFESSOR OF ART HISTORY, DNP LAB BLOOD ORDERABLES Final Result [facility] [address] [place] [address] * (ABNORMAL) Comprehensive Metabolic Panel, Plasma (02/20/2025 3:20 AM EDT) [facility] Glucose, Plasma 129(H) 74 - 99 mg/dL 02/20/2025 4:17 AM EDT [facility] BUN, Plasma 17 7 - 21 mg/dL 02/20/2025 4:17 AM EDT [facility] Creatinine, Plasma 0.46(L) 0.60 - 1.10 mg/dL 02/20/2025 4:17 AM EDT [facility] BUN/Creatinine Ratio 37 02/20/2025 4:17 AM EDT [facility] Sodium, Plasma 140 136 - 145 mmol/L 02/20/2025 4:17 AM EDT [facility] Potassium, Plasma 4.0 3.6 - 4.9 mmol/L 02/20/2025 4:17 AM EDT [facility] Chloride, Plasma 107 97 - 107 mmol/L 02/20/2025 4:17 AM EDT [facility] CO2, Plasma 25 22 - 29 mmol/L 02/20/2025 4:17 AM EDT [facility] Anion Gap 8 6 - 16 mmol/L 02/20/2025 4:17 AM EDT [facility] Total Calcium, Plasma 9.0 8.9 - 10.2 mg/dL 02/20/2025 4:17 AM EDT [facility] Total Protein 7.1 6.3 - 7.9 g/dL 02/20/2025 4:17 AM EDT [facility] Albumin, Plasma 3.5 3.5 - 5.2 g/dL 02/20/2025 4:17 AM EDT [facility] AST, Plasma 36(H) 10 - 35 U/L 02/20/2025 4:17 AM EDT [facility] Comment:Hemolyzed, result ma y be falsely increased. ALT, Plasma 41(H) 10 - 35 U/L 02/20/2025 4:17 AM EDT [facility] Alkaline Phosphatase, Plasma 80 35 - 104 U/L 02/20/2025 4:17 AM EDT [facility] Total Bilirubin, Plasma 0.3 0.2 - 1.1 mg/dL 02/20/2025 4:17 AM EDT [facility] eGFRcr 119.7 mL/min/1.7 3m*2 02/20/2025 4:17 AM EDT [facility] Comment:Reported eGFRcr in m L/min/1.73m2 is based the CKD-EPI 2020 equation that does not use a race coefficient. Blood Venous blood specimen / Unknown Venipuncture / Unknown 02/20/2025 3:20 AM EDT 02/20/2025 3:25 AM EDT us Joce Covarrubias APRN LAB BLOOD ORDERABLES Final Re sult [facility] [address] [place] [address] * Ionized calcium, whole blood (02/20/2025 3:20 AM EDT) Ionized Calcium, Whole Blood 4.6 4.6 - 5.1 mg/dL LAB HEMATOLOGY METHOD 02/20/2025 3:25 AM EDT [facility] Blood Venous blood specimen / Unknown Venipuncture / Unknown 02/20/2025 3:20 AM EDT 02/20/2025 3:24 AM EDT us Joce B Covarrubias PROFESSOR OF ART HISTORY LAB BLOOD ORDERABLES Final Re sult Performing Organization Address [facility]/ZIP Co de Phone Number [facility] [address] [place] [address] * Magnesium, Plasma (02/20/2025 3:20 AM EDT) Magnesium, Plasma 1.9 1.9 - 2.4 mg/dL 02/20/2025 4:17 AM EDT [facility] Blood Venous blood specimen / Unknown Venipuncture / Unknown 02/20/2025 3:20 AM EDT 02/20/2025 3:25 AM EDT us Joce B Covarrubias PROFESSOR OF ART HISTORY LAB BLOOD ORDERABLES Final Re sult Performing Organization Address City/[facility]/ZIP Co de Phone Number [facility] [address] [place] [address] * (ABNORMAL) CBC W/O Differential (02/20/2025 3:20 AM EDT) WBC Count 8.34 3.70 - 10.30 10*3/uL LAB HEMATOLOGY METHOD 02/20/2025 3:34 AM EDT [facility] RBC Count 3.64(L) 3.90 - 5.20 10*6/uL LAB HEMATOLOGY METHOD 02/20/2025 3:34 AM EDT [facility] HGB 11.3 11.2 - 15.7 g/dL LAB HEMATOLOGY METHOD 02/20/2025 3:34 AM EDT [facility] HCT 34.7 34.0 - 45.0 % LAB HEMATOLOGY METHOD 02/20/2025 3:34 AM EDT [facility] Platelet Count 171 155 - 369 10*3/uL LAB HEMATOLOGY METHOD 02/20/2025 3:34 AM EDT [facility] MCV 95 79 - 98 fL LAB HEMATOLOGY METHOD 02/20/2025 3:34 AM EDT [facility] MCH 31.0 26.0 - 32.0 pg LAB HEMATOLOGY METHOD 02/20/2025 3:34 AM EDT [facility] MCHC 32.6 30.7 - 35.5 g/dL LAB HEMATOLOGY METHOD 02/20/2025 3:34 AM EDT [facility] RDW 16.0(H) 11.5 - 14.5 % LAB HEMATOLOGY METHOD 02/20/2025 3:34 AM EDT [facility] MPV 10.0 8.8 - 12.5 fL LAB HEMATOLOGY METHOD 02/20/2025 3:34 AM EDT [facility] nRBC 0.4(H) <=0.0 per 100 WBCs LAB HEMATOLOGY METHOD 02/20/2025 3:34 AM EDT [facility] Blood Venous blood specimen / Unknown Venipuncture / Unknown 02/20/2025 3:20 AM EDT 02/20/2025 3:25 AM EDT us Joce Covarrubias PROFESSOR OF ART HISTORY LAB BLOOD ORDERABLES Final Re sult Performing Organization Address City/[facility] Co de Phone Number [facility] [address] [place] [address] * Urinalysis Microscopic Examination (02/20/2025 3:04 AM EDT) Urine Urine specimen obtained by clean catch procedure / Unknown Non-blood Collection / Unknown 02/20/2025 3:04 AM EDT 02/20/2025 3:09 AM EDT us Leida Marcano PROFESSOR OF ART HISTORY, DNP LAB URINE ORDERABLES Final Result Performing Organization Address City/[facility]/ZIP Co de Phone Number [facility] [address] [place] [address] * (ABNORMAL) Urinalysis with reflex microscopic (Culture NOT Included) (02/20/2025 3:04 AM EDT) Color, Urine Yellow LAB URINALYSIS - AUTOMATED METHOD 02/20/2025 3:27 AM EDT [facility] Clarity, Urine Cloudy LAB URINALYSIS - AUTOMATED METHOD 02/20/2025 3:27 AM EDT [facility] Spec [place], Urine 1.023 1.005 - 1.030 LAB URINALYSIS - AUTOMATED METHOD 02/20/2025 3:27 AM EDT [facility] pH, Urine 6.0 5.0 - 8.0 LAB URINALYSIS - AUTOMATED METHOD 02/20/2025 3:27 AM EDT [facility] Protein, Urine Negative Negative mg/dL LAB URINALYSIS - AUTOMATED METHOD 02/20/2025 3:27 AM EDT [facility] Glucose, Urine Negative Negative mg/dL LAB URINALYSIS - AUTOMATED METHOD 02/20/2025 3:27 AM EDT [facility] Ketones, Urine Trace(A) Negative mg/dL LAB URINALYSIS - AUTOMATED METHOD 02/20/2025 3:27 AM EDT [facility] Blood, Urine Negative Negative LAB URINALYSIS - AUTOMATED METHOD 02/20/2025 3:27 AM EDT [facility] Bilirubin, Urine Negative Negative LAB URINALYSIS - AUTOMATED METHOD 02/20/2025 3:27 AM EDT [facility] Urobilinogen, Urine 1.0 0.2 to 1.0 mg/dL LAB URINALYSIS - AUTOMATED METHOD 02/20/2025 3:27 AM EDT [facility] Leukocytes, Urine Moderate(A) Negative LAB URINALYSIS - AUTOMATED METHOD 02/20/2025 3:27 AM EDT [facility] Nitrite, Urine Negative Negative LAB URINALYSIS - AUTOMATED METHOD 02/20/2025 3:27 AM EDT [facility] RBC, Urine 3 0 to 3 /HPF LAB URINALYSIS - AUTOMATED METHOD 02/20/2025 3:27 AM EDT [facility] WBC, Urine >50(A) 0 to 5 /HPF LAB URINALYSIS - AUTOMATED METHOD 02/20/2025 3:27 AM EDT [facility] Squamous Epithelial Cells 11 - 20(A) 0 to 5 /HPF LAB URINALYSIS - AUTOMATED METHOD 02/20/2025 3:27 AM EDT [facility] Hyaline Casts 0 - 2 0 to 5 /LPF LAB URINALYSIS - AUTOMATED METHOD 02/20/2025 3:27 AM EDT [facility] Bacteria, Urine Present Negative LAB URINALYSIS - AUTOMATED METHOD 02/20/2025 3:27 AM EDT [facility] Urine Urine specimen obtained by clean catch procedure / Unknown Non-blood Collection / Unknown 02/20/2025 3:04 AM EDT 02/20/2025 3:09 AM EDT Leida Marcano APRN, DNP LAB URINE ORDERABLES Final Result Performing Organization Address City/[facility]/ZIP Co de Phone Number [facility] [address] [place] [address] * (ABNORMAL) POCT glucose meter (02/19/2025 8:39 [...] Comment 02/19/2025 8:41 PM EDT [facility] Clerical Administrative Assistant ID Carie Miles 8:41 PM EDT [facility] LAB Device ID [id number] 02/19/2025 8:41 PM EDT [facility] Specimen Type POC Capillary 02/19/2025 8:41 PM EDT [facility] Blood Capillary blood specimen / Unknown 02/19/2025 8:39 PM EDT 02/19/2025 8:41 PM EDT us Jeremy Ramirez MD LAB POINT OF CARE TE ST DOCKED DEVICE UNSOLICITED RESULTS Final Result Performing Organization Address City/[facility]/ZIP Co de Phone Number [facility]ARE [facility] [address] [place] [address] * (ABNORMAL) POCT glucose meter (02/19/2025 5:34 PM EDT) POCT Glucose 177(H) 74 - 99 mg/dL 02/19/2025 5:36 PM EDT [facility] Comment:Accuracy of [...] for testing. Comment 02/19/2025 5:36 PM EDT [facility] Clerical Administrative Assistant ID Rima Dukse 02/20/20 5:36 PM EDT [facility] LAB Device ID [id number] 02/19/2025 5:36 PM EDT [facility] Specimen Type POC Capillary 02/19/2025 5:36 PM EDT [facility] Blood Capillary blood specimen / Unknown 02/19/2025 5:34 PM EDT 02/19/2025 5:36 PM EDT Jeremy Ramirez MD LAB POINT OF CARE TE ST DOCKED DEVICE UNSOLICITED RESULTS Final Result [facility] [address] [place] [address] * (ABNORMAL) POCT glucose meter (02/19/2025 12:05 PM EDT) [facility] POCT Glucose 147(H) 74 - 99 mg/dL [...] 02/19/2025 12:07 PM EDT [facility] Clerical Administrative Assistant ID Rima Dukes 02/20/20 12:07 PM EDT [facility] LAB Device ID [id number] 02/19/2025 12:07 PM EDT [facility] Specimen Type POC Capillary 02/19/2025 12:07 PM EDT [facility] Blood Capillary blood specimen / Unknown 02/19/2025 12:05 PM EDT 02/19/2025 12:07 PM EDT us Jeremy Ramirez MD LAB POINT OF CARE TE ST DOCKED DEVICE UNSOLICITED RESULTS Final Result Performing Organization Address [facility] de Phone Number [facility]ARE LAB [address] [place] [address] * (ABNORMAL) POCT glucose meter (02/19/2025 8:41 AM EDT) POCT Glucose 114(H) 74 - 99 mg/dL 02/19/2025 12:06 PM EDT [facility] Comment:Accuracy of a [...] for testing. Comment 02/19/2025 12:06 PM EDT [facility] Clerical Administrative Assistant ID Rima Dukes 02/20/20 12:06 PM EDT HEALTHCARE LAB Device ID [id number] 02/19/2025 12:06 PM EDT [facility] Specimen Type POC Venous 02/19/2025 12:06 PM EDT [facility] Blood Venous blood specimen / Unknown 02/19/2025 8:41 AM EDT 02/19/2025 12:06 PM EDT us Jeremy Ramirez MD LAB POINT OF CARE TE ST DOCKED DEVICE UNSOLICITED RESULTS Final Result Performing Organization Address City/[facility] Co de Phone Number [facility]ARE [facility] [address] [place] [address] * Phosphorus, Plasma (02/19/2025 8:41 AM EDT) Phosphorus, Plasma 2.7 2.5 - 4.5 mg/dL 02/19/2025 9:36 AM EDT [facility] Blood Venous blood specimen / Unknown Venipuncture / Unknown 02/19/2025 8:41 AM EDT 02/19/2025 8:53 AM EDT us Leida Elvie Jeet PROFESSOR OF ART HISTORY, DNP LAB BLOOD ORDERABLES Final Result Performing Organization Address City/[facility] Co de Phone Number [facility] [address] [place] [address] * (ABNORMAL) POCT glucose meter (02/19/2025 4:30 AM EDT) POCT Glucose 115(H) 74 - 99 mg/dL 02/19/2025 4:32 AM EDT [facility] Comment:Accuracy of a [...] Comment 02/19/2025 4:32 AM EDT [facility]ARE [facility] Clerical Administrative Assistant ID Javier Hilario 025 4:32 AM EDT HEALTHCARE LAB Device ID [id number] 02/19/2025 4:32 AM EDT [facility] Specimen Type POC Capillary 02/19/2025 4:32 AM EDT [facility] Blood Capillary blood specimen / Unknown 02/19/2025 4:30 AM EDT 02/19/2025 4:32 AM EDT us Jeremy Ramirez MD LAB POINT OF CARE TE ST DOCKED DEVICE UNSOLICITED RESULTS Final Result Performing Organization Address [facility] Co de Phone Number [facility] [address] [place] [address] * Prothrombin Time/INR (02/19/2025 12:40 AM EDT) Prothrombin Time 13.7 12.0 - 14.3 sec LAB COAGULATION METHOD 02/19/2025 1:20 AM EDT [facility] INR 1.0 0.9 - 1.1 LAB COAGULATION METHOD 02/19/2025 1:20 AM EDT [facility] Blood Venous blood specimen / Unknown Venipuncture / Unknown 02/19/2025 12:40 AM EDT 02/19/2025 12:49 AM EDT Narrative [facility] - 02/19/2025 1:20 AM EDT OPTIMAL INR RANGES FOR PATIENT ON ORAL ANTICOAGULANT THERAPY Prevention of venous thromboembolism INR 2.0 to 3.0 In patients with heart disease: Atrial fibrillation INR 2.0 to 3.0 Valvular heart disease INR 2.0 to 3.0 Tissue heart valves INR 2.0 to 3.0 Mechanical prosthetic valves INR 2.5 to 3.5 Prevention of recurrent [place] INR 2.5 to 3.5 Leida Bermeo Jeet PROFESSOR OF ART HISTORY, DNP LAB BLOOD ORDERABLES Final Result [facility] [address] [place] [address] * (ABNORMAL) Comprehensive Metabolic Panel, Plasma (02/19/2025 12:40 AM EDT) Glucose, Plasma 131(H) 74 - 99 mg/dL 02/19/2025 1:21 AM EDT [facility] BUN, Plasma 8 7 - 21 mg/dL 02/19/2025 1:21 AM EDT [facility] Creatinine, Plasma 0.38(L) 0.60 - 1.10 mg/dL 02/19/2025 1:21 AM EDT [facility] BUN/Creatinine Ratio 21 02/19/2025 1:21 AM EDT [facility] Sodium, Plasma 140 136 - 145 mmol/L 02/19/2025 1:21 AM EDT [facility] Potassium, Plasma 4.2 3.6 - 4.9 mmol/L 02/19/2025 1:21 AM EDT [facility] Chloride, Plasma 107 97 - 107 mmol/L 02/19/2025 1:21 AM EDT [facility] CO2, Plasma 24 22 - 29 mmol/L 02/19/2025 1:21 AM EDT [facility] Anion Gap 9 6 - 16 mmol/L 02/19/2025 1:21 AM EDT [facility] Total Calcium, Plasma 8.8(L) 8.9 - 10.2 mg/dL 02/19/2025 1:21 AM EDT [facility] Total Protein 7.1 6.3 - 7.9 g/dL 02/19/2025 1:21 AM EDT [facility] Albumin, Plasma 3.5 3.5 - 5.2 g/dL 02/19/2025 1:21 AM EDT [facility] AST, Plasma 38(H) 10 - 35 U/L 02/19/2025 1:21 AM EDT [facility] Comment:Hemolyzed, result ma y be falsely increased. ALT, Plasma 32 10 - 35 U/L 02/19/2025 1:21 AM EDT [facility] Alkaline Phosphatase, Plasma 65 35 - 104 U/L 02/19/2025 1:21 AM EDT [facility] Total Bilirubin, Plasma 0.3 0.2 - 1.1 mg/dL 02/19/2025 1:21 AM EDT [facility] eGFRcr 125.3 mL/min/1.7 3m*2 02/19/2025 1:21 AM EDT [facility] Comment:Reported eGFRcr in m L/min/1.73m2 is based the CKD-EPI 2020 equation that does not use a race coefficient. Blood Venous blood specimen / Unknown Venipuncture / Unknown 02/19/2025 12:40 AM EDT 02/19/2025 12:49 AM EDT us Joce Covarrubias PROFESSOR OF ART HISTORY LAB BLOOD ORDERABLES Final Re sult [facility] [address] [place] [address] * Ionized calcium, whole blood (02/19/2025 12:40 AM EDT) Ionized Calcium, Whole Blood 4.6 4.6 - 5.1 mg/dL LAB HEMATOLOGY METHOD 02/19/2025 12:50 AM EDT [facility] Blood Venous blood specimen / Unknown Venipuncture / Unknown 02/19/2025 12:40 AM EDT 02/19/2025 12:48 AM EDT Joce Covarrubias PROFESSOR OF ART HISTORY LAB BLOOD ORDERABLES Final Re sult [facility] [address] [place] [address] * Magnesium, Plasma (02/19/2025 12:40 AM EDT) Pathologist [facility] Magnesium, Plasma 2.2 1.9 - 2.4 mg/dL 02/19/2025 1:21 AM EDT [facility] Blood Venous blood specimen / Unknown Venipuncture / Unknown 02/19/2025 12:40 AM EDT 02/19/2025 12:49 AM EDT us Joce Covarrubias PROFESSOR OF ART HISTORY LAB BLOOD ORDERABLES Final Re sult Performing Organization Address [facility]/ZIP Co de Phone Number [facility] [address] [place] [address] * (ABNORMAL) CBC W/O Differential (02/19/2025 12:40 AM EDT) Pathologist [facility] WBC Count 7.38 3.70 - 10.30 10*3/uL LAB HEMATOLOGY METHOD 02/19/2025 1:00 AM EDT [facility] RBC Count 3.56(L) 3.90 - 5.20 10*6/uL LAB HEMATOLOGY METHOD 02/19/2025 1:00 AM EDT [facility] HGB 10.8(L) 11.2 - 15.7 g/dL LAB HEMATOLOGY METHOD 02/19/2025 1:00 AM EDT [facility] HCT 33.7(L) 34.0 - 45.0 % LAB HEMATOLOGY METHOD 02/19/2025 1:00 AM EDT [facility] Platelet Count 171 155 - 369 10*3/uL LAB HEMATOLOGY METHOD 02/19/2025 1:00 AM EDT [facility] MCV 95 79 - 98 fL LAB HEMATOLOGY METHOD 02/19/2025 1:00 AM EDT [facility] MCH 30.3 26.0 - 32.0 pg LAB HEMATOLOGY METHOD 02/19/2025 1:00 AM EDT [facility] MCHC 32.0 30.7 - 35.5 g/dL LAB HEMATOLOGY METHOD 02/19/2025 1:00 AM EDT [facility] RDW 15.6(H) 11.5 - 14.5 % LAB HEMATOLOGY METHOD 02/19/2025 1:00 AM EDT [facility] MPV 9.8 8.8 - 12.5 fL LAB HEMATOLOGY METHOD 02/19/2025 1:00 AM EDT [facility] nRBC 0.0 <=0.0 per 100 WBCs LAB HEMATOLOGY METHOD 02/19/2025 1:00 AM EDT [facility] Blood Venous blood specimen / Unknown Venipuncture / Unknown 02/19/2025 12:40 AM EDT 02/19/2025 12:51 AM EDT us Joce Covarrubias PROFESSOR OF ART HISTORY LAB BLOOD ORDERABLES Final Re sult Performing Organization Address City/[facility]/ZIP Co de Phone Number [facility] [address] [place] [address] * (ABNORMAL) Phosphorus, Plasma (02/19/2025 12:40 AM EDT) Phosphorus, Plasma 2.3(L) 2.5 - 4.5 mg/dL 02/19/2025 1:21 AM EDT [facility] Blood Venous blood specimen / Unknown Venipuncture / Unknown 02/19/2025 12:40 AM EDT 02/19/2025 12:49 AM EDT Leida Marcano PROFESSOR OF ART HISTORY, DNP LAB BLOOD ORDERABLES Final Result Performing Organization Address City/[facility]/ZIP Co de Phone Number [facility] [address] [place] [address] * (ABNORMAL) POCT glucose meter (02/18/2025 10:19 PM EDT) POCT Glucose 129(H) 74 - 99 mg/dL 02/18/2025 10:20 PM EDT [facility] Comment:Accuracy of a glucos e result [...] for testing. Comment 02/18/2025 10:20 PM EDT [facility]ALTH[facility]ARE LAB Clerical Administrative Assistant ID Noe Patricio 10:20 PM EDT [facility]ARE LAB Device ID [id number] 02/18/2025 10:20 PM EDT [facility] Specimen Type POC Capillary 02/18/2025 10:20 PM EDT [facility] Blood Capillary blood specimen / Unknown 02/18/2025 10:19 PM EDT 02/18/2025 10:20 PM EDT us Jeremy Ramirez MD LAB POINT OF CARE TE ST DOCKED DEVICE UNSOLICITED RESULTS Final Result Performing Organization Address City/[facility] Co de Phone Number [facility] [address] [place] [address] * (ABNORMAL) POCT glucose meter (02/18/2025 6:21 PM EDT) POCT Glucose 172(H) 74 - 99 mg/dL [...] 02/18/2025 6:23 PM EDT [facility] Clerical Administrative Assistant ID Yamilet Sheldon 6:23 PM EDT HEALTH[facility]ARE LAB Device ID [id number] 02/18/2025 6:23 PM EDT [facility] Specimen Type POC Capillary 02/18/2025 6:23 PM EDT [facility] Blood Capillary blood specimen / Unknown 02/18/2025 6:21 PM EDT 02/18/2025 6:23 PM EDT us Jeremy Ramirez MD LAB POINT OF CARE TE ST DOCKED DEVICE UNSOLICITED RESULTS Final Result Performing Organization Address City/[facility]/ZIP Co de Phone Number [facility]ARE [facility] [address] [place] [address] * XR Cervical Spine 2 or 3 [...] post surgical changes from posterior fusion from [id number] C7. Mild C5-6 and C6-7 retrolisthesis. CRITICAL RESULT: No. COMMUNICATION: Per this written report. Drafted by Boston Nagel MD on 02/18/2025 10:47 PM Final report signed by Boston Nagel MD on 02/18/2025 10:49 PM us Jeremy Ramirez MD IMG XR PROCEDURES Final Result * (ABNORMAL) Phosphorus (02/18/2025 2:33 PM EDT) Phosphorus, Plasma 1.9(L) 2.5 - 4.5 mg/dL 02/18/2025 3:33 PM EDT [facility] Blood Venous blood specimen / Unknown Venipuncture / Unknown 02/18/2025 2:33 PM EDT 02/18/2025 3:06 PM EDT us Jeremy Ramirez MD LAB BLOOD ORDERABLES Final Res ult Performing Organization Address City/[facility]/ZIP Co de Phone Number [facility] [address] [place] [address] * (ABNORMAL) POCT glucose meter (02/18/2025 12:14 PM EDT) [facility] POCT Glucose 153(H) 74 - 99 mg/dL 02/18/2025 12:15 PM EDT [facility] Comment:Accuracy of a [...] for testing. Comment 02/18/2025 12:15 PM EDT [facility]ARE [facility] Clerical Administrative Assistant ID Yamilet Sheldon 12:15 PM EDT [facility]ALTH[facility]ARE LAB Device ID [id number] 02/18/2025 12:15 PM EDT [facility]ARE [facility] Specimen Type POC Capillary 02/18/2025 12:15 PM EDT [facility] Blood Capillary blood specimen / Unknown 02/18/2025 12:14 PM EDT 02/18/2025 12:15 PM EDT us Jeremy Ramirez MD LAB POINT OF CARE TE ST DOCKED DEVICE UNSOLICITED RESULTS Final Result Performing Organization Address City/[facility]/ZIP Co de Phone Number [facility] [address] [place] [address] * (ABNORMAL) Phosphorus (02/18/2025 1:38 AM EDT) Phosphorus, Plasma 0.8(LL) 2.5 - 4.5 mg/dL 02/18/2025 2:55 AM EDT [facility] Blood Venous blood specimen / Unknown Venipuncture / Unknown 02/18/2025 1:38 AM EDT 02/18/2025 1:44 AM EDT Joce Nitin Covarrubias PROFESSOR OF ART HISTORY LAB BLOOD ORDERABLES Final Re sult Performing Organization Address [facility] Co de Phone Number [facility] [address] [place] [address] * (ABNORMAL) Phosphorus, Plasma (02/18/2025 12:35 AM EDT) Phosphorus, Plasma 0.8(LL) 2.5 - 4.5 mg/dL 02/18/2025 1:21 AM EDT [facility] Blood Venous blood specimen / Unknown Venipuncture / Unknown 02/18/2025 12:35 AM EDT 02/18/2025 12:49 AM EDT [facility] Covarrubias PROFESSOR OF ART HISTORY LAB BLOOD ORDERABLES Final Re sult Performing Organization Address [facility] Co de Phone Number [facility] [address] [place] [address] * (ABNORMAL) Comprehensive Metabolic Panel, Plasma (02/18/2025 12:35 AM EDT) Glucose, Plasma 206(H) 74 - 99 mg/dL 02/18/2025 1:21 AM EDT [facility] BUN, Plasma 10 7 - 21 mg/dL 02/18/2025 1:21 AM EDT [facility] Creatinine, Plasma 0.54(L) 0.60 - 1.10 mg/dL 02/18/2025 1:21 AM EDT [facility] BUN/Creatinine Ratio 19 02/18/2025 1:21 AM EDT [facility] Sodium, Plasma 140 136 - 145 mmol/L 02/18/2025 1:21 AM EDT [facility] Potassium, Plasma 4.1 3.6 - 4.9 mmol/L 02/18/2025 1:21 AM EDT [facility] Chloride, Plasma 106 97 - 107 mmol/L 02/18/2025 1:21 AM EDT [facility] CO2, Plasma 22 22 - 29 mmol/L 02/18/2025 1:21 AM EDT [facility] Anion Gap 12 6 - 16 mmol/L 02/18/2025 1:21 AM EDT [facility] Total Calcium, Plasma 8.4(L) 8.9 - 10.2 mg/dL 02/18/2025 1:21 AM EDT [facility] Total Protein 6.9 6.3 - 7.9 g/dL 02/18/2025 1:21 AM EDT [facility] Albumin, Plasma 3.5 3.5 - 5.2 g/dL 02/18/2025 1:21 AM EDT [facility] AST, Plasma 37(H) 10 - 35 U/L 02/18/2025 1:21 AM EDT [facility] Comment:Hemolyzed, result ma y be falsely increased. ALT, Plasma 22 10 - 35 U/L 02/18/2025 1:21 AM EDT [facility] Alkaline Phosphatase, Plasma 67 35 - 104 U/L 02/18/2025 1:21 AM EDT [facility] Total Bilirubin, Plasma 0.3 0.2 - 1.1 mg/dL 02/18/2025 1:21 AM EDT [facility] eGFRcr 115.2 mL/min/1.7 3m*2 02/18/2025 1:21 AM EDT [facility] Comment:Reported eGFRcr in m L/min/1.73m2 is based the CKD-EPI 2020 equation that does not use a race coefficient. Blood Venous blood specimen / Unknown Venipuncture / Unknown 02/18/2025 12:35 AM EDT 02/18/2025 12:49 AM EDT us Joce Covarrubias APRN LAB BLOOD ORDERABLES Final Re sult [facility] [address] [place] [address] * Prothrombin Time/INR (02/18/2025 12:35 AM EDT) Prothrombin Time 13.7 12.0 - 14.3 sec LAB COAGULATION METHOD 02/18/2025 1:14 AM EDT [facility] INR 1.0 0.9 - 1.1 LAB COAGULATION METHOD 02/18/2025 1:14 AM EDT [facility] Blood Venous blood specimen / Unknown Venipuncture / Unknown 02/18/2025 12:35 AM EDT 02/18/2025 12:49 AM EDT Narrative [facility] - 02/18/2025 1:14 AM EDT OPTIMAL INR RANGES FOR PATIENT ON ORAL ANTICOAGULANT THERAPY Prevention of venous thromboembolism INR 2.0 to 3.0 In patients with heart disease: Atrial fibrillation INR 2.0 to 3.0 Valvular heart disease INR 2.0 to 3.0 Tissue heart valves INR 2.0 to 3.0 Mechanical prosthetic valves INR 2.5 to 3.5 Prevention of recurrent [place] INR 2.5 to 3.5 Joce Covarrubias APRN LAB BLOOD ORDERABLES Final Re sult Performing Organization Address City/[facility]/ZIP Co de Phone Number [facility] [address] [place] [address] * (ABNORMAL) Ionized calcium, whole blood (02/18/2025 12:35 AM EDT) Ionized Calcium, Whole Blood 4.5(L) 4.6 - 5.1 mg/dL LAB HEMATOLOGY METHOD 02/18/2025 12:51 AM EDT [facility] Blood Venous blood specimen / Unknown Venipuncture / Unknown 02/18/2025 12:35 AM EDT 02/18/2025 12:49 AM EDT Joce Covarrubias PROFESSOR OF ART HISTORY LAB BLOOD ORDERAB[place] [address] * (ABNORMAL) Magnesium, Plasma (02/18/2025 12:35 AM EDT) Magnesium, Plasma 1.7(L) 1.9 - 2.4 mg/dL 02/18/2025 1:21 AM EDT [facility] Blood Venous blood specimen / Unknown Venipuncture / Unknown 02/18/2025 12:35 AM EDT 02/18/2025 12:49 AM EDT us Joce Covarrubias PROFESSOR OF ART HISTORY LAB BLOOD ORDERABLES Final Re sult [facility] [address] [place] [address] * (ABNORMAL) CBC W/O Differential (02/18/2025 12:35 AM EDT) WBC Count 8.68 3.70 - 10.30 10*3/uL LAB HEMATOLOGY METHOD 02/18/2025 12:56 AM EDT [facility] RBC Count 3.36(L) 3.90 - 5.20 10*6/uL LAB HEMATOLOGY METHOD 02/18/2025 12:56 AM EDT [facility] HGB 10.3(L) 11.2 - 15.7 g/dL LAB HEMATOLOGY METHOD 02/18/2025 12:56 AM EDT [facility] HCT 32.1(L) 34.0 - 45.0 % LAB HEMATOLOGY METHOD 02/18/2025 12:56 AM EDT [facility] Platelet Count 202 155 - 369 10*3/uL LAB HEMATOLOGY METHOD 02/18/2025 12:56 AM EDT [facility] MCV 96 79 - 98 fL LAB HEMATOLOGY METHOD 02/18/2025 12:56 AM EDT [facility] MCH 30.7 26.0 - 32.0 pg LAB HEMATOLOGY METHOD 02/18/2025 12:56 AM EDT [facility] MCHC 32.1 30.7 - 35.5 g/dL LAB HEMATOLOGY METHOD 02/18/2025 12:56 AM EDT [facility] RDW 16.2(H) 11.5 - 14.5 % LAB HEMATOLOGY METHOD 02/18/2025 12:56 AM EDT [facility] MPV 10.0 8.8 - 12.5 fL LAB HEMATOLOGY METHOD 02/18/2025 12:56 AM EDT [facility] nRBC 0.0 <=0.0 per 100 WBCs LAB HEMATOLOGY METHOD 02/18/2025 12:56 AM EDT [facility] Blood Venous blood specimen / Unknown Venipuncture / Unknown 02/18/2025 12:35 AM EDT 02/18/2025 12:50 AM EDT Joce Covarrubias PROFESSOR OF ART HISTORY LAB BLOOD ORDERABLES Final Re sult Performing Organization Address [facility] Co de Phone Number [facility] [address] [place] [address] * Buddy auris Surveillance by PCR (02/17/2025 3:25 AM EDT) Buddy auris PCR Result Not Detected Not Detected 02/17/2025 9:33 AM EDT [facility] Swab (Axilla and Groin) Non-blood Collection / Unknown 02/17/2025 3:25 AM EDT 02/17/2025 4:25 AM EDT Narrative [facility] - 02/17/2025 9:33 AM EDT This PCR assay was developed and its performance characteristics determined by [facility] as appropriate for clinical purposes. This assay has not been cleared or approved by the FDA, but is performed in a CLIA regulated laboratory that is qualified to perform high-complexity testing. us Jeremy Ramirez MD LAB MICROBIOLOGY - GENERAL ORD ERABLES Final Result Performing Organization Address [facility] [place] [address] * Multi Drug Resistance Test (02/17/2025 3:25 AM EDT) Culture No growth at day 1 02/18/2025 6:06 AM EDT [facility] Swab (Nares and Jeimy Rectal) Non-blood Collection / Unknown 02/17/2025 3:25 AM EDT 02/17/2025 4:25 AM EDT Narrative [facility] - 02/18/2025 6:06 AM EDT This test was developed and its performance characteristics determined by the [facility] Microbiology Laboratory. Although the media is FDA-approved, it is not FDA-approved for all specimen types submitted. The FDA has determined that such clearance or approval is not necessary. This test is used for surveillance purposes. It should not be regarded as investigational or for research. The [facility] Clinical Microbiology Laboratory is certified under the Clinical Laboratory Improvement Amendments of 1988 (CLIA-88) as qualified to perform high complexity clinical laboratory testing. us Jeremy Ramirez MD LAB MICROBIOLOGY - GENERAL ORD ERABLES Final Result Performing Organization Address [facility]/ZIP Co de Phone Number [facility] [address] [place] [address] * (ABNORMAL) Phosphorus, Plasma (02/17/2025 3:25 AM EDT) Phosphorus, Plasma 2.2(L) 2.5 - 4.5 mg/dL 02/17/2025 4:09 AM EDT [facility] Blood Venous blood specimen / Unknown Venipuncture / Unknown 02/17/2025 3:25 AM EDT 02/17/2025 3:39 AM EDT Joce Covarrubias APRN LAB BLOOD ORDERABLES Final Re sult Performing Organization Address [facility]/ZIP Co de Phone Number [facility] [address] [place] [address] * (ABNORMAL) Comprehensive Metabolic Panel, Plasma (02/17/2025 3:25 AM EDT) Glucose, Plasma 117(H) 74 - 99 mg/dL 02/17/2025 4:09 AM EDT [facility] BUN, Plasma 10 7 - 21 mg/dL 02/17/2025 4:09 AM EDT [facility] Creatinine, Plasma 0.52(L) 0.60 - 1.10 mg/dL 02/17/2025 4:09 AM EDT [facility] BUN/Creatinine Ratio 19 02/17/2025 4:09 AM EDT [facility] Sodium, Plasma 139 136 - 145 mmol/L 02/17/2025 4:09 AM EDT [facility] Potassium, Plasma 4.2 3.6 - 4.9 mmol/L 02/17/2025 4:09 AM EDT [facility] Chloride, Plasma 109(H) 97 - 107 mmol/L 02/17/2025 4:09 AM EDT [facility] CO2, Plasma 20(L) 22 - 29 mmol/L 02/17/2025 4:09 AM EDT [facility] Anion Gap 10 6 - 16 mmol/L 02/17/2025 4:09 AM EDT [facility] Total Calcium, Plasma 8.5(L) 8.9 - 10.2 mg/dL 02/17/2025 4:09 AM EDT [facility] Total Protein 7.2 6.3 - 7.9 g/dL 02/17/2025 4:09 AM EDT [facility] Albumin, Plasma 3.3(L) 3.5 - 5.2 g/dL 02/17/2025 4:09 AM EDT [facility] AST, Plasma 37(H) 10 - 35 U/L 02/17/2025 4:09 AM EDT [facility] Comment:Hemolyzed, result ma y be falsely increased. ALT, Plasma 19 10 - 35 U/L 02/17/2025 4:09 AM EDT [facility] Alkaline Phosphatase, Plasma 47 35 - 104 U/L 02/17/2025 4:09 AM EDT [facility] Total Bilirubin, Plasma 0.5 0.2 - 1.1 mg/dL 02/17/2025 4:09 AM EDT [facility] eGFRcr 116.2 mL/min/1.7 3m*2 02/17/2025 4:09 AM EDT [facility] Comment:Reported eGFRcr in m L/min/1.73m2 is based the CKD-EPI 2020 equation that does not use a race coefficient. Blood Venous blood specimen / Unknown Venipuncture / Unknown 02/17/2025 3:25 AM EDT 02/17/2025 3:39 AM EDT us Joce Covarrubias PROFESSOR OF ART HISTORY LAB BLOOD ORDERABLES Final Re sult [facility] [address] [place] [address] * Prothrombin Time/INR (02/17/2025 3:25 AM EDT) Prothrombin Time 14.1 12.0 - 14.3 sec LAB COAGULATION METHOD 02/17/2025 4:02 AM EDT [facility] INR 1.1 0.9 - 1.1 LAB COAGULATION METHOD 02/17/2025 4:02 AM EDT [facility] Blood Venous blood specimen / Unknown Venipuncture / Unknown 02/17/2025 3:25 AM EDT 02/17/2025 3:40 AM EDT Narrative [facility] - 02/17/2025 4:02 AM EDT OPTIMAL INR RANGES FOR PATIENT ON ORAL ANTICOAGULANT THERAPY Prevention of venous thromboembolism INR 2.0 to 3.0 In patients with heart disease: Atrial fibrillation INR 2.0 to 3.0 Valvular heart disease INR 2.0 to 3.0 Tissue heart valves INR 2.0 to 3.0 Mechanical prosthetic valves INR 2.5 to 3.5 Prevention of recurrent [place] INR 2.5 to 3.5 Joce Covarrubias APRN LAB BLOOD ORDERABLES Final Re sult Performing Organization Address City/[facility]/ZIP Co de Phone Number [facility] [address] [place] [address] * (ABNORMAL) Ionized calcium, whole blood (02/17/2025 3:25 AM EDT) [facility] Ionized Calcium, Whole Blood 4.5(L) 4.6 - 5.1 mg/dL LAB HEMATOLOGY METHOD 02/17/2025 3:39 AM EDT [facility] Blood Venous blood specimen / Unknown Venipuncture / Unknown 02/17/2025 3:25 AM EDT 02/17/2025 3:38 AM EDT Joce Covarrubias PROFESSOR OF ART HISTORY LAB BLOOD ORDERABLES Final Re sult [facility] [address] [place] [address] * (ABNORMAL) Magnesium, Plasma (02/17/2025 3:25 AM EDT) [facility] Magnesium, Plasma 1.8(L) 1.9 - 2.4 mg/dL 02/17/2025 4:09 AM EDT [facility] Blood Venous blood specimen / Unknown Venipuncture / Unknown 02/17/2025 3:25 AM EDT 02/17/2025 3:39 AM EDT us Joce Covarrubias PROFESSOR OF ART HISTORY LAB BLOOD ORDERABLES Final Re sult [facility] [address] [place] [address] * (ABNORMAL) CBC W/O Differential (02/17/2025 3:25 AM EDT) Pathologist [facility] WBC Count 8.56 3.70 - 10.30 10*3/uL LAB HEMATOLOGY METHOD 02/17/2025 3:47 AM EDT [facility] RBC Count 3.71(L) 3.90 - 5.20 10*6/uL LAB HEMATOLOGY METHOD 02/17/2025 3:47 AM EDT [facility] HGB 11.3 11.2 - 15.7 g/dL LAB HEMATOLOGY METHOD 02/17/2025 3:47 AM EDT [facility] HCT 35.3 34.0 - 45.0 % LAB HEMATOLOGY METHOD 02/17/2025 3:47 AM EDT [facility] Platelet Count 235 155 - 369 10*3/uL LAB HEMATOLOGY METHOD 02/17/2025 3:47 AM EDT [facility] MCV 95 79 - 98 fL LAB HEMATOLOGY METHOD 02/17/2025 3:47 AM EDT [facility] MCH 30.5 26.0 - 32.0 pg LAB HEMATOLOGY METHOD 02/17/2025 3:47 AM EDT [facility] MCHC 32.0 30.7 - 35.5 g/dL LAB HEMATOLOGY METHOD 02/17/2025 3:47 AM EDT [facility] RDW 15.9(H) 11.5 - 14.5 % LAB HEMATOLOGY METHOD 02/17/2025 3:47 AM EDT [facility] MPV 9.8 8.8 - 12.5 fL LAB HEMATOLOGY METHOD 02/17/2025 3:47 AM EDT [facility] nRBC 0.0 <=0.0 per 100 WBCs LAB HEMATOLOGY METHOD 02/17/2025 3:47 AM EDT [facility] Blood Venous blood specimen / Unknown Venipuncture / Unknown 02/17/2025 3:25 AM EDT 02/17/2025 3:39 AM EDT us Joce Covarrubias APRN LAB BLOOD ORDERABLES Final Re sult Performing Organization Address [facility] Co de Phone Number [facility] [address] [place] [address] * MS CRITICAL CARE, ADDL 30 MIN, MS CRITICAL CARE, ADDL 30 MIN (02/16/2025 6:33 [...] in the patient's chart for the findings. Result Jorgito Ramirez MD IMG FLUOROSCOPY PROCEDURES Fin al Result Performing Organization Address [facility]/ZIP Co de Phone Number IMAGING * POCT , URINE (02/16/2025 7:19 AM EDT) POCT Test, Urine Negative Males and Non- Females: Negative 02/16/2025 7:25 AM EDT [facility] Clerical Administrative Assistant ID Janice Luna 02/16/2025 7:25 AM EDT [facility] Device ID [id number] 02/16/2025 7:25 AM EDT [facility] Urine Urine specimen obtained by clean catch procedure / Unknown 02/16/2025 7:19 AM EDT 02/16/2025 7:25 AM EDT us Jeremy Ramirez MD LAB POINT OF CARE TE ST DOCKED DEVICE UNSOLICITED RESULTS Final Result Performing Organization Address City/[facility] de Phone Number [facility] [address] [place] [address] * Type and Screen (02/16/2025 6:56 AM [...] TEST ORDERABLES Final Result Performing Organization Address [facility] de Phone Number BLOOD BANK [address] documented in this encounter Visit Diagnoses Diagnosis Cervical myelopathy (CMS/HCC)- Primary Cervical spondylosis with myelopathy Cervical stenosis of spine Spinal stenosis in cervical region Cervical myelopathy (CMS/HCC) Cervical spondylosis with myelopathy documented in this encounter Admitting Diagnoses Diagnosis [...] times daily, First dose on Sat02/18/25 at 0900, Until Discontinued, Routine Given 02/23/2025 [...] 4:18 PM EDT 5 mg dexamethasone (Decadron) tablet 2 mg 2 [...] EDT 40 mg Ri ght Lower Abdomen gabapentin (Neurontin) capsule 300 mg 300 mg, Oral, 3 times daily, First dose on Sat02/16/25 at 1600, Until Discontinued, Routine, Recovery(Phase II-Outpatient)/On Unit(Inpatient) Given 02/23/2025 8:02 AM EDT 300 mg Given 02/22/2025 8:00 PM EDT 300 mg Given 02/22/2025 4:18 PM EDT 300 mg insulin lispro (Admelog) 100 units/mL injection - [...] on Sat02/18/25 at 2100, Until Discontinued, Routine lidocaine-EPINEPHrine (Xylocaine W/EPI) 1 %-1:[id number] injection As needed, Starting on Sat02/16/25 at 0900, Until Sat02/16/25 at 1211, Routine, Intraprocedure Given 02/16/2025 9:00 AM EDT 7 mL Tip k ondansetron (Zofran) injection 4 mg 4 mg, [...] Until Sat02/23/25 at 1619, Routine, moderate pain polyethylene glycol (Miralax) packet 17 g 17 g, Oral, 2 times daily, First dose on Sat02/17/25 at 0900, Until Discontinued, Routine Given 02/22/2025 8:00 PM EDT 17 g Given 02/22/2025 8:01 AM EDT 17 g Given 02/20/2025 8:33 AM EDT 17 g senna-docusate (Jeimy-Colace) 8.6-50 MG per tablet 2 [...] 1619, Routine, Recovery(Phase II-Outpatient)/On Unit(Inpatient), line care vancomycin (Vancocin) vial for injection As needed, Starting on Sat02/16/25 at 1130, Until Sat02/16/25 at 1211, Routine, Intraprocedure Given 02/16/2025 11:30 AM EDT 1 g Ot her documented in this encounter Active and Recently Administered Medications Times are shown in EDT. Scheduled Medication Order 02/21/2025 02/22/2025 02/23/2025 baclofen (Lioresal) tablet 10 mg 10 mg, Oral, 3 times daily, First dose on Sindy 02/18/25 at 0900, Until Discontinued, Routine 08 (Given - Provider: Morelia Dukes RN)160 (Given - Provider: Audrey Pearson RN)2003 (Given - Provider: Don Patricio RN) 08 (Given - Provider: Tran Packer RN)161 (Given - Provider: Tran Packer RN)1999 (Given - Provider: Don Patricio RN) 08 (Given - Provider: Marie Chavez, FLORENCIA)1600 (Canceled Entry - Provider: Automatic Discharge Provider - Comment: Automatically canceled at discontinue of medication order) bisacodyl (Dulcolax) suppository 10 mg 10 mg, Rectal, Daily, First dose on 02/20/25 at 0900, Until Discontinued, Routine 0828 (Not Given - Provider: Morelia Dukes RN - Reason: Patient/family refused) 08 (Given - Provider: Tran Packer RN) 0801 (Not Given - Provider: Marie Chavez, FLORENCIA - Reason: Patient/family refused) cyclobenzaprine (Flexeril) tablet 5 mg 5 mg, Oral, 3 times daily, First dose on 02/20/25 at 0900, Until Discontinued, Routine 0827 (Given - Provider: Morelia Dukes RN)1599 (Given - Provider: Audrey Pearson, FLORENCIA)2003 (Given - Provider: Don Patricio RN) 08 (Given - Provider: Tran L Packer, RN)1618 (Given - Provider: Tran Packer RN)2000 (Given - Provider: Don Patricio, RN) 08 (Given - Provider: Marie Chavez, RN)1600 (Canceled Entry - Provider: Automatic Discharge Provider - Comment: Automatically canceled at discontinue of medication order) dexamethasone (Decadron) injection 2 mg (CANCELED)(Linked Group 1) 2 mg, Intravenous, Daily, 4 doses, First dose on Sat02/21/25 at 0900, Last dose on Sat02/24/25 at 0900, Routine 0827 (Given - Provider: Morelia Dukes RN) 0803 (Given - Provider: Tran Packer RN) 08 (Given - Provider: Marie Chavez, FLORENCIA) dexamethasone (Decadron) tablet 2 mg 2 mg, Oral, Daily, 1 dose, First dose on Sat02/24/25 at 0900, Routine enoxaparin (Lovenox) syringe 40 mg 40 mg, Subcutaneous, Daily, First dose on Sat02/17/25 at 1015, Until Discontinued, Routine 0826 (Given - Provider: Morelia Dukes RN) 0801 (Given - Provider: Tran Packer RN) 08 (Given - Provider: Marie Chavez, FLORENCIA) gabapentin (Neurontin) capsule 300 mg 300 mg, Oral, 3 times daily, First dose on Sat02/16/25 at 1600, Until Discontinued, Routine, Recovery(Phase II-Outpatient)/On Unit(Inpatient) 0827 (Given - Provider: Morelia Dukes RN)1599 (Given - Provider: Audrey Pearson RN)2003 (Given - Provider: Don Patricio RN) 08 (Given - Provider: Tran Packer RN)161 (Given - Provider: Tran Packer RN)1999 (Given - Provider: Don Patricio RN) 08 (Given - Provider: Marie Chavez, FLORENCIA)1600 (Canceled Entry - Provider: Automatic Discharge Provider - Comment: Automatically canceled at discontinue of medication order) insulin lispro (Admelog) 100 units/mL injection - Correction - Standard Dose 0-5 Units, Subcutaneous, 3 times daily with meals, First dose on Sat02/18/25 at 1230, Until Discontinued, Routine 0832 (Given - Provider: Morelia Dukes, FLORENCIA)1151 (Not Given - Provider: Morelia Dukes RN - Reason: Order parameters not met)1652 (Given - Provider: Audrey Pearson RN) 0753 (Not Given - Provider: Tran Packer [...] on Sat02/18/25 at 1630, Until Discontinued, Routine 0827 (Given - Provider: Morelia Dukes RN)1600 (Given - Provider: Audrey Pearson, FLORENCIA)2003 (Given - Provider: Don Patricio RN) 0802 (Given - Provider: Tran Packer RN)1618 (Given - Provider: Tran Packer RN)1999 (Given [...] RN) 800 (Not Given - Provider: Marie Chavez, FLORENCIA - Reason: Patient/family refused) potassium chloride CR (Klor-Con) ER tablet 20 mEq (COMPLETED)(Linked Group 2) 20 mEq, Oral, Once, 1 dose, On Sat02/22/25 at 0915, Routine 0927 (Given - Provider: Tran Packer RN) potassium chloride CR (Klor-Con) ER tablet 40 mEq (COMPLETED)(Linked Group 2) 40 mEq, Oral, Once, 1 dose, On Sat02/22/25 at 0715, Routine 0802 (Given - Provider: Tran Packer RN) senna-docusate (Jeimy-Colace) 8.6-50 MG per tablet 2 tablet 2 tablet, Oral, 2 times daily, First dose (after last modification) on Sat02/20/25 at 0900, Until Discontinued, Routine 0826 (Given - Provider: Morelia Dukes, FLORENCIA)2003 (Given - Provider: Don Patricio RN) 801 (Given - Provider: Tran Packer RN)1999 (Given - Provider: Don Patricio RN) 08 (Given - Provider: Marie Chavez, FLORENCIA) sodium chloride 0.9 % flush 10 mL(Linked Group 3) 10 mL, Intravenous, Every 12 hours, First dose on Sat02/16/25 at 1300, Until Discontinued, Routine, Recovery(Phase II-Outpatient)/On Unit(Inpatient) 0002 (Given - Provider: Carie Miles)1431 (Given - Provider: Morelia Dukes RN) 0025 (Given - Provider: Don Patricio RN)1340 (Given - Provider: Tran Packer RN) 0027 (Given - Provider: Don Patricio RN)1142 (Given - Provider: Marie Chavez, FLORENCIA) PRN Medication Order 02/21/2025 02/22/2025 02/23/2025 acetaminophen (Tylenol) 160 MG/5ML solution 1,000 mg(Linked Group 4) 1,000 mg, Oral, Every 6 hours PRN, Starting on Sat02/16/25 at 1203, Until Sat02/23/25 at 1619, Routine, mild pain, Recovery(Phase II-Outpatient)/On Unit(Inpatient) 0826 (See Alternative - Provider: Morelia Dukes RN) 0802 (See Alternative - Provider: Tran Packer, RN) acetaminophen (Tylenol) suppository 650 mg(Linked Group 4) 650 mg, Rectal, Every 6 hours PRN, Starting on Sat02/16/25 at 1203, Until Sat02/23/25 at 1619, Routine, Recovery(Phase II-Outpatient)/On Unit(Inpatient), mild pain 0826 (See Alternative - Provider: Morelia Dukes RN) 0802 (See Alternative - Provider: Tran Packer, FLORENCIA) acetaminophen (Tylenol) tablet 1,000 mg(Linked Group 4) [...] Provider: Carie Miles)0826 (Given - Provider: Morelia Dukes RN)1600 (Given - Provider: Audrey Pearson, RN) 0118 (Given - Provider: Don Patricio, RN)0802 (Given - Provider: Tran Packer, RN)1340 (Given - Provider: Tran Packer RN)1999 (Given - Provider: Don Patricio RN) 041 (Given - Provider: Don Patricio, RN)1007 (Given - Provider: Marie Chavez, FLORENCIA) oxyCODONE (Roxicodone) immediate release tablet 5 mg(Linked Group 6) 5 mg, Oral, Every 6 hours PRN, Starting on Sat02/18/25 at 0904, Until Sat02/23/25 at 1619, Routine, moderate pain 0236 (See Alternative - Provider: Carie Miles)0826 (See Alternative - Provider: Morelia Dukes RN)1600 (See Alternative - Provider: Audrey Pearson RN) 0118 (See Alternative - Provider: Don Patricio, FLORENCIA)0802 (See Alternative - Provider: Tran Packer RN)1340 (See Alternative - Provider: Tran Packer RN)1999 (See Alternative - Provider: Don Patricio, FLORENCIA) 041 (See Alternative - Provider: Don Patricio, FLORENCIA)1007 (See Alternative - Provider: Marie Chavez, FLORENCIA) [...] documented as of this encounter Care Teams Assistant Facility Manager Relationship Specialty Start Date End Date Sheila Ashraf, PROFESSOR OF ART HISTORY [address] [place] [address] PCP - General 12/28/24 Jeremy Ramirez MD [address] [place] [address] Surgeon Neurosurgery 01/08/25 Marisol Allen APRN [address] [place] [address] Nurse Practitioner 01/28/25 documented as of this encounter
--- OUTSIDE RECORDS SUMMARY | 2025-03-03 12:00 | XMS_ITS | Encounter Summary ---
Author Organization Healthcare Address [address] [place] [address] Care Team Providers Care Clipman Name Role Phone Pascale Sheila Khan BROOMCORN THRESHER Primary Care Provider + [phone] Jeremy Ramirez MD Unavailable [phone] Marisol Allen BROOMCORN THRESHER Unavailable [phone] Reason for Visit * Reason Comments Follow-up Encounter Details Date Type Department Care Team (Late st Contact Info) Description 03/03/2025 12:00 PM EDT Office Visit [place] [facility] [address], [address] [place] [address] Marisol Allen, BROOMCORN THRESHER [address] [place] [address] Status post cervical spinal fusion (Primary Dx) Social History Tobacco Use Types Packs/Day Years [...] any time in the past 12 m [facility], were you homeless or living in [...] drink first t mt in the morning (EYE-EFFERVESCENT SALTS COMPOUNDER) to steady your nerves or to get [...] Sign Reading Time Taken Comments Blood Pressure 132/86 03/03/2025 12:34 PM EDT Pulse - - Temperature - - Respiratory Rate - - Oxygen Saturation - - Inhaled Oxygen Concentration - - Weight 69.4 kg (153 lb) 03/03/2025 12:34 PM EDT Height 165.1 cm (5' 5 ) 03/03/2025 12:34 PM EDT Body Mass Index 25.46 03/03/2025 12:34 PM EDT documented in this encounter Miscellaneous Notes * Progress Notes - Marisol Allen, BROOMCORN THRESHER - 03/03/2025 12:00 PM EDT Images from the original note were not included. We had the pleasure of seeing your patient in our clinic today for Neurosurgical post-op visit. Chief Complaint: Status post C3-C7 posterior cervical fusion History Of Present Illness Hyacinth Marin is a 45 y.o. female who presents to neurosurgical clinic today for follow-up 2 weeks status post C3-C7 posterior cervical fusion on 02/16/[address] Ramirez. Preoperatively, the patient was experiencing cervical myelopathy with progressive upper extremity weakness and numbness with gait instability. At today's visit, she is currently still inpatient at [facility]. She had significant difficulty with right upper and lower extremity weakness postoperatively. She required inpatient admission for rehab. She has noted improvement in her right arm and lower extremity function while in rehab. She is wearing an AFO to the right ankle with some benefit. She continues to have expected postoperative pain. She does have episodes of worsening neck pain with radiation to the bilateral shoulders. This is typically controlled overall with medication. They are currently providing her with baclofen, Flexeril, gabapentin, Tylenol, and oxycodone. She is scheduled to be discharged on . She has been participating in physical therapy there without issue. She has noted improvement in her weakness overall. She denies any incisional concerns, concerns for infection, or acute issues today. She is still hopeful for improvement with her weaknesses throughout her recovery. Past Medical History[1] Surgical History[2] Family History[3] Social History[4] Current Outpatient Medications Medication Instructions acetaminophen (TYLENOL) 500 mg, 3 times daily acetaminophen (TYLENOL) 1,000 mg, Oral, Every 6 hours PRN baclofen (LIORESAL) 10 mg, Oral, 3 times daily BIOTIN PO 1 tablet, Daily bisacodyl (DULCOLAX) 10 mg, Rectal, Daily [Paused] celecoxib (CeleBREX) 200 MG capsule Take 1 capsule by mouth daily. Cholecalciferol (VITAMIN D-3 PO) 2 tablets, Daily cyclobenzaprine (FLEXERIL) 5 mg, Oral, 3 times daily dexamethasone (DECADRON) 2 mg, Oral, Daily gabapentin (NEURONTIN) 300 mg, Oral, 3 times daily [Paused] ibuprofen 800 mg, 3 times daily levonorgestrel (Mirena) 20 MCG/DAY IUD 1 each, Once lidocaine (Lidoderm) 5 % patch 1 patch, Apply externally, Daily, Remove & discard patch within 12 hours or as directed by MD. loratadine (CLARITIN) 10 mg, Daily PRN [Paused] methocarbamol (ROBAXIN) 500 mg, Oral, 4 times daily PRN ondansetron ODT (ZOFRAN-ODT) 4 mg, Oral, Every 6 hours PRN oxyCODONE (ROXICODONE) 5-10 mg, Oral, Every 6 hours PRN polyethylene glycol (MIRALAX) 17 g, Oral, 2 times daily senna-docusate (Jeimy-Colace) 8.6-50 MG tablet 2 tablets, Oral, 2 times daily spironolactone (ALDACTONE) 50 mg, Daily Review of Systems 14 point review of systems was performed and was negative except as noted per HPI. Physical Exam GEN: well developed, no acute distress HEENT: normocephalic, atraumatic PULM: no increased work of breathing, normal effort CV: no edema noted MSK: no joint swelling, normal range of motion SKIN: warm and dry, capillary refill <2 seconds PSYCHE: normal mood and affect Neuro Exam GCS (EMV): 465 PERRL, EOMI Sensation intact throughout 4+/5 bilateral deltoid secondary to pain limited 5/5 bilateral biceps 4+/5 bilateral triceps 4-/5 right cosmetic sales assistant, 4+/5 left cosmetic sales assistant 4+/5 bilateral intrinsic 4+/5 right hip flexion 4-/5 right dorsiflexion 4+/5 right plantar flexion Remaining lower extremity exam 5/5 incision is clean, dry, and intact. Incision is without redness, ecchymosis, edema, and drainage and edges are approximated. [place] removed without issue Visit Vitals OB Status IUD Smoking Status Some Days Imaging No imaging Assessment and Plan Hyacinth Marin is a 45 y.o. female with history of cervical myelopathy who underwent C3-7 PCF, w IONM on 02/16/2025. Postoperatively, we are pleased patient's progress. We discussed advancement of postoperative restrictions. We also discussed physical therapy. She is currently still in inpatient rehab. She is scheduled to be discharged over the weekend. Discussed that I was okay with her proceeding with outpatient physical therapy to continue with her recovery. We will have her return to clinicin 4 weeks for continued postoperative surveillance. She will obtain AP/lateral films prior to thatvisit. She was reminded of appointment date and time. The patient was given the opportunity to ask questions all of which were answered to their satisfaction and is agreeable to the plan of care. Thepatient was instructed to contact us with any issues or concerns. Marisol Allen APRN [facility] Department of Neurosurgery This note was dictated with voice to text software and may contain minor errors [1] Past Medical History: Diagnosis Date Anxiety Neuromuscular disorder (CMS/HCC) [2] Past Surgical History: Procedure Laterality Date SECTION, CLASSIC ESOPHAGOSCOPY / EGD with dilation WISDOM TOOTH EXTRACTION [3] Family History Problem Relation Name Age of Onset Anesthesia problems Neg Hx Malig Hyperthermia Neg Hx [4] Social History Tobacco Use Smoking status: Some Days Current packs/day: 0.25 Average packs/day: 0.3 packs/day for 30.7 years (7.7 ttl pk-yrs) Types: Cigarettes Start date: 07/1994 Smokeless tobacco: Never Vaping Use Vaping status: Every Day Substances: Nicotine Devices: Disposable Substance Use Topics Alcohol use: Not Currently Comment: rare Drug use: Not Currently documented in this encounter Plan of Treatment Upcoming Encounters Date Type Department Care Team (Late st Contact Info) Description 04/02/2025 1:20 PM EDT Office Visit [place] [facility] [address], [address] [place] [address] Jeremy Ramirez MD [address] [place] [address] documented as of this encounter Visit Diagnoses Diagnosis Status post cervical spinal fusion- Primary Arthrodesis status documented in this encounter Additional Health Concerns Assessment Noted Time A fall risk assessment has been complete d for the patient 03/03/2025 12:35 PM EDT A Body Mass Index follow-up plan has been documented for the patient 03/03/2025 4:25 PM EDT documented as of this encounter Care Teams Clipman Relationship Specialty Start Date End Date Sheila Ashraf, BROOMCORN THRESHER [address] [place] [address] PCP - General 12/28/24 Jeremy Ramirez MD [address] [facility] [place] [address] Surgeon Neurosurgery 01/08/25 Marisol Allen, BROOMCORN THRESHER [address] [place] [address] Nurse Practitioner 01/28/25 documented as of this encounter
--- OUTSIDE RECORDS SUMMARY | 2025-03-20 21:45 | XMS_ITS | Encounter Summary ---
Author Organization Healthcare Address [address] [place] [address] Care Team Providers Care Copper Plate Lithographer Name Role Phone Sheila Ashraf PALLIATIVE CARE COORDINATOR Primary Care Provider + [phone] Jeremy Ramirez MD Unavailable [phone] Marisol Allen PALLIATIVE CARE COORDINATOR Unavailable [phone] Encounter Details Date Type Department Care Team (Latest Contact Info) Description 02/18/2025 Travel Social History Tobacco Use Types Packs/Day Years [...] any time in the past [address] [facility], were you homeless or living in a snf (including now)? No 02/17/2025 CAGE ASSESSMENT Answer [...] drink first t mt in the morning (EYE-NEUROPHYSIOLOGY TECH) to steady your nerves or to get [...] AM EDT documented as of this encounter Functional Status * Calculated C-SSRS Risk Score (Lifetime/Recent) Answer Date of Assessment Author No Risk Indicated 02/18/2025 8:00 PM EDT Rob San * Question Answer Date of Assessment Author 1. Wish to be (Past 1 Month) No 025 8:00 PM EDT Rob San 2. Non-Specific Active Suici julio Thoughts (Past 1 Month) No 02/18/2025 8:00 PM EDT Rob San 6. Suicidal Behavior (Lifetime) No 8:00 PM EDT Rob San documented as of this encounter Plan of Treatment Upcoming Encounters Date Type Department Care Team (Late st Contact Info) Description 04/02/2025 1:20 PM EDT Office Visit [place] [facility] [address], [address] [place] [address] Jeremy Ramirez MD [address] [address] documented as of this encounter Visit Diagnoses Not on filedocumented in this encounter Additional Health Concerns Assessment Noted Time A fall risk assessment has been complete d for the patient 01/28/2025 2:22 PM EDT A Body Mass Index follow-up plan has been documented for the patient 02/23/2025 12:26 PM EDT documented as of this encounter Care Teams Copper Plate Lithographer Relationship Specialty Start Date End Date Sheila Ashraf, PALLIATIVE CARE COORDINATOR [address] [place] [address] PCP - General 12/28/24 Jeremy Ramirez MD [address] [address] Surgeon Neurosurgery 01/08/25 Marisol Allen APRN [address] [facility] [place] [address] Nurse Practitioner 01/28/25 documented as of this encounter
--- OUTSIDE RECORDS SUMMARY | 2025-03-20 21:45 | XMS_ITS | Encounter Summary ---
Author Organization Healthcare Address [address] [place] [address] Care Team Providers Care Meter Reading Clerk Name Role Phone Sheila Ashraf MARKETING ADMINISTRATOR Primary Care Provider + [phone] Jeremy Ramirez MD Unavailable [phone] Marisol Allen MARKETING ADMINISTRATOR Unavailable [phone] Encounter Details Date Type Department Care Team (Latest Contact Info) Description 02/24/2025 Travel Social History Tobacco Use Types Packs/Day [...] any time in the past 12 m [facility], were you homeless or living in a correction (including now)? No 02/17/2025 CAGE ASSESSMENT Answer [...] drink first t mt in the morning (EYE-JOINERS SUPERVISOR) to steady your nerves or to get [...] AM EDT documented as of this encounter Plan of Treatment Upcoming Encounters Date Type Department Care Team (Late st Contact Info) Description 04/02/2025 1:20 PM EDT Office Visit [place] [facility] [address], [address]st [place] [address] Jeremy Ramirez MD [address] [place] [address] documented as of this encounter Visit Diagnoses Not on filedocumented in this encounter Additional Health Concerns Assessment Noted Time A fall risk assessment has been complete d for the patient 01/28/2025 2:22 PM EDT A Body Mass Index follow-up plan has been documented for the patient 02/23/2025 12:26 PM EDT documented as of this encounter Care Teams Meter Reading Clerk Relationship Specialty Start Date End Date Sheila Ashraf APRN [address] [place] [address] PCP - General 12/28/24 Jeremy Ramirez MD [address] [place] [address] Surgeon Neurosurgery 01/08/25 Marisol Allen APRN [address] [place] [address] Nurse Practitioner 01/28/25 documented as of this encounter
[2025-03-20 21:46] VITALS: BP 146/93; PULSE 102; O2SAT 98
--- OUTSIDE RECORDS SUMMARY | 2025-03-20 21:46 | XMS_ITS | Encounter Summary ---
Author Organization Healthcare Address [address] [place] [address] Care Team Providers Care Steam Fitter Helper Name Role Phone Sheila Ashraf PRECISION AGRONOMIST Primary Care Provider + [phone] Jeremy Ramirez MD Unavailable [phone] Marisol Allen PRECISION AGRONOMIST Unavailable [phone] Encounter Details Date Type Department Care Team (Late st Contact Info) Description 01/29/2025 Abstract [facility] [address] [place] [address] Jaylen Al RN [facility]ICU Social History Tobacco Use Types Packs/Day Years [...] Description 04/02/2025 1:20 PM EDT Office Visit [facility] [address] [place] [address] Jeremy Ramirez MD [address] [place] [address] documented as of this encounter Visit Diagnoses Not on filedocumented in this encounter Additional Health Concerns Assessment Noted Time A fall risk assessment has been complete d for the patient 01/28/2025 2:22 PM EDT A Body Mass Index follow-up plan has been documented for the patient 01/28/2025 4:12 PM EDT documented as of this encounter Care Teams Steam Fitter Helper Relationship Specialty Start Date End Date Sheila Ashraf, PRECISION AGRONOMIST [address] [place] [address] PCP - General 12/28/24 Jeremy Ramirez MD [address] [facility] [place] [address] Surgeon Neurosurgery 01/08/25 Marisol Allen APRN [address] [facility] [place] [address] Nurse Practitioner 01/28/25 documented as of this encounter
--- OUTSIDE RECORDS SUMMARY | 2025-03-20 21:46 | XMS_ITS | Encounter Summary ---
Author Organization Healthcare Address [address] [place] [address] Care Team Providers Care Business Resiliency Manager Name Role Phone Sheila Ashraf RUBBER GRINDER Primary Care Provider + [phone] Jeremy Ramirez MD Unavailable [phone] Marisol Allen RUBBER GRINDER Unavailable [phone] Encounter Details Date Type Department Care Team (Latest Contact Info) Description 03/03/2025 Travel Social History Tobacco Use Types Packs/Day [...] any time in the past 12 m [facility], were you homeless or living in a skilled nursing (including now)? No 02/17/2025 CAGE ASSESSMENT Answer [...] drink first t mt in the morning (EYE-MARKETING COMMUNICATION MANAGER) to steady your nerves or to [...] Visit [place] [facility] [address], [address] [place] [address] Jeremy Ramirez MD [address] [place] [address] documented as of this encounter Visit Diagnoses Not on filedocumented in this encounter Additional Health Concerns Assessment Noted Time A fall risk assessment has been complete d for the patient 03/03/2025 12:35 PM EDT A Body Mass Index follow-up plan has been documented for the patient 03/03/2025 4:25 PM EDT documented as of this encounter Care Teams Business Resiliency Manager Relationship Specialty Start Date End Date Sheila Ashraf APRN [address] [place] [address] PCP - General 12/28/24 Jeremy Ramirez MD [address] [place] [address] Surgeon Neurosurgery 01/08/25 Marisol Allen APRN [address] [place] [address] Nurse Practitioner 01/28/25 documented as of this encounter
--- OUTSIDE RECORDS SUMMARY | 2025-03-20 21:46 | XMS_ITS | Encounter Summary ---
Author Organization Healthcare Address [address] [place] [address] Care Team Providers Care Field Service Coordinator Name Role Phone Sheila Ashraf IN FLIGHT REFUELING MANAGER Primary Care Provider + [phone] Jeremy Ramirez MD Unavailable [phone] Marisol Allen IN FLIGHT REFUELING MANAGER Unavailable [phone] Encounter Details Date Type Department Care Team (Latest Contact Info) Description 02/16/2025 Travel Social History Tobacco Use Types Packs/Day [...] any time in the past 12 m [facility], were you homeless or living in a penitentiary (including now)? No 02/17/2025 CAGE ASSESSMENT Answer [...] drink first t mt in the morning (EYE-RIB KNITTER) to steady your nerves or to get [...] Visit [place] [facility] [address] [place] [address] Jeremy Ramirez MD [address] [place] [address] documented as of this encounter Visit Diagnoses Not on filedocumented in this encounter Additional Health Concerns Assessment Noted Time A fall risk assessment has been complete d for the patient 01/28/2025 2:22 PM EDT A Body Mass Index follow-up plan has been documented for the patient 02/23/2025 12:26 PM EDT documented as of this encounter Care Teams Field Service Coordinator Relationship Specialty Start Date End Date Sheila Ashraf APRN [address] [place] [address] PCP - General 12/28/24 Jeremy Raimrez MD [address] [place] [address] Surgeon Neurosurgery 01/08/25 Marisol Allen APRN [address] [place] [address] Nurse Practitioner 01/28/25 documented as of this encounter
--- OUTSIDE RECORDS SUMMARY | 2025-03-20 21:46 | XMS_ITS | Encounter Summary ---
Author Organization Healthcare Address [address] [place] [address] Care Team Providers Care Battery Parts Assembler Name Role Phone Sheila Ashraf Bill COMPUTER OPERATIONS TECHNICIAN Primary Care Provider + [phone] Jeremy Ramirez MD Unavailable [phone] Marisol Allen COMPUTER OPERATIONS TECHNICIAN Unavailable [phone] Encounter Details Date Type Department Care Team (Latest Contact Info) Description 01/28/2025 Travel Social History Tobacco Use Types Packs/Day [...] Visit [place] [facility] [address] [place] [address] Jeremy Ramirez MD [address] [place] [address] documented as of this encounter Visit Diagnoses Not on filedocumented in this encounter Additional Health Concerns Assessment Noted Time A fall risk assessment has been complete d for the patient 01/28/2025 2:22 PM EDT A Body Mass Index follow-up plan has been documented for the patient 01/28/2025 4:12 PM EDT documented as of this encounter Care Teams Battery Parts Assembler Relationship Specialty Start Date End Date Sheila Ashraf APRN [address] [place] [address] PCP - General 12/28/24 Jeremy Ramirez MD [address] [facility] [place] [address] Surgeon Neurosurgery 01/08/25 Marisol Allen APRN [address] [place] [address] Nurse Practitioner 01/28/25 documented as of this encounter
--- OUTSIDE RECORDS SUMMARY | 2025-03-20 21:46 | XMS_ITS | Encounter Summary ---
Author Organization Healthcare Address [address] [place] [address] Care Team Providers Care Paper Conservator Name Role Phone Sheila Ashraf Bill JOURNEYMAN PRESS OPERATOR Primary Care Provider + [phone] Jeremy Ramirez MD Unavailable [phone] Marisol Allen JOURNEYMAN PRESS OPERATOR Unavailable [phone] Encounter Details Date Type Department Care Team (Latest Contact Info) Description 02/15/2025 Travel Social History Tobacco Use Types Packs/Day [...] Visit [place] [facility] [address] [place] [address] Jeremy Ramirez MD [address] [place] [address] documented as of this encounter Visit Diagnoses Not on filedocumented in this encounter Additional Health Concerns Assessment Noted Time A fall risk assessment has been complete d for the patient 01/28/2025 2:22 PM EDT A Body Mass Index follow-up plan has been documented for the patient 01/28/2025 4:12 PM EDT documented as of this encounter Care Teams Paper Conservator Relationship Specialty Start Date End Date Sheila Ashraf APRN [address] [place] [address] PCP - General 12/28/24 Jeremy Ramirez MD [address] [facility] [place] [address] Surgeon Neurosurgery 01/08/25 Marisol Allen APRN [address] [place] [address] Nurse Practitioner 01/28/25 documented as of this encounter
--- OUTSIDE RECORDS SUMMARY | 2025-03-20 21:46 | XMS_ITS | Clinical Summary ---
Author Organization [facility] Address [address] [place] [address] Care Team Providers Care Mail Clerks Supervisor Name Role Phone Sheila Ashraf MACHINE SIGN WRITER Primary Care Provider [phone] Jeremy Ramirez MD Unavailable [phone] Marisol Allen MACHINE SIGN WRITER Unavailable [phone] Allergies Active Allergy Reactions Criticality Noted Date Comments Penicillins Rash Low 12/28/2024 Sulfa Drugs Rash Low 12/28/2024 Medications lidocaine (Lidoderm) 5 % patch Apply 1 patch topically daily over 12 hours. Remove & discard patch within 12 hours or as directed by MD. 14 patch 12/30/19 25 Active methocarbamol (Robaxin) 500 MG tablet Take 1 tablet by mouth 4 times a day as needed for muscle spasms for up to 10 days. 40 tablet 12/30/19 25 Active Additional Information Patient taking differently: 1,000 mgOralNightly PRN, muscle spasms, Reported on 03/03/2025 spironolactone (Aldactone) 50 MG tablet Take 1 tablet by mouth daily. Active celecoxib (CeleBREX) 200 MG capsule Take 1 capsule by mouth daily. 01/06/20 25 Active loratadine (Claritin) 10 MG tablet Take 1 tablet by mouth daily as needed for allergies. 12/02/19 25 Active BIOTIN PO Take 1 tablet by mouth daily. Active Cholecalciferol (VITAMIN D-3 PO) Take 2 tablets by mouth daily. Active ibuprofen 200 MG tablet Take 4 tablets by mouth 3 times a day. Active acetaminophen (Tylenol) 500 MG tablet Take 1 tablet by mouth 3 times a day. Active levonorgestrel (Mirena) 20 MCG/DAY IUD 1 each by Intrauterine route 1 time. Active acetaminophen (Tylenol) 500 MG tablet Take 2 tablets by mouth every 6 hours as needed for pain, headaches or fever. 02/24/20 Active baclofen (Lioresal) 10 MG tablet Take 1 tablet by mouth 3 times a day. 02/24/20 Active bisacodyl (Dulcolax) 10 MG suppository Insert 1 suppository into the rectum daily. 02/25/20 Active cyclobenzaprine (Flexeril) 5 MG tablet Take 1 tablet by mouth 3 times a day. 02/24/20 Active dexamethasone (Decadron) 2 MG tablet Take 1 tablet by mouth daily for 1 dose. 02/25/20 Active gabapentin (Neurontin) 300 MG capsule Take 1 capsule by mouth 3 times a day. 02/24/20 Active ondansetron ODT (Zofran-ODT) 4 MG disintegrating tablet Dissolve 1 tablet on the tongue every 6 hours as needed for nausea or vomiting. 02/24/20 Active senna-docusate (Jeimy-Colace) 8.6-50 MG tablet Take 2 tablets by mouth 2 times a day. 02/24/20 Active polyethylene glycol (Miralax) 17 g packet Take 17 g by mouth 2 times a day. 02/24/20 Active oxyCODONE (Roxicodone) 5 MG immediate release tabletIndications :History of cervical spinal surgery Take 1 tablet by mouth every 4 hours as needed for severe pain for up to 7 days. 42 tablet 03/18/20 25 025 Active oxyCODONE (Roxicodone) 10 MG immediate release tablet Take 0.5-1 tablets by mouth every 6 hours as needed for severe pain. 02/24/20 25 025 Discontin ued(Reord er) Active Problems Problem Noted Date Diagnosed Date S/P cervical spinal fusion 02/22/2025 Assessment & Plan (02/22/2025 3:28 PM EDT): - 02/16 s/p C3-7 PCF (*lost motors) [...] Recommend acute rehab. Has been referred to [facility]. Acute post-operative pain 02/17/2025 Assessment & Plan (02/22/2025 3:28 PM EDT): - 02/16 s/p C3-7 PCF (*lost motors) [...] Recommend acute rehab. Has been referred to [facility]. 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 Has been referred to [facility]. Assessment & Plan (02/19/2025 10:17 AM EDT): Resume home medications as appropriate Assessment & Plan (02/18/2025 10:02 AM EDT): Resume home medications as appropriate Assessment & Plan (02/17/2025 11:09 AM EDT): Resume home medications as appropriate Assessment & Plan (02/16/2025 6:35 PM EDT): Resume home medications as appropriate BMI 25.0-25.9,adult 02/16/2025 Assessment & Plan (02/19/2025 10:17 AM EDT): Complicates all aspects of care. Assessment & Plan (02/18/2025 10:02 AM EDT): Complicates all aspects of care. Assessment & Plan (02/17/2025 11:09 AM EDT): Complicates all aspects of care. Assessment & Plan (02/16/2025 6:35 PM EDT): Complicates all aspects of care. Tobacco use 02/16/2025 Assessment & Plan (02/22/2025 6:23 AM EDT): - Recommend tobacco cessation prior to discharge. Assessment & Plan (02/19/2025 10:17 AM EDT): Smoking cessation as appropriate Complicates all aspects of care Assessment & Plan (02/18/2025 10:02 AM EDT): Smoking cessation as appropriate Complicates all aspects of care Assessment & Plan (02/17/2025 11:09 AM EDT): Smoking cessation as appropriate Complicates all aspects of care Assessment & Plan (02/16/2025 6:35 PM EDT): Smoking cessation as appropriate Complicates all aspects of care Cervical myelopathy 01/18/2025 Assessment & Plan (02/22/2025 3:28 PM EDT): - 02/16 s/p C3-7 PCF (*lost motors) [...] Recommend acute rehab. Has been referred to [facility]. Assessment & Plan (02/19/2025 10:17 AM EDT): See cervical stenosis of spine Assessment & Plan (02/18/2025 10:02 AM EDT): See cervical stenosis of spine Assessment & Plan (02/17/2025 11:09 AM EDT): See cervical stenosis of spine Assessment & Plan (02/16/2025 6:35 PM EDT): See cervical stenosis of spine Cervical stenosis of spine 12/29/2024 Assessment & Plan (02/22/2025 3:28 PM EDT): - 02/16 s/p C3-7 PCF (*lost motors) [...] Recommend acute rehab. Has been referred to [facility]. Assessment & Plan (02/19/2025 10:17 AM EDT): C3-C7 posterior cervical fusion Admitted to PCU post-op but then upgraded to ICU for MAP goals and post-op weakness MAP >85 No arterial line, on no vasopressor support Assessment & Plan (02/18/2025 10:02 AM EDT): C3-C7 posterior cervical fusion Admitted to PCU post-op but then upgraded to ICU for MAP goals and post-op weakness MAP >85 Vasopressors as needed to meet MAP goals Continuous BP monitoring with A-line Assessment & Plan (02/17/2025 11:09 AM EDT): C3-C7 posterior cervical fusion Admitted to PCU post-op but then upgraded to ICU for MAP goals and post-op weakness MAP >85 Vasopressors as needed to meet MAP goals Continuous BP monitoring with A-line Assessment & Plan (02/16/2025 6:35 PM EDT): C3-C7 posterior cervical fusion Admitted to PCU post-op but then upgraded to ICU for MAP goals and post-op weakness MAP >85 Vasopressors as needed to meet MAP goals Continuous BP monitoring with A-line Resolved Problems Problem Noted Date Diagnosed Date Resolved Date Hypophosphatemia 02/19/2025 02/23/2025 Assessment & Plan (02/19/2025 10:17 AM EDT): -Monitor per protocol -Linda repletion Electrolyte abnormality 02/16/202501/30 Assessment & Plan (02/22/2025 3:28 PM EDT): - hypophosphatemia, hypokalemia - 02/22 K 3.4. Replacement ordered. Will reassess response in the morning. - Has scheduled Phos tabs ordered. - Will repeat Phos in the morning. Assessment & Plan (02/19/2025 10:17 AM EDT): Replace per ICU sliding scale protocol. Assessment & Plan (02/18/2025 10:02 AM EDT): Replace per ICU sliding scale protocol. Recheck PM phos Assessment & Plan (02/17/2025 11:09 AM EDT): Replace per ICU sliding scale protocol. Assessment & Plan (02/16/2025 6:35 PM EDT): Replace per ICU sliding scale protocol. Anxiety 02/16/2025 02/16/2025 Assessment & Plan (02/16/2025 6:35 PM EDT): Resume home meds as appropriate Encounters Date Type Department Care Team Description 03/18/2025 Refill OR [facility] [address], [address] [place] [address] Brad Deshpande, MACHINE SIGN WRITER History of cervical spinal surgery (Primary Dx) 03/03/2025 12:00 PM EDT Office Visit [facility] [address], [address] [place] [address] Marisol Allen, MACHINE SIGN WRITER Status post cervical spinal fusion (Primary Dx) 03/03/2025 Travel 02/24/2025 Travel 02/18/2025 Travel 02/16/2025 7:30 AM EDT - 02/16/2025 1:10 PM EDT Surgery [facility] [address] [place] [address] Jeremy Ramirez MD C3-7 PCF, w IONM [01947 (CPT )] 02/16/2025 7:27 AM EDT Anesthesia Event [facility] [address] [place] [address] Franck Omer MD Hardiman, Steven J, GLENIS 02/16/2025 5:50 AM EDT - 02/23/2025 2:19 PM EDT Hospital Encounter [facility] [address] [place] [address] Jeremy Ramirez MD Cervical stenosis of spine (Primary Dx) Discharge Disposition: Rehab Facility 02/16/2025 Travel 02/15/2025 Travel 02/15/2025 Telephone [facility] [address] [place] [address] Jeremy Ramirez MD 02/01/2025 Telephone [facility] [address], [facility] [place] [address] Jeremy Ramirez MD HCN - Patient Message (Call back ) 01/29/2025 Abstract [facility] [address], [facility] [place] [address] Jaylen Al RN 01/28/2025 2:45 PM EDT Pre-Admission Testing [facility] Pre-op [place] [address] [place] [phone] Cervical stenosis of spine [M48.02] (Primary Dx); Preop testing 01/28/2025 2:00 PM EDT Consult [facility] [address], [address] [place] [phone] Marisol Allen APRN Myelopathy (CMS/HCC) (Primary Dx); Pre-op evaluation; Cervical stenosis of spine; Lakhani sign present; Paresthesia of upper extremity 01/28/2025 Travel 01/08/2025 1:01 PM EDT - 01/08/2025 11:59 PM EDT Hospital Encounter [facility] Radiology [address], [address] [place] [phone] Cervical stenosis of spine Discharge Disposition: Home or Self Care 01/08/2025 1:00 PM EDT Office Visit [place] [address], [facility] [place] [phone] Jeremy Ramirez MD Cervical stenosis of spine (Primary Dx); Cervical stenosis of spinal canal; Myelopathy (CMS/HCC); Lakhani sign present; Paresthesia of upper extremity 01/08/2025 Travel 01/05/2025 Telephone [facility] [address], [address] [place] [address] Rand Cuevas 12/30/2024 Telephone [facility] [address], [address] [place] [address] Radn Cuevas 12/30/2024 Telephone [facility] [address], [address] [place] [phone] Rand Cuevas K 12/28/2024 11:42 AM EDT - 12/29/2024 10:45 AM EDT Hospital Encounter [facility] Emergency Department [address] [place] [address] Serafin Paz MD Martin, Julia E, MD Micciche, Andrew F, MD Cervical stenosis of spine (Primary Dx) Discharge Disposition: Home or Self Care 12/28/2024 Orders Only External Location [address] [place] [address] Provider, External 12/28/2024 Orders Only External Location [address] [place] [address] Provider, External 12/28/2024 Travel 12/23/2024 Orders Only External Location [address] [place] [address] Provider, External from Last 3 Months Family History Medical History Relation Name Comments Anesthesia problems Neg Hx Malig Hyperthermia Neg Hx Social History Tobacco Use Types Packs/Day Years [...] time in the past [address] [facility], were you homeless or living in a long term (including now)? 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 0 02/17/2025 CAGE Questionnaire Score 0 025 Utilities Answer Date Recorded In the past 12 months has th e [employer], gas, oil, or water company threatened to shut off services in your home? No 02/17/2025 Comments No Sex and Gender Information Value Date Recorded Sex Assigned at Female 02/17/2025 6:46 AM EDT Legal Sex Female 6:48 PM EDT Gender Identity Female 02/17/2025 6:46 AM EDT Sexual Orientation Straight 02/17/2025 6: 46 AM EDT Last Filed Vital Signs Vital Sign Reading Time Taken Comments Blood Pressure 132/86 03/03/2025 12:34 PM EDT Pulse 95 02/23/2025 11:10 AM EDT Temperature 36.8 C (98.3 F) 02/23/2025 11:10 AM EDT Respiratory Rate 16 02/23/2025 11:10 AM EDT Oxygen Saturation 97% 02/23/2025 11:10 AM EDT Inhaled Oxygen Concentration - - Weight 69.4 kg (153 lb) 03/03/2025 12:34 PM EDT Height 165.1 cm (5' 5 ) 03/03/2025 12:34 PM EDT Body Mass Index 25.46 03/03/2025 12:34 PM EDT Plan of Treatment Upcoming Encounters Date Type Department Care Team (Late st Contact Info) Description 04/02/2025 1:20 PM EDT Office Visit [place] [facility] [address] [place] [address] Jeremy Ramirez MD [address] [place] [address] Health Maintenance Due Date Last Done Comments [facility]-Depression Screening 1979 [facility]-HIV Screening 1979 [facility]-Hepatitis C Screening 1979 [facility]-/Child/Adol SDOH Screenings 1979 [facility]-DTaP,Tdap,and Td Vaccines (1 - Tdap) 1998 [facility]-Hepatitis B Vaccines (1 of 3 - 19+ 3-dose series) 1998 [facility]-Pneumococcal Vaccine: Pediatrics (0 to 5 Years) and At-Risk Patients (6 to 49 Years) (1 of 2 - PCV) 1998 [facility]-Pap Smear 01/22/2000 [facility]-Cervical Cancer Screening 2009 [facility]-HPV/Cotest 2009 CT Colonography 01/22/2024 Colonoscopy 01/22/2024 FIT-DNA 01/22/2024 FIT 01/22/2024 FOBT 01/22/2024 Sigmoidoscopy 01/22/2024 [facility]-Colorectal Cancer Screening 01/22/2024 [id number] Vaccine ( - season) 2025 [facility]-Influenza Vaccine (#1) 2025 [facility]- SDOH Screenings 08/20/2025 [facility]-Adult SDOH Screenings 08/20/2025 02/17/2025 [facility]-Zoster Vaccines (1 of 2) 2029 [facility]-Obesity Intervention Completed 025, 01/28/2025, 01/18/2025, Additional history exists HPV Vaccines Aged Out No longer eligi ble based on patient's age to complete this topic [facility]-HIB Vaccines Aged Out No longer e ligible based on patient's age to complete this topic [facility]-Hepatitis A Vaccines Aged Out No longer eligible based on patient's age to complete this topic [facility]-IPV Vaccines Aged Out No longer e ligible based on patient's age to complete this topic [facility]-Rotavirus Vaccines Aged Out No lo nger eligible based on patient's age to complete this topic Medical Devices Implanted Type Area Right Of Way Supervisor Device Identifier Shelf Expiration Date Model / Serial / Lot Juan Pablo Ti 4.0x065 Keke - S. - [id number] Implanted:Qty: 2 on 02/16/2025 by Jeremy Ramirez MD at [facility] Juan Pablo N/A: Spine Cervical [employer] [id number] 02/16/2026 [id number] / . / Screw 4.0 Ply 3.5x14 - Sna - [id number] Implanted:Qty: 5 on 02/16/2025 by Jeremy Ramirez MD at [facility] Screw N/A: Spine Cervical [id number] 02/16/2026 [id number] / NA / NA Screw 4.0 Ply 3.5x16 - Sna - [id number] Implanted:Qty: 5 on 02/16/2025 by Jeremy Ramirez MD at [facility] Screw N/A: Spine Cervical [employer] [id number] 02/16/2026 [id number] / NA / NA Set Screw - Sna - [id number] Implanted:Qty: 10 on 02/16/2025 by Jeremy Ramirez MD at [facility] Screw N/A: Spine Cervical [employer] [id number] 02/16/2026 [id number] / NA / NA Chip Bone 10cc - [id number] - [id number] Implanted:Qty: 1 on 02/16/2025 by Jeremy Ramirez MD at [facility] N/A: Spine Cervical [facility]-[id number] 11/02/2029 PCAN10 / [id number] / [id number] Matrix Fibergraft Bg Medium 6.25cc - [id number] Implanted:Qty: 1 on 02/16/2025 by Jeremy Ramirez MD at [facility] N/A: Spine Cervical [employer] [id number] 08/20/2027 [id number] / / [id number] Description:Implant soaked w ith patient's blood Procedures Procedure Name Priority Date/Time Associated Diagnosis Comments POCT GLUCOSE METER UNSOLICITED RESULTS Routine 02/23/2025 11:12 AM EDT POCT GLUCOSE METER UNSOLICITED RESULTS Routine 02/23/2025 7:39 AM EDT POTASSIUM, PLASMA Add-On 02/23/2025 4:2 5 AM EDT PHOSPHORUS, PLASMA Routine 02/23/2025 4: 25 AM EDT MAGNESIUM, PLASMA Routine 02/23/2025 4:2 5 AM EDT CBC W/O DIFFERENTIAL Routine 02/23/2025 4:25 AM EDT POCT GLUCOSE METER UNSOLICITED RESULTS Routine 02/22/2025 7:21 PM EDT POCT GLUCOSE METER UNSOLICITED RESULTS Routine 02/22/2025 5:25 PM EDT POCT GLUCOSE METER UNSOLICITED RESULTS Routine 02/22/2025 4:23 PM EDT POCT GLUCOSE METER UNSOLICITED RESULTS Routine 02/22/2025 11:45 AM EDT POCT GLUCOSE METER UNSOLICITED RESULTS Routine 02/22/2025 7:49 AM EDT RENAL FUNCTION PANEL, PLASMA Routine 02/22/2025 12:58 AM EDT MAGNESIUM, PLASMA Routine 02/22/2025 12: 58 AM EDT CBC W/O DIFFERENTIAL Routine 02/22/2025 12:58 AM EDT POCT GLUCOSE METER UNSOLICITED RESULTS Routine 02/21/2025 8:46 PM EDT POCT GLUCOSE METER UNSOLICITED RESULTS Routine 02/21/2025 4:43 PM EDT POCT GLUCOSE METER UNSOLICITED RESULTS Routine 02/21/2025 11:51 AM EDT POCT GLUCOSE METER UNSOLICITED RESULTS Routine 02/21/2025 8:32 AM EDT RENAL FUNCTION PANEL, PLASMA Routine 02/21/2025 2:45 AM EDT MAGNESIUM, PLASMA Routine 02/21/2025 2:4 5 AM EDT CBC W/O DIFFERENTIAL Routine 02/21/2025 2:45 AM EDT POCT GLUCOSE METER UNSOLICITED RESULTS Routine 02/20/2025 9:24 PM EDT POCT GLUCOSE METER UNSOLICITED RESULTS Routine 02/20/2025 6:19 PM EDT POCT GLUCOSE METER UNSOLICITED RESULTS Routine 02/20/2025 12:30 PM EDT RENAL FUNCTION PANEL, PLASMA Routine 02/20/2025 12:30 PM EDT POCT GLUCOSE METER UNSOLICITED RESULTS Routine 02/20/2025 8:31 AM EDT PHOSPHORUS, PLASMA Routine 02/20/2025 3: 20 AM EDT PROTHROMBIN TIME(PT) / INR Routine 02/20/2025 3:20 AM EDT COMPREHENSIVE METABOLIC PANEL, PLASMA Routine 02/20/2025 3:20 AM EDT IONIZED CALCIUM, WHOLE BLOOD Routine 02/20/2025 3:20 AM EDT MAGNESIUM, PLASMA Routine 02/20/2025 3:2 0 AM EDT CBC W/O DIFFERENTIAL Routine 02/20/2025 3:20 AM EDT URINALYSIS MICROSCOPIC [...] UNSOLICITED RESULTS Routine 02/19/2025 4:30 AM EDT PROTHROMBIN TIME(PT) / INR Routine 02/19/2025 12:40 AM EDT COMPREHENSIVE METABOLIC PANEL, PLASMA Routine 02/19/2025 12:40 AM EDT IONIZED CALCIUM, WHOLE BLOOD Routine 02/19/2025 12:40 AM EDT MAGNESIUM, PLASMA Routine 02/19/2025 12: 40 AM EDT CBC W/O DIFFERENTIAL Routine 02/19/2025 12:40 AM EDT PHOSPHORUS, PLASMA Timed 02/19/2025 12 :40 AM EDT POCT GLUCOSE METER UNSOLICITED RESULTS Routine 02/18/2025 10:19 PM EDT POCT GLUCOSE METER UNSOLICITED RESULTS Routine 02/18/2025 6:21 PM EDT XR CERVICAL SPINE 2 OR 3 VIEWS Routine 02/18/2025 6:00 PM EDT PHOSPHORUS, PLASMA STAT 02/18/2025 2: 33 PM EDT POCT GLUCOSE METER UNSOLICITED RESULTS Routine 02/18/2025 12:14 PM EDT PHOSPHORUS, PLASMA STAT 02/18/2025 1: 38 AM EDT PHOSPHORUS, PLASMA Routine 02/18/2025 12 :35 AM EDT COMPREHENSIVE METABOLIC PANEL, PLASMA Routine 02/18/2025 12:35 AM EDT PROTHROMBIN TIME(PT) / INR Routine 02/18/2025 12:35 AM EDT IONIZED CALCIUM, WHOLE BLOOD Routine 02/18/2025 12:35 AM EDT MAGNESIUM, PLASMA Routine 02/18/2025 12: 35 AM EDT CBC W/O DIFFERENTIAL Routine 02/18/2025 12:35 AM EDT PHOSPHORUS, PLASMA Routine 02/17/2025 3: 25 AM EDT COMPREHENSIVE METABOLIC PANEL, PLASMA Routine 02/17/2025 3:25 AM EDT PROTHROMBIN TIME(PT) / INR Routine 02/17/2025 3:25 AM EDT IONIZED CALCIUM, WHOLE BLOOD Routine 02/17/2025 3:25 AM EDT MAGNESIUM, PLASMA Routine 02/17/2025 3:2 5 AM EDT CBC W/O DIFFERENTIAL Routine 02/17/2025 3:25 AM EDT KELLY AURIS SURVEILLANCE BY PCR Routine 02/17/2025 3:25 AM EDT MULTI DRUG RESISTANCE TEST Routine 02/17/2025 3:25 AM EDT KS CRITICAL CARE, ADDL 30 MIN Routine 02/16/2025 6:33 PM EDT Cervical stenosis of spine KS CRITICAL CARE, ADDL 30 MIN Routine 02/16/2025 6:33 PM EDT Cervical stenosis of spine FL LESS THAN 1 HOUR (NON-REPORTABLE) Routine 02/16/2025 11:21 AM EDT PB ANESTHESIA NON-TIMED PROCEDURE PLACEHOLDER Routine 02/16/2025 7:50 AM EDT PB ANESTHESIA PLACEHOLDER Routine 02/16/2025 7:39 AM EDT KS AN ELECTIVE ENDOTRACHEAL AIRWAY Routine 02/16/2025 7:39 AM EDT POCT , URINE Routine 02/16/2025 7:19 AM EDT KS ARTHRODESIS POSTERIOR/POSTERIORLAT ERAL CERVICAL BELOW C2 02/16/2025 7:15 AM EDT Cervical myelopathy (CMS/HCC) TYPE AND SCREEN Routine 02/16/2025 6:56 AM EDT CBC WITH AUTO DIFFERENTIAL Routine 01/28/2025 4:02 PM EDT Pre-op evaluation APTT Routine 01/28/2025 4:02 PM EDT Pre-op evaluation PROTHROMBIN TIME(PT) / INR Routine 01/28/2025 4:02 PM EDT Pre-op evaluation BASIC METABOLIC PANEL, PLASMA Routine 01/28/2025 4:02 PM EDT Pre-op evaluation ECG ADULT Routine 01/28/2025 3:52 PM EDT Preop testing XR CERVICAL SPINE COMPLETE 4 TO 5 VIEWS Routine 01/08/2025 1:23 PM EDT Cervical stenosis of spine XR CHEST 1 VIEW STAT 12/28/2024 1:45 PM EDT EXTRA TUBE GOLD TOP Routine 12/28/2024 1 :02 PM EDT EXTRA TUBES Routine 12/28/2024 1:02 PM EDT TYPE AND SCREEN STAT 12/28/2024 1:02 PM EDT PROTHROMBIN TIME(PT) / INR STAT 12/28/2024 1:02 PM EDT CBC WITH AUTO DIFFERENTIAL STAT 12/28/2024 1:02 PM EDT COMPREHENSIVE METABOLIC PANEL, PLASMA STAT 12/28/2024 1:[address] ABDOMEN OUTSIDE IMAGES 12/28/2024 10:[address] NEURO OUTSIDE IMAGES 12/28/2024 10:45 AM EDT MR OUTSIDE IMAGES 12/23/2024 1:2 7 PM EDT from Last 3 Months Results * (ABNORMAL) POCT glucose meter (02/23/2025 11:12 AM EDT) Only the most recent of23 resultswithin the time period is included. [facility] POCT Glucose 177(H) 74 - 99 mg/dL 02/23/2025 11:14 AM EDT [facility] Comment:Accuracy of a glucos e result [...] for testing. Comment 02/23/2025 11:14 AM EDT [facility] Belt Maker Helper ID Orin Rocky 025 11:14 AM EDT [facility] Device ID [id number] 02/23/2025 11:14 AM EDT [facility] Specimen Type POC Capillary 02/23/2025 11:14 AM EDT HEALTHCARE LAB Blood Capillary blood specimen / Unknown 02/23/2025 11:12 AM EDT 02/23/2025 11:14 AM EDT us Jeremy Ramirez MD LAB POINT OF CARE TE ST DOCKED DEVICE UNSOLICITED RESULTS Final Result [facility] [address] [place] [id number] * (ABNORMAL) CBC W/O Differential (02/23/2025 4:25 AM EDT) Only the most recent of7 resultswithin the time period is included. WBC Count 7.76 3.70 - 10.30 10*3/uL LAB HEMATOLOGY METHOD 02/23/2025 4:53 AM EDT [facility] RBC Count 3.76(L) 3.90 - 5.20 10*6/uL LAB HEMATOLOGY METHOD 02/23/2025 4:53 AM EDT [facility] HGB 11.9 11.2 - 15.7 g/dL LAB HEMATOLOGY METHOD 02/23/2025 4:53 AM EDT [facility] HCT 35.5 34.0 - 45.0 % LAB HEMATOLOGY METHOD 02/23/2025 4:53 AM EDT [facility] Platelet Count 146(L) 155 - 369 10*3/uL LAB HEMATOLOGY METHOD 02/23/2025 4:53 AM EDT [facility] MCV 94 79 - 98 fL LAB HEMATOLOGY METHOD 02/23/2025 4:53 AM EDT [facility] MCH 31.6 26.0 - 32.0 pg LAB HEMATOLOGY METHOD 02/23/2025 4:53 AM EDT [facility] MCHC 33.5 30.7 - 35.5 g/dL LAB HEMATOLOGY METHOD 02/23/2025 4:53 AM EDT [facility] RDW 16.2(H) 11.5 - 14.5 % LAB HEMATOLOGY METHOD 02/23/2025 4:53 AM EDT [facility] MPV 9.5 8.8 - 12.5 fL LAB HEMATOLOGY METHOD 02/23/2025 4:53 AM EDT [facility] nRBC 0.0 <=0.0 per 100 WBCs LAB HEMATOLOGY METHOD 02/23/2025 4:53 AM EDT [facility] Blood Venous blood specimen / Unknown Venipuncture / Unknown 02/23/2025 4:25 AM EDT 02/23/2025 4:43 AM EDT us Theresa Nelson MACHINE SIGN WRITER LAB BLOOD ORDERABLES Final Result [facility] [address] [place] [address] * Potassium (02/23/2025 4:25 AM EDT) Potassium, Plasma 3.7 3.6 - 4.9 mmol/L 02/23/2025 7:15 AM EDT [facility] Blood Venous blood specimen / Unknown Venipuncture / Unknown 02/23/2025 4:25 AM EDT 02/23/2025 4:40 AM EDT Brad Villaus MACHINE SIGN WRITER LAB BLOOD ORDERABLES F inal Result Performing Organization Address [facility] [place] [address] * Phosphorus (02/23/2025 4:25 AM EDT) Only the most recent of8 resultswithin the time period is included. Phosphorus, Plasma 3.8 2.5 - 4.5 mg/dL 02/23/2025 5:07 AM EDT [facility] Blood Venous blood specimen / Unknown Venipuncture / Unknown 02/23/2025 4:25 AM EDT 02/23/2025 4:40 AM EDT Brad Khan Jeramy MACHINE SIGN WRITER LAB BLOOD ORDERABLES F inal Result Performing Organization Address City/[facility]/ZIP Co de Phone Number [facility] [address] [place] [address] * Magnesium, Plasma (02/23/2025 4:25 AM EDT) Only the most recent of7 resultswithin the time period is included. Magnesium, Plasma 2.0 1.9 - 2.4 mg/dL 02/23/2025 5:07 AM EDT [facility] Blood Venous blood specimen / Unknown Venipuncture / Unknown 02/23/2025 4:25 AM EDT 02/23/2025 4:40 AM EDT Theresa Nelson MACHINE SIGN WRITER LAB BLOOD ORDERABLES Final Result [facility] [address] [place] [address] * (ABNORMAL) Renal Function Panel, Plasma (02/22/2025 12:58 AM EDT) Only the most recent of3 resultswithin the time period is included. Glucose, Plasma 101(H) 74 - 99 mg/dL 02/22/2025 1:28 AM EDT [facility] BUN, Plasma 16 7 - 21 mg/dL 02/22/2025 1:28 AM EDT [facility] Creatinine, Plasma 0.46(L) 0.60 - 1.10 mg/dL 02/22/2025 1:28 AM EDT [facility] BUN/Creatinine Ratio 35 02/22/2025 1:28 AM EDT [facility] Sodium, Plasma 139 136 - 145 mmol/L 02/22/2025 1:28 AM EDT [facility] Potassium, Plasma 3.4(L) 3.6 - 4.9 mmol/L 02/22/2025 1:28 AM EDT [facility] Chloride, Plasma 104 97 - 107 mmol/L 02/22/2025 1:28 AM EDT [facility] CO2, Plasma 25 22 - 29 mmol/L 02/22/2025 1:28 AM EDT [facility] Anion Gap 10 6 - 16 mmol/L 02/22/2025 1:28 AM EDT [facility] Total Calcium, Plasma 8.2(L) 8.9 - 10.2 mg/dL 02/22/2025 1:28 AM EDT [facility] Phosphorus, Plasma 3.2 2.5 - 4.5 mg/dL 02/22/2025 1:28 AM EDT [facility] Albumin, Plasma 3.3(L) 3.5 - 5.2 g/dL 02/22/2025 1:28 AM EDT [facility] eGFRcr 119.7 mL/min/1.7 3m*2 02/22/2025 1:28 AM EDT [facility] Comment:Reported eGFRcr in m L/min/1.73m2 is based the CKD-EPI 2020 equation that does not use a race coefficient. Blood Venous blood specimen / Unknown Venipuncture / Unknown 02/22/2025 12:58 AM EDT 02/22/2025 1:02 AM EDT us Theresa Nelson APRN LAB BLOOD ORDERABLES Final Result Performing Organization Address City/[facility] Co de Phone Number [facility] [address] [place] [address] * Ionized calcium, whole blood (02/20/2025 3:20 AM EDT) Only the most recent of4 resultswithin the time period is included. Ionized Calcium, Whole Blood 4.6 4.6 - 5.1 mg/dL LAB HEMATOLOGY METHOD 02/20/2025 3:25 AM EDT [facility] Blood Venous blood specimen / Unknown Venipuncture / Unknown 02/20/2025 3:20 AM EDT 02/20/2025 3:24 AM EDT us Joce Covarrubias APRN LAB BLOOD ORDERABLES Final Re sult Performing Organization Address City/[facility]/ZIP Co de Phone Number [facility] [address] [place] [address] * Prothrombin Time/INR (02/20/2025 3:20 AM EDT) Only the most recent of6 resultswithin the time period is included. Prothrombin Time 13.4 12.0 - 14.3 sec LAB COAGULATION METHOD 02/20/2025 3:41 AM EDT [facility] INR 1.0 0.9 - 1.1 LAB COAGULATION METHOD 02/20/2025 3:41 AM EDT [facility] Blood Venous blood specimen / Unknown Venipuncture / Unknown 02/20/2025 3:20 AM EDT 02/20/2025 3:25 AM EDT Narrative [facility] - 02/20/2025 3:41 AM EDT OPTIMAL INR RANGES FOR PATIENT ON ORAL ANTICOAGULANT THERAPY Prevention of venous thromboembolism INR 2.0 to 3.0 In patients with heart disease: Atrial fibrillation INR 2.0 to 3.0 Valvular heart disease INR 2.0 to 3.0 Tissue heart valves INR 2.0 to 3.0 Mechanical prosthetic valves INR 2.5 to 3.5 Prevention of recurrent RI INR 2.5 to 3.5 Leida Marcano MACHINE SIGN WRITER, DNP LAB BLOOD ORDERABLES Final Result [facility] [address] [place] [address] * (ABNORMAL) Comprehensive Metabolic Panel, Plasma (02/20/2025 3:20 AM EDT) Only the most recent of5 resultswithin the time period is included. Glucose, Plasma 129(H) 74 - 99 mg/dL 02/20/2025 4:17 AM EDT [facility] BUN, Plasma 17 7 - 21 mg/dL 02/20/2025 4:17 AM EDT [facility] Creatinine, Plasma 0.46(L) 0.60 - 1.10 mg/dL 02/20/2025 4:17 AM EDT [facility] BUN/Creatinine Ratio 37 02/20/2025 4:17 AM EDT [facility] Sodium, Plasma 140 136 - 145 mmol/L 02/20/2025 4:17 AM EDT [facility] Potassium, Plasma 4.0 3.6 - 4.9 mmol/L 02/20/2025 4:17 AM EDT [facility] Chloride, Plasma 107 97 - 107 mmol/L 02/20/2025 4:17 AM EDT [facility] CO2, Plasma 25 22 - 29 mmol/L 02/20/2025 4:17 AM EDT [facility] Anion Gap 8 6 - 16 mmol/L 02/20/2025 4:17 AM EDT [facility] Total Calcium, Plasma 9.0 8.9 - 10.2 mg/dL 02/20/2025 4:17 AM EDT [facility] Total Protein 7.1 6.3 - 7.9 g/dL 02/20/2025 4:17 AM EDT [facility] Albumin, Plasma 3.5 3.5 - 5.2 g/dL 02/20/2025 4:17 AM EDT [facility] AST, Plasma 36(H) 10 - 35 U/L 02/20/2025 4:17 AM EDT [facility] Comment:Hemolyzed, result ma y be falsely increased. ALT, Plasma 41(H) 10 - 35 U/L 02/20/2025 4:17 AM EDT [facility] Alkaline Phosphatase, Plasma 80 35 - 104 U/L 02/20/2025 4:17 AM EDT [facility] Total Bilirubin, Plasma 0.3 0.2 - 1.1 mg/dL 02/20/2025 4:17 AM EDT [facility] eGFRcr 119.7 mL/min/1.7 3m*2 02/20/2025 4:17 AM EDT [facility] Comment:Reported eGFRcr in m L/min/1.73m2 is based the CKD-EPI 2020 equation that does not use a race coefficient. Blood Venous blood specimen / Unknown Venipuncture / Unknown 02/20/2025 3:20 AM EDT 02/20/2025 3:25 AM EDT us Joce Covarrubias MACHINE SIGN WRITER LAB BLOOD ORDERABLES Final Re sult [facility] [address] [place] [address] * Urinalysis Microscopic Examination (02/20/2025 3:04 AM EDT) Urine Urine specimen obtained by clean catch procedure / Unknown Non-blood Collection / Unknown 02/20/2025 3:04 AM EDT 02/20/2025 3:09 AM EDT Leida Marcano APRN, DNP LAB URINE ORDERABLES Final Result [facility] [address] [place] [address] * (ABNORMAL) Urinalysis with reflex microscopic (Culture NOT Included) (02/20/2025 3:04 AM EDT) Color, Urine Yellow LAB URINALYSIS - AUTOMATED METHOD 02/20/2025 3:27 AM EDT [facility] Clarity, Urine Cloudy LAB URINALYSIS - AUTOMATED METHOD 02/20/2025 3:27 AM EDT [facility] Spec [place], Urine 1.023 1.005 - 1.030 LAB URINALYSIS - AUTOMATED METHOD 02/20/2025 3:27 AM EDT [facility] pH, Urine 6.0 5.0 - 8.0 LAB URINALYSIS - AUTOMATED METHOD 02/20/2025 3:27 AM EDT [facility] Protein, Urine Negative Negative mg/dL LAB URINALYSIS - AUTOMATED METHOD 02/20/2025 3:27 AM EDT [facility] Glucose, Urine Negative Negative mg/dL LAB URINALYSIS - AUTOMATED METHOD 02/20/2025 3:27 AM EDT [facility] Ketones, Urine Trace(A) Negative mg/dL LAB URINALYSIS - AUTOMATED METHOD 02/20/2025 3:27 AM EDT [facility] Blood, Urine Negative Negative LAB URINALYSIS - AUTOMATED METHOD 02/20/2025 3:27 AM EDT [facility] Bilirubin, Urine Negative Negative LAB URINALYSIS - AUTOMATED METHOD 02/20/2025 3:27 AM EDT [facility] Urobilinogen, Urine 1.0 0.2 to 1.0 mg/dL LAB URINALYSIS - AUTOMATED METHOD 02/20/2025 3:27 AM EDT [facility] Leukocytes, Urine Moderate(A) Negative LAB URINALYSIS - AUTOMATED METHOD 02/20/2025 3:27 AM EDT [facility] Nitrite, Urine Negative Negative LAB URINALYSIS - AUTOMATED METHOD 02/20/2025 3:27 AM EDT [facility] RBC, Urine 3 0 to 3 /HPF LAB URINALYSIS - AUTOMATED METHOD 02/20/2025 3:27 AM EDT [facility] WBC, Urine >50(A) 0 to 5 /HPF LAB URINALYSIS - AUTOMATED METHOD 02/20/2025 3:27 AM EDT [facility] Squamous Epithelial Cells 11 - 20(A) 0 to 5 /HPF LAB URINALYSIS - AUTOMATED METHOD 02/20/2025 3:27 AM EDT [facility] Hyaline Casts 0 - 2 0 to 5 /LPF LAB URINALYSIS - AUTOMATED METHOD 02/20/2025 3:27 AM EDT [facility] Bacteria, Urine Present Negative LAB URINALYSIS - AUTOMATED METHOD 02/20/2025 3:27 AM EDT [facility] Urine Urine specimen obtained by clean catch procedure / Unknown Non-blood Collection / Unknown 02/20/2025 3:04 AM EDT 02/20/2025 3:09 AM EDT us Leida Marcano MACHINE SIGN WRITER, DNP LAB URINE ORDERABLES Final Result [facility] [address] [place] [address] * XR Cervical Spine 2 or 3 [...] post surgical changes from posterior fusion from C1roolfxa C7. Mild C5-6 and C6-7 retrolisthesis. CRITICAL RESULT: No. COMMUNICATION: Per this written report. Drafted by Boston Nagel MD on 02/18/2025 10:47 PM Final report signed by Boston Nagel MD on 02/18/2025 10:49 PM us Jeremy Ramirez MD IMG XR PROCEDURES Final Result * Kelly auris Surveillance by PCR (02/17/2025 3:25 AM EDT) Kelly auris PCR Result Not Detected Not Detected 02/17/2025 9:33 AM EDT [facility] Swab (Axilla and Groin) Non-blood Collection / Unknown 02/17/2025 3:25 AM EDT 02/17/2025 4:25 AM EDT Narrative [facility] - 02/17/2025 9:33 AM EDT This PCR assay was developed and its performance characteristics determined by [facility] as appropriate for clinical purposes. This assay has not been cleared or approved by the FDA, but is performed in a CLIA regulated laboratory that is qualified to perform high-complexity testing. us Jeremy Ramirez MD LAB MICROBIOLOGY - GENERAL ORD ERABLES Final Result [facility] [address] [place] [address] * Multi Drug Resistance Test (02/17/2025 3:25 AM EDT) Culture No growth at day 1 02/18/2025 6:06 AM EDT [facility] Swab (Nares and Jeimy Rectal) Non-blood Collection / Unknown 02/17/2025 3:25 AM EDT 02/17/2025 4:25 AM EDT Narrative [facility] - 02/18/2025 6:06 AM EDT This test was developed and its performance characteristics determined by the [facility]. Although the media is FDA-approved, it is not FDA-approved for all specimen types submitted. The FDA has determined that such clearance or approval is not necessary. This test is used for surveillance purposes. It should not be regarded as investigational or for research. The [facility] is certified under the Clinical Laboratory Improvement Amendments of 1988 (CLIA-88) as qualified to perform high complexity clinical laboratory testing. us Jeremy Ramirez MD LAB MICROBIOLOGY - GENERAL ORD ERABLES Final Result [facility] [address] [place] [address] * KS CRITICAL CARE, ADDL 30 MIN, KS CRITICAL CARE, ADDL 30 MIN (02/16/2025 6:33 [...] on the same day: yes us Joce Taveras [facility]/BEDSIDE ORDERABLES Final Result * FL Less than 1 Hour Intraoperative (02/16/2025 11:21 AM EDT) Narrative IMAGING - 02/16/2025 11:22 AM EDT Images were obtained for surgical purposes. See Jeremy Ramirez's surgical note in the patient's chart for the findings. Jeremy Ramirez MD IMG FLUOROSCOPY PROCEDURES Fin al Result IMAGING * PB ANESTHESIA NON-TIMED PROCEDURE PLACEHOLDER (02/16/2025 [...] by tape. Seldinger technique used Staffing Performed: SERVICES HOST SERVICES HOST: Chester Nazario CRNA Franck Omer MD ANESTHESIA ORDERABLES Final Re sult * KS AN ELECTIVE ENDOTRACHEAL AIRWAY, PB ANESTHESIA PLACEHOLDER (02/16/2025 7:39 AM EDT) Narrative Chester Nazario CRNA - 02/16/2025 7:39 AM EDT Chester Nazario CRNA 02/16/2025 7:53 AM Airway Date/Time: 02/16/2025 7:39 AM Reason: elective Airway not difficult General Information and Staff Patient location during procedure: [place] Anesthesiologist: Franck Omer MD SERVICES HOST: Chester Nazario CRNA Performed: GLENIS Patient Condition [...] from: lips ETT to lips (cm): 21 us Franck Omer MD ANESTHESIA ORDERABLES Final Re sult * POCT , URINE (02/16/2025 7:19 AM EDT) POCT Test, Urine Negative Males and Non- Females: Negative 02/16/2025 7:25 AM EDT [facility] Belt Maker Helper ID Janice Luna 02/16/2025 7:25 AM EDT HEALTHCARE LAB Device ID [id number] 02/16/2025 7:25 AM EDT [facility] Urine Urine specimen obtained by clean catch procedure / Unknown 02/16/2025 7:19 AM EDT 02/16/2025 7:25 AM EDT us Jeremy Ramirez MD LAB POINT OF CARE TE ST DOCKED DEVICE UNSOLICITED RESULTS Final Result Performing Organization Address City/[facility] Co de Phone Number [facility] [address] [place] [address] * Type and Screen (02/16/2025 6:56 AM EDT) Only the most recent of2 resultswithin the time period is included. ABO/Rh O Positive 02/16/2025 6:56 AM EDT BLO[facility]ANK Antibody Screen Negative 02/16/2025 6:56 AM EDT [facility] Specimen Expiration 02/19/2025 23:59 02/16/2025 6:56 AM EDT [facility]LO[facility] Blood Venous blood specimen / Unknown Venipuncture / Unknown 02/16/2025 6:56 AM EDT 02/16/2025 7:04 AM EDT us Jeremy Ramirez MD LAB BLOOD BANK TEST ORDERABLES Final Result Performing Organization Address City/[facility] Co de Phone Number BLOOD BANK [address] [place] [address], * APTT (01/28/2025 4:02 PM EDT) aPTT 29 25 - 35 sec LAB COAGULATION METHOD 01/28/2025 5:07 PM EDT [facility] Blood Venous blood specimen / Unknown Venipuncture / Unknown 01/28/2025 4:02 PM EDT 01/28/2025 4:03 PM EDT us Marisol Allen MACHINE SIGN WRITER LAB BLOOD ORDERABLES Final Result [facility] [address] [place] [address] * (ABNORMAL) CBC and differential (01/28/2025 4:02 PM EDT) Only the most recent of2 resultswithin the time period is included. WBC Count 11.35(H) 3.70 - 10.30 10*3/uL LAB HEMATOLOGY METHOD 01/28/2025 4:56 PM EDT [facility] RBC Count 3.66(L) 3.90 - 5.20 10*6/uL LAB HEMATOLOGY METHOD 01/28/2025 4:56 PM EDT [facility] HGB 10.9(L) 11.2 - 15.7 g/dL LAB HEMATOLOGY METHOD 01/28/2025 4:56 PM EDT [facility] HCT 33.7(L) 34.0 - 45.0 % LAB HEMATOLOGY METHOD 01/28/2025 4:56 PM EDT [facility] Platelet Count 195 155 - 369 10*3/uL LAB HEMATOLOGY METHOD 01/28/2025 4:56 PM EDT [facility] MCV 92 79 - 98 fL LAB HEMATOLOGY METHOD 01/28/2025 4:56 PM EDT [facility] MCH 29.8 26.0 - 32.0 pg LAB HEMATOLOGY METHOD 01/28/2025 4:56 PM EDT [facility] MCHC 32.3 30.7 - 35.5 g/dL LAB HEMATOLOGY METHOD 01/28/2025 4:56 PM EDT [facility] RDW 12.7 11.5 - 14.5 % LAB HEMATOLOGY METHOD 01/28/2025 4:56 PM EDT [facility] MPV 9.2 8.8 - 12.5 fL LAB HEMATOLOGY METHOD 01/28/2025 4:56 PM EDT [facility] nRBC 0.0 <=0.0 per 100 WBCs LAB HEMATOLOGY METHOD 01/28/2025 4:56 PM EDT [facility] Differential Type Automated LAB HEMATOLOGY METHOD 01/28/2025 4:56 PM EDT [facility] Neutrophils % 83 % LAB HEMATOLOGY METHOD 01/28/2025 4:56 PM EDT [facility] Lymphocytes % 10 % LAB HEMATOLOGY METHOD 01/28/2025 4:56 PM EDT [facility] Monocytes % 7 % LAB HEMATOLOGY METHOD 01/28/2025 4:56 PM EDT [facility] Eosinophils % 0 % LAB HEMATOLOGY METHOD 01/28/2025 4:56 PM EDT [facility] Basophils % 0 % LAB HEMATOLOGY METHOD 01/28/2025 4:56 PM EDT [facility] Immature Granulocytes % 0 % LAB HEMATOLOGY METHOD 01/28/2025 4:56 PM EDT [facility] Neutrophils Absolute 9.30(H) 1.60 - 6.10 10*3/uL LAB HEMATOLOGY METHOD 01/28/2025 4:56 PM EDT [facility] Lymphocytes Absolute 1.11(L) 1.20 - 3.90 10*3/uL LAB HEMATOLOGY METHOD 01/28/2025 4:56 PM EDT [facility] Monocytes Absolute 0.84 0.30 - 0.90 10*3/uL LAB HEMATOLOGY METHOD 01/28/2025 4:56 PM EDT [facility] Eosinophils Absolute 0.02 0.00 - 0.50 10*3/uL LAB HEMATOLOGY METHOD 01/28/2025 4:56 PM EDT [facility] Basophils Absolute 0.03 0.00 - 0.10 10*3/uL LAB HEMATOLOGY METHOD 01/28/2025 4:56 PM EDT [facility] Immature Granulocytes Absolute 0.05 0.00 - 0.06 10*3/uL LAB HEMATOLOGY METHOD 01/28/2025 4:56 PM EDT [facility] Blood Venous blood specimen / Unknown Venipuncture / Unknown 01/28/2025 4:02 PM EDT 01/28/2025 4:03 PM EDT Narrative [facility] - 01/28/2025 4:56 PM EDT Therapeutic decision making should be based on absolute values, rather than percentages. us Marisol Bermeo Alejandro MACHINE SIGN WRITER LAB BLOOD ORDERABLES Final Result [facility] [address] [place] [address] * (ABNORMAL) Basic metabolic panel (01/28/2025 4:02 PM EDT) Glucose, Plasma 91 74 - 99 mg/dL 01/28/2025 5:09 PM EDT [facility] BUN, Plasma 8 7 - 21 mg/dL 01/28/2025 5:09 PM EDT [facility] Creatinine, Plasma 0.53(L) 0.60 - 1.10 mg/dL 01/28/2025 5:09 PM EDT [facility] BUN/Creatinine Ratio 15 01/28/2025 5:09 PM EDT [facility] Sodium, Plasma 140 136 - 145 mmol/L 01/28/2025 5:09 PM EDT [facility] Potassium, Plasma 3.6 3.6 - 4.9 mmol/L 01/28/2025 5:09 PM EDT [facility] Chloride, Plasma 100 97 - 107 mmol/L 01/28/2025 5:09 PM EDT [facility] CO2, Plasma 28 22 - 29 mmol/L 01/28/2025 5:09 PM EDT [facility] Anion Gap 12 6 - 16 mmol/L 01/28/2025 5:09 PM EDT [facility] Total Calcium, Plasma 9.1 8.9 - 10.2 mg/dL 01/28/2025 5:09 PM EDT [facility] eGFRcr 115.7 mL/min/1.7 3m*2 01/28/2025 5:09 PM EDT [facility] Comment:Reported eGFRcr in m L/min/1.73m2 is based the CKD-EPI 2020 equation that does not use a race coefficient. Blood Venous blood specimen / Unknown Venipuncture / Unknown 01/28/2025 4:02 PM EDT 01/28/2025 4:03 PM EDT us Marisol Allen MACHINE SIGN WRITER LAB BLOOD ORDERABLES Final Result Performing Organization Address City/[facility]/ZIP Co de Phone Number [facility] [address] [place] [address] * ECG Adult (Now - Performed in your clinic) (01/28/2025 3:52 PM EDT) EKG DIAGNOSIS CLASS Borderline Normal MUSE ECG Ventricular Rate 108 BPM MUSE ECG Atrial Rate 108 BPM MUSE ECG KS Interval 116 ms MUSE ECG QRSD Interval 86 ms MUSE ECG QT Interval 320 ms MUSE ECG QTC Interval 428 ms MUSE ECG P Roby 4 degrees MUSE ECG R Roby 23 degrees MUSE ECG T Wave Roby 19 degrees MUSE ECG Diagnosis Sinus tachycardia MUSE ECG Diagnosis Otherwise normal ECG MUSE ECG Diagnosis MUSE ECG Diagnosis Confirmed by Tanner Butler ([id number]) on 01/28/2025 7:36:54 PM MUSE ECG 01/28/2025 3:52 PM EDT 01/28/2025 7:36 PM EDT us Mariama Montemayor PA ECG ORDERABLES Final Resu lt Performing Organization Address City/[facility] Co de Phone Number MUSE ECG * XR Cervical Spine Complete 4 To 5 Views (01/08/2025 1:23 PM EDT) Anatomical Region Laterality Modality Spine, C-spine Digital Radiogra phy Impressions 01/08/2025 2:11 PM EDT No acute osseous findings. Multilevel degenerative changes, better seen on recent MRI. CRITICAL RESULT: No. COMMUNICATION: Per this written report. Drafted by Nikhil Lima MD on 01/08/2025 2:08 PM Final report signed by Nikhil Lima MD on 01/08/2025 2:11 PM Narrative 01/08/2025 2:11 PM EDT CLINICAL INDICATION: neck pain TECHNIQUE: XR CERVICAL SPINE COMPLETE 4 TO 5 VIEWS COMPARISON: December 28, 2024, December 23, 2024. FINDINGS: Grade 1 retrolisthesis C4 on C5 and C5-C6. Mild disc space narrowing at C4-C5 C5-C6. Moderate multilevel degenerative changes, better seen on recent MRI No dynamic instability. Procedure Note Nikhil Boyer MD - 01/08/2025 CLINICAL INDICATION: neck pain TECHNIQUE: XR CERVICAL [...] report signed by Nikhil Lima MD on 52:11 PM Marisol Allen MACHINE SIGN WRITER IMG XR PROCEDURES Final Re sult * XR Chest 1 View (12/28/2024 1:45 PM EDT) Anatomical Region Laterality Modality Chest Digital Radiogra phy Impressions 12/28/2024 2:30 PM EDT No acute finding CRITICAL RESULT: No. COMMUNICATION: Per this written report. Drafted by Markell Chao MD on 12/28/2024 2:29 PM Final report signed by Markell Chao MD on 12/28/2024 2:30 PM Narrative 12/28/2024 2:30 PM EDT CLINICAL INDICATION: pre-op TECHNIQUE: XR CHEST 1 VIEW COMPARISON: None. FINDINGS: Lungs are clear. Heart and mediastinal contours are within normal limits. No pneumothorax. No pleural effusion. Bony structures are unremarkable. Procedure Note Markell Chao MD - 12/28/2024 CLINICAL INDICATION: pre-op TECHNIQUE: XR CHEST 1 VIEW COMPARISON: None. FINDINGS: Lungs are clear. Heart and mediastinal contours are within normal limits.No pneumothorax. No pleural effusion. Bony structures are unremarkable. IMPRESSION: No acute finding CRITICAL RESULT: No. COMMUNICATION: Per this written report. Drafted by Markell Chao MD on 12/28/2024 2:29 PM Final report signed by Markell Chao MD on 12/28/2024 2:30 PM Serafin Paz MD IMG XR PROCEDURES Final Resu lt * Gold Top (12/28/2024 1:02 PM EDT) Extra Hold for add-ons 12/28/2024 4:01 PM EDT [facility] Comment:Auto resulted. Blood Venous blood specimen / Unknown 12/28/2024 1:02 PM EDT 12/28/2024 1:27 PM EDT Serafin Paz MD LAB BLOOD ORDERABLES Final R esult [facility] [address] [place] [address] * CT ABDOMEN OUTSIDE IMAGES (12/28/2024 10:48 AM EDT) Anatomical Region Laterality Modality Computed Tomogra phy 12/28/2024 10:4 8 AM EDT us External Provider IMG CT PROCEDURES Final Result * CT NEURO OUTSIDE IMAGES (12/28/2024 10:45 AM EDT) Anatomical Region Laterality Modality Computed Tomogra phy 12/28/2024 10:4 5 AM EDT us External Provider IMG CT PROCEDURES Final Result * MR transfer of outside films (12/23/2024 1:27 PM EDT) Anatomical Region Laterality Modality Magnetic Resonan ce 12/23/2024 1:27 PM EDT us External Provider IMG MRI PROCEDURES Final Resul t from Last 3 Months Insurance ANTH Advance Directives * Full Code (Latest Code Status on File) Date Activated Date Inactivated Comments 02/23/2025 12:06 PM * Full Code Date Activated Date Inactivated Comments 02/16/2025 12:05 PM 02/23/2025 12:06 PM Question Answer Comments I have reviewed the capacity from the link above and, if needed, have updated to appropriate status: Yes * Full Code Date Activated Date Inactivated Comments 12/28/2024 7:29 PM 12/29/2024 12:50 PM Question Answer Comments I have reviewed the capacity from the link above and, if needed, have updated to appropriate status: Yes Care Teams Mail Clerks Supervisor Relationship Specialty Start Date End Date Sheila Ashraf APRN [address] [place] [address] PCP - General 12/28/24 Jeremy Ramirez MD [address] [place] [address] Surgeon Neurosurgery 01/08/25 Marisol Allen APRN [address] [place] [address] Nurse Practitioner 01/28/25
--- OUTSIDE RECORDS SUMMARY | 2025-03-20 21:46 | XMS_ITS | Encounter Summary ---
Author Organization Healthcare Address [address] [place] [address] Care Team Providers Care Telecommunication Lines Repairer Name Role Phone Sheila Ashraf Bill HEDDLER TIER Primary Care Provider + [phone] Jeremy Ramirez MD Unavailable [phone] Marisol Allen HEDDLER TIER Unavailable [phone] Reason for Visit * Reason Onset Date Comments HCN - Patient Message 02/01/2025 Call back Encounter Details Date Type Department Care Team (Late st Contact Info) Description 02/01/2025 Telephone [facility] [address], [address] [place] [address] Jeremy Ramirez MD [address] [place] [address] HCN - Patient Message (Call back ) Social History Tobacco Use Types Packs/Day Years [...] any time in the past 12 m [facility], were you homeless or living in a usp (including now)? No 02/17/2025 CAGE ASSESSMENT Answer [...] drink first t mt in the morning (EYE-SHOE SPRAYER) to steady your nerves or to get [...] Packer RN documented as of this encounter Miscellaneous Notes * Telephone Encounter - Jaylen Al RN - 02/01/2025 1:47 PM EDT Called and spoke w/ pt regarding FMLA paperwork. Refaxed to [phone] as previous number inaccurate. Also scanned/emailed to [email or web address] * Telephone Encounter - Lyly Can - 02/01/2025 1:03 PM EDT Patient Phone Message Reason for Call: Patient is requesting a call back to discuss FMLA paperwork. Best contact number and optimal time of day to reach caller: [phone] anytime Note: Please do not reply to this message. Follow-up communication and further actions as a result of this message need to be communicated with the patient directly, if the patient is not active onMyChart. If the patient is active on MyChart, they will receive notification of the communication/outcome via MyChart. documented in this encounter Plan of Treatment Upcoming Encounters Date Type Department Care Team (Late st Contact Info) Description 04/02/2025 1:20 PM EDT Office Visit [place] [facility] [address] [place] [address] Jeremy Ramirez MD [address] [place] [address] documented as of this encounter Visit Diagnoses Not on filedocumented in this encounter Additional Health Concerns Assessment Noted Time A fall risk assessment has been complete d for the patient 01/28/2025 2:22 PM EDT A Body Mass Index follow-up plan has been documented for the patient 01/28/2025 4:12 PM EDT documented as of this encounter Care Teams Telecommunication Lines Repairer Relationship Specialty Start Date End Date Sheila Ashraf, HEDDLER TIER [address] [place] [address] PCP - General 12/28/24 Jeremy Ramirez MD [address] [place] [address] Surgeon Neurosurgery 01/08/25 Marisol Allen, HEDDLER TIER [address] [place] [address] Nurse Practitioner 01/28/25 documented as of this encounter
--- OUTSIDE RECORDS SUMMARY | 2025-03-20 21:46 | XMS_ITS | Encounter Summary ---
Author Organization Healthcare Address [address] [place] [address] Care Team Providers Care Mammographer Name Role Phone Sheila Ashraf Bill LVN Primary Care Provider + [phone] Jeremy Ramirez MD Unavailable [phone] Marisol Allen LVN Unavailable [phone] Encounter Details Date Type Department Care Team (Late st Contact Info) Description 02/15/2025 Telephone [place] [facility] [address], [address] [place] [address] Jeremy Ramirez MD [address] [place] [address] Social History Tobacco Use Types Packs/Day Years [...] encounter Miscellaneous Notes * Telephone Encounter - Rand Cuevas - 02/15/2025 4:57 PM EDT Spoke w/ patient, advised surgery is scheduled from 730AM -1PM. Verbalized understanding and patient aware of arrival time. * Telephone Encounter - Lou Del Angel - 02/15/2025 4:39 PM EDT Patient Phone Message Reason for Call: Pt calling to see how long the surgery is going to take. She wants to know if it will be cadaver graph. Surgery is tomorrow Best contact number and optimal time of day to reach caller: [phone] Note: Please do not reply to this message. Follow-up communication and further actions as a result of this message need to be communicated with the patient directly, if the patient is not active onMyChart. If the patient is active on MyChart, they will receive notification of the communication/outcome via [employer]. documented in this encounter Plan of Treatment Upcoming Encounters Date Type Department Care Team (Late st Contact Info) Description 04/02/2025 1:20 PM EDT Office Visit [place] [facility] [address], [address] [place] [address] Jeremy Ramirez MD [id number] [place] [address] documented as of this encounter Visit Diagnoses Not on filedocumented in this encounter Additional Health Concerns Assessment Noted Time A fall risk assessment has been complete d for the patient 01/28/2025 2:22 PM EDT A Body Mass Index follow-up plan has been documented for the patient 01/28/2025 4:12 PM EDT documented as of this encounter Care Teams Mammographer Relationship Specialty Start Date End Date Sheila Ashraf APRN [facility] [place] [address] PCP - General 12/28/24 Jeremy Ramirez MD [address] [place] [address] Surgeon Neurosurgery 01/08/25 Marisol Allen APRN [address] [place] [address] Nurse Practitioner 01/28/25 documented as of this encounter
--- OUTSIDE RECORDS SUMMARY | 2025-03-20 21:47 | XMS_ITS | Encounter Summary ---
Author Organization Healthcare Address [address] [place] [address] Care Team Providers Care Clerical Office Name Role Phone Sheila Ashraf BENCH WORKER Primary Care Provider + [phone] Jeremy Ramirez MD Unavailable [phone] Marisol Allen BENCH WORKER Unavailable [phone] Reason for Referral * Medications - Closed Specialty Diagnoses / Procedures Referred By Cachorro machado Referred To Contact Diagnoses History of cervical spinal surgery Jeremy Ramirez MD [address] [place] [address] Phone: tel: fax: Referral ID Status Reason Start Date Expiration Date Visits Re quested Visits Authorized [id number] Closed 1 1 Reason for Visit * Reason Onset Date Comments Med Refill 03/18/2025 Encounter Details Date Type Department Care Team (Late st Contact Info) Description 03/18/2025 [facility]ill [facility] [address] [place] [address] Brad Deshpande, BENCH WORKER [address] [address] History of cervical spinal surgery (Primary Dx) Social History Tobacco Use Types [...] any time in the past 12 m [facility], were you homeless or living in a [facility] (including now)? No 02/17/2025 CAGE ASSESSMENT Answer [...] drink first t mt in the morning (EYE-DENTAL THERAPIST) to steady your nerves or to get [...] Description 04/02/2025 1:20 PM EDT Office Visit [place] [facility] [address], [address] [place] [address] Jeremy Ramirez MD [address] [address] documented as of this encounter Visit Diagnoses Diagnosis History of cervical spinal surgery- Primary documented in this encounter Additional Health Concerns Assessment Noted Time A fall risk assessment has been complete d for the patient 03/03/2025 12:35 PM EDT A Body Mass Index follow-up plan has been documented for the patient 03/03/2025 4:25 PM EDT documented as of this encounter Care Teams Clerical Office Relationship Specialty Start Date End Date Sheila Ashraf APRN [address] [place] [address] PCP - General 12/28/24 Jereym Ramirez MD [address] [address] Surgeon Neurosurgery 01/08/25 Marisol Allen APRN [address] [place] [address] Nurse Practitioner 01/28/25 documented as of this encounter
[2025-03-20 21:50] VITALS: BP 146/93; PULSE 98; RESP 15; TEMP 36.9; O2SAT 98; BMI 25.2
--- NOTE | 2025-03-20 22:14 | ED_ITS ---
Discharge Plan Disposition Patient Disposition: Home, Self-Care Prescriptions Prescriptions: New clindamycin HCl [Cleocin HCl] 150 mg capsule 150 mg PO TID 5 Days Qty: 15 0RF No Action Mirena 21 mcg/24 hours (8 yrs) 52 mg intrauterine device 1 device intrauterine ONCE spironolactone 50 mg tablet 50 mg PO DAILY Patient Comments: TAKE ONE TABLET BY MOUTH DAILY metronidazole 500 mg tablet 500 mg PO BID 7 Days Qty: 14 0RF Referrals Follow up/Referrals: Sheila Ashraf [Primary Care Provider, Medical] - See instructions Activity Restrictions/Add. Instructions Additional Instructions/Restrictions: You have an infection in your left foot called cellulitis. You were given a dose of antibiotics here and are being prescribed a 5-day course of clindamycin. Take this as prescribed. In addition to this, you can take Tylenol and ibuprofen to help with symptoms. Follow-up with your primary care physician early next week for reassessment to ensure that symptoms are improving. If you develop any new or worsening symptoms, such as fever, worsening redness or swelling tracking up the leg, difficulty breathing, or if you become concerned for your health for any reason, return to the emergency department for evaluation. Clinical Impressions Clinical Impression: Cellulitis of foot, left Instructions Patient Instructions: DI for Skin Abscess Print Language Print Language: Macedonian Discharge ED Provider: Jose Manuel Osorio Adult HPI General Chief complaint: Skin/Abscess/Foreign Body Stated complaint: AO 9-20 left foot insect bite Time Seen by Provider: 03/20/25 21:56 Mode of Arrival: Ambulatory Source of Information: Patient Description of Symptoms (Recalled from ER Triage Doc. by RN): Pt arrives with concerns for a blister that appeared on her left outer foot/great toe 3 days ago. Pt has been at [facility] recovering from a C3-C7 Fusion after complications. She states she hasn't worn t=shoes in awhile and isn't sure if shoe rubbed blister or maybe a spider bit her. History of Present Illness HPI narrative: Hyacinth Marin is a 45-year-old female with past medical history of cervical spine fusion complicated by spinal cord compression with strokelike symptoms resulting in right upper extremity weakness who presents to the emergency department for complaints of pain, redness and swelling to her left foot. Patient states that on Saturday, she wore a pair of boots that she had not worn in some time and developed a blister to the base of her left big toe. She states that the blister popped. Since then, she has had increased redness and swelling to the area in the foot. She states it is painful to walk but she is still able to do so. She denies any fevers. She denies any history of blood clots. Related Data Home Medications ?Medication ?Instructions ?Recorded ?Confirmed levonorgestrel (Mirena) 1 device intrauterine ONCE 0 11/13/22 03/23/24 spironolactone 50 mg tablet 50 mg PO DAILY 12/04/23 Previous Rx's ?Medication ?Instructions ?Recorded metronidazole 500 mg tablet 500 mg PO BID 7 days #14 t abs 03/27/24 clindamycin HCl 150 mg capsule 150 mg PO TID 5 days #1 5 caps 03/20/25 (Cleocin HCl) Allergies Allergy/AdvReac Type Severity Reaction Status Date / Time From Penicillin V Potassium Allergy Unknown Uncoded 03/23/24 13:28 SULFA (SULFONAMIDE) Allergy Unknown I-HIVES Uncoded 03/23/24 13:28 [facility] Disclaimer: The information contained in this section may have been updated after the patient was seen, as this information can be updated by other users. Medical History delivery delivered Surgical History [place] teeth removed Family History Other Alcoholism Asthma Cancer Coronary artery disease Diabetes Heart attack Hyperlipidemia Hypertension Kidney disease Substance abuse Thyroid disorder Social History Smoking Status: Current every day smoker tobacco type: cigarettes alcohol intake: never substance use type: former substance user current occupational status: employed Travel in the last 8 weeks?: None Have you lived/traveled outside US in past 30 days?: No Contact w/someone who lives/traveled outside US past 30 days?: No Exposure to someone with infectious disease in past 14 days?: No Do you have a fever (greater than 100.4 F or 38 C)?: No Have you tested positive for COVID-19?: No Exposed to someone with COVID-19 in past 14 days?: No Do you have a sore throat?: No Do you have a cough?: No Do you have any weakness?: No Do you have any diarrhea?: No Are you experiencing any unusual bleeding?: No Do you have any muscle aches/pain?: No Do you have any abdominal pain?: No Are you experiencing loss of taste or smell?: No Other Medical History Have you received the Pneumonia Vaccine: No ROS Obtained: Yes Systems reviewed as appropriate & no additional complaints except as documented Physical Exam General General appearance: alert and in no apparent distress Head Head exam: atraumatic Eye Eye exam: Present normal appearance ENT ENT exam: Present normal external ear exam Neck Neck exam: Present full ROM Chest Chest inspection: Present symmetric chest wall rise Respiratory Respiratory exam: Present normal lung sounds bilaterally; Absent respiratory distress Cardiovascular Cardiovascular exam: Present regular rate and normal rhythm Abdominal Exam Abdominal exam: Present soft; Absent tenderness or guarding Extremities Exam Extremities exam: Present normal inspection Back Exam Back exam: Present normal inspection Neurological Exam Neurological exam: Present alert and oriented X3 Psychiatric Psychiatric exam: Present normal affect Skin Skin exam: Present warm, dry and other (LLE: Erythema and nonpitting edema to the foot along the first MTP area extending to the forefoot. There is a scab without drainage over the MTP area of the first digit. 2+ DP and PT pulses. No tenderness or swelling proximal to this. She has less than 2-second capillary refill.) Medical Decision Making Medical Records Screening: Per USPSTF and CDC recommendations, given the prevalence of disease in our region, it is our hospital?s policy to screen for HIV and viral Hepatitis for all patients aged 18 and over and those with ongoing risk factors. Stefan Inquiry Pt receiving controlled substance: No Vital Signs: 03/20/25 21:46 03/20/25 21:50 Temperature 98.5 F Temperature Source Oral Pulse Rate 102 H Pulse Rate [Left] 98 H Respiratory Rate 15 Blood Pressure 146/93 H Blood Pressure [Right Arm] 146/93 H Blood Pressure Mean [Right Arm] 110 Blood Pressure Source [Right Arm] Automatic Cuff Blood Pressure Position [Right Arm] Sitting 02 Sat by Pulse Oximetry 98 98 Oxygen Delivery Method Room Air Room Air Orders (Tests/Meds): ED MEDICATIONS Discontinued Medications Generic Name Dose Route Start Last Admin Trade Name Freq PRN Reason Stop Dose Admin Clindamycin HCl 450 mg 03/20/25 22:11 Clindamycin 150mg Capsule PO 03/20/25 22:12 ONCE ONE ORDERS Category Date Time Status POCUS Point of Care (ER Only) Stat Exams 03/20/25 22:02 Ordered Medical Decision Narrative: Hyacinth Marin is a 45-year-old female with past medical history of cervical spine fusion complicated by spinal cord compression with strokelike symptoms resulting in right upper extremity weakness who presents to the emergency department for complaints of pain, redness and swelling to her left foot. Patient states that on Saturday, she wore a pair of boots that she had not worn in some time and developed a blister to the base of her left big toe. She states that the blister popped. Since then, she has had increased redness and swelling to the area in the foot. She states it is painful to walk but she is still able to do so. She denies any fevers. She denies any history of blood clots. On arrival, patient is hemodynamically stable, in no acute distress, afebrile, maintaining appropriate oxygen saturation on room air. Physical exam, stated above, revealed overall well-appearing female. She has redness and nonpitting edema to her left foot near the base of her first MTP extending to the mid forefoot. She has 2+ DP and PT pulses. She has a scab over the medial aspect of the MTP of the left foot. Less than 2-second to refill. Sensation intact. No swelling or pain proximal to this. Differential diagnosis includes, but is not limited to: Cellulitis, abscess, low concern for DVT as patient's symptoms are isolated to the foot and she has f indings consistent with cellulitis. Bedside [id number] ultrasound was performed and showed cobblestoning but no abscess. See procedure note for details. Given patient does not appear septic at this time, is felt that no additional imaging studies or laboratory studies would change ED management at this time. There is low concern for osteomyelitis. Patient symptomatology and when her ultrasound are most consistent with cellulitis. Will treat patient with clindamycin as she is allergic to penicillins and cephalosporins. Patient was given Forner 50 mg clindamycin here in the emergency department and a 5-day course was sent to her pharmacy. She was told to follow-up with her primary care physician early next week for reassessment. Patient was given strict return precautions. All questions were answered. She demonstrated understanding and was agreement this plan. She was then discharged from the emergency department in stable condition. Procedures Limited Ultrasound Interpretation:: Limited MSK/soft tissue ultrasound performed by Jose Manuel Osorio MD Indication: Soft tissue swelling and redness Identified structures: Location: Left foot Findings: Cellulitis Impression: Cellulitis of soft tissue Images were saved to permanent archive The study was technically adequate Soft Tissue CPT Codes: CPT Lower Extremity: 17759-32 CPT Other Soft Tissue: 77100-61 This study was performed by me, and I personally interpreted all images/videos. Based on my clinical judgement, these images were adequate and did not necessitate further imaging. Critical Care Critical Care Time Critical Care Time: No
[2025-03-20] MEDS: CLINDAMYCIN 150MG CAPSULE 450 MG PO (22:19)
[2025-03-20 22:24] VITALS: BP 142/87; PULSE 88; RESP 16; TEMP 36.9; O2SAT 97
== END 2025-03-20 22:26 | disposition home or self-care (01) ==
PROVIDERS: Emergency Provider Student in an Organized Health Care Education/Training Program; PCP Nurse Practitioner Family
DX: L03.116 Cellulitis of left lower limb (principal); F17.210 Nicotine dependence, cigarettes, uncomplicated
CPT/HCPCS: 99282; 99284